=== PATIENT | male | born 1965 | race Caucasian/White ===

== ENCOUNTER 2024-04-27 08:58 | Outpatient (AMB) | payer OTHER, SELFPAY ==
--- NOTE | 2024-04-27 09:06 | MHC.PC.OV ---
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 Needs referral for possible hernia. 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 He states he has not had since prior to the pandemic. He states he has a hx of insomnia and treats it with marijuana. He states he made this appointment because he noticed a lump on right groin area. He states it is not painful unless he has to use the bathroom and he has to hold the lump in. He states it started about 3-4 months ago. It has been overall unchanged. He states he can reduce it on his own. No n/v/d. No constipation. No night sweats. He states when he was around the age of 10-11 he had a hernia repair on the right. 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 1. Little interest or pleasure in doing things: not at all 2. Feeling down, depressed, or hopeless: not at all 3. Trouble falling or staying asleep, or sleeping too much: several days 4. Feeling tired or having little energy: several days 5. Poor appetite or overeating: not at all 6. Feeling bad about yourself - or that you are a failure or have let yourself or your family down: not at all 7. Trouble concentrating on things, such as reading the newspaper or watching television: not at all 8. Moving or speaking so slowly that other people could have noticed. Or the opposite - being so fidgety or restless that you have been moving around a lot more than usual: not at all 9. Thoughts that you would be better off or of hurting yourself in some way: not at all Total score: 2 Depression Screening Interpretation: Negative Depression Screening Done: Yes 82138 - PHQ-9 Billing: Yes Source: Developed by Drs. Paul Barnes, Sherry Franco, Filiberto Lamb and colleagues, with an educational geri from [employer]. Thrive Questionnaire Date Thrive assessed: 04/27/24 I am a: Patient What is your living situation today?: I have a steady place to live Within the past 12 months, did the food you bought not last and you didn't have the money to get more?: Never true Within the past 12 months, did you worry whether your food would run out before you got money to buy more?: Never true Do you have trouble paying for medicines?: No Do you have trouble getting transportation to medical appointments?: No Do you have trouble paying your heating and electricity bill?: No Do you have trouble taking care of your child, family member or friend?: No Do you have trouble with day-to-day activities such as bathing, preparing meals, shopping, managing finances, etc.?: No Are you currently unemployed and looking for a job?: No Are you interested in more education?: No Please select the resources that you would like help with: None Currently or been in a relationship where the following occur: No concerns reported THRIVE Score: 0 AUDIT C Alcohol Use Questionnaire (AUDIT-C) 1. How often do you have a drink containing alcohol?: 2-4 times a month 2. How many drinks containing alcohol do you have on a typical day when you are drinking?: 3 or 4 3. How often do you have six or more drinks on one occasion?: Never Total Score: 3 EDUARDO-7 AMB Questionnaire EDUARDO-7 Date EDUARDO - 7 assessed: 04/27/24 Feeling nervous, anxious, or on edge: 0 = Not at all Not being able to stop or control worryin = Not at all Worrying too much about different things: 0 = Not at all Trouble relaxin = Not at all Being so restless that it is hard to sit still: 0 = Not at all Becoming easily annoyed or irritable: 0 = Not at all Feeling afraid as if something awful might happen: 0 = Not at all Total EDUARDO-7 score (0-4 normal; 5-9 mild; 10-14 moderate; 15-21 severe): 0 Source: Developed by Drs. Paul Barnes, Sherry Franco, Filiberto Lamb and colleagues, with an educational geri from [employer]. EDUARDO-7 Assessment Billing EDUARDO-7 Assessment Tool: EDUARDO-7 Assessment 44772 Physical exam (Primary Care) Vital Signs: Last Vital Signs Temp 98.3 F 04/27/24 09:14 Pulse 64 04/27/24 09:14 Resp 12 04/27/24 09:14 BP 132/76 04/27/24 09:14 Pulse Ox 98 04/27/24 09:14 Oxygen Delivery Method Room Air 04/27/24 09:14 BMI result Body Mass Index 23.4 Tobacco/Smoking Status: Tobacco use Status Tobacco use date assessed 04/27/24 04/27/24 09:12 Patient Tobacco Use Status Former Tobacco user 04/27/24 09:12 e-Cigarette/Vaping Use Never Used 04/27/24 09:12 PHQ-9: PHQ-9 Score PHQ-9: Total score 2 04/27/24 09:20 Depression Screening Interpretation: Negative Thrive Assessment: Date of Thrive Assessment Date Thrive assessed 04/27/24 04/27/24 09:20 Currently or been in a relationship where the following occur: No concerns reported Const Orientation/consciousness: patient oriented x3 HENMT Ears: hearing grossly normal bilaterally and TM's normal bilaterally General nose exam: No nasal polyps present Face and sinus: Yes sinuses nontender Mouth: Normal oral and palatal mucosa present Eyes Pupils: Equal, round and reactive pupils present EOM: EOMs intact bilaterally Neck Neck: Yes full ROM and Yes no lymphadenopathy Thyroid: Thyroid normal Chest Chest palpation & inspection: normal inspection of the chest Resp Auscultation: clear to auscultation bilaterally Cardio Rate: regular rate Rhythm: regular rhythm Heart sounds: S1 normal heart sound present and S2 normal heart sound present Peripheral pulses: Peripheral pulses 2+ throughout GI Other: Soft, nontender, reducible right inguinal lump Auscultation: normal bowel sounds Rectal Exam - Male: Yes deferred General: Yes no CVA tenderness Back/Spine/Pelvis Other: Nontender Back: no CVA tenderness Skin General skin exam: no rashes or lesions noted Neuro General: patient oriented x3, gait normal, CN's II-XI intact bilaterally and deep tendon reflexes 2+ bilaterally Cranial nerves: Yes Equal, round and reactive pupils present Motor exam (neuro): 5/5 motor strength present throughout Sensory Exam: double simultaneous stimulation for sensation normal Coordination: [id number] test normal and Romberg test negative Extrem General: Yes normal to inspection and Yes full ROM Psych Affect: normal affect Attitude: cooperative Thought process: Normal thought process present Thought content: Normal thought content present Insight: Good insight present (Psych) Judgement: Good judgement present (Psych) Assessment and Plan Assessment & Plan (1) Routine general medical examination at a health care facility: Code(s): Z00.00 - Encounter for general adult medical examination without abnormal findings Plan: Health maintenance reviewed. Labs ordered. Referral to GI for a colonoscopy. (2) Right groin hernia: Code(s): K40.90 - Unilateral inguinal hernia, without obstruction or gangrene, not specified as recurrent Plan: Referral to General surgery at [place]. Patient has a appointment booked. We did discuss signs and symptoms of a hernia that would require emergent medical treatment. Patient understands and agrees with this plan. Orders: Orders Complete Blood Count Auto Diff Today Z00.00 - Encounter for general adult medical examination without abnormal findings, Z13.220 - Encounter for screening for lipoid disorders Lipid Panel Today Z00.00 - Encounter for general adult medical examination without abnormal findings, Z13.220 - Encounter for screening for lipoid disorders TSH reflex Free T4 Today Z00.00 - Encounter for general adult medical examination without abnormal findings, Z13.220 - Encounter for screening for lipoid disorders Prostate Specific Antigen Scr Today Z00.00 - Encounter for general adult medical examination without abnormal findings, Z13.220 - Encounter for screening for lipoid disorders Microalbumin, Random (w Creat) Today Z00.00 - Encounter for general adult medical examination without abnormal findings, Z13.220 - Encounter for screening for lipoid disorders Comprehensive [place]. Panel Fast Today Z00.00 - Encounter for general adult medical examination without abnormal findings, Z13.220 - Encounter for screening for lipoid disorders Referrals General Surgery Referral K40.90 - Unilateral inguinal hernia, without obstruction or gangrene, not specified as recurrent Open Access Screening Colonoscopy Referral Z12.11 - Encounter for screening for malignant neoplasm of colon, Z12.12 - Encounter for screening for malignant neoplasm of rectum Coding Level of Care Code New Pt Prev Care 40-64y(59536) Diagnoses Routine general medical examination at a health care facility Z00.00 Right groin hernia K40.90 Additional Codes EDUARDO-7 Assessment Billing - EDUARDO-7 Assessment Tool: EDUARDO-7 Assessment 15927 ([id number])
[2024-04-27 09:14] VITALS: BP 132/76; PULSE 64; RESP 12; TEMP 36.8; O2SAT 98; BMI 23.4
== END 2024-04-27 12:40 | disposition home or self-care (01) ==
PROVIDERS: Visit Provider Physician Assistant
DX: Z00.00 Encounter for general adult medical examination without abnormal findings (principal); K40.90 Unilateral inguinal hernia, without obstruction or gangrene, not specified as recurrent; Z13.31 Encounter for screening for depression
CPT/HCPCS: 96127; 99386

== ENCOUNTER 2024-06-30 08:03 | Outpatient (REF) | payer OTHER, SELFPAY ==
[2024-06-30 11:02] LABS: MANUAL DIFF FLAG NO
[2024-06-30 11:19] LABS: Basophils Absolute Auto 0.1 X10*3/uL (0.0-0.2); Basophils Percent Auto 1.1 % (0-2); Eosinophils Absolute Auto 0.2 X10*3/uL (0.0-0.4); Eosinophils Percent Auto 2.5 % (0-4); Hemoglobin 14.4 g/dl (14.0-18.0); Imm Gran Abs Auto 0.02 X10*3/uL (0.00-0.03); Imm Gran Pct Auto 0.2 % (0.0-0.4); Lymphocytes Absolute Auto 2.2 X10*3/uL (1.2-4.9); Mean Corpuscular HGB Conc 33.5 g/dl (31.0-36.0); Mean Corpuscular Volume 95.6 fL (80.0-98.0); Mean Platelet Volume 10.3 fL (9.4-12.4); Monocytes Absolute Auto 0.7 X10*3/uL (0.1-1.2); Monocytes Percent Auto 8.7 % (2-11); Neutrophils Absolute Auto 4.9 x10*3/uL (2.0-8.3); Neutrophils Percent Auto 60.5 % (45-73); Platelet Count 360 X10*3/uL (160-400); White Blood Count 8.1 X10*3/uL (4.8-10.8)
[2024-06-30 11:46] LABS: Prostate Specific Antigen Scr 0.44 ng/mL (<0.05-4.0)
[2024-06-30 11:48] LABS: Alanine Aminotransferase 24 U/L (0-40); Albumin Level 4.4 g/dL (3.5-5.0); Alkaline Phosphatase 76 U/L (39-117); Anion Gap 13 (12-20); Aspartate Amino Transferase 28 U/L (5-37); Bilirubin Total 0.6 mg/dL (0.0-1.0); Blood Urea Nitrogen 17 mg/dL (9-16); Calcium 9.7 mg/dL (8.4-10.2); Carbon Dioxide 28 mmol/L (22-29); Chloride 104 mmol/L (96-108); Cholesterol 177 mg/dL (<200); Estimated Glomerular Filt Rate > 60; Glucose Fasting 102 mg/dL (60-99); HDL Cholesterol 48 mg/dL (>40); LDL Cholesterol Calculated 116 mg/dL (<100); Potassium 4.3 mmol/L (3.3-5.1); Sodium 141 mmol/L (135-145); TSH reflex Free T4 0.79 uIU/mL (0.32-4.0); Total Protein 7.2 g/dL (6.5-8.0); Triglycerides 68 mg/dL (<150)
[2024-06-30 15:53] LABS: Estimated Average Glucose 103 mg/dL; Hemoglobin A1C 126.1224 umol/L; Hemoglobin A1c % 5.2 % (<6.0)
[2024-06-30 18:22] LABS: Creatinine Urine 91.77 mg/dL; Microalbum/Creatinine Ratio Ur 105.6 ug/mg cr (<30)
== END 2024-06-30 08:04 | disposition home or self-care (01) ==
LOC: HO.WFDLDS 08:03
PROVIDERS: Visit Provider Physician Assistant
DX: Z00.00 Encounter for general adult medical examination without abnormal findings (principal); Z13.220 Encounter for screening for lipoid disorders; Z12.5 Encounter for screening for malignant neoplasm of prostate; Z13.1 Encounter for screening for diabetes mellitus
CPT/HCPCS: 36415; 80053; 80061; 82043; 82570; 83036; 84153; 84443; 85025

== ENCOUNTER 2024-06-30 15:23 | Outpatient (REF) | payer OTHER, SELFPAY | END 2024-06-30 15:24 | disposition home or self-care (01) | LOC: HO.WFDLDS 15:23 | PROVIDERS: Visit Provider Physician Assistant | DX: Z00.00 Encounter for general adult medical examination without abnormal findings (principal) | CPT/HCPCS: 36415 ==

== ENCOUNTER 2024-10-11 08:44 | Outpatient (AMB) | payer OTHER, SELFPAY ==
--- NOTE | 2024-10-11 08:50 | A.OFFPC_ITS ---
Vital Signs 10/11/24 08:59 Height 5 ft 8.5 in Weight 161 lb 4 oz BMI 24.2 BP 110/76 Blood Pressure Location Lt brachial Position Sitting Respiration 12 Pulse 71 Pulse Source Pulse Oximeter Pulse Oximetry (%) 99 Oxygen Delivery Method Room Air Intake Visit Reasons: hypertension and Pres Intake Note: HTN. Went to [place]. Need a work note to go back to work. [employer] Required: No Allergies No Known Allergies Allergy (Verified 10/11/24 08:52) Medication List - Last Reconciled 10/12/24 by Gill Car PA-C aspirin 81 mg PO DAILY carvedilol 12.5 mg PO BID hydralazine 50 mg PO TID levetiracetam 750 mg PO BID multivitamin 1 tab PO DAILY nifedipine ER 60 mg PO DAILY pantoprazole 40 mg PO DAILY pyridoxine (vitamin B6) 50 mg PO DAILY thiamine HCl (vitamin B1) 100 mg PO DAILY Tobacco use date assessed: 04/27/24 Dental Screening Dental Screen Date: 04/27/24 HPI hypertension and Pres HPI Details History of Present Illness The patient is a 59-year-old male with no previous significant past medical history presenting today for a hospital follow up. He was admitted on 09/28/2024 and discharged on 10/05/2024. He was recently seen at [facility] after having headaches, UTI symptoms in a seizure at home. He was diagnosed with suspected posterior reversible encephalopathy syndrome, possible right internal carotid dissection, right hydronephrosis and labile blood pressures. The patient reported persistent headaches starting around the beginning of September, with exacerbation on September 27 with UTI symptoms, prompting urgent care consultation where the patient was diagnosed with a urinary tract infection and treated with Bactrim. Symptoms escalated to loss of consciousness and seizure episodes, leading to an emergency room visit and subsequent admission to intensive care at [facility] following initial management at [facility]. His is here today with him and states that she did witness 1 of the episodes at home and that is what prompted her to call EMS. While he was in the ED at [facility] he was noted to have a witnessed seizure and then was intubated and transferred to [facility] for further management. He was noted to have posterior reversible encephalopathy syndrome due to uncontrolled high blood pressure, likely from a renal source. He was treated with antibiotics, antiepileptic medication, and antihypertensives. While admitted he did not have any additional seizures despite being without alcohol for a few days. It is believe to be a possibility that the seizures could have been induced by alcohol withdrawal as he had not had a drink for a few days prior to the hospitalization. He underwent extensive evaluation, including renal ultrasounds revealing moderate right hydronephrosis and cervical ultrasound suggesting extensive cervical lymphadenopathy. this was biopsied. Results are not yet present. Additionally, a possible internal carotid artery dissection was identified on imaging. CT of head showed hypodensities and right hemisphere, could be concerning for PRES secondary to hypertension versus embolic strokes, right ICA dissection noted on CT. V EEG completed with no seizure activity MRI showed findings that could reflect PRES CT shows extensive left cervical lymphadenopathy. In exam left cervical lymph nodes palpable, not fixed, the largest is about 1 cm. Biopsy was completed on 10/03. No pathology results yet. The patient does tell me today that he has been using Suboxone and prior to admission to the hospital was drinking daily, both unmonitored due to lack of professional addiction intervention. Historical review reveals a significant past medical history of alcohol use disorder, with the patient abstinent for three days prior to hospital admission; a history of opioid use warrants concern due to prolonged Suboxone dependence treated personal attempts at dosing reduction due to leg pain and difficulty in achieving complete cessation. states that he started with prescription pain medication 10-20 years ago and then transitioned himself to Suboxone. He has been getting this from the street. He would be open to addiction Medicine at this point. He states that he did not want to tell me about this at our initial consult because he was embarrassed. He does have a good support system with his . The patient was treated in-hospital with aggressive blood pressure management, antiepileptics (Keppra), and continued on aspirin therapy. The recommendation would be to start statin therapy however this was not started at the time of hospitalization due to possibility of rhabdo that could cause further kidney injury. The idea was to recheck renal function and then start a statin. It was also recommended that he needs a repeat MRI/ MRA of the neck and one-month to follow up on the PRES and Right ICA possible dissection ( per discharge note the MRI/ MRA was ordered by Neurology and patient will be called to schedule). The patient's post-discharge plan indicated the requirement for multidisciplinary follow-ups including nephrology, urology, and neurology consultations to address renal function, right artery concerns, ongoing seizure management, and continued adjustments in blood pressure management strategy. he states that he has already heard from [facility] and has an ultrasound scheduled and then will be given an appointment. Health Maintenance - Cessation of alcohol and tobacco use b ehavior strongly reinforced to reduce health risks. - Aspiration and general cardiovascular health therapy continued: prescribing of aspirin and monitoring of lipid levels. - Initiation of statin therapy considere d post-evaluation of kidney function due to initial lab complications. - Close observation for potential hypert ension complications continued. - Commitment to Suboxone tapering and po ssible transition to addiction therapy discussed. - Reinforcement of adherence to seizure medication (Keppra) and follow-up imaging. - No vaccinations or screenings detailed in this encounter. Social History - Employment status not specified; work involves non-stressful tasks with adequate physical activity. - , with a supportive partner act ively involved in health management. - History of high-risk alcohol use, nota sugar independently reduced with essential supported intervention. - Long-term Suboxone use acknowledged, i ndicative of previous opioid dependency; engagement with addiction services pending. - Generally maintained moderate lifestyl e with controlled diet hastened by appetite suppression post-surgery. Review of Systems - Neurological: Reports experiencing moe quent severe headaches; denies focal neurological deficits outside of hospital-supervised seizure episodes. - Genitourinary: Reports urgency and hem aturia prior to treatment for urinary tract infection; denies current dysuria. - Cardiovascular: Denies present palpita tions or chest pain but has been experiencing perceived severe hypertension. - General: Reports overall fatigue and d iscomfort; denies unexplained weight loss. Physical Exam General: Well developed, well nourished, in no acute distress. Appears stated age. Cardiac: RRR, no murmurs Lungs: clear, equal breath sounds Abdomen: soft, nontender, no CVA tenderness Extremities: no edema Neuro: alert, oriented x3, mood appropriate , cranial nerves 2-12 grossly intact. Strength is 5/5 throughout. Normal gait. Sensation intact. ON LICENSE OF [facility] Medical History (Updated 10/12/24 @ 08:20 by Gill Car PA-C) History of drug abuse Hernia Surgical History (Updated 10/11/24 @ 08:52 by Gill Car PA-C) S/P right inguinal hernia repair Family History (Updated 04/27/24 @ 09:17 by Tiffanie Diane CMA) Paternal Grandfather Glaucoma Social History (Updated 04/27/24 @ 09:10 by Tiffanie Diane CMA) Housing: House Patient Tobacco Use Status: Former Tobacco user Cigarette Packs Per Day: 1.5 Years Smoked: 15 e-Cigarette/Vaping Use: Never Used Second Hand Smoke Exposure: No Substance Use Type: Marijuana service: No Current occupational status: employed 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 1. Little interest or pleasure in doing things: not at all 2. Feeling down, depressed, or hopeless: not at all 3. Trouble falling or staying asleep, or sleeping too much: nearly every day 4. Feeling tired or having little energy: nearly every day 5. Poor appetite or overeating: not at all 6. Feeling bad about yourself - or that you are a failure or have let yourself or your family down: not at all 7. Trouble concentrating on things, such as reading the newspaper or watching television: not at all 8. Moving or speaking so slowly that other people could have noticed. Or the opposite - being so fidgety or restless that you have been moving around a lot more than usual: not at all 9. Thoughts that you would be better off or of hurting yourself in some way: not at all Total score: 6 Source: Developed by Drs. Paul Barnes, Sherry Franco, Filiberto aLmb and colleagues, with an educational geri from [employer]. Thrive Questionnaire Date Thrive assessed: 04/27/24 I am a: Patient What is your living situation today?: I have a steady place to live Within the past 12 months, did the food you bought not last and you didn't have the money to get more?: Never true Within the past 12 months, did you worry whether your food would run out before you got money to buy more?: Never true Do you have trouble paying for medicines?: No Do you have trouble getting transportation to medical appointments?: No Do you have trouble paying your heating and electricity bill?: No Do you have trouble taking care of your child, family member or friend?: No Do you have trouble with day-to-day activities such as bathing, preparing meals, shopping, managing finances, etc.?: No Are you currently unemployed and looking for a job?: No Are you interested in more education?: No Please select the resources that you would like help with: None Currently or been in a relationship where the following occur: No concerns reported THRIVE Score: 0 AUDIT C Alcohol Use Questionnaire (AUDIT-C) 1. How often do you have a drink containing alcohol?: Monthly or less 2. How many drinks containing alcohol do you have on a typical day when you are drinking?: 1 or 2 3. How often do you have six or more drinks on one occasion?: Never Total Score: 1 EDUARDO-7 AMB Questionnaire EDUARDO-7 Date EDUARDO - 7 assessed: 04/27/24 Feeling nervous, anxious, or on edge: 0 = Not at all Not being able to stop or control worryin = Not at all Worrying too much about different things: 0 = Not at all Trouble relaxin = Not at all Being so restless that it is hard to sit still: 0 = Not at all Becoming easily annoyed or irritable: 0 = Not at all Feeling afraid as if something awful might happen: 0 = Not at all Total EDUARDO-7 score (0-4 normal; 5-9 mild; 10-14 moderate; 15-21 severe): 0 Source: Developed by Drs. Paul Barnes, Sherry Franco, Filiberto Lamb and colleagues, with an educational geri from [employer]. Physical exam (Primary Care) Vital Signs: Last Vital Signs Pulse 71 10/11/24 08:59 Resp 12 10/11/24 08:59 BP 110/76 10/11/24 08:59 Pulse Ox 99 10/11/24 08:59 Oxygen Delivery Method Room Air 10/11/24 08:59 BMI result Body Mass Index 24.2 Tobacco/Smoking Status: Tobacco use Status Tobacco use date assessed 04/27/24 10/11/24 08:51 Patient Tobacco Use Status Former Tobacco user 10/11/24 08:51 e-Cigarette/Vaping Use Never Used 10/11/24 08:51 PHQ-9: PHQ-9 Score PHQ-9: Total score 6 10/11/24 13:14 Thrive Assessment: Date of Thrive Assessment Date Thrive assessed 04/27/24 10/11/24 08:51 Currently or been in a relationship where the following occur: No concerns reported Const Orientation/consciousness: patient oriented x3 HENMT Ears: hearing grossly normal bilaterally Neck Thyroid: Thyroid normal Lymphatic: no lymphadenopathy noted Resp Auscultation: clear to auscultation bilaterally Cardio Rate: regular rate Rhythm: regular rhythm Heart sounds: S1 normal heart sound present and S2 normal heart sound present GI Inspection: Yes normal to inspection Palpation (GI): Soft to palpation and Other GI palpation findings present (nontender, no cva tenderness) Auscultation: normoactive bowel sounds Rectal Exam - Male: Yes deferred Skin General skin exam: no rashes or lesions noted Neuro General: patient oriented x3, gait normal and no focal motor deficits Results Reviewed Results Reviewed: Laboratory Tests 06/30/24 06/30/24 08:05 09:15 WBC 8.1 RBC 4.50 L Hgb 14.4 Hct 43.0 Plt Count 360 Sodium 141 Potassium 4.3 Chloride 104 Carbon Dioxide 28 Anion Gap 13 BUN 17 H Creatinine 0.88 Estimated GFR > 60 Fasting Glucose 102 H Hemoglobin A1c % 5.2 AST 28 ALT 24 Alkaline Phosphatase 76 Total Protein 7.2 Albumin 4.4 Triglycerides 68 Cholesterol 177 LDL Cholesterol, Calc 116 H HDL Cholesterol 48 PSA Screen 0.44 TSH 0.79 Urine Creatinine 91.77 Urine Microalbumin 97.0 Microalb/Creat Ratio 105.6 H Ultrasound scrotum and contents: Impression: 1. Small bilateral varicoceles with minimal increase in size with Valsalva maneuver. 2. Incidentally noted moderate right hydronephrosis with debris/complexity seen with in the right renal pelvis, corresponding to findings described on prior CT Renal artery duplex Impression: No prior study for comparison. No evidence of renal artery stenosis. Vein patent bilaterally. MRI brain without contrast Impression: Incomplete in severely motion degraded exam. There is a T2/FLAIR hyperintensity in the right posterior parietal and occipital lobes with no definitive restricted diffusion or hemorrhage. In the appropriate clinical setting, this could reflect posterior reversible encephalopathy syndrome CT angio head/neck: Impression: 1. 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 2. Multiple enlarged left supraclavicular segment level 5 lymph nodes. Differential includes reactive, lymphoproliferative versus metastatic lymphadenopathy. Recommend clinical correlation and follow up with consideration of tissue sampling based on multiple clinical concern. 3. No large vessel occlusion or high-grade stenosis of the major arteries of the head and neck Coding Level of Care Code TCM High MDM <= 7 Days Complex EM visit Add On G2211 Diagnoses Microalbuminuria R80.9 PRES (posterior reversible encephalopathy syndrome) I67.83 History of dissection of internal carotid artery Z86.79 Hydronephrosis, right N13.30 Lymphadenopathy of left cervical region R59.0 Seizure R56.9 BARRETT (acute kidney injury) N17.9 Encounter for monitoring Suboxone maintenance therapy Z51.81; Z79.891 Alcohol abuse F10.10 HTN (hypertension) I10 UTI (urinary tract infection) N39.0 Assessment & Plan Assessment & Plan (1) Microalbuminuria: Code(s): R80.9 - Proteinuria, unspecified Category: Medical Plan: Advised to complete urine today as ordered. Referral to nephrology. Renal function today Reports having an ultrasound booked at the hospital. (2) PRES (posterior reversible encephalopathy syndrome): Code(s): I67.83 - Posterior reversible encephalopathy syndrome Category: Medical Plan: Referral to Neurology. Repeat MRI/MRA of neck in one-month as ordered by Neurology. He will let me know if he does not hear with an appointment time and date and I will order. (3) History of dissection of internal carotid artery: Code(s): Z86.79 - Personal history of other diseases of the circulatory system Category: Medical Plan: Referral to Neurology. Repeat MRI/MRA of neck in one-month as ordered by Neurology. He will let me know if he does not hear with an appointment time and date and I will order. (4) Hydronephrosis, right: Code(s): N13.30 - Unspecified hydronephrosis Category: Medical Plan: Has an ultrasound scheduled. Following with [facility]. Referral placed. (5) Lymphadenopathy of left cervical region: Code(s): R59.0 - Localized enlarged lymph nodes Category: Medical Plan: Request the pathology from [facility] (6) Seizure: Code(s): R56.9 - Unspecified convulsions Category: Medical Plan: Continue on Keppra. Referral to Neurology. No seizures since hospitalization. Aware that he can not drive for 6 months from last seizure. (7) BARRETT (acute kidney injury): Code(s): N17.9 - Acute kidney failure, unspecified Plan: We will recheck renal function today. 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 Blood pressure today in the office is WNL. Does have a recording of his readings at home and they have been normal. We will continue current regimen. (11) UTI (urinary tract infection): Code(s): N39.0 - Urinary tract infection, site not specified Category: Medical Plan: resolved Plan 55 minutes spent today in face to face time with pt, reviewing chart, reviewing hospitalization, reconciling medications Orders: Orders Complete Blood Count Auto Diff 10/11/24 I67.83 - Posterior reversible encephalopathy syndrome, R80.9 - Proteinuria, unspecified, Z86.79 - Personal history of other diseases of the circulatory system TSH reflex Free T4 10/11/24 I67.83 - Posterior reversible encephalopathy syndrome, R80.9 - Proteinuria, unspecified, Z86.79 - Personal history of other diseases of the circulatory system Comprehensive Met. Panel 10/11/24 I67.83 - Posterior reversible encephalopathy syndrome, R80.9 - Proteinuria, unspecified, Z86.79 - Personal history of other diseases of the circulatory system Hemoglobin A1c 10/11/24 I67.83 - Posterior reversible encephalopathy syndrome, R73.01 - Impaired fasting glucose, R80.9 - Proteinuria, unspecified, Z86.79 - Personal history of other diseases of the circulatory system UA CC w/rflx Micro + Cult 10/11/24 I67.83 - Posterior reversible encephalopathy syndrome, R80.9 - Proteinuria, unspecified, Z13.220 - Encounter for screening for lipoid disorders, Z86.79 - Personal history of other diseases of the circulatory system Referrals Neurology Referral I67.83 - Posterior reversible encephalopathy syndrome, R56.9 - Unspecified convulsions, Z86.79 - Personal history of other diseases of the circulatory system Nephrology Referral I10 - Essential (primary) hypertension, I67.83 - Posterior reversible encephalopathy syndrome, N13.30 - Unspecified hydronephrosis, R80.9 - Proteinuria, unspecified Addiction Medicine Referral F10.11 - Alcohol abuse, in remission, Z51.81 - Encounter for therapeutic drug level monitoring, 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
[2024-10-11 08:59] VITALS: BP 110/76; PULSE 71; RESP 12; O2SAT 99; BMI 24.2
--- OUTSIDE RECORDS SUMMARY | 2024-10-11 09:28 | XMS_ITS | Continuity of Care Document ---
Author Organization [facility] ter Address [address] [place] [id number] Care Team Providers Care Discovery Manager Name Role Phone Gill Wilde Primary Care Physician [phone] Encounter [facility] Date(s): 09/28/24 - 10/05/[address] [address] Discharge Disposition: A-D/C Home Attending Physician: Ana Maria HERNANDEZ, Junior Montoya Admitting Physician: Ailyn Ornelas MD Referring Physician: Not on Staff, Referring MD Encounter Type: Disch IP Allergies, Adverse Reactions, Alerts No Known Medication Allergies Medications aspirin 81 mg oral tablet, chewable = 81 mg, Orogastric Tube, Daily, # 30 tablet, 0 Refills, Maintenance, 10/05/24 4:19:00 PM EST, Chew Tablet, [facility], Partial fill upon patient request if the prescription is for a schedule II opioid drug., 175, cm, 10/05/24 4:25:00 EST, Height, 65.7, kg, 09/28/24 6:27:00 EST, Dry Weight Start Date: 10/05/24 Status: Ordered Quantity: 30.0 Unit: tablet Repeat number: 1 Coreg 12.5 mg oral tablet 12.5 mg, By Mouth, 2 times a day, # 30 tablet, Refills 0, Tot. Refills 0, Maintenance, 10/05/24 4:19:00 PM EST, Route to Pharmacy Electronically, [facility], Partial fill upon patient request if the prescription is for a schedule II opioid drug., 175, cm, 10/05/24 4:25:00 EST, Height, 65.7, kg, 09/28/24 6:27:00 EST, Dry Weight Start Date: 10/05/24 Status: Ordered Quantity: 30.0 Unit: tablet Repeat number: 1 Coreg 12.5 mg oral tablet 12.5 mg, Tablet, By Mouth, 10/05/24 9:00:00 AM EST Start Date: 10/05/24 Stop Date: 10/05/24 Status: Completed Repeat number: 1 folic acid 1 mg oral tablet 1 mg, By Mouth, Daily, # 30 tablet, Refills 0, Tot. Refills 0, Maintenance, 10/05/24 4:19:00 PM EST,Route to Pharmacy Electronically, [facility], Partial fill upon patient request if the prescription is for a schedule II opioid drug., 175, cm, 10/05/24 4:25:00 EST, Height, 65.7, kg, 09/28/24 6:27:00 EST, Dry Weight Start Date: 10/05/24 Status: Ordered Quantity: 30.0 Unit: tablet Repeat number: 1 hydrALAZINE 25 mg oral tablet 50 mg, By Mouth, 3 times a day, # 150 tablet, Refills 0, Tot. Refills 0, Maintenance, 10/05/24 4:19:00 PM EST, Route to Pharmacy Electronically, [facility], Partial fill upon patient request if the prescription is for a schedule II opioid drug., 175, cm, 10/05/24 4:25:00 EST, Height, 65.7, kg, 09/28/24 6:27:00 EST, Dry Weight Start Date: 10/05/24 Status: Ordered Quantity: 150.0 Unit: tablet Repeat number: 1 hydrALAZINE 25 mg oral tablet 50 mg, Tablet, By Mouth, 10/05/24 3:00:00 PM EST Start Date: 10/05/24 Stop Date: 10/05/24 Status: Completed Repeat number: 1 Keppra 250 mg oral tablet = 750 mg, By Mouth, 2 times a day, # 60 tablet, 0 Refills, Maintenance, 10/05/24 4:19:00 PM EST, Tablet, [facility], Partial fill upon patient request if the prescription is for a schedule II opioid drug., 175, cm, 10/05/24 4:25:00 EST, Height, 65.7, kg, 09/28/24 6:27:00 EST, Dry Weight Start Date: 10/05/24 Status: Ordered Quantity: 60.0 Unit: tablet Repeat number: 1 multivitamin with minerals Multiple Vitamins with Minerals oral tablet 1 tablet, Orogastric Tube, Daily, # 30 tablet, 0 Refills, Maintenance, 10/05/24 4:20:00 PM EST, Tablet, [facility], Partial fill upon patient request if the prescription is for a schedule II opioid drug., 1 tablet Orogastric Tube Daily, 175, cm, 10/05/24 4:25:00 EST, Height, 65.7, kg, 09/28/24 6:27:00 EST, Dry Weight Start Date: 10/05/24 Status: Ordered Quantity: 30.0 Unit: tablet Repeat number: 1 Neuriva Brain performance Plus By Mouth, Daily, 0 Refills, Maintenance, 05/02/24 2:13:00 PM EDT, Partial fill upon patient request if the prescription is for a schedule II opioid drug. Start Date: 05/02/24 Status: Ordered Repeat number: 1 NIFEdipine 60 mg oral tablet, extended release 120 mg, By Mouth, Daily, # 30 tablet, Refills 0, Tot. Refills 0, Maintenance, 10/05/24 4:20:00 PM EST, Route to Pharmacy Electronically, [facility], Partial fill upon patient request if the prescription is for a schedule II opioid drug., 175, cm, 10/05/24 4:25:00 EST, Height, 65.7, kg,09/28/24 6:27:00 EST, Dry Weight Start Date: 10/05/24 Status: Ordered Quantity: 30.0 Unit: tablet Repeat number: 1 pantoprazole 40 mg oral delayed release tablet = 40 mg, By Mouth, Daily, # 30 tablet, 0 Refills, Maintenance, 10/05/24 4:20:00 PM EST, EC Tablet, 175, cm, 10/05/24 4:25:00 EST, Height, 65.7, kg, 09/28/24 6:27:00 EST, Dry Weight Start Date: 10/05/24 Status: Ordered Quantity: 30.0 Unit: tablet Repeat number: 1 pyridoxine 50 mg oral tablet 50 mg, Orogastric Tube, Daily, # 30 tablet, Refills 0, Tot. Refills 0, Acute 11/02/24 9:00:00 AM EDT, 10/05/24 4:20:00 PM EST, Route to Pharmacy Electronically, [facility], Partial fill upon patient request if the prescription is for a schedule II opioid drug., 175, cm, 10/05/24 4:25:00 EST, Height, 65.7, kg, 09/28/24 6:27:00 EST, Dry Weight Start Date: 10/05/24 Stop Date: 11/02/24 Status: Ordered Quantity: 30.0 Unit: tablet Repeat number: 1 thiamine 100 mg oral tablet 100 mg, By Mouth, Daily, # 30 tablet, Refills 0, Tot. Refills 0, Acute 11/02/24 9:00:00 AM EDT, 10/05/24 4:20:00 PM EST, Route to Pharmacy Electronically, [facility], Partial fill upon patient request if the prescription is for a schedule II opioid drug., 175, cm, 10/05/24 4:25:00 EST, Height, 65.7, kg, 09/28/24 6:27:00 EST, Dry Weight Start Date: 10/05/24 Stop Date: 11/02/24 Status: Ordered Quantity: 30.0 Unit: tablet Repeat number: 1 Problem List Condition Confirmation Course Effective Dates Status [facility] Informant Hernia, inguinal Confirmed Active Results Radiology Reports * Exam Date Time Procedure Performing Provider Status 10/05/24 9:53 AM US Scrotum and Contents Michelle Castellanos; Auth (Verified) Notes: (US Scrotum and Contents) Reason For Exam: PRES, elevated testosterone, ?tumor;Other: RESULT: US Scrotum and Contents US Scrotum and Contents Reason: PRES, elevated testosterone, ?tumor; Clinical Question(s): r o mass COMPARISON: CT abdomen and pelvis 09/27/2024. TECHNIQUE: High-resolution sonography with grayscale and color Doppler analysis. FINDINGS: RIGHT: Right testicle size: 4.7 x 1.7 x 2.6 cm (10.9 cc). Well marginated anechoic lesion within the testicle with an imperceptible wall and no flow in colorconsistent with simple testicular cyst measuring 5 x 4 x 4 mm. Otherwise normal right testicle size, contour and echotexture without focal lesions. Normal color Doppler appearance. Incidentally noted epididymal appendage measuring 3 x 2.2 mm. The epididymis is otherwise unremarkable. Small varicocele with minimal increase in size with Valsalva maneuver. LEFT: Left testicle size: 4.3 x 2.0 x 2.8 cm (12.8 cc). Normal left testicle size, contour and echotexture without focal lesions. Normal arterial and venous waveforms. The epididymis is unremarkable. Small varicocele with minimal increase in size with Valsalva maneuver. OTHER FINDINGS: Incidentally noted moderate hydronephrosis of the right kidney with complex appearance of right renal pelvis. Renal vein is patent. This corresponds to findings described on CT abdomen and pelvis 09/27/2024. IMPRESSION: 1. Small bilateral varicoceles with minimal increase in size with Valsalva maneuver. 2. Incidentally noted moderate right hydronephrosis with debris/complexity seen within the right renal pelvis, corresponding to findings described on prior CT. I have personally reviewed the images and I agree with this report. WSN: [id number] Ordering Physician: Natacha Yancey Dictated By: Sampson Dunlap DO Dictated Date/Time: 10/05/24 10:38 a Reviewed By: Hetal Aceves MD Signed By: Hetal Aceves MD Signed Date/Time: 10/05/24 10:43 am Transcribed By: JEM Transcribed Date/Time: 10/05/24 10:21 am * Exam Date Time Procedure Performing Provider Status 10/03/24 1:34 PM IR End of Case Report Mod ified IR End of Case Report * Exam Date Time Procedure Performing Provider Status 10/03/24 1:[address]/ US Image Guide Biopsy Germán Tompkins E; Auth (Verified) Notes: (CT/ US Image Guide Biopsy) Reason For Exam: Cervical lymphadenopathy, ?malignancy CT/ US Image Guide Biopsy Patient: SUZYHETAL Oquendo Study Date: 10/03/2024 Performing: Shelley Hou PA-C Referring: : 1965 Age: 59 Gender: MALE PROCEDURE: US Guided Biopsy of left cervical lymph node INDICATION: lymphadenopathy. Concern for malignancy. DIRECTOR VOLUNTEER SERVICES(S): Shelley Hou PA-C and Sally Porras MD ANESTHESIA: 1% lidocaine was administered for local anesthesia. TECHNIQUE: Informed consent was obtained. Limited ultrasound evaluation of left cervical lymph nodes was performed. A suitable access site was identified, marked, prepped and draped in standard sterile fashion. One percent lidocaine was administered for local anesthesia. Under continuous real-time ultrasound guidance, 2 core biopsies and 1 FNA were performed using 18G super core and 23G heparinized needles. Tissue samples were submitted to pathology and flow cytometry . A post procedure scan was performed. The patient was discharged from the radiology department in stable condition. FINDINGS: Ultrasound examination demonstrated left cervical lymph nodes . The lymph node was biopsied as described above. The post biopsy scan demonstrated no hematoma or bleeding. IMPRESSION: Successful, uncomplicated, ultrasound guided biopsy of left cervical lymph node. Signed By Shelley Hou PA-C On 10/03/2024 2:46:34 PM Signed By Shelley Hou PA-C On 10/03/2024 2:46:34 PM Shelley Hou PA-C Equipment : LOVEThESIGN 18 X 6 Dictated By: Shelley Conti Dictated Date/Time: 10/03/24 1:34 pm Reviewed By: Shelley Conti Signed By: Shelley Conti Signed Date/Time: 10/03/24 1:34 pm Transcribed By: PHIL Transcribed Date/Time: 10/03/24 1:34 pm * Exam Date Time Procedure Performing Provider Status 10/01/24 10:40 AM Chest Portable Funmilayo Haji; Auth (Verified) Notes: (Chest Portable) Reason For Exam: Fever RESULT: Chest Portable Chest Portable Reason: Fever; Clinical Question(s): Other: COMPARISON: 09/28/2024 FINDINGS: LINES AND TUBES: None. LUNGS AND PLEURA: Clear lungs. Normal pulmonary vascularity. No pleural effusion. No pneumothorax. HEART, MEDIASTINUM AND ALICIA: Heart is normal in size. Minimal aortic atherosclerosis at the arch BONES AND SOFT TISSUES: No acute abnormality. IMPRESSION: No acute abnormality. WSN: [id number] Ordering Physician: Jose Maria Garcia Dictated By: Isabel Bedolla MD Dictated Date/Time: 10/01/24 11:43 a Reviewed By: Isabel Bedolla MD Signed By: Isabel Bedolla MD Signed Date/Time: 10/01/24 11:43 am Transcribed By: JEM Transcribed Date/Time: 10/01/24 11:42 am * Exam Date Time Procedure Performing Provider Status 09/30/24 2:07 AM MRI Brain W/O Contrast David Wetzel ; Nando (Verified) Notes: (MRI Brain W/O Contrast) Reason For Exam: Seizure Disorder RESULT: MRI Brain W/O Contrast MRI Brain W/O Contrast INDICATION / CLINICAL QUESTION: Reason: Seizure Disorder; Clinical Question(s): Infarction; Tumor; Order Comment: Please see Reference Text for complete list of contraindications Infarction TECHNIQUE: MRI of the brain was performed without contrast utilizing sagittal T1, axial T1, axial T2, coronal T2, axial FLAIR, axial SWAN, and axial DWI sequences. Motion compensation technique was utilized on multiple sequences. The patient was unable to tolerate the entire seizure protocol exam with and without contrast, and it was terminated after acquisition of these sequences. COMPARISON: Head CT and CTA 09/27/2024 FINDINGS: Image quality is degraded by patient motion. BRAIN and EXTRA-AXIAL SPACES: There is T2/FLAIR hyperintensity along the cortex and white matter ofthe right parietal and occipital lobes with no definite restricted diffusion, which corresponds to the hypodensities on head CT. No definite hemorrhage, but the Juda imaging is severely motion degraded. Grossly symmetric hippocampal formations. No definite acute infarct. There is no hemorrhage, midline shift, or mass effect. There is no large extra- axial collection. EXTRACRANIAL SOFT TISSUES: Orbits are unremarkable. Paranasal sinuses and mastoids are unremarkable. BONES: Marrow signal is preserved. IMPRESSION: Incomplete and severely motion degraded exam. There is T2/FLAIR hyperintensity in the right posterior parietal and occipital lobes with no definite restricted diffusion or hemorrhage. In the appropriate clinical setting, this could reflect posterior reversible encephalopathy syndrome. WSN: [id number] Ordering Physician: Elda Chaidez Dictated By: Connie Rausch MD Dictated Date/Time: 09/30/24 8:14 am Reviewed By: Connie Rausch MD Signed By: Connie Rausch MD Signed Date/Time: 09/30/24 8:14 am Transcribed By: JEM Transcribed Date/Time: 09/30/24 8:01 am * Exam Date Time Procedure Performing Provider Status 09/28/24 5:37 AM Chest Portable Nelson Lugo; Nando (Verified) Notes: (Chest Portable) Reason For Exam: Tube Placement RESULT: Chest Portable Chest Portable Reason: Tube Placement; Clinical Question(s): Tube Placement / Tube Placement COMPARISON: 09/27/2024 FINDINGS: LINES AND TUBES: Endotracheal tube ends 3.4 cm above the jasmin. Enteric tube tip and side-port project in the stomach. LUNGS AND PLEURA: Clear lungs. Normal pulmonary vascularity. No pleural effusion. No pneumothorax. HEART, MEDIASTINUM AND ALICIA: Heart is normal in size. Normal mediastinal and hilar contour. BONES AND SOFT TISSUES: No acute abnormality. IMPRESSION: Support structures as above. Clear lungs. WSN: [id number] Ordering Physician: Jose Maria Garcia Dictated By: Brent Hylton MD Dictated Date/Time: 09/28/24 10:22 a Reviewed By: Brent Hylton MD Signed By: Brent Hylton MD Signed Date/Time: 09/28/24 10:22 am Transcribed By: JEM Transcribed Date/Time: 09/28/24 10:21 am Vital Signs Most recent to oldest [Reference Range]: 1 2 3 Height 175 cm (10/05/24 4:25 AM) 175 cm (10/05/24 12:45 AM) 175 cm (10/04/24 8:38 PM) Weight 67.7 kg (09/29/24 4:32 AM) 65.5 kg (09/28/24 6:27 AM) 65.5 kg (09/28/24 5:21 AM) Oxygen Saturation [94-100 %] 99 % (10/05/24 3:00 PM) 99 % (10/05/24 11:00 AM) 100 % (10/05/24 7:15 AM) Pulse Rate [55-90 bpm] 81 bpm (10/05/24 3:00 PM) 80 bpm (10/05/24 11:00 AM) 95 bpm *H* (10/05/24 9:15 AM) Body Mass Index [18.5-24.99 kg/m2] 21.39 kg/m2 (09/28/24 6:27 AM) 21.39 kg/m2 (09/28/24 5:21 AM) Blood Pressure [90-138/55-84 mm Hg] 142/92mm Hg *H* (10/05/24 3:00 PM) 142/92mm Hg *H* (10/05/24 1:42 PM) 141/81mm Hg *H* (10/05/24 11:00 AM) Respiratory Rate [16-30 br/min] 19 br/min (10/05/24 3:00 PM) 20 br/min (10/05/24 11:00 AM) 20 br/min (10/05/24 7:15 AM) Temperature [96.8-100.4 DegF] 98.4 DegF (10/05/24 3:00 PM) 97.8 DegF (10/05/24 11:00 AM) 98 DegF (10/05/24 7:15 AM) Liters per Minute 3 L/min (09/30/24 12:00 AM) 3 L/min (09/29/24 11:00 PM) 3 L/min (09/29/24 10:00 PM) Mode of Delivery (Oxygen) Room air (10/05/24 3:00 PM) Room air (10/05/24 11:00 AM) Room air (10/05/24 7:15 AM) Blood pressure sites Arm, left (10/05/24 3:00 PM) Arm, left (10/05/24 11:00 AM) Arm, left (10/05/24 7:15 AM) Temperature Route Temporal (10/05/24 3:00 PM) Temporal (10/05/24 11:00 AM) Temporal (10/05/24 7:15 AM) Dry Weight 65.7 kg (09/28/24 6:27 AM) 65.7 kg (09/28/24 5:21 AM) Weight Obtained Via Bed scale (09/28/24 5:21 AM) Social History Social History Type Response Smoking Status Former smoker, quit more than 30 days ago entered on: 05/02/24 Sex Sex Representation Male (finding) Admission evaluation note * Jose Maria Garcia MD: PERFORM, MODIFY, MODIFY, MODIFY, MODIFY, MODIFY Event Display: Admission Note Authored Date: [id number] Patient: ??HETAL SHIRLEY ? Age:??59 Years?Sex:??Male?:??1965?? Chief Complaint/Reason for Consultation Seizures History of Present Illness Hetal is a 59 years old patient with no known medical history besides known alcohol use for the past year, who initially presented to urgent care today for dysuria and hematuria over the last week,diagnosed with a UTI and started on Bactrim per external Rx.?? After taking 1 dose he developed epigastric abdominal discomfort, felt dizzy and lightheaded, and had a possible syncopal episode at home, so he was taken to [facility].?? Patient significant other reported that he was confused and disoriented after that syncopal episode, however by the time that he arrived to be seen [facility], he was alert and oriented to person, place, and time. ?? On arrival to [facility], he was alert and oriented to person, place, and time.?? He was afebrile, tachycardic, and significantly hypertensive.?? He was also hypoxic requiring 15 L ofO2 via nonrebreather.?? While he was being assessed by the nurse, he was noted to have a 1-2-minute episode of generalized tonic-clonic seizures, and he was given several doses of IV benzodiazepine and his seizure activity stopped.?? He was also loaded with 3 g of Keppra.? Review of Systems Unable to be??obtained, patient intubated and sedated. Objective Vital Signs?? Temperature: 99 DegF (09/28/24 06:27:00) Temperature Route: Oral (09/28/24 06:27:00) Pulse Rate: 65 bpm (09/28/24 06:27:00) Heart Rate Monitored: 65 bpm (09/28/24 05:00:00) Respiratory Rate: 20 br/min (09/28/24 06:27:00) Systolic Blood Pressure: 118 mm Hg (09/28/24 06:27:00) Diastolic Blood Pressure:??85 mm Hg??High (09/28/24 06:27:00) Blood pressure sites: Arm, left (09/28/24 06:27:00) Mean Arterial Pressure: 96 mm Hg (09/28/24 06:27:00) Pulse Pressure: 33 mm Hg (09/28/24 06:27:00) Oxygen Saturation: 100 % (09/28/24 05:00:00) Liters per Minute: 15 L/min (09/27/24 18:00:00) Mode of Delivery (Oxygen): Ventilator (09/28/24 05:00:00) FiO2: 30 % (09/28/24 06:15:00) End Tidal CO2: 27 mm Hg (09/28/24 05:00:00) ? Physical Exam General:??No acute distress Respiratory:??No increased work of breathing Cardiovascular:??Normal rate, regular rhythm Abdomen:??Soft Neurologic:??Eyes equal and reactive, has a cough and a gag reflex. Draws to upper extremities, unable to assess a full neuro exam given patient is heavily sedated Assessment/Plan Hetal is a 59 years old patient with no known medical history besides known alcohol use for the past year, who initially presented to urgent care today for dysuria and hematuria over the last week,diagnosed with a UTI and started on Bactrim, had??epigastric discomfort and syncope at home, taken to [facility] where he had a witnessed seizure, loaded with 3g of KEppra, subsequently intubated for guppybreathing and grunting ,??and transferred to [facility]. ?? Seizures, likely 2/2 alcohol withdrawal Intubated for airway protection on 09/27 Patient does not have a history of seizures.?? He has been drinking alcohol daily for the past??year.?? No history of??alcohol withdrawal??or alcohol withdrawal seizures.?? CT head??on admission??to [facility]??WNL. ???Continue fentanyl drip, goal CPOT less than 2 ??? Continue propofol??drip goal RASS -1 ??? Continue Versed drip ??? Continue Keppra at 500 mg twice daily ?Neuroconsult for video EEG??and further recommendations ?Please consider other infectious etiologies??in case patient??does not improve, however low suspicion given patient is afebrile, and??per the ED note at [facility], he had no??neck rigidity??or meningismus ?Ordered??U-Tox ??? Continue high-dose thiamine, folic acid, multivitamins ?? ?UTI Presented to urgent care with dysuria and hematuria over the past week, given bactrim on 09/27 - Started ceftriaxone - UA with hold for culture ?Quality Metrics: Diet: NPO DVT/VTE Prophylaxis: PCBs for now in case patient needs a procedure such as an LP CODE STATUS: Full, presumed ?? Patient has been??seen and discussed [facility] Slater[facility] Jose Maria??MD [facility] ? Histories Allergies Allergies ?(Active and Proposed Allergies Only) No Known Medication Allergies? (Severity: Unknown severity, Onset: Unknown) ? Past Medical History/Problem List Active Problems(1) Hernia, inguinal ? Past Surgical History History of inguinal hernia surgery ? Social History Alcohol Details:??Use: Current. Substance Abuse Details:??Use: Current. ??Type: Marijuana. Tobacco Details:??Use: Former smoker, quit more than 30 days ago. ? Family History Mother: Healthy adult Father: Diabetes mellitus Sister: Healthy adult Brother: Healthy adult ? Medications Home Medications Multivitamin (Neuriva Brain performance Plus)??By Mouth Daily ? Inpatient Medications Medications (7) Active SCHEDULED: (1) Famotidine 10 mg/mL Inj (Famotidine Inj) ??20 mg 2 mL, IV Push Slowly, Every 12 hours CONTINUOUS: (3) Fentanyl 1000mcg/100mL NaCL 1,000 mcg (FENTanyl 1000mcg / 100mL NaCl 1,000 mcg) ??1,000 mcg 100 mL,IV Infusion Midazolam 100mg / 100mL NaCL 100 mg (Versed 100mg / 100mL NaCL (Titrate) 100 mg) ??100 mg 100 mL, IV Infusion Propofol 10mg/mL Cont IV (100mL) 1,000 mg (Propofol 1% /100 mL 1,000 mg) ??1,000 mg 100 mL, IV Infusion PRN: (3) Bisacodyl 10 mg Suppository (Bisacodyl Supp) ??10 mg 1 supp, Rectally, 2 times a day Docusate Sodium 10 mg/mL Liquid UD (Colace Liquid) ??100 mg 10 mL, By Mouth, 2 times a day Magnesium Hydroxide 8% Susp UD (Milk of Magnesia Liquid) ??30 mL, By Mouth, 2 times a day ? Results Recent Labs BLOOD COUNT & DIFF WBC 15.4 k/mm3 (High)?? 09/28/2024 05:35 RBC 3.88 m/mm3 (Low)?? 09/28/2024 05:35 Hgb 12.2 Gm/dL (Low)?? 09/28/2024 05:35 Hct 36.4 % (Low)?? 09/28/2024 05:35 MCV 93.8 femtoliters ()?? 09/28/2024 05:35 MCH 31.4 pg ()?? 09/28/2024 05:35 MCHC 33.5 Gm/dL ()?? 09/28/2024 05:35 Platelet Count 381 k/mm3 ()?? 09/28/2024 05:35 RDW-SD 43.8 femtoliters ()?? 09/28/2024 05:35 MPV 9.9 femtoliters ()?? 09/28/2024 05:35 Nucleated RBC (Automated) 0.0 #/100 WBC'S ()?? 09/28/2024 05:35 Abs. NRBC 0.0 k/mm3 ()?? 09/28/2024 05:35 Abs. Neut 13.2 k/mm3 (High)?? 09/28/2024 05:35 Abs. Lymph 0.9 k/mm3 ()?? 09/28/2024 05:35 Abs. Antelope 1.2 k/mm3 ()?? 09/28/2024 05:35 Abs. Eo 0.0 k/mm3 ()?? 09/28/2024 05:35 Abs. Baso 0.0 k/mm3 ()?? 09/28/2024 05:35 Neut % 86.2 % (High)?? 09/28/2024 05:35 Lymph % 4.3 % (Low)?? 09/28/2024 05:35 Antelope % 7.8 % ()?? 09/28/2024 05:35 Eos % 0.0 % ()?? 09/28/2024 05:35 Baso % 0.0 % ()?? 09/28/2024 05:35 Atypical Lymph % 1.7 % ()?? 09/28/2024 05:35 Imm Gran 0.8 % ()?? 09/27/2024 17:35 Abs. Imm Gran 0.2 k/mm3 ()?? 09/27/2024 17:35 ?? BLOOD GAS pH 7.38 ()?? 09/28/2024 06:15 pCO2 40 mm Hg ()?? 09/28/2024 06:15 pO2 124 mm Hg (High)?? 09/28/2024 06:15 Bicarbonate, Estimated 23 mmol/L ()?? 09/28/2024 06:15 Specimen Type - Blood Gas ARTERIAL ()?? 09/28/2024 06:15 Percent O2 (FIO2) 30% ()?? 09/28/2024 06:15 ?? CARDIAC CK, Total 330 units/L (High)?? 09/27/2024 21:14 High Sensitivity Troponin (HSTnT) 30 ng/L (High)?? 09/27/2024 21:14 ?? CHEM GENERAL Sodium 144 mmol/L ()?? 09/27/2024 17:35 Potassium 4.6 mmol/L ()?? 09/27/2024 17:35 Chloride 97 mmol/L (Low)?? 09/27/2024 17:35 Bicarbonate Level 16 mmol/L (Low)?? 09/27/2024 17:35 Anion Gap 31 mmol/L (High)?? 09/27/2024 17:35 Glucose Level 273 mg/dL (High)?? 09/27/2024 17:35 Glucose, POC 92 mg/dL ()?? 09/28/2024 05:40 BUN 20 mg/dL ()?? 09/27/2024 17:35 Creatinine-Blood 1.37 mg/dL (High)?? 09/27/2024 17:35 Estimated GFR Creatinine 60 ML/MIN/1.73 M2 ()?? 09/27/2024 17:35 Calcium 10.6 mg/dL (High)?? 09/27/2024 17:35 Magnesium 3.3 mg/dL (High)?? 09/27/2024 17:35 Protein, Total 9.0 Gm/dL (High)?? 09/27/2024 17:35 Albumin 4.8 Gm/dL ()?? 09/27/2024 17:35 AG Ratio 1.1 ()?? 09/27/2024 17:35 Alkaline Phosphatase 117 units/L ()?? 09/27/2024 17:35 Lipase, Serum/Plasma 21 units/L ()?? 09/27/2024 17:35 AST (SGOT) 26 units/L ()?? 09/27/2024 17:35 ALT (SGPT) 16 units/L ()?? 09/27/2024 17:35 Bilirubin, Total 0.3 mg/dL ()?? 09/27/2024 17:35 Lactate 1.0 mmol/L ()?? 09/28/2024 01:17 ?? HEME OTHER Hold Blue Top SPECIMEN DISCARDED AFTER 4 HOURS. ()?? 09/27/2024 17:35 ?? MISC. CHEMISTRY Hold Gel Top SPECIMEN DISCARDED AFTER 1 WEEK ()?? 09/27/2024 17:35 Hold Dodge Top SPECIMEN DISCARDED AFTER 1 WEEK ()?? 09/27/2024 17:35 ?? TOXICOLOGY/TDM Ethanol, Serum or Plasma NONE DETECTED mg/dL ()?? 09/27/2024 17:35 ?? UA/URINALYSIS Appear/Color, Urine LIGHT YELLOW ()?? 09/27/2024 17:12 Clarity CLOUDY (Abnormal)?? 09/27/2024 17:12 Specific [place], Urine >1.030 (High)?? 09/27/2024 17:12 pH, Urine 5.5 ()?? 09/27/2024 17:12 Albumin, Urine 2+ (Abnormal)?? 09/27/2024 17:12 Glucose, Urine 4+ (Abnormal)?? 09/27/2024 17:12 Ketones, Urine 1+ (Abnormal)?? 09/27/2024 17:12 Bilirubin, Urine NEGATIVE (N)?? 09/27/2024 17:12 Hemoglobin, Urine 3+ (Abnormal)?? 09/27/2024 17:12 Nitrite, Urine NEGATIVE (N)?? 09/27/2024 17:12 Leukocyte, Urine NEGATIVE (N)?? 09/27/2024 17:12 Urobilinogen NORMAL mg/dL (N)?? 09/27/2024 17:12 WBC's, Urine 1 /HPF ()?? 09/27/2024 17:12 RBC's, Urine 6 /HPF (High)?? 09/27/2024 17:12 Hyaline Cast 4 LPF (High)?? 09/27/2024 17:12 Uric Acid Crystals HEAVY /HPF ()?? 09/27/2024 17:12 Mucus SLIGHT /LPF ()?? 09/27/2024 17:12 Hold Urine Culture Testing available 48 hours from time of collection. ()?? 09/27/2024 17:12 ?? URINE OTHER Est Creatinine Clearance 54.62 mL/min ()?? 09/27/2024 18:06 ?? VIROLOGY Influenza A PCR NEGATIVE ()?? 09/27/2024 21:04 Influenza B PCR NEGATIVE ()?? 09/27/2024 21:04 RSV PCR NEGATIVE ()?? 09/27/2024 21:04 COVID-19 PCR Specimen Source NASAL ()?? 09/27/2024 21:04 COVID-19 PCR Result NEGATIVE ()?? 09/27/2024 21:04 ? Cardiology * Event Display: VL Renal Artery Doppler Authored Date: [id number] Demographics Procedure Information Patient name: CASPER FONG Procedure date: 10/04/2024 11:35 AM Corporate Proc. sub type: Abdominal: Renal, Arterial Duplex Complete Renal. Gender: Male Accession No: [id number] Date of : 1965 Account No: [id number] Age: 59 year(s) Patient status: Routine Admit Status: Inpatient Procedure Staff Probe: C 1-6 Attending Physician: Maryana Zavala MD Technical quality: Adequate visualization Ordering physician: Luisito Dalal MD Facility: [facility] Referring Physician: Luisito Dalal MD Study location: [facility] Echocardiographer: Sana Barajas RVT, RDMS Interpreting physician: Hetal Aceves MD Procedure consent obtained: No Indications Hypertension. Aorta Findings AP DIAM Location PSV (cm/s) EDV (cm/s) (cm) Trans Diam (cm) Wave Description Prox Aorta 104.5 Renal Artery Findings Right Left Location PSV (cm/s) EDV (cm/s) RAR PSV (cm/s) EDV (cm/s) RAR Ostial Renal 58.3 13 0.56 109.9 30.9 1.05 Prox Renal 83.7 20.3 0.8 123.2 48.7 1.18 Mid Renal 131.7 26.1 1.26 167.9 51.7 1.61 Dist Renal 108.4 22.5 1.04 132.2 50.6 1.27 Right kidney RAR: 1.26 Left kidney RAR: 1.61 Arcuate Arteries Right Left Location PSV (cm/s) EDV (cm/s) RI PSV (cm/s) EDV (cm/s) RI Upper P. Cortex 17.1 5.8 0.66 25.7 9.8 0.62 Mid P. Cortex 17.5 5 0.71 31.1 9.1 0.71 Lower P. Cortex 12.9 4 0.69 20.6 7.4 0.64 Right renal vein status: Patent Left renal vein status: Patent Right kidney length: 11.05 cm Left kidney length: 11.44 cm Physician Conclusions Summary: Right side: There is no evidence of stenosis within the Renal Artery, based on peak systolic velocities and Renal / Aortic Ratio. The Renal/ Aortic Ratio is normal . Renal parenchymal size is normal . The Renal Vein is patent. Left side: There is no evidence of stenosis within the Renal Artery, based on peak systolic velocities and Renal / Aortic Ratio. The Renal/ Aortic Ratio is normal . Renal parenchymal size is normal . The Renal Vein is patent. No prior study is available for comparison. * Event Display: VL Renal Artery Doppler Authored Date: * Event Display: Cardiac Rhythm Strips Authored Date: EKG study * Event Display: EKG Authored Date: Hospital Progress note * Katlin Jorge MD: PERFORM Event Display: Progress Note Hospital Authored Date: [id number] Patient: ??HETAL SHIRLEY ? Age:??59 Years?Sex:??Male?:??1965?? Subjective Patient seen Stated he is being discharged Review of Systems no change Past Medical History Active Problems(1) Hernia, inguinal ? Objective Measurements?? Height: 175 cm (10/05/24) Weight: 67.7 kg (09/29/24) Dry Weight: 65.7 kg (09/28/24) Body Mass Index: 21.39 kg/m2 (09/28/24) ? Vital Signs?? Temperature: 98 DegF (10/05/24 07:15:00) Temperature Route: Temporal (10/05/24 07:15:00) Pulse Rate:??95 bpm??High (10/05/24 09:15:00) Respiratory Rate: 20 br/min (10/05/24 07:15:00) Systolic Blood Pressure:??145 mm Hg??High (10/05/24 09:17:00) Systolic Blood Pressure:??145 mm Hg??High (10/05/24 09:17:00) Diastolic Blood Pressure:??96 mm Hg??High (10/05/24 09:17:00) Diastolic Blood Pressure:??96 mm Hg??High (10/05/24 09:17:00) Blood pressure sites: Arm, left (10/05/24 07:15:00) Mean Arterial Pressure: 112 mm Hg (10/05/24 07:15:00) Pulse Pressure: 49 mm Hg (10/05/24 07:15:00) Oxygen Saturation: 100 % (10/05/24 07:15:00) Mode of Delivery (Oxygen): Room air (10/05/24 07:15:00) Early Warning Score: 0 (10/05/24 11:20:35) ? Intake/Output? 09/28 04:50 10/05 07:00 10/04 07:00 10/03 07:00 10/02 07:00 ?? 10/05 11:26 10/05 11:26 10/05 06:59 10/04 06:59 10/03 06:59 Intake ?96208.3 ?0 ? 2020 ? 1900 ?440 Output ?54881 ?0 ?0 ?0 ?575 Net Total ? 4856.3 ?0 ? 2020 ? 1900 ? -135 ? Urine Count ? 21 ?0 ?3 ?4 ? 10 ? Physical Exam ??General:??Alert, in no acute distress. HEENT??Normocephalic. Pupils are equal, round and reactive to light. Oropharynx clear, mucous membranes moist.?? Neck:??Supple,Trachea midline. No JVD or bruits. Respiratory:??_Clear to auscultation . No wheezing or rhonchi.??No use of acessory muscles. Cardiovascular:??Heart sounds normal. Regular rhythm. No murmurs Gastrointestinal:??Abdomen soft, non-tender, non-distended. Normal bowel sounds. No pulsatile mass.No hepatosplenomegaly. Genitourinary:??No costovertebral angle tenderness. Extremities: No lower extremity pitting pedal edema. No cyanosis or clubbing. Neurologic:??AAOx3, No gross focal neurological deficits. Skin:??No rashes or lesions. No petechiae or purpura. Dialysis Access:??None _ Inpatient Medications Medications (13) Active SCHEDULED: (11) Aspirin 81 mg Chew Tablet (Aspirin Chew Tablet) ??81 mg, Orogastric Tube, Daily Carvedilol 12.5 mg Tablet (Coreg 12.5 mg oral tablet) ??12.5 mg, By Mouth, 2 times a day Folic Acid 1 mg Tablet (Folic Acid Tablet) ??1 mg, By Mouth, Daily Heparin 5000 units/mL Inj (1 mL) (Heparin Inj) ??5,000 units 1 mL, Subcutaneous Injection, 3 times a day hydrALAZINE 25 mg Tablet (hydrALAZINE 25 mg oral tablet) ??50 mg, By Mouth, 3 times a day Levetiracetam 250 mg Tablet (Keppra 250 mg oral tablet) ??750 mg, By Mouth, 2 times a day Multivitamin Therapeutic / Minerals Tablet (Multivit Therapeutic/Minerals Tablet) ??1 tablet, Orogastric Tube, Daily NIFEdipine 60 mg ER Tablet (NIFEdipine ER Tablet) ??120 mg, By Mouth, Daily Pantoprazole 40 mg EC Tablet (pantoprazole 40 mg oral delayed release tablet) ??40 mg, By Mouth, 2 times a day Pyridoxine 50 mg Tablet (Pyridoxine Tablet) ??50 mg, Orogastric Tube, Daily Thiamine 100 mg Tablet (Thiamine Tablet) ??100 mg, By Mouth, Daily CONTINUOUS: (0) PRN: (2) Acetaminophen 325 mg Tablet (Tylenol 325 mg oral tablet) ??650 mg, By Mouth, Every 6 hours Calcium Carbonate 500 mg (Calcium 200 mg) Chewable Tablet (Tums 500 mg oral tablet, chewable) ??1,000 mg 2 tablet, Chew, Every 4 hours ? Results Recent Labs BLOOD COUNT & DIFF WBC 13.1 k/mm3 (High)?? 10/05/2024 10:37 RBC 4.23 m/mm3 (Low)?? 10/05/2024 10:37 Hgb 13.1 Gm/dL (Low)?? 10/05/2024 10:37 Hct 39.0 % (Low)?? 10/05/2024 10:37 MCV 92.2 femtoliters ()?? 10/05/2024 10:37 MCH 31.0 pg ()?? 10/05/2024 10:37 MCHC 33.6 Gm/dL ()?? 10/05/2024 10:37 Platelet Count 446 k/mm3 ()?? 10/05/2024 10:37 RDW-SD 42.1 femtoliters ()?? 10/05/2024 10:37 MPV 9.9 femtoliters ()?? 10/05/2024 10:37 Nucleated RBC (Automated) 0.0 #/100 WBC'S ()?? 10/05/2024 10:37 Abs. NRBC 0.0 k/mm3 ()?? 10/05/2024 10:37 ?? CHEM GENERAL Sodium 139 mmol/L ()?? 10/04/2024 05:14 Potassium 3.8 mmol/L ()?? 10/04/2024 05:14 Chloride 102 mmol/L ()?? 10/04/2024 05:14 Bicarbonate Level 24 mmol/L ()?? 10/04/2024 05:14 Anion Gap 13 mmol/L ()?? 10/04/2024 05:14 Glucose Level 95 mg/dL ()?? 10/04/2024 05:14 Hemoglobin A1C (Monitoring) 5.4 % ()?? 10/04/2024 05:14 BUN 20 mg/dL ()?? 10/04/2024 05:14 Creatinine-Blood 1.56 mg/dL (High)?? 10/04/2024 05:14 Estimated GFR Creatinine 51 ML/MIN/1.73 M2 ()?? 10/04/2024 05:14 Calcium 9.2 mg/dL ()?? 10/04/2024 05:14 ?? ENDOCRINE/TUMOR MARKER TSH 2.46 uIU/mL ()?? 10/04/2024 05:14 Testosterone Total, LC/MS 802 ng/dL (High)?? 10/04/2024 05:14 ?? UA/URINALYSIS Appear/Color, Urine YELLOW ()?? 10/04/2024 16:20 Specific [place], Urine 1.016 ()?? 10/04/2024 16:20 pH, Urine 6.5 ()?? 10/04/2024 16:20 Albumin, Urine TRACE (Abnormal)?? 10/04/2024 16:20 Glucose, Urine NEGATIVE ()?? 10/04/2024 16:20 Ketones, Urine NEGATIVE ()?? 10/04/2024 16:20 Bilirubin, Urine NEGATIVE ()?? 10/04/2024 16:20 Hemoglobin, Urine NEGATIVE ()?? 10/04/2024 16:20 Nitrite, Urine NEGATIVE ()?? 10/04/2024 16:20 Leukocyte, Urine NEGATIVE ()?? 10/04/2024 16:20 Urobilinogen NORMAL mg/dL ()?? 10/04/2024 16:20 WBC's, Urine 1 /HPF ()?? 10/04/2024 16:20 RBC's, Urine 1 /HPF ()?? 10/04/2024 16:20 ?? URINE OTHER Calcium, Urine Random 1.8 mg/dL ()?? 10/04/2024 16:20 Phosphorus, Urine Random 29.4 mg/dL ()?? 10/04/2024 16:20 Creatinine, Urine Random 89.6 mg/dL ()?? 10/04/2024 06:00 Sodium, Urine Random 91 mmol/L ()?? 10/04/2024 16:20 Potassium, Urine Random 20.2 mmol/L ()?? 10/04/2024 16:20 Chloride, Urine Random 63 mmol/L ()?? 10/04/2024 16:20 Osmolality, Urine Random 503 mOsm/kg ()?? 10/04/2024 16:20 Magnesium, Urine Meq/L 2.3 mg/dL ()?? 10/04/2024 16:20 Est Creatinine Clearance 47.96 mL/min ()?? 10/04/2024 06:01 ? Abnormal Labs ?? BLOOD COUNT & DIFF Abs. NRBC?0.0 k/mm3 ()?10/05/2024 10:37 Hct?39.0 % (Low)?10/05/2024 10:37 Hgb?13.1 Gm/dL (Low)?10/05/2024 10:37 Nucleated RBC (Automated)?0.0 #/100 WBC'S ()?10/05/2024 10:37 RBC?4.23 m/mm3 (Low)?10/05/2024 10:37 RDW-SD?42.1 femtoliters ()?10/05/2024 10:37 WBC?13.1 k/mm3 (High)?10/05/2024 10:37 ?? UA/URINALYSIS Albumin, Urine?TRACE (Abnormal)?10/04/2024 16:20 Appear/Color, Urine?YELLOW ()?10/04/2024 16:20 Bilirubin, Urine?NEGATIVE ()?10/04/2024 16:20 Glucose, Urine?NEGATIVE ()?10/04/2024 16:20 Hemoglobin, Urine?NEGATIVE ()?10/04/2024 16:20 Hold Urine Culture?Testing available 48 hours from time of collection. () ?10/04/2024 16:20 Ketones, Urine?NEGATIVE ()?10/04/2024 16:20 Leukocyte, Urine?NEGATIVE ()?10/04/2024 16:20 Nitrite, Urine?NEGATIVE ()?10/04/2024 16:20 Urobilinogen?NORMAL mg/dL ()?10/04/2024 16:20 ?? URINE OTHER Calcium, Urine Random?1.8 mg/dL ()?10/04/2024 16:20 Chloride, Urine Random?63 mmol/L ()?10/04/2024 16:20 Magnesium, Urine Meq/L?2.3 mg/dL ()?10/04/2024 16:20 Phosphorus, Urine Random?29.4 mg/dL ()?10/04/2024 16:20 Potassium, Urine Random?20.2 mmol/L ()?10/04/2024 16:20 Sodium, Urine Random?91 mmol/L ()?10/04/2024 16:20 ?? Note: Critical results are displayed in red. ? Assessment/Plan ?Hetal Shirley is a 59 year old male with no known medical history besides known alcohol use for the past year who presented initially to for hematuria and dysuria x1 week, diagnosed with UTI and prescribed Bactrim, developed epigastric abdominal discomfort and syncope at home for which [facility], then had a witnessed seizure, subsequently intubated for airway protection, and transferred to [facility] for further management. Nephrology consulted for BARRETT.? 1. BARRETT Cr 0.84 mg/dL in June 2024 Cr peaked at 2.41 mg/dL, now downtrending ?? ? hemodynamic injury 2/2 labile BP (SBP 200s on arrival, improved to SBP 120s), renal hypoperfusion(supported by hyaline casts on UA), UTI, contrast-induced nephropathy (s/p IV contrast 09/27) resulting in an intrinsic kidney injury/ATN. Postrenal??causes??may be??contributing as well as pt??has moderate right hydronephrosis on CT A/P, however no left hydronephrosis.? Creatinine improved to 1.4 > 1.6 (Re consulted). He stated??has poor oral intake and some loose stool. He has hematuria ?? Recommendations:?? - Repeat urine stacy : FEna> 1% - Consult urology: his UTI/ hematuria/ CT right hydronephrosis with raising creatinine ( pending) - Agree with IV fluids while having diarrhoea - BP: renin/samuel ratio sent pending??( potassium within range). Requested metanephrines pending. VLduplex of kidney ( mariam) . - NIfedipine dose increased today. BP better - Daily renal panel - Monitor I/Os - Avoid nephrotoxins including NSAIDs and further IV contrast -??Testosterone borderline high??and patient stated his breast bud hurt: Scrotal US ( mariam) and I requested DHEA/DHEAS/Cortisol levels tomorrow . CT scan: no adrenal hypertrophy or adenoma ( I have suggested to him that if this problem persist, he will need endocrinology follow)?? * Aide Aguirre: PERFORM, SIGN, VERIFY Event Display: Progress Note Hospital Authored Date: Patient: HETAL SHIRLEY Age: 59 years Sex: Male : 1965 Associated Diagnoses: None Author: Aide Aguirre Findings Problem Related to Alteration in Neurological : Alteration in Neurological Function/new 10/04/2024 20:00 EST Alteration in Neuro status Related to Seizure Goals & Outcomes, Neurological Pt will be hemodynamically stable, Pt will be Neurologically stable, Pt will remain free from injury, Pt will be free from complications r/t seizure activity Interventions, Neurological Assess/monitor neurologic status, Assess/monitor VS per unit standards& prn, Call/Report variances in assessments to provider, Collaborate w/ provider to implement appropriate guidelines, Collaborate with Nutrition, Collaborate with provider re: medication regime, Document & Monitor O2 Sats; Administer O2 as ordered, Emergency airway equipment at bedside, Iden tify psychosocial issues related to diagnosis/illness, If no bowel movement in 3 days activate bowel regime, [place]k alternate means of communication, Keep patient's head & body in good alignment, Maintain HOB at least 30 deg, Maintain normothermia, report temp >101.5 F, Maintain patient safety if unsteady gait, Maintain strict intake & output, Monitor Fluid & Electrolytes, SerumOsmolarity, Monitor for headaches, nausea, vomiting, Monitor speech fluency, aphasia, word finding difficulty, Physical assessment per unit standards, Provide emotional support to Pt/caregiver, Resolved problem, Interventions no longer in effect, Teach & encourage deep breath & cough exercises, Teach and encourage use of Incentive spirometer, Teach pt/caregiver discharge plan & followup care, Teach pt/caregiver on plan of care, treatment, s/s & meds, Teach pt/caregiver on use of pain scale BH Goals/Interventions, Neurological Yes Neurological, Problem Start 09/28/2024 5:00 Reviewed plan with, Neurological Patient Patient Progression, Neurological Pt progressing according to plan . Nursing Data Neurological Data. : Neurological Data. 10/04/2024 20:00 EST Tongue Disposition Midline Neurological Symptoms History of seizures Level of Consciousness Full Consciousness Orientated to person, place, time Person, Place, Time, Event Facial Symmetry Intact Characteristics of Speech Clear and normal Swallowing Difficulty None Pupil description, left Regular Pupil description, right Regular Pupil reaction, left Brisk Pupil reaction, right Brisk Pupil Size, Left 3 mm Pupil Size, Right 3 mm Strength LUE 5-Active movement against gravity & full resistance Strength RUE 5-Active movement against gravity & full resistance Strength LLE 5-Active movement against gravity & full resistance Strength RLE 5-Active movement against gravity & full resistance Tone LUE Normal Tone RUE Normal Tone LLE Normal Tone RLE Normal Sensation LUE Intact Sensation RUE Intact Sensation LLE Intact Sensation RLE Intact Movement LUE Spontaneous, To command Movement RUE Spontaneous, To command Movement LLE Spontaneous, To command Movement RLE Spontaneous, To command Gait Steady Response Eye Opening Spontaneously Motor Response-Adult Obeys commands Verbal Response-Adult Oriented and converses Michael Coma Score 15 Neuro WNL except Memory Intact Swallow - Neuro Normal . Evaluation The patient is AOX4, with clear speech and the ability to follow simple commands. The face and smile are symmetric, and the tongue is midline. The patient denies experiencing numbness, tingling, dizziness, nausea, or changes in vision. Lung sounds are clear on room air, and the patient denies shortness of breath or chest pain. The patient has full range of motion in all extremities 5/5 and ambulates independently. Active bowel sounds are present in all four quadrants, and the abdomen is soft and non-tender. The patient tolerates a regular diet and takes medications whole. The patient refuses seizure precautions and heparin subcutaneous injections, despite receiving teaching, and expresses understanding while still refusing. No seizure activity is noted. The bed is in the lowest position, and the call casas is within reach. Safety is maintained. . * Valerie Morales RN: VERIFY, PERFORM, SIGN Event Display: Progress Note Hospital Authored Date: [id number] Patient: HETAL SHIRLEY Age: 59 years Sex: Male : 1965 Associated Diagnoses: None Author: Andrew OLMEDO, Valerie Findings Problem Related to Alteration in Neurological : Alteration in Neurological Function/new 10/04/2024 12:05 EST Alteration in Neuro status Related to Seizure Goals & Outcomes, Neurological Pt will be hemodynamically stable, Pt will be Neurologically stable, Pt will remain free from injury, Pt will be free from complications r/t seizure activity Interventions, Neurological Assess/monitor neurologic status, Assess/monitor VS per unit standards & prn, Call/Report variances in assessments to provider, Monitor for headaches, nausea, vomiting, Monitor speech fluency, aphasia, word finding difficulty, Physical assessment per unit standards, Assess & monitor for seizure activity, Minimize seizure triggering stimuli (i.e. light, noise, pain BH Goals/Interventions, Neurological Yes Neurological, Problem Start 09/28/2024 5:00 Reviewed plan with, Neurological Patient Patient Progression, Neurological Pt progressing according to plan . Nursing Data Neurological Data. : Neurological Data. 10/04/2024 8:00 EST Tongue Disposition Midline Neurological Symptoms History of seizures Level of Consciousness Full Consciousness Orientated to person, place, time Person, Place, Time, Event Hallucinations None Facial Symmetry Intact Characteristics of Speech Clear and normal Swallowing Difficulty None Pupil description, left Regular Pupil description, right Regular Pupil reaction, left Brisk Pupil reaction, right Brisk Pupil Size, Left 3 mm Pupil Size, Right 3 mm Strength LUE 5-Active movement against gravity & full resistance Strength RUE 5-Active movement against gravity & full resistance Strength LLE 5-Active movement against gravity & full resistance Strength RLE 5-Active movement against gravity & full resistance Tone LUE Normal Tone RUE Normal Tone LLE Normal Tone RLE Normal Sensation LUE Intact Sensation RUE Intact Sensation LLE Intact Sensation RLE Intact Movement LUE Spontaneous Movement RUE Spontaneous Movement LLE Spontaneous Movement RLE Spontaneous Gait No disturbance Response Eye Opening Spontaneously Motor Response-Adult Obeys commands Verbal Response-Adult Oriented and converses [place] Coma Score 15 1 - 10 Pain Scale Score 0 Neuro WNL except Eyes and Movements Conjugate gaze: Move in same direction at same speed Memory Intact Swallow - Neuro Normal . Evaluation assumed care of pt at 0700. pt alert in bed, responding appropriately. pt a&o x4, speech clear.PERRLA+, denies visual disturbances. pt wears glasses at baseline. facial symmetry intact, tongue midline. pt BUE 5/5 strength, BLE 5/5 strength. pt denies numbness or tingling. pt denies nausea or pain at this time. skin intatct, scattered bruising noted. pt continues to refuse seizure precautions. education provided. pt refused 2x. lungs CTA, pt denies SOB/CP. bowel sounds present in all four quadrants, BM this shift. pt voiding in bathroom, ambulating independently in room and in hallways. urine samples sent per orders. pt safety maintained while on unit. bed locked and in lowest position.call casas within reach. pt demonstrated correct use of call casas system. able to make needs known.. Note * Morena Qureshi RN: PERFORM Event Display: Discharge/Transfer Note Hospital Authored Date: [id number] Nursing Discharge Note Entered On: 10/05/2024 20:10 EST Performed On: 10/05/2024 20:10 EST by Morena Qureshi RN Nursing Discharge Note 2 Discharge Time : 10/05/2024 17:24 EST Discharge Level of Care at Discharge : Home/Care Home/Foster Care Patient Left Unit Via : Ambulatory Patient Accompanied Off Unit with : Significant other DC Instructions Provided & Signed by Pt : Yes Patient Understands D/C Instructions : Yes Patient Instructions Discharge Signed : Yes Did Pt have Specialty Bed or Wound Vac : No Morena Qureshi RN - 10/05/2024 20:10 EST * Sujata Barba RN: PERFORM Event Display: Discharge/Transfer Note Hospital Authored Date: [id number] Nursing Discharge Note Entered On: 10/05/2024 17:27 EST Performed On: 10/05/2024 17:24 EST by Sujata Barba RN Nursing Discharge Note 2 Patient Left Unit Via : Ambulatory Patient Accompanied Off Unit with : Significant other DC Instructions Provided & Signed by Pt : Yes Patient Understands D/C Instructions : Yes Patient Instructions Discharge Signed : Yes Discharge Comments : All discharge instructions provided by healthcare team, pt was able to verbalize understanding via a teachback method. IV access removed intact Did Pt have Specialty Bed or Wound Vac : No Sujata Barba RN - 10/05/2024 17:24 EST * Naye SAAB, Natacha: PERFORM Event Display: Discharge/Transfer Note Hospital Authored Date: [id number] Patient: ??HETAL SHIRLEY ? Age:??59 Years?Sex:??Male?:??1965?? Patient Information Discharge Location: [facility] Primary Care Physician: Gill Wilde Admit Date/Time: 09/28/2024 04:50 Discharge Disposition Discharge Disposition: Home: No Services Discharge Diagnosis Seizure (R56.9) _ Discharge Medications Aspirin (aspirin 81 mg oral tablet, chewable)??81 Milligram Orogastric Tube Daily Carvedilol (Coreg 12.5 mg oral tablet)??12.5 Milligram By Mouth 2 times a day Folic Acid (folic acid 1 mg oral tablet)??1 Milligram By Mouth Daily hydrALAZINE (hydrALAZINE 25 mg oral tablet)??50 Milligram By Mouth 3 times a day levETIRAcetam (Keppra 250 mg oral tablet)??750 Milligram By Mouth 2 times a day Multivitamin (Neuriva Brain performance Plus)??By Mouth Daily Multivitamin With Minerals (multivitamin with minerals Multiple Vitamins with Minerals oral tablet)??1 tab(s) Orogastric Tube Daily NIFEdipine (NIFEdipine 60 mg oral tablet, extended release)??120 Milligram By Mouth Daily Pantoprazole (pantoprazole 40 mg oral delayed release tablet)??40 Milligram By Mouth Daily Pyridoxine (pyridoxine 50 mg oral tablet)??50 Milligram Orogastric Tube Daily Thiamine (thiamine 100 mg oral tablet)??100 Milligram By Mouth Daily ? Medications Started Aspirin (aspirin 81 mg oral tablet, chewable)??81 Milligram Orogastric Tube Daily Carvedilol (Coreg 12.5 mg oral tablet)??12.5 Milligram By Mouth 2 times a day Folic Acid (folic acid 1 mg oral tablet)??1 Milligram By Mouth Daily hydrALAZINE (hydrALAZINE 25 mg oral tablet)??50 Milligram By Mouth 3 times a day levETIRAcetam (Keppra 250 mg oral tablet)??750 Milligram By Mouth 2 times a day Multivitamin (Neuriva Brain performance Plus)??By Mouth Daily Multivitamin With Minerals (multivitamin with minerals Multiple Vitamins with Minerals oral tablet)??1 tab(s) Orogastric Tube Daily NIFEdipine (NIFEdipine 60 mg oral tablet, extended release)??120 Milligram By Mouth Daily Pantoprazole (pantoprazole 40 mg oral delayed release tablet)??40 Milligram By Mouth Daily Pyridoxine (pyridoxine 50 mg oral tablet)??50 Milligram Orogastric Tube Daily Thiamine (thiamine 100 mg oral tablet)??100 Milligram By Mouth Daily Medications Discontinued none Doses Changed none Allergies Allergies ?(Active and Proposed Allergies Only) No Known Medication Allergies? (Severity: Unknown severity, Onset: Unknown) ? PCP Follow-Up/Heads-Up PLEASE FOLLOW UP DEVAUGHN WITH PCP. ?? Dear PCP, ?? Patient was admitted for PRES. 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 ??We??have??our renal team following him closely when he will need to see them outpatient. ??He will also need to follow- up with urology, apparently he has been treated at[facility]fairly recently, however if he needs to see [facility] urology, he will need this??as soon as possible??and rene provided the number. ??We did send a message to [facility] urology group. ? Please follow closely for hypertension as well as??renal function. ??He had extensive testing whileinpatient, including renal ultrasounds and scrotal ultrasounds. Both showed noted moderate right hydronephrosis with debris/complexity seen within the right renal pelvis, this will need to be followed closely. He will need repeat MRI/MRA of neck in 1 month to followup PRES and PORTER possible dissection and followup in neurology clinic. ?? Additionally he was advised to continue on aspirin and statin. ??We are not starting statin at thistime because risk of reaction/rhabdo??could cause further kidney injury and he will need to be followed closely for this outpatient. ??Please consider starting him on this as soon as possible. CT showed?Extensive left cervical lymphadenopathy. Recommend clinical correlation. This was biopsied and he will need follow up on this as well. ?? Thank you so much for your participation in his care.?? Patient was well educated on the importanceof follow-up??with neurology,??nephrology, urology, as well as your clinic. Hospital Course Hetal Shirley is a 59 year old male with no known medical history ,besides known alcohol use for thepast year, who presented initially to for hematuria and dysuria x1 week. He was diagnosed with UTI and prescribed Bactrim, developed epigastric abdominal discomfort and syncope at home for which pt was brought to [facility].??He??then had a witnessed seizure, subsequently intubated for airway protection, and transferred to [facility] for further management.? Patient was noted to have??PRES (posterior reversible encephalopathy syndrome) due to uncontrolled blood pressure,??likely from a renal source. ??He was treated with??antibiotics, antiepileptic medication, aggressive blood pressure management.??He will continue this medication outpatient. ?? Patient was able to be weaned off of??intubation, and was placed on a general floor.?? He has not had any recurring seizures.?He is medically stable for discharge with??closely guarded prognosis and will need??extensive follow-up in the outpatient setting. ? Objective Assessment and Plan ? Acute kidney injury Cr 0.84 mg/dL in June 2024 Cr peaked at 2.41 mg/dL, now downtrending??1.56 CT showed right hydronephrosis with no obstruction -Seen by renal and can follow up outpatient -Urology consulted for hydronephrosis, outpatient follow-up - at [facility] or [facility] - this needs to be done DEVAUGHN ?? ? hemodynamic injury 2/2 labile BP (SBP 200s on arrival, improved to SBP 120s), renal hypoperfusion(supported by hyaline casts on UA), UTI, contrast-induced nephropathy (s/p IV contrast 09/27) resulting in an intrinsic kidney injury/ATN. Postrenal??causes??may be??contributing as well as pt??has moderate right hydronephrosis on CT A/P,however no left hydronephrosis.?Creatinine improved to 1.4 > 1.6 (Re consulted).? Recommendations:?? - Repeat urine lytes : FEna> 1% -ordered (results pending) - Consult urology: his UTI/ hematuria/ CT right hydronephrosis with raising creatinine - BP: renin/samuel ratio sent ( potassium within range). Requested metanephrines/ VL duplex of kidney. (results pending) - Patient stated he has pain over the breast bud ( may be related to alcohol excess). - Nifedipine dose increased today. BP better, not at goal <140 systolic -??repeat renal panel - Monitor I/Os - Avoid nephrotoxins including NSAIDs and further IV contrast -??Testosterone borderline high??and patient stated his breast bud hurt: Scrotal US results above, DHEA/DHEAS/Cortisol levels (pending). - CT scan: no adrenal hypertrophy or adenoma? Seizure Patient does not have a history of seizures.?? He has been drinking alcohol daily for the past??year.??No history of??alcohol withdrawal??or alcohol withdrawal seizures.?Last alcohol use 3 days prior to seizure, however patient did not have any seizures during without alcohol use. Could consider seizure due to??alcohol withdrawal in setting of UTI CT head??show hypodensities??in right hemisphere, could be concerning for??PRES secondary to hypertension versus??embolic strokes,??R ICA dissection noted on CT. Tox??screen??is just??notable for??cannabinoids??along with??benzodiazepines and barbiturates VEEG completed was no seizure activity noted. MRI showed findings that could reflect PRES ?? -Neurology signed off -Continue Keppra 750 twice daily -Repeat MRI/MRA of neck in 1 month to followup PRES and PORTER possible dissection and followup in neurology clinic -Continue aspirin and statin (holding r/t??renal injury) -Blood pressure goal less than 180 systolic -Cannot drive for 6 months from last seizure -Counseling about alcohol ? UTI:??treated? Alcohol use disorder:??pt not interested too meet addiction medicine. Saying he is done with drinking ?? Lymphadenopathy CT showed?Extensive left cervical lymphadenopathy. Recommend clinical correlation. In exam Lt cervical LN palpable, not tender, not fix, about 4 LN largest bout 1 cm. -S/p biopsy 10/03 ?? GERD:??Pantoprazole ? Measurements?? Height: 175 cm (10/05/24) Weight: 67.7 kg (09/29/24) Dry Weight: 65.7 kg (09/28/24) Body Mass Index: 21.39 kg/m2 (09/28/24) ? Vital Signs?? Temperature: 97.8 DegF (10/05/24 11:00:00) Temperature Route: Temporal (10/05/24 11:00:00) Pulse Rate: 80 bpm (10/05/24 11:00:00) Respiratory Rate: 20 br/min (10/05/24 11:00:00) Systolic Blood Pressure:??142 mm Hg??High (10/05/24 13:42:00) Diastolic Blood Pressure:??92 mm Hg??High (10/05/24 13:42:00) Blood pressure sites: Arm, left (10/05/24 11:00:00) Mean Arterial Pressure: 112 mm Hg (10/05/24 07:15:00) Pulse Pressure: 60 mm Hg (10/05/24 11:00:00) Oxygen Saturation: 99 % (10/05/24 11:00:00) Mode of Delivery (Oxygen): Room air (10/05/24 11:00:00) Early Warning Score: 2 (10/05/24 13:43:40) ? . Physical Exam Constitutional: Alert, in no acute distress. Head: Normocephalic. Eyes: Pupils are equal and round. Extraocular muscles intact. No pallor or scleral icterus Ear, Nose and Throat: mucous membranes moist. Ears and nose - no obvious deformities. Neck: No JVD or bruits. Respiratory:??Equal bilateral air entry. No wheezing or rhonchi.??No use of accessory muscles. Cardiovascular:??S1 S2 regular. No murmurs, rubs or gallops. Gastrointestinal:??Abdomen soft, non-tender, non-distended. Extremities: No lower extremity pitting edema. Neurologic:??AAOx3, Cranial nerves II-XII grossly intact. Speech normal, no facial droop. No focal neurological deficits. Moves all extremities spontaneously. Musculoskeletal:??No gross deformities on inspection. .?? Psychiatric: Normal mood and affect. ?? (10/05/2024 09:53 EST US Scrotum and Contents) IMPRESSION: ? 1. ??Small bilateral varicoceles with minimal increase in size with Valsalva maneuver.?? 2. ??Incidentally noted moderate right hydronephrosis with debris/complexity seen within the right renal pelvis, corresponding to findings described on prior CT. ? (10/03/2024 13:[address]/ US Image Guide Biopsy) IMPRESSION: Successful, uncomplicated, ultrasound guided biopsy of left cervical lymph node.?? [1] (09/30/2024 02:07 EST MRI Brain W/O Contrast) IMPRESSION: ?? Incomplete and severely motion degraded exam. There is T2/FLAIR hyperintensity in the right posterior parietal and occipital lobes with no definite restricted diffusion or hemorrhage. In the appropriate clinical setting, this could reflect posterior reversible encephalopathy syndrome. [2] Consultants Neurology, urology, renal Pending Results Add On Lab Order ordered on 10/02/2024 Aldosterone/Renin Ratio ordered on 10/03/2024 Calcium Urine ordered on 10/04/2024 Chloride Urine ordered on 10/04/2024 Complete Urinalysis ordered on 10/04/2024 DHEA ordered on 10/05/2024 High??Sensitivity??Troponin T ordered on 10/01/2024 Magnesium Urine ordered on 10/04/2024 Metanephrines Fract Plasma ordered on 10/04/2024 Osmolality Urine ordered on 10/04/2024 Pathology Tissue Request ordered on 10/03/2024 Phosphorus Urine ordered on 10/04/2024 Potassium Urine ordered on 10/04/2024 Sodium Urine ordered on 10/04/2024 pH Urine ordered on 10/04/2024 Patient Education Titles WebMD Ignite Patient Education - Uncontrolled High Blood Pressure (Established)?? WebMD Ignite Patient Education - Discharge Instructions for Malignant Hypertension (Hypertensive Emergency or Urgency)?? WebMD Ignite Patient Education - Discharge instructions for high blood pressure (hypertension)?? Web[employer] Ignite Patient Education - How Seizures Affect the Body?? Web[employer] Ignite Patient Education - Recurrent Seizure (Adult)?? WebMD Ignite Patient Education - Safety During a Seizure?? Follow-Up Appointments Added Follow Up ?Time Frame ?Comments [facility]?2 to 3 weeks?Please call urology to schedule appointment.?? Follow up with Neurology?1 to 2 weeks Josep BOTELLO, Gill Rosen?1 to 2 weeks Patient Instructions NEUROLOGY HAS ORDERED AN MRI/MRA TO BE DONE IN 1 MONTH RADIOLOGY WILL CALL YOU TO SCHEDULE ONCE YOU HAVE A DATE PLEASE CALL US SO WE CAN BOOK THE FOLLOW UP THANK YOU?? [phone] ?? BMP in 1 week with PCP?? uROLOGY F/U?? RENAL F/U?? NEURO F/U?? MONITOR BP TWICE A DAY, MAINTAIN A LOG, AND TAKE TO PCP?? Post Discharge Care Discharge ?Today, 10/05/24 16:17:00 EST ?Order Comment:?? Home Health Face to Face ^[facility]Health[facility] Results Discharge Labs BACTERIOLOGY Urine Culture Results Final report ()?? 10/01/2024 21:58 Urine Culture Specimen Source URINE ()?? 10/01/2024 21:58 Urine Culture Isolate 1 No growth ()?? 10/01/2024 21:58 ? BLOOD COUNT & DIFF WBC 13.1 k/mm3 (High)?? 10/05/2024 10:37 RBC 4.23 m/mm3 (Low)?? 10/05/2024 10:37 Hgb 13.1 Gm/dL (Low)?? 10/05/2024 10:37 Hct 39.0 % (Low)?? 10/05/2024 10:37 MCV 92.2 femtoliters ()?? 10/05/2024 10:37 MCH 31.0 pg ()?? 10/05/2024 10:37 MCHC 33.6 Gm/dL ()?? 10/05/2024 10:37 Platelet Count 446 k/mm3 ()?? 10/05/2024 10:37 RDW-SD 42.1 femtoliters ()?? 10/05/2024 10:37 MPV 9.9 femtoliters ()?? 10/05/2024 10:37 Nucleated RBC (Automated) 0.0 #/100 WBC'S ()?? 10/05/2024 10:37 Abs. NRBC 0.0 k/mm3 ()?? 10/05/2024 10:37 Abs. Neut 11.6 k/mm3 (High)?? 10/02/2024 04:20 Abs. Lymph 1.7 k/mm3 ()?? 10/02/2024 04:20 Abs. Antelope 1.5 k/mm3 (High)?? 10/02/2024 04:20 Abs. Eo 0.1 k/mm3 ()?? 10/02/2024 04:20 Abs. Baso 0.1 k/mm3 ()?? 10/02/2024 04:20 Neut % 77.5 % (High)?? 10/02/2024 04:20 Lymph % 11.0 % (Low)?? 10/02/2024 04:20 Antelope % 10.2 % ()?? 10/02/2024 04:20 Eos % 0.5 % ()?? 10/02/2024 04:20 Baso % 0.3 % ()?? 10/02/2024 04:20 Atypical Lymph % 1.7 % ()?? 09/28/2024 05:35 Imm Gran 0.5 % ()?? 10/02/2024 04:20 Abs. Imm Gran 0.1 k/mm3 ()?? 10/02/2024 04:20 ? BLOOD GAS pH 7.38 ()?? 09/28/2024 06:15 pCO2 40 mm Hg ()?? 09/28/2024 06:15 pO2 124 mm Hg (High)?? 09/28/2024 06:15 Bicarbonate, Estimated 23 mmol/L ()?? 09/28/2024 06:15 Specimen Type - Blood Gas ARTERIAL ()?? 09/28/2024 06:15 Percent O2 (FIO2) 30% ()?? 09/28/2024 06:15 ?? CARDIAC CK, Total 436 units/L (High)?? 10/05/2024 10:37 High Sensitivity Troponin (HSTnT) 18 ng/L ()?? 10/01/2024 04:04 ?? CHEM GENERAL Sodium 138 mmol/L ()?? 10/05/2024 10:37 Potassium 4.2 mmol/L ()?? 10/05/2024 10:37 Chloride 102 mmol/L ()?? 10/05/2024 10:37 Bicarbonate Level 22 mmol/L ()?? 10/05/2024 10:37 Anion Gap 14 mmol/L ()?? 10/05/2024 10:37 Glucose Level 110 mg/dL (High)?? 10/05/2024 10:37 Glucose, POC 115 mg/dL (High)?? 09/29/2024 04:27 Hemoglobin A1C (Monitoring) 5.4 % ()?? 10/04/2024 05:14 BUN 20 mg/dL ()?? 10/05/2024 10:37 Creatinine-Blood 1.53 mg/dL (High)?? 10/05/2024 10:37 Estimated GFR Creatinine 52 ML/MIN/1.73 M2 ()?? 10/05/2024 10:37 Calcium 9.2 mg/dL ()?? 10/05/2024 10:37 Calcium, Ionized pH Corrected 1.17 mmol/L ()?? 09/28/2024 05:34 Phosphorus 5.6 mg/dL (High)?? 09/29/2024 04:20 Magnesium 2.9 mg/dL (High)?? 09/29/2024 04:20 Protein, Total 7.1 Gm/dL ()?? 10/05/2024 10:37 Albumin 4.0 Gm/dL ()?? 10/05/2024 10:37 AG Ratio 1.3 ()?? 10/05/2024 10:37 Alkaline Phosphatase 82 units/L ()?? 10/05/2024 10:37 AST (SGOT) 80 units/L (High)?? 10/05/2024 10:37 ALT (SGPT) 113 units/L (High)?? 10/05/2024 10:37 Bilirubin, Total 0.2 mg/dL ()?? 10/05/2024 10:37 ?? COAG INR 1.1 ()?? 10/03/2024 08:48 Protime (PT) 11.5 seconds (High)?? 10/03/2024 08:48 ?? ENDOCRINE/TUMOR MARKER TSH 2.46 uIU/mL ()?? 10/04/2024 05:14 Cortisol Level 19.8 ??g/dL ()?? 10/05/2024 10:37 DHEA Sulfate 98.9 ??g/dL ()?? 10/05/2024 10:37 Testosterone Total, LC/MS 802 ng/dL (High)?? 10/04/2024 05:14 ?? MISC. CHEMISTRY Procalcitonin 0.21 ng/mL ()?? 10/01/2024 09:53 ? TOXICOLOGY/TDM Barbiturate Screen, Urine POSITIVE (Abnormal)?? 09/28/2024 07:00 Cannabinoid Screen, Urine POSITIVE (Abnormal)?? 09/28/2024 07:00 Cocaine Metabolite Screen, Urine NONE DETECTED ()?? 09/28/2024 07:00 Methadone Screen, Urine NONE DETECTED ()?? 09/28/2024 07:00 Benzodiazepine Screen, Urine POSITIVE (Abnormal)?? 09/28/2024 07:00 Amphetamine Screen, Urine NONE DETECTED ()?? 09/28/2024 07:00 Opiate Screen, Urine NONE DETECTED ()?? 09/28/2024 07:00 Oxycodone Screen, Urine NONE DETECTED ()?? 09/28/2024 07:00 ?? UA/URINALYSIS Appear/Color, Urine YELLOW ()?? 10/04/2024 16:20 Specific [place], Urine 1.016 ()?? 10/04/2024 16:20 pH, Urine 6.5 ()?? 10/04/2024 16:20 Albumin, Urine TRACE (Abnormal)?? 10/04/2024 16:20 Glucose, Urine NEGATIVE ()?? 10/04/2024 16:20 Ketones, Urine NEGATIVE ()?? 10/04/2024 16:20 Bilirubin, Urine NEGATIVE ()?? 10/04/2024 16:20 Hemoglobin, Urine NEGATIVE ()?? 10/04/2024 16:20 Nitrite, Urine NEGATIVE ()?? 10/04/2024 16:20 Leukocyte, Urine NEGATIVE ()?? 10/04/2024 16:20 Urobilinogen NORMAL mg/dL ()?? 10/04/2024 16:20 WBC's, Urine 1 /HPF ()?? 10/04/2024 16:20 RBC's, Urine 1 /HPF ()?? 10/04/2024 16:20 Squamous Epith <1 /HPF ()?? 10/01/2024 21:58 Hold Urine Culture Testing available 48 hours from time of collection. ()?? 10/04/2024 16:20 Hold Urine Testing Available 24 hours from Time of Collection ()?? 10/04/2024 06:00 ?? URINE OTHER Calcium, Urine Random 1.8 mg/dL ()?? 10/04/2024 16:20 Phosphorus, Urine Random 29.4 mg/dL ()?? 10/04/2024 16:20 Creatinine, Urine Random 89.6 mg/dL ()?? 10/04/2024 06:00 Sodium, Urine Random 91 mmol/L ()?? 10/04/2024 16:20 Potassium, Urine Random 20.2 mmol/L ()?? 10/04/2024 16:20 Chloride, Urine Random 63 mmol/L ()?? 10/04/2024 16:20 Urea Nitrogen, Urine Random 366.6 mg/dL ()?? 09/28/2024 15:54 Osmolality, Urine Random 503 mOsm/kg ()?? 10/04/2024 16:20 Protein, Total Urine Random 24 mg/dL ()?? 10/03/2024 18:47 TP/Cr Ratio 0.27 (High)?? 10/03/2024 18:47 Magnesium, Urine Meq/L 2.3 mg/dL ()?? 10/04/2024 16:20 Creatinine, Urine 88.3 mg/dL ()?? 10/03/2024 18:47 Malb/Creat Ratio Unable to calculate mg/Gm ()?? 09/28/2024 15:54 Urine Creat For Micro Alb 128.0 mg/dL ()?? 09/28/2024 15:54 Micro-Albumin 477.0 mg/L (High)?? 09/28/2024 15:54 Est Creatinine Clearance 48.91 mL/min ()?? 10/05/2024 11:52 ? _45 minutes spent on discharge [1]??CT/ US Image Guide Biopsy; Shelley Conti 10/03/2024 13:34 EST [2]??MRI Brain W/O Contrast; Miracle HERNANDEZ, Connie Almendarez 09/30/2024 02:07 EST * Jameson OLMEDO, Sujata: PERFORM Event Display: Patient Education/Instruction Authored Date: [id number] Inpatient Adult Discharge Instructions. [address] [address] Name: HETAL SHIRLEY : 1965?? Visit: 09/28/2024 04:50?? Current Date: 10/05/2024 17:01 ?? Account: [id number]?? Inpatient Adult Discharge Instructions We would like to thank you for allowing us to assist you with your healthcare needs. The following includes patient education materials and information regarding your injury/illness. Our entire staffstrives to provide an excellent experience for our patients and their families. PLEASE ENSURE YOU FOLLOW-UP PER THE INSTRUCTIONS BELOW! ?? YOUR OPINION IS IMPORTANT TO US! Please complete the survey you may receive by mail or email. Your feedback will be used to make improvements to the healthcare experiences of our patients and their families. Surveys are administered by [employer] ?? If further treatment with your primary care physician or another doctor is recommended, it is important for you to keep the appointment. Call your primary care physician or return to the Emergency Department immediately if your condition worsens, fails to improve, or new symptoms develop. If you need to find a doctor, you can call [facility] for a referral at [phone] or toll free at [phone] ([phone] or log in to [email or web address].. ?? [facility], in keeping with [facility] guidance, no longer requires face masks for staff, patientsor visitors in most situations. Similiar to time spent indoors at other locations, there is the chance that you were exposed to repiratory viruses during your time with us (such as flu or COVID-19). If you develop symptoms concerning for a viral respiratory infection, please seek testing (and treatment if indicated) from your medical provider or home test kit. ?? You can view and manage your care through the patient portal or by using a health care catherine of your choosing. [employer] is a website that allows you to securely view your medical information including your hospital discharge summary, office visit summaries, medications and follow-up visits. You can also request appointments, renew medications, and request access to your medical information using a health care catherine of your choosing, or just ask a question. You can enroll at [email or web address] or register during your next office visit. You have been discharged from [facility], Patient Care Unit: D5A??. If you have any questions regarding these instructions, including results of studies pending, afteryou leave, please call us and we will be happy to assist you 08/03. [facility] Your Care Team Attending Physician Ana Maria HERNANDEZ, Junior Montoya?? Consulting Providers Junior Rodgers MD?? Discharging Providers Natacha Yancey NP Reason for Your Visit seizure, PNES??? Your Diagnosis Seizure Tests Performed Below is a partial list of the tests performed during your hospitalization. You may have had other tests and procedures not included in this list. Please discuss all test results with your provider. [id number] ABG Amphetamine Urine Screen Barbiturate Urine Screen Basic Metabolic Panel Benzodiazepine Urine Screen CALCIUM, URINE, MG/DL Cannabinoid Urine Screen CBC CBC w/ Differential CHLORIDE, URINE MMOL/L CK Total Only Cocaine Urine Screen COMPLETE URINALYSIS Comprehensive Metabolic Panel Cortisol Level CPK Total Only Creatinine Urine DHEA Sulfate GLUCOSE POC Hemoglobin A1c, (Diagnostic) High Sensitivity Troponin T HOLD URINE CULTURE HOLD URINE, HEMATOLOGY INR Ionized Calcium Magnesium Level MAGNESIUM, URINE mg/dL Methadone Urine Microalbumin Urine Opiate Screen Urine OSMOLALITY, URINE RANDOM Oxycodone Screen Urine Phosphorus Level PHOSPHORUS, URINE, MG/DL POTASSIUM, URINE MMOL/L Procalcitonin Level Protein/Creatinine Ratio Urine SODIUM, URINE MMOL/L Testosterone Total (Adult Male) Troponin T, High Sensitivity?-- Results Pending -- TSH UA?-- Results Pending -- Urea Nitrogen Urine Urinalysis Complete Urinalysis w/hold for Urine Culture Urine Calcium?-- Results Pending -- Urine Chloride?-- Results Pending -- Urine Creatinine Urine Culture Result Urine Culture, Routine Urine K?-- Results Pending -- Urine Magnesium?-- Results Pending -- Urine Na?-- Results Pending -- Urine Osmolality?-- Results Pending -- Urine pH?-- Results Pending -- Urine Phosphorus?-- Results Pending -- Urine Protein/Creatinine Ratio Urine Sodium CT/ US Image Guide Biopsy CXR Portable MRI Brain W/O Contrast Scrotum and Contents US Add On Lab Order?? Aldosterone/Renin Ratio?? Amphetamine Urine Screen?? Barbiturate Urine Screen?? Basic Metabolic Panel?? Benzodiazepine Urine Screen?? Blood Gas Arterial (ABG)?? CBC?? CBC w/ Differential?? CPK Total Only (CK Total Only)?? CT/ US Image Guide Biopsy?? Calcium Urine (CALCIUM, URINE, MG/DL)?? Cannabinoid Urine Screen?? Chloride Urine (CHLORIDE, URINE MMOL/L)?? Cocaine Urine Screen?? Complete Urinalysis?? Comprehensive Metabolic Panel?? Cortisol Level?? Creatinine Urine (Urine Creatinine)?? DHEA?? DHEA Sulfate?? Flow Cytometry Interpretation ()?? Glucose POC?? Hemoglobin A1C (Monitoring) (Hemoglobin A1c, (Diagnostic))?? High??Sensitivity??Troponin T (High Sensitivity Troponin T)?? Hold Urine (HOLD URINE, HEMATOLOGY)?? Hold Urine Culture?? INR?? Ionized Calcium?? MRI Brain W/O Contrast?? Magnesium Level?? Magnesium Urine (MAGNESIUM, URINE mg/dL)?? Metanephrines Fract Plasma?? Methadone Urine?? Microalbumin Urine?? Opiate Screen Urine?? Osmolality Urine (OSMOLALITY, URINE RANDOM)?? Oxycodone Screen Urine?? Pathology Tissue Request ()?? Phosphorus Level?? Phosphorus Urine (PHOSPHORUS, URINE, MG/DL)?? Potassium Urine (POTASSIUM, URINE MMOL/L)?? Procalcitonin Level?? Protein/Creatinine Ratio Urine (Urine Protein/Creatinine Ratio)?? Sodium Urine (SODIUM, URINE MMOL/L)?? TSH?? Testosterone Total (Adult Male)?? US Scrotum and Contents (Scrotum and Contents US)?? Urea Nitrogen Urine?? Urinalysis w/hold for Urine Culture?? Urine Culture (Urine Culture, Routine)?? Urine Culture Result?? Chest Portable (CXR Portable)?? pH Urine (Urine pH)?? Primary Care Provider Gill Wilde? Advance Directive Health Care Proxy on File Yes - Health Care Proxy Discharge Vitals Temperature: 97.8 DegF Height: 175 cm Pulse Rate: 80 bpm Weight: 67.7 kg Respiratory Rate: 20 br/min Body Mass Index: 21.39 kg/m2 Systolic Blood Pressure:??142 mm Hg??High Body surface area: 1.78 Diastolic Blood Pressure:??92 mm Hg??High ?? Oxygen Saturation: 99 % ?? Studies Pending All studies ordered during this hospital stay have been completed unless listed below. Please discuss all pending results with your provider listed above in these instructions. ?? Add On Lab Order?? Aldosterone/Renin Ratio?? Calcium Urine (Urine Calcium)?? Chloride Urine (Urine Chloride)?? Complete Urinalysis (UA)?? DHEA?? High??Sensitivity??Troponin T (Troponin T, High Sensitivity)?? Magnesium Urine (Urine Magnesium)?? Metanephrines Fract Plasma?? Osmolality Urine (Urine Osmolality)?? Pathology Tissue Request ()?? Phosphorus Urine (Urine Phosphorus)?? Potassium Urine (Urine K)?? Sodium Urine (Urine Na)?? pH Urine (Urine pH)?? What to do next Instructions From Your Doctor NEUROLOGY HAS ORDERED AN MRI/MRA TO BE DONE IN 1 MONTH RADIOLOGY WILL CALL YOU TO SCHEDULE ONCE YOU HAVE A DATE PLEASE CALL US SO WE CAN BOOK THE FOLLOW UP THANK YOU?? [phone] ?? BMP in 1 week with PCP?? uROLOGY F/U?? RENAL F/U?? NEURO F/U?? MONITOR BP TWICE A DAY, MAINTAIN A LOG, AND TAKE TO PCP? Orders?? , ??02/20/25 16:17:00 EST?? You Need to Schedule the Following Appointments Follow Up with??[facility] When:??Within 2 to 3 weeks Why: Please call urology to schedule appointment.?? Where: ?? Follow Up with??Follow up with Neurology When:??Within 1 to 2 weeks Follow Up with??Josep BOTELLO, Gill Rosen When:??Within 1 to 2 weeks Where: [address] [place] [address]- Discharge Medications HETAL SHIRLEY :1965 Visit Date:09/28/2024 Medications: Please continue your medications until treatment is completed or stopped by your provider. Medications not listed below should be discontinued. Discuss any questions related to medications with your provider. What How Much When Instructions Next Dose New Aspirin (aspirin 81 mg oral tablet, chewable) 81 Milligram Orogastric Tube Daily Pickup at [place] [id number] tomorrow in AM, 10/06/2024 New Carvedilol (Coreg 12.5 mg oral tablet) 12.5 Milligram Oral Twice a day Pickup at [facility] [place] [address] tonight at 9PM, 10/05/2024 New Folic Acid (folic acid 1 mg oral tablet) 1 Milligram Oral Daily Pickup at [place] [address] tomorrow in AM, 10/06/2024 New hydrALAZINE (hydrALAZINE 25 mg oral tablet) 50 Milligram Oral 3 times a day Pickup at [place] [address] tonight at 9PM, 10/05/2024 New levETIRAcetam (Keppra 250 mg oral tablet) 750 Milligram Oral Twice a day Pickup at [place] [address] tonight at 9PM, 10/05/2024 New Multivitamin With Minerals (multivitamin with minerals Multiple Vitamins with Minerals oral tablet) 1 tab(s) Orogastric Tube Daily Pickup at [place] [address] tomorrow in AM, 10/06/2024 New NIFEdipine (NIFEdipine 60 mg oral tablet, extended release) 120 Milligram Oral Daily Pickup at [place] [address] tomorrow in AM, 10/06/2024 New Pantoprazole (pantoprazole 40 mg oral delayed release tablet) 40 Milligram Oral Daily Pickup at [place] [address] tomorrow in AM, 10/06/2024 New Pyridoxine (pyridoxine 50 mg oral tablet) 50 Milligram Orogastric Tube Daily Pickup at [place] [address] tomorrow in AM, 10/06/2024 New Thiamine (thiamine 100 mg oral tablet) 100 Milligram Oral Daily Pickup at [place] [address] tomorrow in AM, 10/06/2024 Unchanged Multivitamin (Neuriva Brain performance Plus) Oral Daily please, follow your home routine Pharmacy Information [place] [address]: [address] [place] [address] [phone] Prescription Given During Visit Aspirin (aspirin 81 mg oral tablet, chewable) - 81 mg, Orogastric Tube, Daily, # 30 tablet, 0 Refills, [facility], [address] [place] [id number] [phone]?? Carvedilol (Coreg 12.5 mg oral tablet) - 12.5 mg, By Mouth, 2 times a day, # 30 tablet, 0 Refills, [facility] [address] [address] [phone]?? Folic Acid (folic acid 1 mg oral tablet) - 1 mg, By Mouth, Daily, # 30 tablet, 0 Refills, [facility], [address] [place] [id number] [phone]?? Multivitamin With Minerals (multivitamin with minerals Multiple Vitamins with Minerals oral tablet)- 1 tablet, Orogastric Tube, Daily, # 30 tablet, 0 Refills, [facility], [address] [place] [address] 24[address] [id number]?? NIFEdipine (NIFEdipine 60 mg oral tablet, extended release) - 120 mg, By Mouth, Daily, # 30 tablet,0 Refills, [facility], [address] [place] [address] [phone]?? Pantoprazole (pantoprazole 40 mg oral delayed release tablet) - 40 mg, By Mouth, Daily, # 30 tablet, 0 Refills, [place] [address] [phone]?? Pyridoxine (pyridoxine 50 mg oral tablet) - 50 mg, Orogastric Tube, Daily, # 30 tablet, 0 Refills, [place] [address] [phone]?? Thiamine (thiamine 100 mg oral tablet) - 100 mg, By Mouth, Daily, # 30 tablet, 0 Refills, [place] [address] [phone]?? hydrALAZINE (hydrALAZINE 25 mg oral tablet) - 50 mg, By Mouth, 3 times a day, # 150 tablet, 0 Refills, [place] [address] [phone]?? levETIRAcetam (Keppra 250 mg oral tablet) - 750 mg, By Mouth, 2 times a day, # 60 tablet, 0 Refills, [place] [address] [phone]?? Laboratory Results Below is a partial list of the most recent Laboratory test results done prior to this discharge. You may have had other tests and procedures not included in this list. Please discuss all test resultswith your provider. Est Creatinine Clearance - 48.91 mL/min (10/05/2024) [address] (10/03/2024) ? ?Flow Cytometry Interpretation -

Patient Name: HETAL SHIRLEY
Patient : &n bsp;1965 (Age: 59)
Collection Date: 10/03/2024
Accession Date: 10/03/2024
Sign Out Date: 10/04/2024

< br/>Interpretation:

Flow Cytometry of FNA of Left Cervical LN
< br/>B cells are polytypic. T and NK cells are present. There is no evidence of non-Hodgkin lymphoma.

See separate pathology report [id number]

Antigens tested: CD45, kappa, lambda, CD20, CD19, CD5, CD3, CD10, CD16, CD56, CD7, CD8, CD4, CD38, CD22, CD23, FMC- 7

Note:
This test was developed and its performance characteristics determined by Flow Cytometry Department at [facility]. It has not been cleared or approved by the US Food and Drug Administration. FDAdoes not require this test to go through premarket FDA review. This test is used for clinical purposes. It should not be regarded as investigational or for research. The laboratory is certified underthe Clinical Laboratory Improvement Amendments of 1988 ( CLIA ) as qualified to perform high- complexity testing. Additional information about this type of test is available upon request.

Testing performed at [facility], Flow Cytometry Department, [address] [place] [address].
CLIA#: [id number].

Material Received/Source of Specimen:
Specimen type/location: FNA of Left Cervical LN
Date/time specimen collected: 10/03/2024 at 1405
Date/time specimen received: 10/03/2024 at 1521
Date/time specimen processed: 10/03/2024 at 1530
Total cell count: 1.6million
Viability: 93%

Comment:

Primary Pathologist:STEPHANIE JONES M.D.
electronically signed out by: STEPHANIE JONES M.D. / [facility]

Phone #: [phone], On-Call Pathologist: [id number] ABG (09/28/2024) ???pH - 7.38???pCO2 - 40 mm Hg???pO2 - 124 mm Hg???Bicarbonate, Estimated - 23 mmol/L???Specimen Type - Blood Gas - ARTERIAL???Percent O2 (FIO2) - 30% Amphetamine Urine Screen (09/28/2024) ???Amphetamine Screen, Urine - NONE DETECTED Barbiturate Urine Screen (09/28/2024) ???Barbiturate Screen, Urine - POSITIVE Basic Metabolic Panel (10/04/2024) ???Sodium - 139 mmol/L???Potassium - 3.8 mmol/L???Chloride - 102 mmol/L???Bicarbonate Level - 24 mmol/L???Anion Gap - 13 mmol/L???Glucose Level - 95 mg/dL???BUN - 20 mg/dL???Creatinine-Blood - 1.56 mg/dL???Estimated GFR Creatinine - 51 ML/MIN/1.73 M2???Calcium - 9.2 mg/dL Benzodiazepine Urine Screen (09/28/2024) ???Benzodiazepine Screen, Urine - POSITIVE CALCIUM, URINE, MG/DL (10/04/2024) ???Calcium, Urine Random - 1.8 mg/dL Cannabinoid Urine Screen (09/28/2024) ???Cannabinoid Screen, Urine - POSITIVE CBC (10/05/2024) ???WBC - 13.1 k/mm3???RBC - 4.23 m/mm3???Hgb - 13.1 Gm/dL???Hct - 39.0 %???MCV - 92.2 femtoliters???MCH - 31.0 pg???MCHC - 33.6 Gm/dL???Platelet Count - 446 k/mm3???RDW-SD - 42.1 femtoliters???MPV - 9.9 femtoliters???Nucleated RBC (Automated) - 0.0 #/100 WBC'S???Abs. NRBC - 0.0 k/mm3 CBC w/ Differential (10/02/2024) ???WBC - 15.0 k/mm3???RBC - 3.90 m/mm3???Hgb - 12.2 Gm/dL???Hct - 36.2 %???MCV - 92.8 femtoliters???MCH - 31.3 pg???MCHC - 33.7 Gm/dL???Platelet Count - 387 k/mm3???RDW-SD - 43.4 femtoliters???MPV - 10.1 femtoliters???Nucleated RBC (Automated) - 0.0 #/100 WBC'S???Abs. NRBC - 0.0 k/mm3???Abs. Neut -11.6 k/mm3???Abs. Lymph - 1.7 k/mm3???Abs. Antelope - 1.5 k/mm3???Abs. Eo - 0.1 k/mm3???Abs. Baso - 0.1k/mm3???Neut % - 77.5 %???Lymph % - 11.0 %???Antelope % - 10.2 %???Eos % - 0.5 %???Baso % - 0.3 %???ImmGran - 0.5 %???Abs. Imm Gran - 0.1 k/mm3 CHLORIDE, URINE MMOL/L (10/04/2024) ???Chloride, Urine Random - 63 mmol/L CK Total Only (10/05/2024) ???CK, Total - 436 units/L Cocaine Urine Screen (09/28/2024) ???Cocaine Metabolite Screen, Urine - NONE DETECTED COMPLETE URINALYSIS (10/04/2024) ???Appear/Color, Urine - YELLOW???Specific [place], Urine - 1.016???pH, Urine - 6.5???Albumin, Urine - TRACE???Glucose, Urine - NEGATIVE???Ketones, Urine - NEGATIVE???Bilirubin, Urine - NEGATIVE???Hemoglobin, Urine - NEGATIVE???Nitrite, Urine - NEGATIVE???Leukocyte, Urine - NEGATIVE???Urobilinogen - NORMAL???WBC's, Urine - 1 /HPF???RBC's, Urine - 1 /HPF Comprehensive Metabolic Panel (10/05/2024) ???Sodium - 138 mmol/L???Potassium - 4.2 mmol/L???Chloride - 102 mmol/L???Bicarbonate Level - 22 mmol/L???Anion Gap - 14 mmol/L???Glucose Level - 110 mg/dL???BUN - 20 mg/dL???Creatinine-Blood - 1.53 mg/dL???Estimated GFR Creatinine - 52 ML/MIN/1.73 M2???Calcium - 9.2 mg/dL???Protein, Total - 7.1 Gm/ dL???Albumin - 4.0 Gm/dL???AG Ratio - 1.3???Alkaline Phosphatase - 82 units/L???AST (SGOT) - 80 units/L???ALT (SGPT) - 113 units/L???Bilirubin, Total - 0.2 mg/dL Cortisol Level (10/05/2024) ???Cortisol Level - 19.8 ??g/dL CPK Total Only (09/28/2024) ???CK, Total - 359 units/L Creatinine Urine (09/28/2024) ???Creatinine, Urine Random - 128.0 mg/dL DHEA Sulfate (10/05/2024) ???DHEA Sulfate - 98.9 ??g/dL GLUCOSE POC (09/29/2024) ???Glucose, POC - 115 mg/dL Hemoglobin A1c, (Diagnostic) (10/04/2024) ???Hemoglobin A1C (Monitoring) - 5.4 % High Sensitivity Troponin T (10/01/2024) ???High Sensitivity Troponin (HSTnT) - 18 ng/L HOLD URINE CULTURE (10/04/2024) ???Hold Urine Culture - Testing available 48 hours from time of collection. HOLD URINE, HEMATOLOGY (10/04/2024) ???Hold Urine - Testing Available 24 hours from Time of Collection INR (10/03/2024) ???INR - 1.1???Protime (PT) - 11.5 seconds Ionized Calcium (09/28/2024) ???Calcium, Ionized pH Corrected - 1.17 mmol/L Magnesium Level (09/29/2024) ???Magnesium - 2.9 mg/dL MAGNESIUM, URINE mg/dL (10/04/2024) ???Magnesium, Urine Meq/L - 2.3 mg/dL Methadone Urine (09/28/2024) ???Methadone Screen, Urine - NONE DETECTED Microalbumin Urine (09/28/2024) ???Malb/Creat Ratio - Unable to calculate???Urine Creat For Micro Alb - 128.0 mg/dL???Micro-Albumin- 477.0 mg/L Opiate Screen Urine (09/28/2024) ???Opiate Screen, Urine - NONE DETECTED OSMOLALITY, URINE RANDOM (10/04/2024) ???Osmolality, Urine Random - 503 mOsm/kg Oxycodone Screen Urine (09/28/2024) ???Oxycodone Screen, Urine - NONE DETECTED Phosphorus Level (09/29/2024) ???Phosphorus - 5.6 mg/dL PHOSPHORUS, URINE, MG/DL (10/04/2024) ???Phosphorus, Urine Random - 29.4 mg/dL POTASSIUM, URINE MMOL/L (10/04/2024) ???Potassium, Urine Random - 20.2 mmol/L Procalcitonin Level (10/01/2024) ???Procalcitonin - 0.21 ng/mL Protein/Creatinine Ratio Urine (09/28/2024) ???Protein, Total Urine Random - 98 mg/dL???TP/Cr Ratio - 0.77???Creatinine, Urine - 128.0 mg/dL SODIUM, URINE MMOL/L (10/04/2024) ???Sodium, Urine Random - 91 mmol/L Testosterone Total (Adult Male) (10/04/2024) ???Testosterone Total, LC/MS - 802 ng/dL TSH (10/04/2024) ???TSH - 2.46 uIU/mL Urea Nitrogen Urine (09/28/2024) ???Urea Nitrogen, Urine Random - 366.6 mg/dL Urinalysis Complete (10/03/2024) ???Appear/Color, Urine - LIGHT YELLOW???Specific [place], Urine - 1.013???pH, Urine - 6.0???Albumin, Urine - TRACE???Glucose, Urine - NEGATIVE???Ketones, Urine - NEGATIVE???Bilirubin, Urine - NEGATIVE???Hemoglobin, Urine - TRACE???Nitrite, Urine - NEGATIVE???Leukocyte, Urine - NEGATIVE???Urobilinogen - NORMAL???WBC's, Urine - 1 /HPF???RBC's, Urine - 4 /HPF Urinalysis w/hold for Urine Culture (10/01/2024) ???Appear/Color, Urine - COLORLESS???Specific [place], Urine - 1.009???pH, Urine - 7.0???Albumin, Urine - TRACE???Glucose, Urine - NEGATIVE???Ketones, Urine - NEGATIVE???Bilirubin, Urine - NEGATIVE???Hemoglobin, Urine - 2+???Nitrite, Urine - NEGATIVE???Leukocyte, Urine - NEGATIVE???Urobilinogen - NORMAL? ?WBC's, Urine - 1 /HPF? ?RBC's, Urine - 3 /HPF? ?Squamous Epith - <1 /HPF? ?Hold Urine Culture - Testing available 48 hours from time of collection. Urine Creatinine (10/04/2024) ???Creatinine, Urine Random - 89.6 mg/dL Urine Culture Result (10/01/2024) ???Urine Culture Isolate 1 - No growth Urine Culture, Routine (10/01/2024) ???Urine Culture Results - Final report???Urine Culture Specimen Source - URINE Urine Protein/Creatinine Ratio (10/03/2024) ???Protein, Total Urine Random - 24 mg/dL???TP/Cr Ratio - 0.27???Creatinine, Urine - 88.3 mg/dL Urine Sodium (10/04/2024) ???Sodium, Urine Random - 81 mmol/L You will be contacted within 72 hours with your results. Allergies (NKA means No Known Allergies) No Known Medication Allergies Problems Active Problems??(1) Hernia, inguinal?? Education Materials Below is the list of Educational Leaflet Providered with your Discharge Instructions. [employer] Patient Education - Carvedilol?? [employer] Patient Education - Nifedipine?? [employer] Patient Education - Levetiracetam?? [employer] Patient Education - Uncontrolled High Blood Pressure (Established)?? [employer] Patient Education - Discharge Instructions for Malignant Hypertension (Hypertensive Emergency or Urgency)?? [employer] Patient Education - Discharge instructions for high blood pressure (hypertension)?? [employer] Patient Education - How Seizures Affect the Body?? [employer] Patient Education - Recurrent Seizure (Adult)?? [employer] Patient Education - Safety During a Seizure?? Valuables and Belongings I fully understand and agree that [facility] accepts no responsibility for all my personal property including clothing, toilet articles, radios, jewelry, dentures, hearing aids, rings, money, or any other property that is in my possession or is brought to me after admission. I understand certain valuables may be placed in a hospital safe for a short period of time. I understand that the hospital is not liable for loss or damage due to accident, fire, or other natural occurrence while said property is in the safe. I accept full responsibility for any personal property that I keep with me, and will not hold the hospital responsible in case of loss or disappearance. I acknowledge that i have been encouraged to send valuables and belongings home. ?? No Valuables/Belongings: No valuables/belongings present Date for Pt to Sign Valuables/Belongings: 09/28/24 05:21:00 ?? Other Discharge Information ? Pulmonary Rehab Status?? Pulmonary Rehab Discharge Status?? Respiratory Rate: 20 br/min PEEP: 5 ? Common Emergency Awareness Tips IS IT A STROKE? Act FAST and Check for these signs: FACE Does the face look uneven? ARM Does one arm drift down? SPEECH Does their speech sound strange? TIME Call at any sign of stroke ?? Heart Attack Signs Chest discomfort: Most heart attacks involve discomfort in the center of the chest and lasts more than a few minutes, or goes away and comes back. It can feel like uncomfortable pressure, squeezing, fullness or pain. Discomfort in upper body: Symptoms can include pain or discomfort in one or both arms, back, neck, jaw or stomach. Shortness of breath: With or without discomfort. Other signs: Breaking out in a cold sweat, nausea, or lightheaded. Remember, MINUTES DO MATTER. If you experience any of these heart attack warning signs, call to get immediate medical attention! ?? Smoking can increase your chances of developing chronic health problems and can cause harmful effects to other family members in your house. If you smoke, you are strongly encouraged to quit. Please call [facility] [facility] [employer] Link at [phone] or [phone] ([phone]) or log in to [email or web address] for referrals to smoking cessation programs. ?? 633 Suicide & Crisis Lifeline is available 08/03 if you or someone you know needs to find a reason to keep living. By calling 553 you'll be connected to a skilled, trained counselor at a crisis center in your area. INPATIENT DISCHARGE INSTRUCTIONS SIGNATURE HETAL SEGUNDO Location:[facility] Registration Date and Time:09/28/2024 04:50 EST Primary Care Physician: Gill Wilde, Attending Physician: Ana Maria HERNANDEZ, [facility], I HETAL SHIRLEY, have received the above patient education materials/instructions and have verbalized understanding. If ambulance or transport services are being used I further acknowledge being given a choice of service. ?? If you need to contact me, please call me at this number: . Patient/Frit Maker Name: Patient/Frit Maker Signature: Relationship to Patient: Witness Name/Signature: Date: * Sujata Barba RN: PERFORM Event Display: Patient Education Leaflets Authored Date: [id number] Carvedilol ?? [id number] Carvedilol Brand Name(s): Coreg??, Coreg?? CR; also available generically ?? WHY is this medicine prescribed? Carvedilol is used alone or in combination with other medications to treat heart failure (conditionin which the heart cannot pump enough blood to all parts of the body) and high blood pressure. It also is used to improve survival after a heart attack. Carvedilol is often used in combination with other medications. Carvedilol is in a class of medications called beta-blockers. It works by relaxingblood vessels and slowing heart rate to improve blood flow and decrease blood pressure High blood pressure is a common condition and when not treated, can cause damage to the brain, heart, blood vessels, kidneys and other parts of the body. Damage to these organs may cause heart disease, a heart attack, heart failure, stroke, kidney failure, loss of vision, and other problems. In addition to taking medication, making lifestyle changes will also help to control your blood pressure. These changes include eating a diet that is low in fat and salt, maintaining a healthy weight, exercising at least 30 minutes most days, not smoking, and using alcohol in moderation. HOW should this medicine be used? Carvedilol comes as a tablet and an extended-release (long-acting) capsule to take by mouth. The tablet is usually taken twice a day with food. The extended- release capsule is usually taken once a day in the morning with food. Try to take carvedilol at around the same time(s) every day. Follow the directions on your prescription label carefully, and ask your doctor or pharmacist to explain any part you do not understand. Take carvedilol exactly as directed. Do not take more or less of it or take it more often than prescribed by your doctor. Swallow the extended-release capsules whole. Do not chew or crush the capsules, and do not divide the beads inside a capsule into more than one dose. If you are unable to swallow the capsules, you may carefully open a capsule and sprinkle all of the beads it contains over a spoonful of cool or roomtemperature applesauce. Swallow the entire mixture immediately without chewing. Your doctor will probably start you on a low dose of carvedilol and gradually increase your dose toallow your body to adjust to the medication. Talk to your doctor about how you feel and about any symptoms you experience during this time. Carvedilol may help to control your condition but will not cure it. Continue taking carvedilol evenif you feel well. Do not stop taking carvedilol without talking to your doctor. If you suddenly stop taking carvedilol, you may experience serious heart problems such as severe chest pain, a heart attack, or an irregular heartbeat. Your doctor will probably want to decrease your dose gradually over1 to 2 weeks. Your doctor will watch you carefully and will probably tell you to avoid physical activity during this time. Are there OTHER USES for this medicine? This medication may be prescribed for other uses. Ask your doctor or pharmacist for more information. What SPECIAL PRECAUTIONS should I follow? Before taking carvedilol, The following nonprescription or herbal products may interact with carvedilol: [place]'s Wort. Be sure to let your doctor and pharmacist know that you are taking this medication before you start taking carvedilol. Do not start this medication while taking carvedilol without discussing with your healthcare provider. ??? tell your doctor and pharmacist if you have are allergic to carvedilol, any other medications, or any of the ingredients in carvedilol tablets and extended- release capsules. Ask your pharmacist for a list of the ingredients. ??? tell your doctor and pharmacist what prescription and nonprescription medications, vitamins, herbal products, and nutritional supplements you are taking or plan to take while taking carvedilol. Your doctor may need to change the doses of your medications or monitoryou carefully for side effects. ??? tell your doctor if you have or have ever had asthma or other breathing problems, a slow or irregular heartbeat, heart failure, or liver disease. Your doctor may tell you not to take carvedilol. ??? tell your doctor if you have or have ever had problems with blood flow in your feet or legs, diabetes or any other condition that causes you to have low blood sugar, hyperthyroidism (condition in which there is too much thyroid hormone in the body), low blood pressure, Prinzmetal's angina (chest pain that comes at rest with no obvious cause), pheochromocytoma (atumor that develops on a gland near the kidneys and may cause high blood pressure and fast heartbeat), or heart, kidney, or liver disease. Also tell your doctor if you have ever had a serious allergic reaction to a food or any other substance. ??? tell your doctor if you are , plan to become , or are breast-feeding. If you become while taking carvedilol, call your doctor.??? if you are having surgery, including dental or eye surgery, tell the doctor, dentist, or eye doctor that you are taking carvedilol. ??? you should know that this medication may make you feel tired, dizzy, or lightheaded, especially when you start taking carvedilol and when your dose is increased. Do not drive a car or operate machinery until you know how this medication affects you. Be especially careful during the first hour after you take the medication. ??? you should know that carvedilol may cause dizziness, lightheadedness, and fainting, especially when you get up too quickly from a lying position. This is more common when you first start taking carvedilol. To avoid this problem, get out of bed slowly, resting your feet on the floor for a few minutes before standing up. ??? you should know that carvedilol may increase the risk of hypoglycemia (low blood sugar) and prevent the warning signs and symptoms that would tell you that your blood sugar is low. Let your doctor know if you are unable to eat or drink normally or are vomiting while you are taking carvedilol. You should know the symptoms of low blood sugar and what to do if you have these symptoms. ??? you should know that if you have allergic reactions to different substances, your reactions may be worse while you are taking carvedilol, and your allergic reactions may not respond to the usual doses of injectable epinephrine. ??? if you wear contact lenses, your eyes may become dry during your treatment with carvedilol. Tell your doctor if this becomes bothersome. What SPECIAL DIETARY instructions should I follow? Unless your doctor tells you otherwise, continue your normal diet. What should I do IF I FORGET to take a dose? Take the missed dose as soon as you remember it. However, if it is almost time for the next dose, skip the missed dose and continue your regular dosing schedule. Do not take a double dose to make up for a missed one. What SIDE EFFECTS can this medicine cause? Some side effects may be serious. If you experience any of the following symptoms, call your doctorimmediately: ??? fainting ??? shortness of breath ??? weight gain ??? swelling of the arms, hands, feet, ankles,or lower legs ??? chest pain ??? slow or irregular heartbeat ??? rash ??? hives ??? itching ??? swelling of the face, lips, tongue, or throat ??? difficulty breathing and swallowing Carvedilol may cause other side effects. Tell your doctor if you experience any unusual problems while you are taking this medication. If you experience a serious side effect, you or your doctor may send a report to the Food and Drug Administration's (FDA) MedWatch Adverse Event Reporting program online (https://www.fda.gov/Safety/MedWatch) or by phone ( ). What should I know about STORAGE and DISPOSAL of this medication? Keep this medication in the container it came in, tightly closed, and out of reach of children. Store it at room temperature and away from excess heat and moisture (not in the bathroom). It is important to keep all medication out of sight and reach of children as many containers (such as weekly pill minders and those for eye drops, creams, patches, and inhalers) are not child-resistant and young children can open them easily. To protect young children from poisoning, always lock safety caps and immediately place the medication in a safe location ??? one that is up and away and out of their sight and reach. https://www.upandaway.org Unneeded medications should be disposed of in special ways to ensure that pets, children, and otherpeople cannot consume them. However, you should not flush this medication down the toilet. Instead,the best way to dispose of your medication is through a medicine take-back program. Talk to your pharmacist or contact your local garbage/recycling department to learn about take-back programs in your community. See the FDA's Safe Disposal of Medicines website (https://goo.gl/c4Rm4p) for more information if you do not have access to a take-back program. What should I do in case of OVERDOSE? In case of overdose, call the poison control helpline at . Information is also available online at https://www.poisonhelp.org/help. If the victim has collapsed, had a seizure, has trouble breathing, or can't be awakened, immediately call emergency services at 911. Symptoms of overdose may include: ??? slow heartbeat ??? dizziness ??? fainting ??? difficulty breathing ??? cough or wheezing ??? vomiting ??? loss of consciousness ??? seizures What OTHER INFORMATION should I know? Keep all appointments with your doctor and the laboratory. Your doctor may order certain laboratorytests to check your body's response to carvedilol. Do not let anyone else take your medication. Ask your pharmacist any questions you have about refilling your prescription. It is important for you to keep a written list of all of the prescription and nonprescription (ctwx-mcx-cxhpnea) medicines you are taking, as well as any products such as vitamins, minerals, or otherdietary supplements. You should bring this list with you each time you visit a doctor or if you areadmitted to a hospital. It is also important information to carry with you in case of emergencies. This report on medications is for your information only, and is not considered individual patient advice. Because of the changing nature of drug information, please consult your physician or pharmacist about specific clinical use. The [employer] represents that the information provided hereunder was formulated with a reasonable standard of care, and in conformity with professional standards in the field. [employer] makes no representations or warranties, express or implied, including, but not limited to, any implied warranty of merchantability and/or fitness for a particular purpose, with respect to such information and specifically disclaims all such warranties. Users are advised that decisions regarding drug therapy are complex medical decisions requiring the independent, informed decision of an appropriate health home child care provider, and the information is provided for informational purposes only. The entire monograph for a drug should be reviewed for a thorough understanding of the drug's actions, uses and side effects. The [employer] does not endorse or recommend the use of any drug.The information is not a substitute for medical care. AHFS?? Patient Medication Information???. ?? Copyright, 2023. [employer]??, [address], [address], [place], [place]. All Rights Reserved. Duplication for commercial use must be authorized by [facility]. Selected Revisions: March 30, 2023. AHFS?? Patient Medication Information???. ?? Copyright, 2024 ?? * Jameson OLMEDO, Sujata: PERFORM Event Display: Patient Education Leaflets Authored Date: [id number] Nifedipine ?? [id number] Nifedipine Brand Name(s): Adalat??, Adalat?? CC, Afeditab?? CR, Nifedical?? XL, Nifeditab?? CR, Procardia??, Procardia?? XL; also available generically ?? WHY is this medicine prescribed? Nifedipine is used to treat high blood pressure and to control angina (chest pain). Nifedipine is in a class of medications called calcium-channel blockers. It lowers blood pressure by relaxing the blood vessels so the heart does not have to pump as hard. It controls chest pain by increasing the supply of blood and oxygen to the heart. High blood pressure is a common condition and when not treated, can cause damage to the brain, heart, blood vessels, kidneys and other parts of the body. Damage to these organs may cause heart disease, a heart attack, heart failure, stroke, kidney failure, loss of vision, and other problems. In addition to taking medication, making lifestyle changes will also help to control your blood pressure. These changes include eating a diet that is low in fat and salt, maintaining a healthy weight, exercising at least 30 minutes most days, not smoking, and using alcohol in moderation. HOW should this medicine be used? Nifedipine comes as a capsule and an extended-release (long-acting) tablet to take by mouth. The capsule is usually taken three or four times a day. The extended-release tablet should be taken once daily on an empty stomach, either 1 hour before or 2 hours after a meal. To help you remember to takenifedipine, take it at around the same time(s) every day. Follow the directions on your prescription label carefully, and ask your doctor or pharmacist to explain any part you do not understand. Takenifedipine exactly as directed. Do not take more or less of it or take it more often than prescribed by your doctor. Swallow the extended-release tablets whole; do not split, chew, or crush them. Your doctor will probably start you on a low dose of nifedipine and gradually increase your dose, generally once every 7 to 14 days. If taken regularly, nifedipine controls chest pain, but it does not stop chest pain once it starts.Your doctor may prescribe a different medication to take when you have chest pain. Nifedipine controls high blood pressure and chest pain (angina) but does not cure them. Continue totake nifedipine even if you feel well. Do not stop taking nifedipine without talking to your doctor. Your doctor will probably decrease your dose gradually. Are there OTHER USES for this medicine? Nifedipine is also used sometimes to treat labor and Raynaud's syndrome. Talk to your doctor about the possible risks of using this medication for your condition. This medication is sometimes prescribed for other uses; ask your doctor or pharmacist for more information. What SPECIAL PRECAUTIONS should I follow? Before taking nifedipine, ??? tell your doctor and pharmacist if you are allergic to nifedipine, any other medications, or any of the ingredients in nifedipine. Ask your pharmacist for a list of the ingredients. ??? some medications should not be taken with nifedipine. Other medications may cause dosing changes or extra monitoring when taken with nifedipine. Make sure you have discussed any medications you are currently taking or plan to take before starting nifedipine with your doctor and pharmacist. Before starting, stopping, or changing any medications while taking nifedipine, please get the advice of your doctor or pharmacist.. ??? the following nonprescription or herbal products may interact with nifedipine: [place]'s wort; cimetidine (Tagamet). Be sure to let your doctor and pharmacist know that you are taking these medications before you start taking nifedipine. Do not start any of these medications while taking nifedipine without discussing with your healthcare provider. ??? tell your doctor if you have or have ever had a narrowing or blockage of your digestive system or any other condition that causes food to move through your digestive system more slowly; or heart, liver, or kidney disease. [place] your doctor if you have had a myocardial infarction (RI) within the last 2 weeks. ??? tell your doctor if you are , plan to become , or are breast-feeding. If you become while taking nifedipine, call your doctor. ??? talk to your doctor about the safe use of nifedipinecapsules if you are 65 years of age or older. Older adults should not usually take nifedipine capsules because they are not as safe as other medications that can be used to treat the same condition. ??? if you are having surgery, including dental surgery, tell your doctor or dentist that you are pierre ing nifedipine. ??? ask your doctor about the safe use of alcoholic beverages while you are taking nifedipine. Alcohol can make the side effects from nifedipine worse. What SPECIAL DIETARY instructions should I follow? Do not drink grapefruit juice or eat grapefruit 3 days before and while taking nifedipine. If your doctor prescribes a low-salt or low-sodium diet, follow these directions carefully. What should I do IF I FORGET to take a dose? Take the missed dose as soon as you remember it. However, if it is almost time for the next dose, skip the missed dose and continue your regular dosing schedule. Do not take a double dose to make up for a missed one. What SIDE EFFECTS can this medicine cause? Some side effects can be serious. If you experience any of the following symptoms, call your doctorimmediately or get emergency medical treatment: ??? swelling of the face, eyes, lips, tongue, hands, arms, feet, ankles, or lower legs ??? difficulty breathing or swallowing ??? fainting ??? rash ??? yellowing of the skin or eyes ??? increase in frequency or severity of chest pain (angina) If you experience a serious side effect, you or your doctor may send a report to the Food and Drug Administration's (FDA) MedWatch Adverse Event Reporting program online (https://www.fda.gov/Safety/MedWatch) or by phone ( ). What should I know about STORAGE and DISPOSAL of this medication? Keep this medication in the container it came in, tightly closed, and out of reach of children. Store it at room temperature, away from light, and away from excess heat and moisture (not in the bathroom). It is important to keep all medication out of sight and reach of children as many containers (such as weekly pill minders and those for eye drops, creams, patches, and inhalers) are not child-resistant and young children can open them easily. To protect young children from poisoning, always lock safety caps and immediately place the medication in a safe location ??? one that is up and away and out of their sight and reach. https://www.[employer]org Unneeded medications should be disposed of in special ways to ensure that pets, children, and otherpeople cannot consume them. However, you should not flush this medication down the toilet. Instead,the best way to dispose of your medication is through a medicine take-back program. Talk to your pharmacist or contact your local garbage/recycling department to learn about take-back programs in your community. See the FDA's Safe Disposal of Medicines website (https://goo.gl/c4Rm4p) for more information if you do not have access to a take-back program. What should I do in case of OVERDOSE? In case of overdose, call the poison control helpline at . Information is also available online at https://www.poisonhelp.org/help. If the victim has collapsed, had a seizure, has trouble breathing, or can't be awakened, immediately call emergency services at 534. Symptoms of overdose may include: ??? dizziness ??? fast heartbeat ??? flushing ??? nervousness ??? nausea ??? vomiting ??? swelling of the hands, feet, ankles, or lower legs ??? blurred vision ??? fainting What OTHER INFORMATION should I know? Keep all appointments with your doctor and the laboratory. Your blood pressure should be checked regularly to determine your response to nifedipine. If you are taking certain extended-release tablets (Afeditab CR, Procardia XL), you may notice something that looks like a tablet in your stool. This is just the empty tablet shell, and this does notmean that you did not get your complete dose of medication. Do not let anyone else take your medication. Ask your pharmacist any questions you have about refilling your prescription. It is important for you to keep a written list of all of the prescription and nonprescription (kswz-pup-tafrryx) medicines you are taking, as well as any products such as vitamins, minerals, or otherdietary supplements. You should bring this list with you each time you visit a doctor or if you areadmitted to a hospital. It is also important information to carry with you in case of emergencies. This report on medications is for your information only, and is not considered individual patient advice. Because of the changing nature of drug information, please consult your physician or pharmacist about specific clinical use. The [employer] represents that the information provided hereunder was formulated with a reasonable standard of care, and in conformity with professional standards in the field. [employer] makes no representations or warranties, express or implied, including, but not limited to, any implied warranty of merchantability and/or fitness for a particular purpose, with respect to such information and specifically disclaims all such warranties. Users are advised that decisions regarding drug therapy are complex medical decisions requiring the independent, informed decision of an appropriate health home child care provider, and the information is provided for informational purposes only. The entire monograph for a drug should be reviewed for a thorough understanding of the drug's actions, uses and side effects. The [employer] does not endorse or recommend the use of any drug.The information is not a substitute for medical care. AHFS?? Patient Medication Information???. ?? Copyright, 2023. [employer]??, [address], [address], [place], [place]. All Rights Reserved. Duplication for commercial use must be authorized by [facility]. Selected Revisions: May 30, 2017. AHFS?? Patient Medication Information???. ?? Copyright, 2024 ?? * Sujata Barba RN: PERFORM Event Display: Patient Education Leaflets Authored Date: [id number] Levetiracetam ?? [id number] Levetiracetam Brand Name(s): Elepsia?? XR, Keppra??, Keppra?? XR, Spritam??; also available generically ?? WHY is this medicine prescribed? Levetiracetam is used alone and along with other medications to control partial- onset seizures (seizures that involve only one part of the brain) in adults, children, and infants 1 month of age or older. Levetiracetam is also used in combination with other medications to treat seizure in adults andchildren 12 years of age or older with juvenile myoclonic epilepsy. Levetiracetam is also used in combination with other medications to treat primary generalized tonic- clonic seizures (formerly knownas a grand mal seizure; seizure that involves the entire body) in adults and children 6 years of age or older with epilepsy. Levetiracetam is in a class of medications called anticonvulsants. It works by decreasing abnormal excitement in the brain. HOW should this medicine be used? Levetiracetam comes as a solution (liquid), an immediate-release tablet, an extended-release (long-acting) tablet, and as a tablet for suspension (a tablet to take with liquid) to take by mouth. The solution, immediate-release tablet, and tablet for suspension are usually taken twice a day, once inthe morning and once at night, with or without food. The extended-release tablets are usually takenonce daily with or without food. Try to take levetiracetam at around the same time(s) every day. Follow the directions on your prescription label carefully, and ask your doctor or pharmacist to explain any part you do not understand. Take levetiracetam exactly as directed. Do not take more or less of it or take it more often than prescribed by your doctor. Swallow the levetiracetam immediate-release and extended-release tablets whole; do not split, chew,or crush them. Take the whole levetiracetam tablets for suspension according to directions; do not split, chew, or crush them. To take levetiracetam tablet(s) for suspension, use dry hands to peel the foil from the blister packaging; do not try to push the tablets through the foil. Immediately take out the number of tablet(s) that your doctor has told you to take and place the tablet(s) on your tongue with a sip of liquid.Once the tablet completely dissolves on your tongue, swallow the mixture. The tablet(s) may take about 10 seconds to dissolve. You can also take levetiracetam tablets for suspension by dissolving them in a liquid. Place the number of tablet(s) your doctor has told you to take into a cup and add a small amount of liquid (about 1 tablespoon [15 mL] or enough to cover the medication in a cup). Swirl the cup gently. After the tablet(s) for suspension dissolve, drink the mixture right away. If there is any medication left in the cup, add some more liquid and swirl the cup gently. Drink the mixture water right away to be sure that you swallow all of the medication. If you are taking the levetiracetam oral solution, do not use a household spoon to measure your dose. You might not get the right amount of medication. Ask your doctor or pharmacist to recommend a medicine dropper, spoon, cup, or syringe and to show you how to use it to measure your medication. Your doctor may start you on a low dose of levetiracetam and gradually increase your dose, not moreoften than once every 2 weeks. Levetiracetam controls epilepsy but does not cure it. Continue to take levetiracetam even if you feel well. Do not stop taking levetiracetam without talking to your doctor, even if you experience side effects such as unusual changes in behavior or mood. If you suddenly stop taking levetiracetam, your seizures may become worse. Your doctor will probably decrease your dose gradually. Your doctor or pharmacist will give you the [employer]'s patient information sheet (Medication Guide) when you begin treatment with levetiracetam and each time you refill your prescription. Read the information carefully and ask your doctor or pharmacist if you have any questions. You can also visit the Food and Drug Administration (FDA) website (https://www.fda.gov/Drugs) or the kiln placer'swebsite to obtain the Medication Guide. Are there OTHER USES for this medicine? This medication may be prescribed for other uses; ask your doctor or pharmacist for more information. What SPECIAL PRECAUTIONS should I follow? Before taking levetiracetam, ??? tell your doctor and pharmacist if you are allergic to levetiracetam, any other medications, orany of the ingredients in levetiracetam products. Ask your pharmacist or check the Medication Guidefor a list of the ingredients. ??? tell your doctor and pharmacist what prescription and nonprescription medications, vitamins, nutritional supplements, and herbal products you are taking or plan to take. Your doctor may need to change the doses of your medications or monitor you carefully for sideeffects. ??? tell your doctor if you have or have ever had kidney disease, depression, mood problems, or suicidal thoughts or behavior. ??? tell your doctor if you are , plan to become , or are . If you become while taking levetiracetam, call your doctor. ??? you should know that levetiracetam may make you dizzy or drowsy. Do not drive a car or operate machinery until you know how this medication affects you. ??? you should know that your mental health may change in unexpected ways and you may become suicidal (thinking about harming or killing yourself or planning or trying to do so) while you are taking levetiracetam for the treatment of epilepsy, mental illness, or other conditions. A small number of adults and children 5 years of age and older (about 1 in 500 people) who took anticonvulsants such as levetiracetam to treat various conditions during clinical studies became suicidal during their treatment. Some of these people developed suicidal thoughts and behavior as early as one week after they started taking the medication. There is a risk that you may experience changes in your mental health if you take an anticonvulsant medication such as levetiracetam, but there may also be a risk that you will experience changes in your mental health if your condition is not treated. You and your doctor will decide whether the risks of taking an anticonvulsant medication are greater than the risks of not taking the medication. You, your family, or your caregiver should call your doctor right away if you experience any of the following symptoms: panic attacks; agitation or restlessness; nervousness, new or worsening irritability, anxiety, or depression; acting on dangerous impulses; difficulty falling or staying asleep; aggressive, angry, or violent behavior; kristy (frenzied, abnormally excited mood); talking or thinking about wanting to hurt yourself or end your life; withdrawing from friends and family; preoccupation with and dying; giving away prized possessions; or any other unusual changes in behavior or mood. Be sure that your family or caregiver knows which symptoms may be serious so they can call the doctor if you are unable to seek treatment on your own. What SPECIAL DIETARY instructions should I follow? Unless your doctor tells you otherwise, continue your normal diet. What should I do IF I FORGET to take a dose? If it has only been a few hours since the time you were scheduled to take the dose, take the misseddose as soon as you remember it. However, if it is almost time for the next dose, skip the missed dose and continue your regular dosing schedule. Do not take a double dose to make up for a missed one. What SIDE EFFECTS can this medicine cause? Some side effects can be serious. If you experience any of the following symptoms or those listed in the SPECIAL PRECAUTIONS section, call your doctor immediately: ??? rash, fever, swollen lymph nodes, facial swelling, shortness of breath, yellowing of skin or whites of the eyes, dark urine ??? seizures that are worse or different than the seizures you had before ??? fever, sore throat, or other signs of infection ??? blisters on skin ??? hives ??? itching ??? swelling of the face, throat, tongue, lips. and eyes ??? difficulty swallowing or breathing ??? loss of balance or coordination Levetiracetam may cause other side effects. Call your doctor if you have any unusual problems whiletaking this medication. If you experience a serious side effect, you or your doctor may send a report to the Food and Drug Administration's (FDA) MedWatch Adverse Event Reporting program online (https://www.fda.gov/Safety/MedWatch) or by phone ( ). What should I know about STORAGE and DISPOSAL of this medication? Keep this medication in the container it came in, tightly closed, and out of reach of children. Store it at room temperature and away from light, excess heat and moisture (not in the bathroom). Unneeded medications should be disposed of in special ways to ensure that pets, children, and otherpeople cannot consume them. However, you should not flush this medication down the toilet. Instead,the best way to dispose of your medication is through a medicine take-back program. Talk to your pharmacist or contact your local garbage/recycling department to learn about take-back programs in your community. See the FDA's Safe Disposal of Medicines website (https://goo.gl/c4Rm4p) for more information if you do not have access to a take-back program. It is important to keep all medication out of sight and reach of children as many containers (such as weekly pill minders and those for eye drops, creams, patches, and inhalers) are not child-resistant and young children can open them easily. To protect young children from poisoning, always lock safety caps and immediately place the medication in a safe location ??? one that is up and away and out of their sight and reach. https://www.[employer]way.org What should I do in case of OVERDOSE? In case of overdose, call the poison control helpline at . Information is also available online at https://www.poisonhelp.org/help. If the victim has collapsed, had a seizure, has trouble breathing, or can't be awakened, immediately call emergency services at [phone]. Symptoms of overdose may include the following: ??? drowsiness ??? agitation ??? aggression ??? decreased consciousness or loss of consciousness (coma) ??? difficulty breathing What OTHER INFORMATION should I know? Keep all appointments with your doctor. If an or child younger than 4 years of age receives levetiracetam, your doctor will check their blood pressure regularly. Do not let anyone else take your medication. Ask your pharmacist any questions you have about refilling your prescription. It is important for you to keep a written list of all of the prescription and nonprescription ([id number]) medicines you are taking, as well as any products such as vitamins, minerals, or otherdietary supplements. You should bring this list with you each time you visit a doctor or if you areadmitted to a hospital. It is also important information to carry with you in case of emergencies. This report on medications is for your information only, and is not considered individual patient advice. Because of the changing nature of drug information, please consult your physician or pharmacist about specific clinical use. The [employer] represents that the information provided hereunder was formulated with a reasonable standard of care, and in conformity with professional standards in the field. The [employer] makes no representations or warranties, express or implied, including, but not limited to, any implied warranty of merchantability and/or fitness for a particular purpose, with respect to such information and specifically disclaims all such warranties. Users are advised that decisions regarding drug therapy are complex medical decisions requiring the independent, informed decision of an appropriate health home child care provider, and the information is provided for informational purposes only. The entire monograph for a drug should be reviewed for a thorough understanding of the drug's actions, uses and side effects. The [employer] does not endorse or recommend the use of any drug.The information is not a substitute for medical care. AHFS?? Patient Medication Information???. ?? Copyright, 2023. The [employer]??, [address], [address], [place], [place]. All Rights Reserved. Duplication for commercial use must be authorized by [facility]. Selected Revisions: December 04, 2023. AHFS?? Patient Medication Information???. ?? Copyright, 2024 ?? * Event Display: Provider Clarification Note Please click on pdf link to open report Consult note * Kellen Singletary: PERFORM, MODIFY Event Display: Consultation Note Authored Date: [id number] Patient: ??HETAL SHIRLEY ? Age:??59 Years?Sex:??Male?:??1965?? Chief Complaint/Reason for Consultation Nephrology consulted for BARRETT History of Present Illness Hetal Shirley is a 59 year old male with no known medical history besides known alcohol use for the past year who presented initially to for hematuria and dysuria x1 week, diagnosed with UTI and prescribed Bactrim, developed epigastric abdominal discomfort and syncope at home for which pt was brought to [facility], then had a witnessed seizure, subsequently intubated for airway protection, and transferred to [facility] for further management. ?? Pt initially presented to urgent care??for dysuria and hematuria over the last week, diagnosed with a UTI and started on Bactrim.?? After taking 1 dose he developed epigastric abdominal discomfort, felt dizzy and lightheaded, and had a possible syncopal episode at home, so he was taken to [facility].??On arrival, he was afebrile, tachycardic, and significantly hypertensive (BP 201/126).?? He was also hypoxic requiring 15 L of O2 via nonrebreather.?? While he was being assessed by the nurse, he was noted to have a 1-2-minute episode of generalized tonic-clonic seizures, for which he was given several doses of IV benzodiazepine and loaded with 3 g of Keppra with seizure activity stopping. He was then subsequently intubated for guppy breathing and grunting , airway protection and transferred to [facility] for further management. Cr today peaked at 2.26 mg/dL, indicative of an BARRETT for which Nephrology was consulted.? Pt intubated and sedated at time of visit, unable to obtain history.?? Review of Systems Unable to obtain Objective Vital Signs?? Temperature: 98.7 DegF (09/28/24 08:00:00) Temperature Route: Oral (09/28/24 08:00:00) Pulse Rate: 65 bpm (09/28/24 06:27:00) Heart Rate Monitored: 65 bpm (09/28/24 12:10:00) Respiratory Rate: 20 br/min (09/28/24 12:00:04) Systolic Blood Pressure: 118 mm Hg (09/28/24 12:10:00) Diastolic Blood Pressure:??89 mm Hg??High (09/28/24 12:10:00) Blood pressure sites: Arm, left (09/28/24 12:00:00) Mean Arterial Pressure: 96 mm Hg (09/28/24 06:27:00) Pulse Pressure: 29 mm Hg (09/28/24 12:00:00) Oxygen Saturation: 98 % (09/28/24:10:00) Liters per Minute: 15 L/min (09/27/24 18:00:00) Mode of Delivery (Oxygen): Ventilator (09/28/24 12:00:00) FiO2: 30 % (09/28/24 12:10:00) End Tidal CO2: 32 mm Hg (09/28/24 12:10:00) ? Intake/Output? 09/28 04:50 09/28 07:00 09/27 07:00 09/26 07:00 09/25 07:00 ?? 09/28 12:52 09/28 12:52 09/28 06:59 09/27 06:59 09/26 06:59 Intake ?461.4 ?414.2 ? 47.2 ?0 ?0 Output ?455 ?240 ?215 ?0 ?0 Net Total ?6.4 ?174.2 ? -167.8 ?0 ?0 ? Physical Exam Physical Exam: General: Ill appearing HEENT: Moist mucous membranes noted.?? Cardiovascular: Regular rate and rhythm. Respiratory: Lungs clear to auscultation bilaterally. Intubated Abdominal: Soft Extremities: No peripheral edema.??All extremities warm to touch Neuro: Sedated Assessment/Plan Hetal Shirley is a 59 year old male with no known medical history besides known alcohol use for the past year who presented initially to for hematuria and dysuria x1 week, diagnosed with UTI and prescribed Bactrim, developed epigastric abdominal discomfort and syncope at home for which pt was brought to [facility], then had a witnessed seizure, subsequently intubated for airway protection, and transferred to [facility] for further management. Nephrology consulted for BARRETT.? 1. BARRETT Cr 0.84 mg/dL in June 2024 Cr peaked at 2.26 mg/dL today ?? ? hemodynamic injury 2/2 labile BP (SBP 200s on arrival, improved to SBP 120s), renal hypoperfusion(supported by hyaline casts on UA), UTI, contrast-induced nephropathy (s/p IV contrast 09/27) resulting in an intrinsic kidney injury/ATN. Given??reported??symptoms??of hematuria, BARRETT, and hypertension??on arrival;??raises concern for GN, urine labs ordered for further w/u. AIN in setting of recent Bactrim use a possibility; however no fever, peripheral eosinophilia, pyuria makes this less likely.Postrenal??causes??may be??contributing as well as pt??has moderate right hydronephrosis on CT A/P, however no left hydronephrosis.? Recommendations:?? - F/u urine labs - Normal Saline 75 mL/hr - Maintain BP goal of SBP 140-150s, DBP 90s-100s for now - Daily renal panel - Monitor I/Os - Avoid nephrotoxins including NSAIDs and further IV contrast - Maintain bass - Urology consult for moderate right hydronephrosis ?Thank you,??will continue to follow. ?Kellen Ruiz PA-C ?[facility] ?Discussed with ??Luisito Histories Allergies Allergies ?(Active and Proposed Allergies Only) No Known Medication Allergies? (Severity: Unknown severity, Onset: Unknown) ? Past Medical History/Problem List Active Problems(1) Hernia, inguinal ? Past Surgical History History of inguinal hernia surgery ? Social History Alcohol Details:??Use: Current. Substance Abuse Details:??Use: Current. ??Type: Marijuana. Tobacco Details:??Use: Former smoker, quit more than 30 days ago. ? Family History Mother: Healthy adult Father: Diabetes mellitus Sister: Healthy adult Brother: Healthy adult ? Medications Home Medications Multivitamin (Neuriva Brain performance Plus)??By Mouth Daily ? Inpatient Medications Medications (16) Active SCHEDULED: (11) Aspirin 81 mg Chew Tablet (Aspirin Chew Tablet) ??81 mg, Orogastric Tube, Daily Ceftriaxone 1 Gm Inj (Ceftriaxone Inj) ??1 Gm, IVPB, Every 24 hours Famotidine 10 mg/mL Inj (Famotidine Inj) ??20 mg 2 mL, IV Push Slowly, Every 24 hours Folic Acid 1 mg Tablet (Folic Acid Tablet) ??1 mg, By Mouth, Daily Heparin 5000 units/mL Inj (1 mL) (Heparin Inj) ??5,000 units 1 mL, Subcutaneous Injection, 3 times a day Keppra 500mg Tablet (Keppra 500 mg oral tablet) ??750 mg, Orogastric Tube, 2 times a day Multivitamin Therapeutic / Minerals Tablet (Multivit Therapeutic/Minerals Tablet) ??1 tablet, Orogastric Tube, Daily Pyridoxine 50 mg Tablet (Pyridoxine Tablet) ??50 mg, Orogastric Tube, Daily Thiamine 100 mg IVPB (Thiamine IVPB) ??400 mg 4 mL, IVPB, Every 8 hours Thiamine 100 mg IVPB (Thiamine IVPB) ??400 mg 4 mL, IVPB, Daily Thiamine 100 mg Tablet (Thiamine Tablet) ??100 mg, Orogastric Tube, 2 times a day CONTINUOUS: (2) Fentanyl 1000mcg/100mL NaCL 1,000 mcg (FENTanyl 1000mcg / 100mL NaCl 1,000 mcg) ??1,000 mcg 100 mL,IV Infusion Propofol 10mg/mL Cont IV (100mL) 1,000 mg (Propofol 1% /100 mL 1,000 mg) ??1,000 mg 100 mL, IV Infusion PRN: (3) Bisacodyl 10 mg Suppository (Bisacodyl Supp) ??10 mg 1 supp, Rectally, 2 times a day Docusate Sodium 10 mg/mL Liquid UD (Colace Liquid) ??100 mg 10 mL, Orogastric Tube, 2 times a day Magnesium Hydroxide 8% Susp UD (Milk of Magnesia Liquid) ??30 mL, Orogastric Tube, 2 times a day ? Results Recent Labs BACTERIOLOGY Blood Culture Results Preliminary report ()?? 09/27/2024 23:07 Blood Culture Specimen Source BLOOD ()?? 09/27/2024 23:07 Blood Culture Isolate 1 Comment ()?? 09/27/2024 23:07 Blood Cult 2 Results Preliminary report ()?? 09/27/2024 23:10 Blood Culture 2 Specimen Source BLOOD ()?? 09/27/2024 23:10 Blood Culture 2 Isolate 1 Comment ()?? 09/27/2024 23:10 ?? BLOOD COUNT & DIFF WBC 15.4 k/mm3 (High)?? 09/28/2024 05:35 RBC 3.88 m/mm3 (Low)?? 09/28/2024 05:35 Hgb 12.2 Gm/dL (Low)?? 09/28/2024 05:35 Hct 36.4 % (Low)?? 09/28/2024 05:35 MCV 93.8 femtoliters ()?? 09/28/2024 05:35 MCH 31.4 pg ()?? 09/28/2024 05:35 MCHC 33.5 Gm/dL ()?? 09/28/2024 05:35 Platelet Count 381 k/mm3 ()?? 09/28/2024 05:35 RDW-SD 43.8 femtoliters ()?? 09/28/2024 05:35 MPV 9.9 femtoliters ()?? 09/28/2024 05:35 Nucleated RBC (Automated) 0.0 #/100 WBC'S ()?? 09/28/2024 05:35 Abs. NRBC 0.0 k/mm3 ()?? 09/28/2024 05:35 Abs. Neut 13.2 k/mm3 (High)?? 09/28/2024 05:35 Abs. Lymph 0.9 k/mm3 ()?? 09/28/2024 05:35 Abs. Antelope 1.2 k/mm3 ()?? 09/28/2024 05:35 Abs. Eo 0.0 k/mm3 ()?? 09/28/2024 05:35 Abs. Baso 0.0 k/mm3 ()?? 09/28/2024 05:35 Neut % 86.2 % (High)?? 09/28/2024 05:35 Lymph % 4.3 % (Low)?? 09/28/2024 05:35 Antelope % 7.8 % ()?? 09/28/2024 05:35 Eos % 0.0 % ()?? 09/28/2024 05:35 Baso % 0.0 % ()?? 09/28/2024 05:35 Atypical Lymph % 1.7 % ()?? 09/28/2024 05:35 Imm Gran 0.8 % ()?? 09/27/2024 17:35 Abs. Imm Gran 0.2 k/mm3 ()?? 09/27/2024 17:35 ?? BLOOD GAS pH 7.38 ()?? 09/28/2024 06:15 pCO2 40 mm Hg ()?? 09/28/2024 06:15 pO2 124 mm Hg (High)?? 09/28/2024 06:15 Bicarbonate, Estimated 23 mmol/L ()?? 09/28/2024 06:15 Specimen Type - Blood Gas ARTERIAL ()?? 09/28/2024 06:15 Percent O2 (FIO2) 30% ()?? 09/28/2024 06:15 ?? CARDIAC CK, Total 359 units/L (High)?? 09/28/2024 05:34 High Sensitivity Troponin (HSTnT) 30 ng/L (High)?? 09/27/2024 21:14 ?? CHEM GENERAL Sodium 139 mmol/L ()?? 09/28/2024 05:34 Potassium 3.7 mmol/L ()?? 09/28/2024 05:34 Chloride 102 mmol/L ()?? 09/28/2024 05:34 Bicarbonate Level 22 mmol/L ()?? 09/28/2024 05:34 Anion Gap 15 mmol/L ()?? 09/28/2024 05:34 Glucose Level 92 mg/dL ()?? 09/28/2024 05:34 Glucose, POC 92 mg/dL ()?? 09/28/2024 05:40 BUN 26 mg/dL (High)?? 09/28/2024 05:34 Creatinine-Blood 2.26 mg/dL (High)?? 09/28/2024 05:34 Estimated GFR Creatinine 33 ML/MIN/1.73 M2 ()?? 09/28/2024 05:34 Calcium 9.0 mg/dL ()?? 09/28/2024 05:34 Calcium, Ionized pH Corrected 1.17 mmol/L ()?? 09/28/2024 05:34 Phosphorus 3.8 mg/dL ()?? 09/28/2024 05:34 Magnesium 3.1 mg/dL (High)?? 09/28/2024 05:34 Protein, Total 6.9 Gm/dL ()?? 09/28/2024 05:34 Albumin 4.0 Gm/dL ()?? 09/28/2024 05:34 AG Ratio 1.4 ()?? 09/28/2024 05:34 Alkaline Phosphatase 79 units/L ()?? 09/28/2024 05:34 Lipase, Serum/Plasma 21 units/L ()?? 09/27/2024 17:35 AST (SGOT) 29 units/L ()?? 09/28/2024 05:34 ALT (SGPT) 10 units/L ()?? 09/28/2024 05:34 Bilirubin, Total 0.3 mg/dL ()?? 09/28/2024 05:34 Lactate 1.0 mmol/L ()?? 09/28/2024 01:17 ?? HEME OTHER Hold Blue Top SPECIMEN DISCARDED AFTER 4 HOURS. ()?? 09/27/2024 17:35 ?? MISC. CHEMISTRY Hold Gel Top SPECIMEN DISCARDED AFTER 1 WEEK ()?? 09/27/2024 17:35 Hold Dodge Top SPECIMEN DISCARDED AFTER 1 WEEK ()?? 09/27/2024 17:35 ?? TOXICOLOGY/TDM Ethanol, Serum or Plasma NONE DETECTED mg/dL ()?? 09/27/2024 17:35 Barbiturate Screen, Urine POSITIVE (Abnormal)?? 09/28/2024 07:00 Cannabinoid Screen, Urine POSITIVE (Abnormal)?? 09/28/2024 07:00 Cocaine Metabolite Screen, Urine NONE DETECTED ()?? 09/28/2024 07:00 Methadone Screen, Urine NONE DETECTED ()?? 09/28/2024 07:00 Benzodiazepine Screen, Urine POSITIVE (Abnormal)?? 09/28/2024 07:00 Amphetamine Screen, Urine NONE DETECTED ()?? 09/28/2024 07:00 Opiate Screen, Urine NONE DETECTED ()?? 09/28/2024 07:00 Oxycodone Screen, Urine NONE DETECTED ()?? 09/28/2024 07:00 ?? UA/URINALYSIS Appear/Color, Urine LIGHT YELLOW ()?? 09/27/2024 17:12 Clarity CLOUDY (Abnormal)?? 09/27/2024 17:12 Specific [place], Urine >1.030 (High)?? 09/27/2024 17:12 pH, Urine 5.5 ()?? 09/27/2024 17:12 Albumin, Urine 2+ (Abnormal)?? 09/27/2024 17:12 Glucose, Urine 4+ (Abnormal)?? 09/27/2024 17:12 Ketones, Urine 1+ (Abnormal)?? 09/27/2024 17:12 Bilirubin, Urine NEGATIVE (N)?? 09/27/2024 17:12 Hemoglobin, Urine 3+ (Abnormal)?? 09/27/2024 17:12 Nitrite, Urine NEGATIVE (N)?? 09/27/2024 17:12 Leukocyte, Urine NEGATIVE (N)?? 09/27/2024 17:12 Urobilinogen NORMAL mg/dL (N)?? 09/27/2024 17:12 WBC's, Urine 1 /HPF ()?? 09/27/2024 17:12 RBC's, Urine 6 /HPF (High)?? 09/27/2024 17:12 Hyaline Cast 4 LPF (High)?? 09/27/2024 17:12 Uric Acid Crystals HEAVY /HPF ()?? 09/27/2024 17:12 Mucus SLIGHT /LPF ()?? 09/27/2024 17:12 Hold Urine Culture Testing available 48 hours from time of collection. ()?? 09/27/2024 17:12 ?? URINE OTHER Est Creatinine Clearance 33.11 mL/min ()?? 09/28/2024 06:44 ?? VIROLOGY Influenza A PCR NEGATIVE ()?? 09/27/2024 21:04 Influenza B PCR NEGATIVE ()?? 09/27/2024 21:04 RSV PCR NEGATIVE ()?? 09/27/2024 21:04 COVID-19 PCR Specimen Source NASAL ()?? 09/27/2024 21:04 COVID-19 PCR Result NEGATIVE ()?? 09/27/2024 21:04 ? CBC, CBC w/Diff?? CBC?? Differential?? WBC:??15.4 k/mm3??High (05:35) Abs. Neut:??13.2 k/mm3??High (05:35) RBC:??3.88 m/mm3??Low (05:35) Abs. Lymph: 0.9 k/mm3 (05:35) Hct:??36.4 %??Low (05:35) Abs. Antelope: 1.2 k/mm3 (05:35) RDW-SD: 43.8 femtoliters (05:35) Abs. Eo: 0 k/mm3 (05:35) Nucleated RBC (Automated): 0 #/100 WBC'S (05:35) Abs. Baso: 0 k/mm3 (05:35) Abs. NRBC: 0 k/mm3 (05:35) Neut %:??86.2 %??High (05:35) ?? Lymph %:??4.3 %??Low (05:35) ?? Antelope %: 7.8 % (05:35) ?? Eos %: 0 % (05:35) ?? Baso %: 0 % (05:35) ?? Atypical Lymph %: 1.7 % (05:35) ? BMP, Mg, and Phos Anion Gap: 15 mmol/L (05:34) Bicarbonate Level: 22 mmol/L (05:34) BUN:??26 mg/dL??High (05:34) Calcium: 9 mg/dL (05:34) Calcium, Ionized pH Corrected: 1.17 mmol/L (05:34) Chloride: 102 mmol/L (05:34) Creatinine-Blood:??2.26 mg/dL??High (05:34) Estimated GFR Creatinine: 33 ML/MIN/1.73 M2 (05:34) Glucose Level: 92 mg/dL (05:34) Magnesium:??3.1 mg/dL??High (05:34) Phosphorus: 3.8 mg/dL (05:34) Potassium: 3.7 mmol/L (05:34) Sodium: 139 mmol/L (05:34) ?? Urinalysis Est Creatinine Clearance: 33.11 mL/min (06:44) ? * Luisito HERNANDEZ, Katlin: PERFORM Event Display: Consultation Note Authored Date: Patient and charted reviewed. Management discussed with PA. ??Continue the current management as documented in PA's chart??. BARRETT related to hemodynamics changes ( suggest 15%-20% reduction in BP) or contrast. Recommend IV fluids to aim BP 140-160 systolic for today and gradual reduction in blood pressure * Cash Palomino: PERFORM Event Display: Consultation Note Authored Date: Patient: ??HETAL SHIRLEY ? Age:??59 Years?Sex:??Male?:??1965?? Chief Complaint/Reason for Consultation seizure History of Present Illness 59-year-old right-handed??man with??no past significant past medical history who??drinks 4??drinks a night for??years,??presented??to outside hospital??for altered mental status??and hematuria.?? Thepatient is currently sedated and intubated in the ICU so all is obtained from?? at bedside and chart.?? The patient has been having??hematuria for about a week.?? No prior history of??urologic problems prior.?? The patient went to urgent care yesterday was??prescribed??Bactrim??by telemedicine??and the patient went home.?? The patient's went back to work??and received a text from their son who noted??loud banging noises??from upstairs.?? When she came home??she went out??stairs and found her in his bed and responsive but then??heard a loud bang from upstairs and found??patient sitting trying to get up??and confused.?? No forced eye deviation or??hemiparalysis.?? The patientwas able to ambulate and she brought him in to??ED??for evaluation.?? In the ED??the patient was hypertensive??and tachycardic.?? He was hypoxic??requiring oxygen.?? Thepatient??was trying to use the urinal when his said his eyes rolled back and he??held his??theurinal container up in the air??and had a??shaking tonic-clonic??episode.?? Patient was given??IV be nzodiazepines??and loaded on 3 g of Keppra. Patient was transferred??and admitted to the??ICU.?? Patient was on Versed and propofol.?? Versed was stopped approximately 8 AM. No prior history of meningitis or encephalitis.?? No history of traumatic brain injury??or intracranial surgery. ??No history of epilepsy.?? Patient has been??on habitual Alcohol use for??years.?? He typically drinks??4??mixed drinks a night.?? Both??the patient and ??recognize they need to cut down on??alcohol??and??stop drinking??last week.?? The says??the patient did not have any??signs of alcohol withdrawal including hallucinations??shakes or??diaphoresis or tachycardia.?? Just this weekend??they??were drinking again??but if??been??sober??since Wednesday. ?? CT head shows some hypodensity in the right??posterior parietal??region.?? No??evidence of ICH. ?? patient had a hernia surgery in july without any concern for etoh w/d then. ? Review of Systems Per?patient has been eating and drinking well??no symptoms of??fever chills, nausea, vomiting, or diarrhea. Objective Vital Signs?? Temperature: 98.7 DegF (09/28/24 08:00:00) Temperature Route: Oral (09/28/24 08:00:00) Pulse Rate: 65 bpm (09/28/24 06:27:00) Heart Rate Monitored: 79 bpm (09/28/24 10:00:07) Respiratory Rate: 26 br/min (09/28/24 10:00:07) Systolic Blood Pressure:??169 mm Hg??High (09/28/24 10:00:00) Diastolic Blood Pressure:??103 mm Hg??High (09/28/24 10:00:00) Blood pressure sites: Arm, left (09/28/24 10:00:00) Mean Arterial Pressure: 96 mm Hg (09/28/24 06:27:00) Pulse Pressure: 66 mm Hg (09/28/24 10:00:00) Oxygen Saturation: 100 % (09/28/24 10:00:07) Liters per Minute: 15 L/min (09/27/24 18:00:00) Mode of Delivery (Oxygen): Ventilator (09/28/24 10:00:00) FiO2: 30 % (09/28/24 10:00:00) End Tidal CO2: 33 mm Hg (09/28/24 10:00:07) ? Intake/Output? 09/28 04:50 09/28 07:00 09/27 07:00 09/26 07:00 09/25 07:00 ?? 09/28 11:02 09/28 11:02 09/28 06:59 09/27 06:59 09/26 06:59 Intake ?390.6 ?343.4 ? 47.2 ?0 ?0 Output ?395 ?180 ?215 ?0 ?0 Net Total ? -4.4 ?163.4 ? -167.8 ?0 ?0 ? Physical Exam Gen- NAD, intubated sedated on propofol 40 ? neuro- mentation- ??eyes closed, unable to open eyes, no commands eyes- PERRL, eyes midline, corneals intact face- intubated speech-intubated ? Motor-?? no movement ?? sensation-??no withdrawal to pain ? reflexes- symmetric 1+ biceps, patellar, ankle toes- mute ?? gait- deferred? Assessment/Plan ?59-year-old right-handed??man with??no past significant past medical history who??drinks 4??drinks a night for??years,??presented??to outside hospital??for altered mental status??and hematuria.? When she came home??she went out??stairs and found her in his bed and responsive but then??heard a loud bang from upstairs and found??patient sitting trying to get up??and confused.?? No forced eye deviation or??hemiparalysis.?? The patient was able to ambulate and she brought him in to??ED??for evaluation.?? In the ED??the patient was hypertensive??and tachycardic.?? He was hypoxic??requiring oxygen.?? Thepatient??was trying to use the urinal when his said his eyes rolled back and he??held his??theurinal container up in the air??and had a??shaking tonic-clonic??episode.?? Patient was given??IV be nzodiazepines??and loaded on 3 g of Keppra. ?? CT head shows some hypodensity in the right??posterior parietal??region.?? No??evidence of ICH. ?? CTA prelim irregularity in the PORTER bifurcation with a linear hypodensity, question?? irregular plaque vs dissection.? encephalopathy, tachycardia and hypertension??with??abnormal??spells??1 witnessed??convulsion??concerning for??seizure activity.?? CT with??some hypodensities in the right hemisphere??which could represent??RI ES??secondary to??hypertension??versus??embolic strokes??possibly from??right carotid irre gularity??plaque versus dissection.?? Patient with alcohol use disorder??which??puts alcohol withdrawal seizure on differential??but patient was reportedly??sober for a week??prior to this weekend before drinking again without any signs of withdrawal??unless patient was??drinking alcohol??without??'s knowledge.?? No signs and symptoms of??ANALYTICAL CLERK infection prior??although patient??had headaches for a couple of weeks.?? But no signs of??ANALYTICAL CLERK infection.?? bactrim has a listed risk of sz but is nota high risk from our perspective.? REC increase keppra to 750 mg BID start asa daily given possible vascular abnormality in R carotid and hypodensities in R hemisphere on CT head, question cva VEEG ordered BP goal less than 180 systolic eventual MRI brain with and w/o xiomara ?? d/w dr winter messaged ICU team recs Histories Allergies Allergies ?(Active and Proposed Allergies Only) No Known Medication Allergies? (Severity: Unknown severity, Onset: Unknown) ? Past Medical History/Problem List Active Problems(1) Hernia, inguinal ? Past Surgical History History of inguinal hernia surgery ? Social History Alcohol Details:??Use: Current. Substance Abuse Details:??Use: Current. ??Type: Marijuana. Tobacco Details:??Use: Former smoker, quit more than 30 days ago. ? Family History Mother: Healthy adult Father: Diabetes mellitus Sister: Healthy adult Brother: Healthy adult No family history of alcohol use disorder.?? No history of strokes or seizures in family. ?? Medications Home Medications Multivitamin (Neuriva Brain performance Plus)??By Mouth Daily ? Inpatient Medications Medications (16) Active SCHEDULED: (11) Ceftriaxone 1 Gm Inj (Ceftriaxone Inj) ??1 Gm, IVPB, Every 24 hours Famotidine 10 mg/mL Inj (Famotidine Inj) ??20 mg 2 mL, IV Push Slowly, Every 24 hours Folic Acid 1 mg Tablet (Folic Acid Tablet) ??1 mg, By Mouth, Daily Heparin 5000 units/mL Inj (1 mL) (Heparin Inj) ??5,000 units 1 mL, Subcutaneous Injection, 3 times a day Keppra 500mg Tablet (Keppra 500 mg oral tablet) ??750 mg, By Mouth, 2 times a day Multivitamin Therapeutic / Minerals Tablet (Multivit Therapeutic/Minerals Tablet) ??1 tablet, By Mouth, Daily Phenobarbital 130mg/mL Inj (Phenobarbital IVPB) ??400 mg 3.08 mL, IVPB, Once Pyridoxine 50 mg Tablet (Pyridoxine Tablet) ??50 mg, By Mouth, Daily Thiamine 100 mg IVPB (Thiamine IVPB) ??400 mg 4 mL, IVPB, Every 8 hours Thiamine 100 mg IVPB (Thiamine IVPB) ??400 mg 4 mL, IVPB, Daily Thiamine 100 mg Tablet (Thiamine Tablet) ??100 mg, By Mouth, 2 times a day CONTINUOUS: (2) Fentanyl 1000mcg/100mL NaCL 1,000 mcg (FENTanyl 1000mcg / 100mL NaCl 1,000 mcg) ??1,000 mcg 100 mL,IV Infusion Propofol 10mg/mL Cont IV (100mL) 1,000 mg (Propofol 1% /100 mL 1,000 mg) ??1,000 mg 100 mL, IV Infusion PRN: (3) Bisacodyl 10 mg Suppository (Bisacodyl Supp) ??10 mg 1 supp, Rectally, 2 times a day Docusate Sodium 10 mg/mL Liquid UD (Colace Liquid) ??100 mg 10 mL, By Mouth, 2 times a day Magnesium Hydroxide 8% Susp UD (Milk of Magnesia Liquid) ??30 mL, By Mouth, 2 times a day ? Results Recent Labs BACTERIOLOGY Blood Culture Results Preliminary report ()?? 09/27/2024 23:07 Blood Culture Specimen Source BLOOD ()?? 09/27/2024 23:07 Blood Culture Isolate 1 Comment ()?? 09/27/2024 23:07 Blood Cult 2 Results Preliminary report ()?? 09/27/2024 23:10 Blood Culture 2 Specimen Source BLOOD ()?? 09/27/2024 23:10 Blood Culture 2 Isolate 1 Comment ()?? 09/27/2024 23:10 ?? BLOOD COUNT & DIFF WBC 15.4 k/mm3 (High)?? 09/28/2024 05:35 RBC 3.88 m/mm3 (Low)?? 09/28/2024 05:35 Hgb 12.2 Gm/dL (Low)?? 09/28/2024 05:35 Hct 36.4 % (Low)?? 09/28/2024 05:35 MCV 93.8 femtoliters ()?? 09/28/2024 05:35 MCH 31.4 pg ()?? 09/28/2024 05:35 MCHC 33.5 Gm/dL ()?? 09/28/2024 05:35 Platelet Count 381 k/mm3 ()?? 09/28/2024 05:35 RDW-SD 43.8 femtoliters ()?? 09/28/2024 05:35 MPV 9.9 femtoliters ()?? 09/28/2024 05:35 Nucleated RBC (Automated) 0.0 #/100 WBC'S ()?? 09/28/2024 05:35 Abs. NRBC 0.0 k/mm3 ()?? 09/28/2024 05:35 Abs. Neut 13.2 k/mm3 (High)?? 09/28/2024 05:35 Abs. Lymph 0.9 k/mm3 ()?? 09/28/2024 05:35 Abs. Antelope 1.2 k/mm3 ()?? 09/28/2024 05:35 Abs. Eo 0.0 k/mm3 ()?? 09/28/2024 05:35 Abs. Baso 0.0 k/mm3 ()?? 09/28/2024 05:35 Neut % 86.2 % (High)?? 09/28/2024 05:35 Lymph % 4.3 % (Low)?? 09/28/2024 05:35 Antelope % 7.8 % ()?? 09/28/2024 05:35 Eos % 0.0 % ()?? 09/28/2024 05:35 Baso % 0.0 % ()?? 09/28/2024 05:35 Atypical Lymph % 1.7 % ()?? 09/28/2024 05:35 Imm Gran 0.8 % ()?? 09/27/2024 17:35 Abs. Imm Gran 0.2 k/mm3 ()?? 09/27/2024 17:35 ?? BLOOD GAS pH 7.38 ()?? 09/28/2024 06:15 pCO2 40 mm Hg ()?? 09/28/2024 06:15 pO2 124 mm Hg (High)?? 09/28/2024 06:15 Bicarbonate, Estimated 23 mmol/L ()?? 09/28/2024 06:15 Specimen Type - Blood Gas ARTERIAL ()?? 09/28/2024 06:15 Percent O2 (FIO2) 30% ()?? 09/28/2024 06:15 ?? CARDIAC CK, Total 359 units/L (High)?? 09/28/2024 05:34 High Sensitivity Troponin (HSTnT) 30 ng/L (High)?? 09/27/2024 21:14 ?? CHEM GENERAL Sodium 139 mmol/L ()?? 09/28/2024 05:34 Potassium 3.7 mmol/L ()?? 09/28/2024 05:34 Chloride 102 mmol/L ()?? 09/28/2024 05:34 Bicarbonate Level 22 mmol/L ()?? 09/28/2024 05:34 Anion Gap 15 mmol/L ()?? 09/28/2024 05:34 Glucose Level 92 mg/dL ()?? 09/28/2024 05:34 Glucose, POC 92 mg/dL ()?? 09/28/2024 05:40 BUN 26 mg/dL (High)?? 09/28/2024 05:34 Creatinine-Blood 2.26 mg/dL (High)?? 09/28/2024 05:34 Estimated GFR Creatinine 33 ML/MIN/1.73 M2 ()?? 09/28/2024 05:34 Calcium 9.0 mg/dL ()?? 09/28/2024 05:34 Calcium, Ionized pH Corrected 1.17 mmol/L ()?? 09/28/2024 05:34 Phosphorus 3.8 mg/dL ()?? 09/28/2024 05:34 Magnesium 3.1 mg/dL (High)?? 09/28/2024 05:34 Protein, Total 6.9 Gm/dL ()?? 09/28/2024 05:34 Albumin 4.0 Gm/dL ()?? 09/28/2024 05:34 AG Ratio 1.4 ()?? 09/28/2024 05:34 Alkaline Phosphatase 79 units/L ()?? 09/28/2024 05:34 Lipase, Serum/Plasma 21 units/L ()?? 09/27/2024 17:35 AST (SGOT) 29 units/L ()?? 09/28/2024 05:34 ALT (SGPT) 10 units/L ()?? 09/28/2024 05:34 Bilirubin, Total 0.3 mg/dL ()?? 09/28/2024 05:34 Lactate 1.0 mmol/L ()?? 09/28/2024 01:17 ?? HEME OTHER Hold Blue Top SPECIMEN DISCARDED AFTER 4 HOURS. ()?? 09/27/2024 17:35 ?? MISC. CHEMISTRY Hold Gel Top SPECIMEN DISCARDED AFTER 1 WEEK ()?? 09/27/2024 17:35 Hold Dodge Top SPECIMEN DISCARDED AFTER 1 WEEK ()?? 09/27/2024 17:35 ?? TOXICOLOGY/TDM Ethanol, Serum or Plasma NONE DETECTED mg/dL ()?? 09/27/2024 17:35 Barbiturate Screen, Urine POSITIVE (Abnormal)?? 09/28/2024 07:00 Cannabinoid Screen, Urine POSITIVE (Abnormal)?? 09/28/2024 07:00 Cocaine Metabolite Screen, Urine NONE DETECTED ()?? 09/28/2024 07:00 Methadone Screen, Urine NONE DETECTED ()?? 09/28/2024 07:00 Benzodiazepine Screen, Urine POSITIVE (Abnormal)?? 09/28/2024 07:00 Amphetamine Screen, Urine NONE DETECTED ()?? 09/28/2024 07:00 Opiate Screen, Urine NONE DETECTED ()?? 09/28/2024 07:00 Oxycodone Screen, Urine NONE DETECTED ()?? 09/28/2024 07:00 ?? UA/URINALYSIS Appear/Color, Urine LIGHT YELLOW ()?? 09/27/2024 17:12 Clarity CLOUDY (Abnormal)?? 09/27/2024 17:12 Specific [place], Urine >1.030 (High)?? 09/27/2024 17:12 pH, Urine 5.5 ()?? 09/27/2024 17:12 Albumin, Urine 2+ (Abnormal)?? 09/27/2024 17:12 Glucose, Urine 4+ (Abnormal)?? 09/27/2024 17:12 Ketones, Urine 1+ (Abnormal)?? 09/27/2024 17:12 Bilirubin, Urine NEGATIVE (N)?? 09/27/2024 17:12 Hemoglobin, Urine 3+ (Abnormal)?? 09/27/2024 17:12 Nitrite, Urine NEGATIVE (N)?? 09/27/2024 17:12 Leukocyte, Urine NEGATIVE (N)?? 09/27/2024 17:12 Urobilinogen NORMAL mg/dL (N)?? 09/27/2024 17:12 WBC's, Urine 1 /HPF ()?? 09/27/2024 17:12 RBC's, Urine 6 /HPF (High)?? 09/27/2024 17:12 Hyaline Cast 4 LPF (High)?? 09/27/2024 17:12 Uric Acid Crystals HEAVY /HPF ()?? 09/27/2024 17:12 Mucus SLIGHT /LPF ()?? 09/27/2024 17:12 Hold Urine Culture Testing available 48 hours from time of collection. ()?? 09/27/2024 17:12 ?? URINE OTHER Est Creatinine Clearance 33.11 mL/min ()?? 09/28/2024 06:44 ?? VIROLOGY Influenza A PCR NEGATIVE ()?? 09/27/2024 21:04 Influenza B PCR NEGATIVE ()?? 09/27/2024 21:04 RSV PCR NEGATIVE ()?? 09/27/2024 21:04 COVID-19 PCR Specimen Source NASAL ()?? 09/27/2024 21:04 COVID-19 PCR Result NEGATIVE ()?? 09/27/2024 21:04 ? Abnormal Labs ?? BLOOD COUNT & DIFF Abs. Neut?13.2 k/mm3 (High)?09/28/2024 05:35 Abs. NRBC?0.0 k/mm3 ()?09/28/2024 05:35 Hct?36.4 % (Low)?09/28/2024 05:35 Hgb?12.2 Gm/dL (Low)?09/28/2024 05:35 Lymph %?4.3 % (Low)?09/28/2024 05:35 Neut %?86.2 % (High)?09/28/2024 05:35 Nucleated RBC (Automated)?0.0 #/100 WBC'S ()?09/28/2024 05:35 RBC?3.88 m/mm3 (Low)?09/28/2024 05:35 RDW-SD?43.8 femtoliters ()?09/28/2024 05:35 WBC?15.4 k/mm3 (High)?09/28/2024 05:35 ?? BLOOD GAS Percent O2 (FIO2)?30% ()?09/28/2024 06:15 Specimen Type - Blood Gas?ARTERIAL ()?09/28/2024 06:15 pO2?124 mm Hg (High)?09/28/2024 06:15 ?? CARDIAC CK, Total?359 units/L (High)?09/28/2024 05:34 ?? CHEM GENERAL AG Ratio?1.4 ()?09/28/2024 05:34 BUN?26 mg/dL (High)?09/28/2024 05:34 Creatinine-Blood?2.26 mg/dL (High)?09/28/2024 05:34 Estimated GFR Creatinine?33 ML/MIN/1.73 M2 ()?09/28/2024 05:34 Magnesium?3.1 mg/dL (High)?09/28/2024 05:34 ?? TOXICOLOGY/TDM Amphetamine Screen, Urine?NONE DETECTED ()?09/28/2024 07:00 Barbiturate Screen, Urine?POSITIVE (Abnormal)?09/28/2024 07:00 Benzodiazepine Screen, Urine?POSITIVE (Abnormal)?09/28/2024 07:00 Cannabinoid Screen, Urine?POSITIVE (Abnormal)?09/28/2024 07:00 Cocaine Metabolite Screen, Urine?NONE DETECTED () ?09/28/2024 07:00 Methadone Screen, Urine?NONE DETECTED ()?09/28/2024 07:00 Opiate Screen, Urine?NONE DETECTED ()?09/28/2024 07:00 Oxycodone Screen, Urine?NONE DETECTED ()?09/28/2024 07:00 ?? Note: Critical results are displayed in red. ? Patient Care team information Care Team Personnel Name: Julian Roy RN Position: S RN Member Role: Primary Care Nurse Name: Kim Wright RN Position: S RN Member Role: Primary Care Nurse Name: Valencia Martinez RN Position: S RN Member Role: Primary Care Nurse Name: Gill Wilde Position: Reference Physician Member Role: PCP Address: [address] [place], [place] [address] Telecom: Name: Paola Schwarz RN Position: S RN Member Role: Primary Care Nurse Name: Marian Romero LPN Position: S RN Member Role: Primary Care Nurse Care Team Related Persons Name: GILMAR SHIRLEY Insurance Providers Guarantor name: HANNAH Health Plan Information #: 2 Payer: [employer] Member Number: [id number] Policy Number: NA Group Number: [id number] Health Plan Information #: 1 Payer: [employer] NON HMO PLANS Member Number: [id number] Policy Number: Group Number: [id number]
--- OUTSIDE RECORDS SUMMARY | 2024-10-11 09:28 | XMS_ITS | Clinical Summary ---
Author Organization [facility] Address [address] [address] Phone Care Team Providers Care Swage Toolsetter Name Role Phone Unavailable Primary Care Provider Unavailabl e Encounters Date Type Department Care Team Description 10/02/2024 Office Communication [facility] [address] [phone] Maribell Shaver from Last 3 Months Social History Tobacco Use Types Packs/Day Years Used Date Smoking Tobacco: Never Assessed Sex and Gender Information Value Date Recorded Sex Assigned at Not on file Legal Sex Male 10:20 AM EST Gender Identity Not on file Sexual Orientation Not on file Plan of Treatment Upcoming Encounters Date Type Department Care Team (Late st Contact Info) Description 12/08/2024 9:30 AM EDT Office Visit [facility] [address] [phone] Murray Beckham MD [address] [phone] Health Maintenance Due Date Last Done Comments Hepatitis B Vaccine (1 of 3 - 19+ 3-dose series) 1985 Colorectal Cancer Screening: Annual FOBT 2015 Colorectal Cancer Screening: Colonoscopy 2015 Colorectal Cancer Screening: Sigmoidoscopy 2015 Influenza Vaccine (#1) 2024 Pneumococcal Vaccine: Pediat rics (0 to 5 Years) and At-Risk Patients (6 to 64 Years) Aged Out No longer eligible b ased on patient's age to complete this topic Insurance [employer]
--- OUTSIDE RECORDS SUMMARY | 2024-10-11 09:28 | XMS_ITS | Encounter Summary ---
Author Organization [facility] Address [address] [facility] [address] [place] [address] Phone Care Team Providers Care Supervisor Color Paste Mixing Name Role Phone Unavailable Primary Care Provider Unavailabl e Encounter Details Date Type Department Care Team (Late st Contact Info) Description 10/02/2024 Office Communication [facility] [address] [facility] [address] [place] [address] ChhayaMaribell [address] [facility] [address] [place] [phone] Social History Tobacco Use Types Packs/Day Years Used Date Smoking Tobacco: Never Assessed Sex and Gender Information Value Date Recorded Sex Assigned at Not on file Legal Sex Male 10:20 AM EST Gender Identity Not on file Sexual Orientation Not on file documented as of this encounter Miscellaneous Notes * Telephone Encounter - Connie Kyle - 10/02/2024 7:22 AM EST Luis Reyna needs a 4-6 week f/u and there is nothing! Tks Patient: Luis Hurtado : 1965 VBC: Hospital Chart Number: Hospital: [facility] IP Room: Attending Provider: Referring Provider: Admit Date: 09/28/2024 Consult Date: 09/28/2024 Discharge Date: 09/29/2024 Disposition: Discharge Comment: Transplant Creat stablePleural effusion and pneumonia Follow up with Dr Flores4-6 weeks Discharged by: Katlin Jorge on 09/29/2024 Follow-up: Yes Follow-up Timin month Follow-up Provider: Follow-up Location: Follow-up Notes/Orders/Labs: Transplant Creat stablePleural effusion and pneumonia Follow up with Dr Flores4-6 weeks documented in this encounter Plan of Treatment Upcoming Encounters Date Type Department Care Team (Late st Contact Info) Description 12/08/2024 9:30 AM EDT Office Visit [facility] [address] [phone] Murray Beckham MD [address] [phone] documented as of this encounter Visit Diagnoses Not on filedocumented in this encounter
== END 2024-10-11 09:35 | disposition home or self-care (01) ==
PROVIDERS: PCP Physician Assistant; Visit Provider Physician Assistant
DX: R80.9 Proteinuria, unspecified (principal); I67.83 Posterior reversible encephalopathy syndrome; R56.9 Unspecified convulsions; N17.9 Acute kidney failure, unspecified; Z86.79 Personal history of other diseases of the circulatory system; N13.30 Unspecified hydronephrosis; R59.0 Localized enlarged lymph nodes; Z51.81 Encounter for therapeutic drug level monitoring; Z79.891 Long term (current) use of opiate analgesic; F10.10 Alcohol abuse, uncomplicated; I10 Essential (primary) hypertension; N39.0 Urinary tract infection, site not specified

== ENCOUNTER → 2024-10-11 08:44 | Outpatient (BNVA) | payer OTHER, SELFPAY | PROVIDERS: PCP Physician Assistant; Visit Provider Physician Assistant ==

== ENCOUNTER 2024-10-11 09:50 | Outpatient (REF) | payer OTHER, SELFPAY ==
[2024-10-11 11:10] LABS: MANUAL DIFF FLAG NO
[2024-10-11 11:19] LABS: Basophils Absolute Auto 0.1 X10*3/uL (0.0-0.2); Basophils Percent Auto 0.9 % (0-2); Eosinophils Absolute Auto 0.2 X10*3/uL (0.0-0.4); Hematocrit 37.5 % (42.0-52.0); Hemoglobin 12.3 g/dl (14.0-18.0); Imm Gran Abs Auto 0.06 X10*3/uL (0.00-0.03); Imm Gran Pct Auto 0.5 % (0.0-0.4); Lymphocytes Absolute Auto 2.2 X10*3/uL (1.2-4.9); Lymphocytes Percent Auto 18.4 % (20-40); Mean Corpuscular HGB Conc 32.8 g/dl (31.0-36.0); Mean Corpuscular Volume 94.5 fL (80.0-98.0); Monocytes Absolute Auto 1.2 X10*3/uL (0.1-1.2); Monocytes Percent Auto 9.8 % (2-11); Neutrophils Absolute Auto 8.2 x10*3/uL (2.0-8.3); Neutrophils Percent Auto 68.4 % (45-73); Platelet Count 580 X10*3/uL (160-400); Red Blood Count 3.97 X10*6/uL (4.60-5.80); Red Cell Distribution Width 12.8 % (11.0-16.0)
[2024-10-11 11:25] LABS: Estimated Average Glucose 105 mg/dL; Hemoglobin A1C 112.1111 umol/L; Hemoglobin A1c % 5.3 % (<6.0); Total Hemoglobin (HGBA1C) 3293.3306 umol/L
--- OUTSIDE RECORDS SUMMARY | 2024-10-11 11:36 | XMS_ITS | Encounter Summary ---
Author Organization [facility] Address [address] [facility] [address] [place] [address] Phone Care Team Providers Care Physician/Internist Name Role Phone Unavailable Primary Care Provider Unavailabl e Encounter Details Date Type Department Care Team (Late st Contact Info) Description 10/02/2024 Office Communication [facility] [address] [facility] [address] [place] [address] ChhayaMaribell [address] [facility] [address] [place] [phone] Social History Tobacco Use Types Packs/Day Years [...] : 1965 VBC: Hospital Chart Number: Hospital: [facility] IP Room: Attending Provider: Referring Provider: [...] Visit [facility] [address] [address] Murray Beckham MD [address] [phone] documented as of this encounter Visit Diagnoses Not on filedocumented in this encounter
--- OUTSIDE RECORDS SUMMARY | 2024-10-11 11:36 | XMS_ITS | Clinical Summary ---
Author Organization [facility] Address [address] [phone] Phone Care Team Providers Care Event Staff Name Role Phone Unavailable Primary Care Provider Unavailabl e Encounters Date Type Department Care Team Description 10/02/2024 Office Communication [facility] [address] [phone] Maribell Shaver from Last 3 Months Social [...] EDT Office Visit [facility] [address] [phone] Murray Beckham MD [address] [phone] Health Maintenance Due Date Last [...]
[2024-10-11 11:53] LABS: Alanine Aminotransferase 43 U/L (0-40); Albumin Level 4.1 g/dL (3.5-5.0); Alkaline Phosphatase 89 U/L (39-117); Anion Gap 12 (12-20); Aspartate Amino Transferase 25 U/L (5-37); Bilirubin Total 0.2 mg/dL (0.0-1.0); Blood Urea Nitrogen 19 mg/dL (9-16); Carbon Dioxide 28 mmol/L (22-29); Chloride 103 mmol/L (96-108); Estimated Glomerular Filt Rate 53; Glucose Random 83 mg/dL (60-115); Potassium 4.3 mmol/L (3.3-5.1); Sodium 139 mmol/L (135-145); Total Protein 7.5 g/dL (6.5-8.0)
[2024-10-11 12:01] LABS: TSH reflex Free T4 2.12 uIU/mL (0.32-4.0)
[2024-10-11 14:27] LABS: Appearance Urine Cloudy; Color Urine Dark Yellow; Glucose Urine UA Negative (Negative); Leukocyte Esterase Urine Small (1+) (Negative); Nitrite Urine Negative (Negative); PH 5.5 (5.0-9.0); Specific Gravity - Urine 1.015 (1.005-1.025); UMIC TRIGGER UACC YES; Urine Blood Large (3+) (Negative); Urine Ketones Negative (Negative); Urine Protein 100 (2+) mg/dL (Neg-Trace)
[2024-10-11 14:31] LABS: Bacteria Urine None Seen (None Seen); Hyaline Casts Urine 0-2 /LPF (0-2); RBC Urine >20 /HPF (0-2); UACC Culture Trigger YES; WBC Urine 21-50 /HPF (0-5)
[2024-10-11 14:54] LABS: Creatinine Urine 118.02 mg/dL; Microalbum/Creatinine Ratio Ur 360.9 ug/mg cr (<30)
== END 2024-10-11 09:51 | disposition home or self-care (01) ==
LOC: HO.WFDLDS 09:50
PROVIDERS: Visit Provider Physician Assistant
DX: R80.9 Proteinuria, unspecified (principal); I67.83 Posterior reversible encephalopathy syndrome; R73.01 Impaired fasting glucose; Z86.79 Personal history of other diseases of the circulatory system
CPT/HCPCS: 36415; 80053; 81001; 82043; 82570; 83036; 84443; 85025; 87086

== ENCOUNTER 2024-10-12 08:39 | Outpatient (AMB) | payer OTHER, SELFPAY ==
--- OUTSIDE RECORDS SUMMARY | 2024-10-12 09:08 | XMS_ITS | Clinical Summary ---
Author Organization [facility] Address [address] [phone] Phone Care Team Providers Care Histology Technician Name Role Phone Unavailable Primary Care Provider Unavailabl e Encounters Date Type Department Care Team Description 10/02/2024 Office Communication [facility] [address] [phone] Maribell Shaver from Last 3 Months Social [...] EDT Office Visit [facility] [address] [phone] Murray Beckham MD [address] [phone] Health Maintenance Due Date Last [...]
--- OUTSIDE RECORDS SUMMARY | 2024-10-12 09:09 | XMS_ITS | Encounter Summary ---
Author Organization [facility] Address [address] [facility] [address] [place] [address] Phone Care Team Providers Care Seat Joiner Chainstitch Name Role Phone Unavailable Primary Care Provider Unavailabl e Encounter Details Date Type Department Care Team (Late st Contact Info) Description 10/02/2024 Office Communication [facility] [address] [facility] [address] [place] [address] ChhayaMaribell [address] [facility] [address] [place] [phone] Social History Tobacco Use Types Packs/Day Years [...] : 1965 VBC: Hospital Chart Number: Hospital: [facility] IP Room: Attending Provider: Referring Provider: [...] Visit [facility] [address] [address] Murray Beckham MD [address] [phone] documented as of this encounter Visit Diagnoses Not on filedocumented in this encounter
--- NOTE | 2024-10-12 10:59 | MHC.PC.OV ---
Intake Visit Reasons: Discuss lab results Allergies No Known Allergies Allergy (Verified 10/11/24 08:52) Tobacco use date assessed: 04/27/24 Dental Screening Dental Screen Date: 04/27/24 HPI Discuss lab results HPI Details Patient is a 59-year-old male who was seen yesterday for a hospital follow up from [facility]. He was admitted for a week following seizures felt to be related to uncontrolled hypertension related to underlying renal disease. He was noted to have an BARRETT, right hydronephrosis, posterior reversible encephalopathy syndrome and a possible right internal carotid artery dissection. While he was hospitalized he did have prominent left cervical lymphadenopathy noted on imaging and exam and did undergo a biopsy. Patient was not told of the biopsy findings and these records were requested. 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 Patient tells me today that he is booked to see [facility] but not until December and he does have an upcoming appointment for a repeat ultrasound. He completed labs yesterday which did show that the BARRETT had resolved but he does have signs of chronic kidney disease. The urine does not show any signs of bacteria but he does have significant blood in the urine and protein. He has not yet heard from Nephrology or Neurology. He also has not heard from the radiology department at [facility] regarding his MRI/MRA which was ordered prior to discharge to be completed in about 3 weeks from now. Blood pressures at home have been fine. [facility] Medical History (Updated 10/12/24 @ 11:13 by Gill Car PA-C) History of drug abuse Hernia Surgical History (Updated 10/11/24 @ 08:52 by Gill Car PA-C) S/P right inguinal hernia repair Family History (Updated 04/27/24 @ 09:17 by Tiffanie Diane CMA) Paternal Grandfather Glaucoma Social History (Updated 04/27/24 @ 09:10 by Tiffanie Diane CMA) Housing: House Patient Tobacco Use Status: Former Tobacco user Cigarette Packs Per Day: 1.5 Years Smoked: 15 e-Cigarette/Vaping Use: Never Used Second Hand Smoke Exposure: No Substance Use Type: Marijuana service: No Current occupational status: employed 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 Paul Barnes, Sherry Franco, Filiberto Lamb and colleagues, with an educational geri from [employer]. Physical exam (Primary Care) Tobacco/Smoking Status: Tobacco use Status Tobacco use date assessed 04/27/24 10/11/24 08:51 Patient Tobacco Use Status Former Tobacco user 10/11/24 08:51 e-Cigarette/Vaping Use Never Used 10/11/24 08:51 Thrive Assessment: Date of Thrive Assessment Date Thrive assessed 04/27/24 10/11/24 08:51 Telehealth Telehealth Telehealth Platform: Telephone Location of provider rendering services: practice address Location of patient: address on file Patient Identification confirmed using: Name, : Yes Telehealth method: voice only Patient verbally consented to treatment: Yes Patient verbally consented to billing insurance company: Yes Patient informed of any privacy concerns related to visit: Yes Minutes spent on Phone/Video with Pt.: 21 Results Reviewed Results Reviewed: Laboratory Tests 10/11/24 09:53 WBC 12.0 H RBC 3.97 L Hgb 12.3 L Hct 37.5 L Plt Count 580 H D Sodium 139 Potassium 4.3 Chloride 103 Carbon Dioxide 28 Anion Gap 12 BUN 19 H Creatinine 1.38 Estimated GFR 53 Random Glucose 83 Estimat Average Glucose 105 Hemoglobin A1c % 5.3 Calcium 9.0 D Total Bilirubin 0.2 AST 25 ALT 43 H Alkaline Phosphatase 89 Total Protein 7.5 Albumin 4.1 Ultrasound scrotum and contents: Impression: 1. Small bilateral varicoceles with minimal increase in size with Valsalva maneuver. 2. Incidentally noted moderate right hydronephrosis with debris/complexity seen with in the right renal pelvis, corresponding to findings described on prior CT Renal artery duplex Impression: No prior study for comparison. No evidence of renal artery stenosis. Vein patent bilaterally. MRI brain without contrast Impression: Incomplete in severely motion degraded exam. There is a T2/FLAIR hyperintensity in the right posterior parietal and occipital lobes with no definitive restricted diffusion or hemorrhage. In the appropriate clinical setting, this could reflect posterior reversible encephalopathy syndrome CT angio head/neck: Impression: 1. 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 2. Multiple enlarged left supraclavicular segment level 5 lymph nodes. Differential includes reactive, lymphoproliferative versus metastatic lymphadenopathy. Recommend clinical correlation and follow up with consideration of tissue sampling based on multiple clinical concern. 3. 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 We have called and faxed over the updated urgent referral with the biopsy report from [facility]. 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 Priority referral to Heme-Onc. Discussed with patient that he will be notified up an appointment time and date and we will call to try to get this expedited today. (3) Anemia: Code(s): D64.9 - Anemia, unspecified Category: Medical Plan: We will check labs prior to our appointment next week to monitor and trend. Orders: Orders Complete Blood Count Auto Diff Today D64.9 - Anemia, unspecified IRON PROFILE Today D64.9 - Anemia, unspecified Ferritin Today D64.9 - Anemia, unspecified Vitamin B12 and Folate Today D64.9 - Anemia, unspecified Referrals Hematology & Oncology Referral C77.9 - Secondary and unspecified malignant neoplasm of lymph node, unspecified, C80.1 - Malignant (primary) neoplasm, unspecified, D64.9 - Anemia, unspecified, N13.30 - Unspecified hydronephrosis
== END 2024-10-12 14:13 | disposition home or self-care (01) ==
LOC: HO.HMCFM 08:39
PROVIDERS: PCP Physician Assistant; Visit Provider Physician Assistant
DX: N13.30 Unspecified hydronephrosis (principal); C77.9 Secondary and unspecified malignant neoplasm of lymph node, unspecified; C80.1 Malignant (primary) neoplasm, unspecified; D64.9 Anemia, unspecified

== ENCOUNTER 2024-10-19 09:21 | Outpatient (AMB) | payer OTHER, SELFPAY ==
--- NOTE | 2024-10-19 09:22 | A.OFFPC_ITS ---
Vital Signs 10/19/24 09:27 Height 5 ft 8.5 in Weight 156 lb 7 oz BMI 23.4 BP 114/64 Blood Pressure Location Lt brachial Position Sitting Respiration 14 Pulse 75 Pulse Source Pulse Oximeter Pulse Oximetry (%) 99 Oxygen Delivery Method Room Air Intake Visit Reasons: bp check and lab review needs 30 min Intake Note: Follow up and lab results. Bilateral foot swelling, started a week ago. Requesting [facility] paperwork to be filled out. Needs a note to go back to work with or without restrictions. Principal Research Economist Required: No Allergies No Known Allergies Allergy (Verified 10/19/24 09:27) Medication List - Last Reconciled 10/19/24 by Gill Car PA-C aspirin 81 mg PO DAILY hydralazine 50 mg PO TID levetiracetam 750 mg PO BID multivitamin 1 tab PO DAILY nifedipine ER 60 mg PO DAILY pantoprazole 40 mg PO DAILY pyridoxine (vitamin B6) 50 mg PO DAILY thiamine HCl (vitamin B1) 100 mg PO DAILY Tobacco use date assessed: 10/19/24 Dental Screening Dental Screen Date: 04/27/24 HPI bp check and lab review needs 30 min HPI Details Patient is a 59-year-old male with a recent past medical history of posterior reversible encephalopathy syndrome, renal disease, hypertension, seizures, and recent diagnosis of 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 Please see previous note for further details. We recently reviewed his pathology from [facility] and I did call [facility] and he was able to get an appointment for later today. He has an ultrasound at 01:30 in his meeting with the urologist at 02:30. He has an appointment arranged tomorrow with Oncology. He states that he is still urinating regularly without any burning but is noticing blood at the end of urination. States that this has been present since the hospitalization. He has heard back from [facility] and has an appointment for his MRA/MRI on 11/07. He is booked with Neurology but does not know the time yet. He is still getting intermittent headaches but states that they are relieved with Tylenol. His bl ood pressures at home have overall been okay but he does have quite a few readings of blood pressures being elevated with a systolic between 130 and 160 and a diastolic between 80-100. His heart rate has been normal. He is currently managed with carvedilol 12.5 mg twice a day, hydralazine 50 mg 3 times a day and nifedipine 60 mg daily. Today his blood pressure is normal in the office but he states that he just took a hydralazine. This morning when he woke up his blood pressure was 167/104 and then before he left the house after his morning medications it was 135/82. He has not yet heard about an appointment from Nephrology but does have a phone number. He does notice that at times his feet are a little puffy. He states that they are not painful and that there is no lower leg pain or swelling. He is frustrated with just being at home without much to do. 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) Cognitive needs: No Hearing needs: No Vision needs: Yes (glasses) Questionnaire Thrive Questionnaire Date Thrive assessed: 10/11/24 I am a: Patient What is your living situation today?: I have a steady place to live Within the past 12 months, did the food you bought not last and you didn't have the money to get more?: Never true Within the past 12 months, did you worry whether your food would run out before you got money to buy more?: Never true Do you have trouble paying for medicines?: No Do you have trouble getting transportation to medical appointments?: No Do you have trouble paying your heating and electricity bill?: No Do you have trouble taking care of your child, family member or friend?: No Do you have trouble with day-to-day activities such as bathing, preparing meals, shopping, managing finances, etc.?: No Are you currently unemployed and looking for a job?: No Are you interested in more education?: No Please select the resources that you would like help with: None Currently or been in a relationship where the following occur: No concerns reported THRIVE Score: 0 EDUARDO-7 AMB Questionnaire EDUARDO-7 Date EDUARDO - 7 assessed: 04/27/24 Source: Developed by Drs. Paul Barnes, Sherry Franco, Filiberto Lamb and colleagues, with an educational geri from [employer]. Physical exam (Primary Care) Vital Signs: Last Vital Signs Pulse 75 10/19/24 09:27 Resp 14 10/19/24 09:27 BP 114/64 10/19/24 09:27 Pulse Ox 99 10/19/24 09:27 Oxygen Delivery Method Room Air 10/19/24 09:27 BMI result Body Mass Index 23.4 Tobacco/Smoking Status: Tobacco use Status Tobacco use date assessed 10/19/24 10/19/24 09:30 Patient Tobacco Use Status Former Tobacco user 10/19/24 09:41 e-Cigarette/Vaping Use Never Used 10/19/24 09:41 Thrive Assessment: Date of Thrive Assessment Date Thrive assessed 10/11/24 10/19/24 09:23 Currently or been in a relationship where the following occur: No concerns reported Const Orientation/consciousness: patient oriented x3 HENMT Ears: hearing grossly normal bilaterally Neck Thyroid: Thyroid normal Lymphatic: no lymphadenopathy noted Resp Auscultation: clear to auscultation bilaterally Cardio Rate: regular rate Rhythm: regular rhythm Heart sounds: S1 normal heart sound present and S2 normal heart sound present GI Inspection: Yes normal to inspection Palpation (GI): Soft to palpation and Other GI palpation findings present (nontender, no cva tenderness) Auscultation: normoactive bowel sounds Rectal Exam - Male: Yes deferred Skin General skin exam: no rashes or lesions noted Neuro General: patient oriented x3, gait normal and no focal motor deficits Coding Level of Care Code Est Pt Level 4 (94331) Complex EM visit Add On G2211 Diagnoses Metastatic carcinoma to lymph node with unknown primary site C77.9; C80.1 Seizure R56.9 History of alcohol abuse F10.11 HTN (hypertension) I10 Assessment & Plan Assessment & Plan (1) Metastatic carcinoma to lymph node with unknown primary site: Code(s): C77.9 - Secondary and unspecified malignant neoplasm of lymph node, unspecified; C80.1 - Malignant (primary) neoplasm, unspecified Category: Medical Plan: Has follow ups in place. Paperwork filled out today for temporary leave from work (2) Seizure: Code(s): R56.9 - Unspecified convulsions Category: Medical Plan: Continue the levetiracetam Follow with Neurology Has MRA/MRI scheduled (3) History of alcohol abuse: Code(s): F10.11 - Alcohol abuse, in remission Category: Medical Plan: Has not had issues with sobriety since leaving the hospital per pt and (4) HTN (hypertension): Code(s): I10 - Essential (primary) hypertension Category: Medical Plan: Blood pressures at home are mostly elevated. I will increase the carvedilol to 25 mg twice a day. He will let me know how the blood pressures look in if he has any low blood pressures he will contact me. I will have him follow up in 1 month. He will follow up sooner if needed. Advised to check labs today. Medications: New nifedipine ER 60 mg PO DAILY 30 tabs 3RF carvedilol must administer with a meal/food 25 mg PO BID 60 tabs 11RF hydralazine 50 mg PO TID 90 tabs 3RF
[2024-10-19 09:27] VITALS: BP 114/64; PULSE 75; RESP 14; O2SAT 99; BMI 23.4
--- OUTSIDE RECORDS SUMMARY | 2024-10-19 10:26 | XMS_ITS | Clinical Summary ---
Author Organization [facility] Address [address] [phone] Phone Care Team Providers Care Substation Operator Conversion Name Role Phone Unavailable Primary Care Provider Unavailabl e Encounters Date Type Department Care Team Description 10/02/2024 Office Communication [facility] [address] [phone] Maribell Shaver from Last 3 Months Social [...] EDT Office Visit [facility] [address] [phone] Murray Beckham MD [address] [phone] Health Maintenance Due Date Last [...]
--- OUTSIDE RECORDS SUMMARY | 2024-10-19 10:26 | XMS_ITS | Encounter Summary ---
Author Organization [facility] Address [address] [facility] [address] [place] [address] Phone Care Team Providers Care Medical Records Coordinator Name Role Phone Unavailable Primary Care Provider Unavailabl e Encounter Details Date Type Department Care Team (Late st Contact Info) Description 10/02/2024 Office Communication [facility] [address] [facility] [address] [place] [address] ChhayaMaribell [address] [facility] [address] [place] [phone] Social History Tobacco Use Types Packs/Day Years [...] : 1965 VBC: Hospital Chart Number: Hospital: [facility] IP Room: Attending Provider: Referring Provider: [...] Visit [facility] [address] [phone] Murray Beckham MD [address] [phone] documented as of this encounter Visit Diagnoses Not on filedocumented in this encounter
== END 2024-10-19 10:18 | disposition home or self-care (01) ==
PROVIDERS: PCP Physician Assistant; Visit Provider Physician Assistant
DX: C77.9 Secondary and unspecified malignant neoplasm of lymph node, unspecified (principal); C80.1 Malignant (primary) neoplasm, unspecified; R56.9 Unspecified convulsions; F10.11 Alcohol abuse, in remission; I10 Essential (primary) hypertension

== ENCOUNTER 2024-10-19 10:26 | Outpatient (REF) | payer OTHER, SELFPAY ==
[2024-10-19 12:00] LABS: MANUAL DIFF FLAG NO
[2024-10-19 12:02] LABS: Basophils Absolute Auto 0.1 X10*3/uL (0.0-0.2); Basophils Percent Auto 0.7 % (0-2); Eosinophils Absolute Auto 0.2 X10*3/uL (0.0-0.4); Eosinophils Percent Auto 1.6 % (0-4); Hematocrit 37.6 % (42.0-52.0); Hemoglobin 12.2 g/dl (14.0-18.0); Imm Gran Abs Auto 0.08 X10*3/uL (0.00-0.03); Imm Gran Pct Auto 0.6 % (0.0-0.4); Lymphocytes Absolute Auto 1.4 X10*3/uL (1.2-4.9); Lymphocytes Percent Auto 10.6 % (20-40); Mean Corpuscular HGB Conc 32.4 g/dl (31.0-36.0); Mean Corpuscular Hemoglobin 30.8 pg (27.0-33.0); Mean Corpuscular Volume 94.9 fL (80.0-98.0); Mean Platelet Volume 9.8 fL (9.4-12.4); Monocytes Percent Auto 7.4 % (2-11); Neutrophils Absolute Auto 10.3 x10*3/uL (2.0-8.3); Neutrophils Percent Auto 79.1 % (45-73); Platelet Count 491 X10*3/uL (160-400); Red Blood Count 3.96 X10*6/uL (4.60-5.80); Red Cell Distribution Width 13.2 % (11.0-16.0); White Blood Count 13.1 X10*3/uL (4.8-10.8)
[2024-10-19 12:03] LABS: Appearance Urine Clear; Color Urine Yellow; Glucose Urine UA Negative (Negative); Leukocyte Esterase Urine Small (1+) (Negative); Nitrite Urine Negative (Negative); PH 6.5 (5.0-9.0); Specific Gravity - Urine 1.015 (1.005-1.025); UMIC TRIGGER UACC YES; Urine Blood Large (3+) (Negative); Urine Ketones Negative (Negative); Urine Protein 30 (1+) mg/dL (Neg-Trace)
[2024-10-19 12:07] LABS: Bacteria Urine None Seen (None Seen); Hyaline Casts Urine 0-2 /LPF (0-2); RBC Urine >20 /HPF (0-2); UACC Culture Trigger YES
--- OUTSIDE RECORDS SUMMARY | 2024-10-19 12:27 | XMS_ITS | Encounter Summary ---
Author Organization [facility] Address [address] [facility] [address] [place] [address] Phone Care Team Providers Care Title Camera Operator Name Role Phone Unavailable Primary Care Provider Unavailabl e Encounter Details Date Type Department Care Team (Late st Contact Info) Description 10/02/2024 Office Communication [facility] [address] [facility] [address] [place] [address] ChhayaMaribell [address] [facility] [address] [place] [phone] Social History Tobacco Use Types Packs/Day Years [...] : 1965 VBC: Hospital Chart Number: Hospital: [facility] IP Room: Attending Provider: Referring Provider: [...] Visit [facility] [address] [phone] Murray Beckham MD [address] [phone] documented as of this encounter Visit Diagnoses Not on filedocumented in this encounter
--- OUTSIDE RECORDS SUMMARY | 2024-10-19 12:27 | XMS_ITS | Clinical Summary ---
Author Organization [facility] Address [address] [address] Phone Care Team Providers Care Extractor Puller Name Role Phone Unavailable Primary Care Provider Unavailabl e Encounters Date Type Department Care Team Description 10/02/2024 Office Communication [facility] [address] [phone] Maribell Shaver from Last 3 Months Social [...] EDT Office Visit [facility] [address] [phone] Murray Beckham MD [address] [phone] Health Maintenance Due Date Last [...]
[2024-10-19 12:43] LABS: Anion Gap 14 (12-20); Blood Urea Nitrogen 17 mg/dL (9-16); Calcium 9.2 mg/dL (8.4-10.2); Carbon Dioxide 26 mmol/L (22-29); Chloride 103 mmol/L (96-108); Estimated Glomerular Filt Rate 44; Glucose Random 89 mg/dL (60-115); Iron 78 mcg/dL (45-160); Percent Iron Saturation 28 % (15-50); Potassium 3.6 mmol/L (3.3-5.1); Sodium 139 mmol/L (135-145); Total Iron Binding Capacity 275 mcg/dL (228-428); Unsaturated Iron Binding 197 ug/dL
[2024-10-19 12:59] LABS: Ferritin 148 ng/mL (20-250)
[2024-10-19 13:11] LABS: Folate > 20.0 ng/mL (> or = 4.0); Vitamin B12 449 pg/mL (200-900)
== END 2024-10-19 10:27 | disposition home or self-care (01) ==
LOC: HO.WFDLDS 10:26
PROVIDERS: Visit Provider Physician Assistant
DX: R80.9 Proteinuria, unspecified (principal); D64.9 Anemia, unspecified
CPT/HCPCS: 36415; 80048; 81001; 81003; 82607; 82728; 82746; 83540; 85025; 87086

== ENCOUNTER → 2024-10-20 10:59 | Outpatient (BNV) | payer OTHER, SELFPAY | PROVIDERS: Visit Provider Internal Medicine | DX: C68.9 Malignant neoplasm of urinary organ, unspecified (principal); C77.9 Secondary and unspecified malignant neoplasm of lymph node, unspecified | CPT/HCPCS: 99205; G2211 ==

== ENCOUNTER 2024-10-31 08:07 | Outpatient (REF) | payer OTHER, SELFPAY ==
--- NOTE | ~2024-10-31 | PE_ITS ---
EXAMINATION: FLUORINE-18 FDG PET/CT SCAN CLINICAL INFORMATION: Staging urothelial cancer. TECHNIQUE: 61 minutes following the intravenous administration of 17.3 mCi of fluorine 18 FDG, images from the skull base to proximal thigh were obtained using a combined PET/CT scanner with CT scan based attenuation correction. No oral or intravenous contrast was administered. Transverse, coronal, sagittal, and volume reconstruction projections were obtained. The patient's blood glucose as determined by a finger stick, was 108 mg/dL immediately prior to injection. The radiotracer was injected intravenously through left antecubital vein, without any complications. Total CT exam dose-length product 579 mGy-cm. * These CT images were obtained using dose optimization techniques as appropriate, variously including the following: Automated exposure control * Adjustment of mA and/or kV according to patient size (this includes techniques or standardized protocols for targeted exams where dose is matched to indication/reason for exam; i.e. extremities or head) * Use of iterative reconstruction technique COMPARISON: None available. FINDINGS: HEAD AND NECK: There is no abnormal FDG activity seen in the visualized brain parenchyma. There are multiple areas of FDG activity seen in level 2, level 3, L4 and supra clavicular level 5 lymph nodes. CHEST: Ports and Devices: None Lungs: No abnormal radiotracer uptake. Pleura: No significant pleural effusion. Lymph Nodes: There is moderate metabolically active lymph nodes in left infra clavicular space and left axilla. The largest lymph node left axilla measures 2.4 cm axial image 206/2. Mediastinum: There is solitary focal lymph node FDG activity seen in superior mediastinum rest of the mediastinum has no metabolic activity seen. Breasts/Chest Wall: There is mild focal metabolic activity seen in the left supraspinatus muscle, question strain/contusion. ABDOMEN/PELVIS: Liver/Biliary System: No focal tracer-avid liver lesion. The gallbladder appears unremarkable. Pancreas: The pancreas is normal. No peripancreatic fluid collection. Spleen: No abnormal radiotracer uptake. No evidence of splenomegaly. Adrenal Glands: No abnormal radiotracer uptake. Kidneys: There is moderate increased metabolic activity throughout the left kidney. There is no corresponding mass visualized on this noncontrast CT exam. There is moderate right hydronephrosis Bowel: There is no significant bowel dilatation to suggest obstruction. Lymph Nodes: There is abnormal upper retroperitoneal , aortocaval, left para-aortic lymph node activity consistent with metastatic disease. Pelvic Organs: There is a right urinary bladder wall thickening. MUSCULOSKELETAL: Nonspecific mild increased activity seen in left supraspinatus muscle. No skeletal activity seen. VASCULAR: Unremarkable. Pelvis: There is a nonspecific mild metabolic activity seen along the right lateral sigmoid/rectal wall. PET/PET CT fusion skull to thigh IMPRESSION: Diffuse lymphadenopathy in the left neck, supraclavicular fossa,, infra clavicular fossa, superior mediastinum and upper retroperitoneum. Nonspecific mild increased activity seen throughout the left kidney. Mild right bladder wall thickening but no corresponding metabolic activity seen however difficult since the whole bladder is opacified from excreted urinary isotope. Nonspecific mild activity seen along the right lateral sigmoid/rectal wall junction. Correlate with endoscopy. Electronically signed by: Kamron Saucedo MD 11/01/2024 09:21 AM EDT
== END 2024-10-31 08:08 | disposition home or self-care (01) ==
LOC: HO.PET 08:07
PROVIDERS: PCP Physician Assistant; Visit Provider Internal Medicine
DX: Z13.89 Encounter for screening for other disorder (principal)

== ENCOUNTER 2024-11-14 10:31 | Outpatient (AMB) | payer OTHER, SELFPAY ==
--- NOTE | 2024-11-14 10:35 | A.OFFVIS_ITS ---
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 He states he believes it was due to his medication but the swelling is down now. He was under the impression that he was here for his Carotid. Says his carotid is ripped . 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 carotid concerns. He states the swelling has completely gone away after changes in his medications. 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 Due to his critical status at that time, he is now just able to get seen for this. We do not have any records from [facility], where he was transferred to. He is also currently being treated for mets urothelial carcinoma. He denies any headaches, dizziness, lightheadedness, or any stroke like symptoms. He states he did have headaches prior to the PRES episode, but nothing since. He denies any lower extremity swelling, pain, or discoloration. He is a former smoker, having quit >20y ago but did smoke 1-2ppd for 15y. He is not a diabetic. [facility] Medical History History of drug abuse Hernia Surgical History S/P right inguinal hernia repair Family History Paternal Grandfather Glaucoma Family/Other Throat cancer Social History Household Members: Spouse and Children Housing: House Alcohol intake: former Patient Tobacco Use Status: Former Tobacco user Tobacco use type: Cigarette Cigarette Packs Per Day: 1.5 Years Smoked: 15 e-Cigarette/Vaping Use: Never Used Second Hand Smoke Exposure: No Use of substances other than those prescribed or required for medical reasons: No Substance Use Type: Marijuana Do you have thoughts of harming others: None Do you have a plan to hurt others: No Plan service: No Current occupational status: employed 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) Gender identity: Male Cognitive needs: No Hearing needs: No Vision needs: Yes (glasses) Review of Systems Const Reports as per HPI and Denies weakness ENT Reports Normal hearing present and Denies dizziness Card Reports as per HPI, Denies chest pain, Denies chest pain at rest, Denies chest pain with activity, Denies dyspnea and Denies dyspnea on exertion Resp Reports as per HPI, Denies cough, Denies dyspnea and Denies dyspnea on exertion GI Reports as per HPI, Denies abdominal pain, Denies nausea and Denies vomiting Musc Denies numbness Skin/Breast Reports as per HPI, Denies erythema and Denies wounds Neuro Reports Normal hearing present, Denies dizziness, Denies numbness, Denies Sensory deficit (Neuro) and Denies weakness Psych Reports no additional complaints Endo Reports no additional complaints Physical Exam Const General: healthy appearing and no acute distress Orientation/consciousness: patient oriented x3 HEENT Head: Yes normal to inspection Ears: hearing grossly normal bilaterally Mouth: Normal oral and palatal mucosa present Resp Effort & Inspection: normal respiratory effort and able to speak in complete sentences Auscultation: clear to auscultation bilaterally Cardio Jugular venous distension: no JVD Rate: regular rate Rhythm: regular rhythm Heart sounds: S1 normal heart sound present and S2 normal heart sound present Bruits: no abdominal aortic bruits, no carotid bruits, no femoral bruits and no renal bruits Peripheral pulses: Peripheral pulses 2+ throughout GI Inspection: Yes normal to inspection Palpation (GI): No Abdominal aortic bruit present Skin General skin exam: no rashes or lesions noted Wounds: no wounds Hair: normal Neuro General: patient oriented x3 Cranial nerves: Yes CN's II-XII intact bilaterally and Yes Normal hearing present Cognition (Neuro): normal cognition Gait exam (Neuro): Normal gait present Motor exam (neuro): 5/5 motor strength present throughout Sensory Exam: No Sensory deficit (Neuro) Extrem Other: Bilateral lower extremities: no edema, discoloration, or swelling noted. General: Yes normal to inspection, Yes full ROM, Yes capillary refill normal and Yes normal gait Assessment & Plan Assessment & Plan (1) History of dissection of internal carotid artery: Code(s): Z86.79 - Personal history of other diseases of the circulatory system Category: Medical Plan: Luis is presenting today for concerns of possible left carotid issues. He states he also had a period of bilateral lower extremity swelling after starting chemo and BP medications but since the medications have been changed, the swelling has completely gone away. He states that he was told, from a CT scan that was done at [facility] in Sep, that there was a ? of aneurysm/detachment of the inner layer of the left carotid artery. He denies any CVA/TIA symptoms. He denies headaches. He is currently being treated for metastatic urothelial carcinoma. He has not had any signs or symptoms of a CVA or TIA. I discussed with him that we will be trying to obtain the records from [facility]. We will be ordering a carotid US stat to assess the left carotid. I discussed with him that if he has any signs or symptoms of a CVA, then he needs to get to the ER. We will follow up with him after the US. Thank you for allowing to participate in the patient's care. If there are any questions or concerns, please do not hesitate to reach out to us. Orders: Orders US carotid duplex BI 1 Day Z86.79 - Personal history of other diseases of the circulatory system Coding Level of Care Code New Pt Level 4 (07489) Diagnoses History of dissection of internal carotid artery Z86.79
--- OUTSIDE RECORDS SUMMARY | 2024-11-14 12:26 | XMS_ITS | Clinical Summary ---
Author Organization [facility] Address [address] [phone] Phone Care Team Providers Care Terrazzo Worker Helper Name Role Phone Unavailable Primary Care Provider Unavailabl e Encounters Date Type Department Care Team Description 10/27/2024 Telephone [facility] [address] [place] [phone] Debbie Valadez [place] 10/02/2024 Office Communication [facility] [address] [phone] Maribell Shaver from Last 3 Months Social [...] Office Visit [facility] [address] [phone] Murray Beckham MD [address] [phone] Health Maintenance Due Date Last [...]
--- OUTSIDE RECORDS SUMMARY | 2024-11-14 12:26 | XMS_ITS | Clinical Summary ---
Author Organization 299 [facility] Address [address] [place] [address] Phone Care Team Providers Care Cement Boat And Barge Loader Name Role Phone Physician, Pcp Unknown Primary Care Provider Charlotte vailable Encounters Date Type Department Care Team Description 10/24/2024 Lab Requisition [facility] - Main Lab 299 [facility] [place] [address] Evaristo Rouse MD Gross hematuria from Last 3 Months Social History Tobacco Use Types Packs/Day Years Used Date Smoking Tobacco: Never Assessed Sex and Gender Information Value Date Recorded Sex Assigned at Not on file Legal Sex Male 4:13 PM EDT Gender Identity Not on file Sexual Orientation Not on file Plan of Treatment Health Maintenance Due Date Last Done Comments DTaP,Tdap,and Td Vaccines (1 - Tdap) 1985 Hepatitis B Vaccines (1 of 3 - 19+ 3-dose series) 1985 Pneumococcal Vaccine: 50+ Ye ars (1 of 1 - PCV) 2016 Zoster Vaccines (1 of 2) 2016 COVID-19 Vaccine ( - 2023-2 5 season) 2024 Influenza Vaccine (#1) 2024 Cholesterol Screening (Lipid Panel) 10/25/2024 Colorectal Cancer Screening: Colonoscopy 10/25/2024 Depression Screening 10/25/2024 HIV Screening 10/25/2024 Hepatitis C Screening 10/25/2024 Social Influencers of Health Screening 10/25/2024 HIB Vaccines Aged Out No longer eligi ble based on patient's age to complete this topic HPV Vaccines Aged Out No longer eligi ble based on patient's age to complete this topic Hepatitis A Vaccines Aged Out No long er eligible based on patient's age to complete this topic IPV Vaccines Aged Out No longer eligi ble based on patient's age to complete this topic MMR Vaccines Aged Out No longer eligi ble based on patient's age to complete this topic Meningococcal ACWY Vaccine Aged Out N o longer eligible based on patient's age to complete this topic Meningococcal B Vacine Aged Out No lo nger eligible based on patient's age to complete this topic Pneumococcal Vaccine: Pediat rics (0 to 5 Years) and At-Risk Patients (6 to 64 Years) Aged Out No longer eligible b ased on patient's age to complete this topic RSV Immunization Patients Un joel 20 months Aged Out No longer eligible b ased on patient's age to complete this topic Varicella Vaccines Aged Out No longer eligible based on patient's age to complete this topic Procedures Procedure Name Priority Date/Time Associated Diagnosis Comments AP OUTSIDE CONSULT Routine 10/19/2024 12 :00 AM EST Gross hematuria from Last 3 Months Results * Anatomic pathology outside consult (10/19/2024 12:00 AM EST) Addendum Results of UroVysion fluorescence in situ hybridization (FISH) testing: CEP3: Abnormal CEP7: Abnormal CEP17: Abnormal LSI 9p21: Abnormal Interpretation: Abnormal profile Controls stained appropriately. Note: Abnormal results are considered suspicious for urothelial carcinoma. 10/31/2024 12:42 PM EDT [facility] Addendum electronically signed by Sean Islas MD on 10/31/2024 at 12:42 PM Final Diagnosis A. Urine, Voided, ([id number]): ATYPICAL UROTHELIAL CELLS. Note: UroVysion testing to follow. 10/31/2024 12:42 PM EDT [facility] Clinical Information Gross hematuria R31.0 Urine Cytology/FISH (now) [facility] Gross Description A. Urine, Voided, ([id number]): Received one ThinPrep slide for cytology and one ThinPrep slide for UroVysion FISH 10/31/2024 12:42 PM EDT [facility] Disclaimer Unless otherwise specified, all tissue is 10% NB formalin fixed and paraffin embedded. Technical pathology services provided by [facility] at [address], [place] [address] (CLIA #[id number]/Radha Seay MD, Delinquency Counselor) 10/31/2024 12:42 PM EDT [facility] Tissue Urine specimen from urethra / Unknown 10/19/2024 10/24/2024 4:17 PM EDT us Evaristo Roues MD LAB PATHOLOGY ORDERABLES Edite d Result - Final [facility] [address] [place] [address], from Last 3 Months Insurance [employer] Care Teams Cement Boat And Barge Loader Relationship Specialty Start Date End Date Physician, Pcp Unknown PCP - General 10/24/24
--- OUTSIDE RECORDS SUMMARY | 2024-11-14 12:26 | XMS_ITS | Encounter Summary ---
Author Organization [facility] Address [address] [place] [address] Care Team Providers Care Ict Security Specialist Name Role Phone Physician, Pcp Unknown Primary Care Provider Charlotte vailable Encounter Details Date Type Department Care Team (Late st Contact Info) Description 10/24/2024 Lab Requisition [facility] - Main Lab 299 [facility] [place] [address] Evaristo Rouse MD [address] [facility] [address] [place] [phone] Gross hematuria Social History Tobacco Use Types Packs/Day Years Used Date Smoking Tobacco: Never Assessed Sex and Gender Information Value Date Recorded Sex Assigned at Not on file Legal Sex Male 4:13 PM EDT Gender Identity Not on file Sexual Orientation Not on file documented as of this encounter Plan of Treatment Not on file documented as of this encounter Procedures Procedure Name Priority Date/Time Associated Diagnosis Comments AP OUTSIDE CONSULT Routine 10/19/2024 12 :00 AM EST Gross hematuria documented in this encounter Results * Anatomic pathology outside consult (10/19/2024 12:00 AM EST) Addendum Results of UroVysion fluorescence in situ hybridization (FISH) testing: CEP3: Abnormal CEP7: Abnormal CEP17: Abnormal LSI 9p21: Abnormal Interpretation: Abnormal profile Controls stained appropriately. Note: Abnormal results are considered suspicious for urothelial carcinoma. 10/31/2024 12:42 PM EDT [facility] Addendum electronically signed by Sean Islas MD on 10/31/2024 at 12:42 PM Final Diagnosis A. Urine, Voided, ([id number]): ATYPICAL UROTHELIAL CELLS. Note: UroVysion testing to follow. 10/31/2024 12:42 PM EDT [facility] Clinical Information Gross hematuria R31.0 Urine Cytology/FISH (now) 10/31/2024 12:42 PM EDT [facility] Gross Description A. Urine, Voided, ([id number]): Received one ThinPrep slide for cytology and one ThinPrep slide for UroVysion FISH 10/31/2024 12:42 PM EDT [facility] Disclaimer Unless otherwise specified, all tissue is 10% NB formalin fixed and paraffin embedded. Technical pathology services provided by [facility] at [address] [place] [address] [address], [place] [address] (CLIA #[id number]/Radha Seay MD, Speech Therapist) 10/31/2024 12:42 PM EDT [facility] Tissue Urine specimen from urethra / Unknown 10/19/2024 10/24/2024 4:17 PM EDT us Evaristo Rouse MD LAB PATHOLOGY ORDERABLES Edite d Result - Final [facility] [address] [place] [address], documented in this encounter Visit Diagnoses Diagnosis Gross hematuria documented in this encounter Care Teams Ict Security Specialist Relationship Specialty Start Date End Date Physician, Pcp Unknown PCP - General 10/24/24 documented as of this encounter
== END 2024-11-14 10:58 | disposition home or self-care (01) ==
LOC: HO.HVS 10:32
PROVIDERS: PCP Physician Assistant; Visit Provider Physician Assistant Surgical
DX: Z86.79 Personal history of other diseases of the circulatory system (principal)
CPT/HCPCS: 99204

== ENCOUNTER 2024-11-15 15:43 | Outpatient (AMB) | payer OTHER, SELFPAY ==
--- NOTE | 2024-11-15 15:35 | A.OFFPC_ITS ---
Intake Visit Reasons: go over fmla paperwork Intake Note: Discuss vascular appointment. Salt Lifter Required: No Allergies pembrolizumab [From Keytruda] Allergy (Mild, Verified 11/15/24 15:49) itching, rash Tobacco use date assessed: 11/15/24 Dental Screening Dental Screen Date: 04/27/24 HPI go over fmla paperwork HPI Details Patient is a 59-year-old male with a recent past medical history of posterior reversible encephalopathy syndrome, renal disease, hypertension, seizures, and recent diagnosis of metastatic urothelial carcinoma presenting today for a follow up. Urology: He is following with [facility]. He is not exactly sure when his next appointment is but states that they are monitoring his kidneys. Onc: He is going to chemo and states he is doing well in tolerating the medications. He states that is does not know his pet scan findings but states that he was told that there was nothing surprising. CV: He is currently managed with carvedilol 25 mg twice a day, hydralazine 50 mg 3 times a day and nifedipine 60 mg daily. Doing better with this treatment. Blood pressures at home have been normal. Vasc: He saw [facility] for possible carotid artery dissection. He had an ultrasound ordered. Neuro: He states that he went for the MRI on 11/07/24. Has MRAbooked 12/01 at [place]. He does not have the MRI report yet. We have requested this today. He believes he has follow up scheduled with Neurology. He has not had any seizure- like activities. This appointment was to ensure that all the paperwork was completed and he states that his LA was approved. 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 Paul Barnes, Sherry Franco, Filiberto Lamb and colleagues, with an educational geri from [employer]. Physical exam (Primary Care) Tobacco/Smoking Status: Tobacco use Status Tobacco use date assessed 11/15/24 11/15/24 15:40 Patient Tobacco Use Status Former Tobacco user 11/15/24 15:41 Tobacco use type Cigarette 11/15/24 15:41 e-Cigarette/Vaping Use Never Used 11/15/24 15:41 Thrive Assessment: Date of Thrive Assessment Date Thrive assessed 10/11/24 11/15/24 15:36 Telehealth Telehealth Telehealth Platform: Telephone Location of provider rendering services: practice address Location of patient: address on file Patient Identification confirmed using: Name, : Yes Telehealth method: voice only Patient verbally consented to treatment: Yes Patient verbally consented to billing insurance company: Yes Patient informed of any privacy concerns related to visit: Yes Minutes spent on Phone/Video with Pt.: 26 Results Reviewed Results Reviewed: PET/PET CT fusion skull to thigh IMPRESSION: Diffuse lymphadenopathy in the left neck, supraclavicular fossa,, infra clavicular fossa, superior mediastinum and upper retroperitoneum. Nonspecific mild increased activity seen throughout the left kidney. Mild right bladder wall thickening but no corresponding metabolic activity seen however difficult since the whole bladder is opacified from excreted urinary isotope. Nonspecific mild activity seen along the right lateral sigmoid/rectal wall junction. Correlate with endoscopy. Coding Level of Care Code Tele Est Pt Level 3 (72329) Diagnoses Urothelial carcinoma C68.9 Rectal abnormality K62.9 HTN (hypertension) I10 Assessment & Plan Assessment & Plan (1) Urothelial carcinoma: Code(s): C68.9 - Malignant neoplasm of urinary organ, unspecified Category: Medical Plan: Following with Heme-Onc and urology (2) Rectal abnormality: Code(s): K62.9 - Disease of anus and rectum, unspecified Category: Medical Plan: Reviewed CT PET with patient over the phone and discussed that it did show increased uptake in the rectal area and lower sigmoid. Referral to GI for urgent consultation was placed. (3) HTN (hypertension): Code(s): I10 - Essential (primary) hypertension Category: Medical Plan: He states bps at home have been normal Orders: Referrals Gastroenterology Referral C68.9 - Malignant neoplasm of urinary organ, unspecified, K62.9 - Disease of anus and rectum, unspecified
--- OUTSIDE RECORDS SUMMARY | 2024-11-15 17:51 | XMS_ITS | Encounter Summary ---
Author Organization [facility] Address [address] [place] [address] Care Team Providers Care School Lunch Manager Name Role Phone Physician, Pcp Unknown Primary Care Provider Charlotte vailable Encounter Details Date Type Department Care Team (Late st Contact Info) Description 10/24/2024 Lab Requisition [facility] - Main Lab 299 [facility] [place] [address] Evaristo Rouse MD [address] [facility] [address] [place] [phone] Gross hematuria Social History Tobacco Use Types [...] for urothelial carcinoma. 10/31/2024 12:42 PM EDT [facility] Addendum electronically signed by Sean Islas MD on 10/31/2024 at 12:42 PM Final Diagnosis A. Urine, Voided, ([id number]): ATYPICAL UROTHELIAL CELLS. Note: UroVysion testing to follow. 10/31/2024 12:42 PM EDT [facility] Clinical Information Gross hematuria R31.0 Urine Cytology/FISH (now) 10/31/2024 12:42 PM EDT [facility] Gross Description A. Urine, Voided, ([id number]): Received one ThinPrep slide for cytology and one ThinPrep slide for UroVysion FISH 10/31/2024 12:42 PM EDT [facility] Disclaimer Unless otherwise specified, all tissue is 10% NB formalin fixed and paraffin embedded. Technical pathology services provided by [facility]rology at [address] [place] [address] [address], [place] [address] (CLIA #[id number]/Radha Seay MD, School Bus Attendant) 10/31/2024 12:42 PM EDT [facility] Tissue Urine specimen from urethra / Unknown 10/19/2024 10/24/2024 4:17 PM EDT us Evaristo Rouse MD LAB PATHOLOGY ORDERABLES Edite d Result - Final [facility] [address] [place] [address], documented in this encounter Visit Diagnoses Diagnosis Gross hematuria documented in this encounter Care Teams School Lunch Manager Relationship Specialty Start Date End Date Physician, Pcp Unknown PCP - General 10/24/24 documented as of this encounter
--- OUTSIDE RECORDS SUMMARY | 2024-11-15 17:51 | XMS_ITS | Clinical Summary ---
Author Organization [facility] Address [address] [address] Phone Care Team Providers Care Legal Associate Name Role Phone Unavailable Primary Care Provider Unavailabl e Encounters Date Type Department Care Team Description 10/27/2024 Telephone [facility] [address] [place] [phone] Debbie Valadez [place] 10/02/2024 Office Communication [facility] [address] [phone] Maribell Shaver from Last 3 Months Social [...] Office Visit [facility] [address] [address] Murray Beckham MD [address] [address] Health Maintenance Due Date Last [...]
--- OUTSIDE RECORDS SUMMARY | 2024-11-15 17:51 | XMS_ITS | Clinical Summary ---
Author Organization 299 [facility] Address [address] [place] [address] Phone Care Team Providers Care Radio Aerial Installer Name Role Phone Physician, Pcp Unknown Primary Care Provider Charlotte vailable Encounters Date Type Department Care Team Description 10/24/2024 Lab Requisition [facility] - Main Lab 299 [facility] [email or web address] [address] Evaristo Rouse MD Gross hematuria [...] for urothelial carcinoma. 10/31/2024 12:42 PM EDT [facility] Addendum electronically signed by eSan Islas MD on 10/31/2024 at 12:42 PM Final Diagnosis A. Urine, Voided, ([id number]): ATYPICAL UROTHELIAL CELLS. Note: UroVysion testing to follow. 10/31/2024 12:42 PM EDT [facility] Clinical Information Gross hematuria R31.0 Urine Cytology/FISH (now) [facility] Description A. Urine, Voided, ([id number]): Received one ThinPrep slide for cytology and one ThinPrep slide for UroVysion FISH 10/31/2024 12:42 PM EDT [facility] Disclaimer Unless otherwise specified, all tissue is 10% NB formalin fixed and paraffin embedded. Technical pathology services provided by [facility] at [address], [place] [address] (CLIA #[id number]/Radha Seay MD, Engraver Letter) 10/31/2024 12:42 PM EDT [facility] Tissue Urine specimen from urethra / Unknown 10/19/2024 10/24/2024 4:17 PM EDT us Evaristo Rouse MD LAB PATHOLOGY ORDERABLES Edite d Result - Final [facility] ([facility] [address] [place] [address], from Last 3 Months Insurance [employer] Care Teams Radio Aerial Installer Relationship Specialty Start Date End Date Physician, Pcp Unknown PCP - General 10/24/24
== END 2024-11-15 17:05 | disposition home or self-care (01) ==
LOC: HO.HMCFM 15:43
PROVIDERS: PCP Physician Assistant; Visit Provider Physician Assistant
DX: I10 Essential (primary) hypertension (principal); C68.9 Malignant neoplasm of urinary organ, unspecified; K62.9 Disease of anus and rectum, unspecified

== ENCOUNTER → 2024-11-15 15:43 | Outpatient (BNVA) | payer OTHER, SELFPAY | PROVIDERS: PCP Physician Assistant; Visit Provider Physician Assistant ==

== ENCOUNTER 2024-11-21 11:16 | Outpatient (REF) | payer OTHER, SELFPAY ==
--- NOTE | ~2024-11-21 | US_ITS ---
EXAMINATION: BILATERAL CAROTID ULTRASOUND WITH DOPPLER HISTORY: Z86.79 - Personal history of other diseases of the circulatory system COMPARISON: There are no prior studies for comparison. TECHNIQUE: Real time and Color and Spectral doppler ultrasonography of the carotid and vertebral arteries was performed in multiple planes. FINDINGS: There is mild plaque at both carotid bulbs. VERTEBRAL FLOW DIRECTION: Antegrade bilaterally. PEAK SYSTOLIC VELOCITIES (in cm/sec): RIGHT: CCA: Prox: 43.2 Dist: 76.4 ICA: Prox: 60.9 Mid: 65.5 Dist: 72.2 ICA/CCA Ratio: 0.95 ECA: 107 Peak ICA EDV: 27.8 LEFT: CCA: Prox: 121 Dist: 88.6 ICA: Prox: 53.4 Mid: 70.2 Dist: 63.1 ICA/CCA Ratio: 0.58 ECA: 83.1 Peak ICA EDV: 32.9 US/US carotid duplex BI IMPRESSION: Findings consistent with 0-49% stenosis of the bilateral internal carotid arteries. Electronically signed by: Paul Riojas MD 11/21/2024 01:08 PM EDT
--- OUTSIDE RECORDS SUMMARY | 2024-11-21 13:46 | XMS_ITS | Clinical Summary ---
Author Organization [facility] Address [address] [address] Phone Care Team Providers Care Inventory Checker Name Role Phone Unavailable Primary Care Provider Unavailabl e Medications aspirin 81 MG chewable tablet 81 mg by Per G Tube route 5 Active carvedilol (COREG) 25 MG tablet TAKE 1 TABLET ORALLY 2 TIMES A DAY MUST ADMINISTER WITH A MEAL/FOOD 5 Active Coreg 12.5 MG tablet Take 12.5 mg by mouth 5 Active folic acid (FOLVITE) 1 MG tablet Take 1 mg by mouth 5 Active hydrALAZINE 25 MG tablet Take 50 mg by mouth 5 Active Keppra 250 MG tablet Take 750 mg by mouth 5 Active NIFEdipine CC (ADALAT CC) 60 MG 24 hr tablet Take 60 mg by mouth 1 (one) time each day 5 Active pantoprazole (PROTONIX) 40 MG EC tablet Take 40 mg by mouth 5 Active sulfamethoxazol e-trimethoprim 800-160 MG per tablet take 1 tablet by mouth every 12 hours for 7 days 5 Active Active Problems Problem Noted Date Diagnosed Date Inguinal hernia 11/17/2024 Encounters Date Type Department Care Team Description 10/27/2024 Telephone [facility] [address] [place] [address] Debbie Valadez MA 10/02/2024 Office Communication [facility] [address] [address] Maribell Shaver from Last 3 Months Social [...] Office Visit [facility] [address] [facility] [address] [place] [phone] Murray Beckham MD [address] [facility] [address] [place] [phone] Health Maintenance Due Date Last Done Comments Hepatitis B Vaccine (1 of 3 - 19+ 3-dose series) 1985 Colorectal Cancer Screening: Annual FOBT 2015 Colorectal Cancer Screening: Colonoscopy 2015 Colorectal Cancer Screening: Sigmoidoscopy 2015 Influenza Vaccine (Season Ended) 2025 Pneumococcal Vaccine: Pediat rics (0 to 5 Years) and At-Risk Patients (6 to 64 Years) Aged Out No longer eligible b ased on patient's age to complete this topic Insurance [employer]
--- OUTSIDE RECORDS SUMMARY | 2024-11-21 13:47 | XMS_ITS | Encounter Summary ---
Author Organization [facility] Address [address] [place] [address] Care Team Providers Care School Photographer Name Role Phone Physician, Pcp Unknown Primary Care Provider Charlotte vailable Encounter Details Date Type Department Care Team (Late st Contact Info) Description 10/24/2024 Lab Requisition [facility] - Main Lab 299 [facility] [place] [address] Evaristo Rouse MD [address] [facility] 120 [place] [phone] Gross hematuria Social History Tobacco Use Types [...] for urothelial carcinoma. 10/31/2024 12:42 PM EDT [facility] ([facility]) [facility] Addendum electronically signed by Sean Islas MD on 10/31/2024 at 12:42 PM Final Diagnosis A. Urine, Voided, ([id number]): ATYPICAL UROTHELIAL CELLS. Note: UroVysion testing to follow. 10/31/2024 12:42 PM EDT [facility] Clinical Information Gross hematuria R31.0 Urine Cytology/FISH (now) 10/31/2024 12:42 PM EDT [facility] Gross Description A. Urine, Voided, ([id number]): Received one ThinPrep slide for cytology and one ThinPrep slide for UroVysion FISH 10/31/2024 12:42 PM EDT [facility] Disclaimer Unless otherwise specified, all tissue is 10% NB formalin fixed and paraffin embedded. Technical pathology services provided by [facility]rology at [address] [place] [address] [address] [address] (CLIA #[id number]/Radha Seay MD, Account Service Representative) 10/31/2024 12:42 PM EDT [facility] Tissue Urine specimen from urethra / Unknown 10/19/2024 10/24/2024 4:17 PM EDT us Evaristo Rouse MD LAB PATHOLOGY ORDERABLES Edite d Result - Final [facility] [address] [place] [address], documented in this encounter Visit Diagnoses Diagnosis Gross hematuria documented in this encounter Care Teams School Photographer Relationship Specialty Start Date End Date Physician, Pcp Unknown PCP - General 10/24/24 documented as of this encounter
--- OUTSIDE RECORDS SUMMARY | 2024-11-21 13:47 | XMS_ITS | Clinical Summary ---
Author Organization 299 [facility] Address [address] [place] [address] Phone Care Team Providers Care International Nurse Name Role Phone Physician, Pcp Unknown Primary Care Provider Charlotte vailable Encounters Date Type Department Care Team Description 10/24/[address] [facility] - Main Lab 299 [facility] [place] [address] Evaristo Rouse MD Gross hematuria [...] age to complete this topic Meningococcal B Vaccine Aged Out No l onger eligible based on patient's age to complete [...] for urothelial carcinoma. 10/31/2024 12:42 PM EDT [facility] Addendum electronically signed by Sean Islas MD on 10/31/2024 at 12:42 PM Final Diagnosis A. Urine, Voided, ([id number]): ATYPICAL UROTHELIAL CELLS. Note: UroVysion testing to follow. 10/31/2024 12:42 PM EDT [facility] Clinical Information Gross hematuria R31.0 Urine Cytology/FISH (now) 10/31/2024 12:42 PM EDT [facility] Gross Description A. Urine, Voided, ([id number]): Received one ThinPrep slide for cytology and one ThinPrep slide for UroVysion FISH 10/31/2024 12:42 PM EDT [facility] Disclaimer Unless otherwise specified, all tissue is 10% NB formalin fixed and paraffin embedded. Technical pathology services provided by [facility]rology at [address], [place] [address] (CLIA #[id number]/Radha Seay MD, Molded Goods Embossing Press Operator) 10/31/2024 12:42 PM EDT [facility] Tissue Urine specimen from urethra / Unknown 10/19/2024 10/24/2024 4:17 PM EDT us Evaristo Rouse MD LAB PATHOLOGY ORDERABLES Edite d Result - Final [facility] [address] [place] [address], from Last 3 Months Insurance [employer] Care Teams International Nurse Relationship Specialty Start Date End Date Physician, Pcp Unknown PCP - General 10/24/24
== END 2024-11-21 11:17 | disposition home or self-care (01) ==
LOC: HO.US 11:16
PROVIDERS: PCP Physician Assistant; Visit Provider Physician Assistant Surgical
DX: I65.23 Occlusion and stenosis of bilateral carotid arteries (principal); Z86.79 Personal history of other diseases of the circulatory system
CPT/HCPCS: 93880

== ENCOUNTER → 2024-11-21 11:19 | Outpatient (BNV) | payer OTHER, SELFPAY | PROVIDERS: PCP Physician Assistant; Visit Provider Radiology Diagnostic Radiology | DX: Z86.79 Personal history of other diseases of the circulatory system (principal) | CPT/HCPCS: 93880 ==

== ENCOUNTER 2024-11-23 11:17 | Outpatient (AMB) | payer OTHER, SELFPAY ==
--- NOTE | 2024-11-23 11:27 | A.OFFPC_ITS ---
Vital Signs 11/23/24 11:31 Height 5 ft 9 in Weight 157 lb 6 oz BMI 23.2 BP 116/68 Blood Pressure Location Lt brachial Position Sitting Respiration 14 Pulse 68 Pulse Source Pulse Oximeter Pulse Oximetry (%) 97 Oxygen Delivery Method Room Air Intake Visit Reasons: bp and follow up 30 min Intake Note: Blood pressure follow up. 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 Required: No Allergies pembrolizumab [From [employer]] Allergy (Mild, Verified 11/23/24 11:30) itching, rash Medication List - Last Reconciled 11/23/24 by Gill Car PA-C aspirin 81 mg PO DAILY carvedilol 25 mg PO BID folic acid 1 mg PO DAILY hydralazine 50 mg PO TID hydroxyzine HCl 25 mg PO TID levetiracetam 750 mg PO BID multivitamin 1 tab PO DAILY nifedipine ER 60 mg PO DAILY ondansetron 8 mg PO Q8H pantoprazole 40 mg PO DAILY pyridoxine (vitamin B6) 50 mg PO DAILY thiamine HCl (vitamin B1) 100 mg PO DAILY Tobacco use date assessed: 11/15/24 Dental Screening Dental Screen Date: 04/27/24 HPI bp and follow up 30 min HPI Details Patient is a 59-year-old male with a recent past medical history of posterior reversible encephalopathy syndrome, renal disease, hypertension, seizures, and recent diagnosis of metastatic urothelial carcinoma presenting today for a follow up. Urology: He is following with [facility]. He is no longer having any blood in urine. Onc: He is going to chemo and states he is doing well in tolerating the medications. CV: He is currently managed with carvedilol 25 mg twice a day, hydralazine 50 mg 3 times a day and nifedipine 60 mg daily. Doing better with this treatment. Blood pressures at home have been normal. Bp today in office is 116/68. Nephro: seeing Dr. Beckham 12/08/24 for the hospital f/u. Vasc: He saw [facility] for possible carotid artery dissection. He had an ultrasound which was normal. Following up in a month. Neuro: He states that he went for the MRI on 11/07/24. Has MRA booked 12/01 at [facility]. He believes he has follow up scheduled with Neurology. He has not had any seizure-like activities. 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) Gender identity: Male Cognitive needs: No Hearing needs: No Vision needs: Yes (glasses) Questionnaire Thrive Questionnaire Date Thrive assessed: 10/11/24 I am a: Patient What is your living situation today?: I have a steady place to live Within the past 12 months, did the food you bought not last and you didn't have the money to get more?: Never true Within the past 12 months, did you worry whether your food would run out before you got money to buy more?: Never true Do you have trouble paying for medicines?: No Do you have trouble getting transportation to medical appointments?: No Do you have trouble paying your heating and electricity bill?: No Do you have trouble taking care of your child, family member or friend?: No Do you have trouble with day-to-day activities such as bathing, preparing meals, shopping, managing finances, etc.?: No Are you currently unemployed and looking for a job?: No Are you interested in more education?: No Please select the resources that you would like help with: None Currently or been in a relationship where the following occur: No concerns reported THRIVE Score: 0 EDUARDO-7 AMB Questionnaire EDUARDO-7 Date EDUARDO - 7 assessed: 04/27/24 Source: Developed by Drs. Paul Barnes, Sherry Franco, Filiberto Lamb and colleagues, with an educational geri from [employer]. Physical exam (Primary Care) Tobacco/Smoking Status: Tobacco use Status Tobacco use date assessed 11/15/24 11/23/24 11:28 Patient Tobacco Use Status Former Tobacco user 11/23/24 11:28 Tobacco use type Cigarette 11/23/24 11:28 e-Cigarette/Vaping Use Never Used 11/23/24 11:28 Thrive Assessment: Date of Thrive Assessment Date Thrive assessed 10/11/24 11/23/24 11:28 Currently or been in a relationship where the following occur: No concerns reported Const Orientation/consciousness: patient oriented x3 HENMT Ears: hearing grossly normal bilaterally Neck Thyroid: Thyroid normal Lymphatic: no lymphadenopathy noted Resp Auscultation: clear to auscultation bilaterally Cardio Rate: regular rate Rhythm: regular rhythm Heart sounds: S1 normal heart sound present and S2 normal heart sound present GI Inspection: Yes normal to inspection Palpation (GI): Soft to palpation and Other GI palpation findings present (n ontender, no cva tenderness) Auscultation: normoactive bowel sounds Rectal Exam - Male: Yes deferred Skin General skin exam: no rashes or lesions noted Neuro General: patient oriented x3, gait normal and no focal motor deficits Coding Level of Care Code Est Pt Level 4 (46757) Complex EM visit Add On G2211 Diagnoses Rectal abnormality K62.9 HTN (hypertension) I10 Lymphadenopathy of left cervical region R59.0 Assessment & Plan Assessment & Plan (1) Rectal abnormality: Code(s): K62.9 - Disease of anus and rectum, unspecified Category: Medical Plan: Phone number to GI provided. This referral was placed a week ago for patient due to PET scan findings. (2) HTN (hypertension): Code(s): I10 - Essential (primary) hypertension Category: Medical Plan: WNL. Continue current regimen (3) Lymphadenopathy of left cervical region: Code(s): R59.0 - Localized enlarged lymph nodes Category: Medical Plan: Improved since starting chemo. Medications: New lidocaine 5% leave on most painful area for up to 12 hrs 1 patch topical DAILY 30 ea 2RF
[2024-11-23 11:31] VITALS: BP 116/68; PULSE 68; RESP 14; O2SAT 97; BMI 23.2
--- OUTSIDE RECORDS SUMMARY | 2024-11-23 13:43 | XMS_ITS | Clinical Summary ---
Author Organization [facility] Address [address] [address] Phone Care Team Providers Care Airset Caster Name Role Phone Unavailable Primary Care Provider [...] Telephone [facility] [address] [place] [address] Debbie Valadez MA 10/02/2024 Office Communication [facility] [address] [address] Maribell Shaver from Last 3 Months Social [...] Office Visit [facility] [address] [facility] [address] [place] [phone] Murray Beckham MD [address] [facility] [address] [place] [phone] Health Maintenance Due Date Last Done Comments Hepatitis B Vaccine (1 of 3 - 19+ 3-dose series) 1985 Colorectal Cancer Screening: Annual FOBT 2015 Colorectal Cancer Screening: Colonoscopy 2015 Colorectal Cancer Screening: Sigmoidoscopy 2015 Influenza Vaccine (Season Ended) 2025 Pneumococcal Vaccine: Peds ( 0 to 5 Years) and At-Risk Patients (6 to 49 Years) Aged Out No longer eligible b ased on patient's age to complete this topic Insurance [employer] Commercial
--- OUTSIDE RECORDS SUMMARY | 2024-11-23 13:44 | XMS_ITS | Clinical Summary ---
Author Organization [address] [facility] Address [address] [place] [address] Phone Care Team Providers Care File System Installer Name Role Phone Physician, Pcp Unknown Primary Care Provider Charlotte vailable Encounters Date Type Department Care Team Description 10/24/2024 Lab Requisition [facility] - Main Lab [address] [facility] [place] [address] Evaristo Rouse MD Gross hematuria [...] for urothelial carcinoma. 10/31/2024 12:42 PM EDT [facility] Addendum electronically signed by Sean Islas MD on 10/31/2024 at 12:42 PM Final Diagnosis A. Urine, Voided, ([id number]): ATYPICAL UROTHELIAL CELLS. Note: UroVysion testing to follow. 10/31/2024 12:42 PM EDT [facility] Clinical Information Gross hematuria R31.0 Urine Cytology/FISH (now) 10/31/2024 12:42 PM EDT [facility] Gross Description A. Urine, Voided, ([id number]): Received one ThinPrep slide for cytology and one ThinPrep slide for UroVysion FISH 10/31/2024 12:42 PM EDT [facility] Disclaimer Unless otherwise specified, all tissue is 10% NB formalin fixed and paraffin embedded. Technical pathology services provided by [facility] at [address], [place] [address] (CLIA #[id number]/Radha Seay MD, Tipple Tender) 10/31/2024 12:42 PM EDT [facility] Tissue Urine specimen from urethra / Unknown 10/19/2024 10/24/2024 4:17 PM EDT us Evaristo Rouse MD LAB PATHOLOGY ORDERABLES Edite d Result - Final [facility] [address] [place] [address], from Last 3 Months Insurance [employer] Care Teams File System Installer Relationship Specialty Start Date End Date Physician, Pcp Unknown PCP - General 10/24/24
--- OUTSIDE RECORDS SUMMARY | 2024-11-23 13:44 | XMS_ITS | Encounter Summary ---
Author Organization [facility] Address [address] [place] [address] Care Team Providers Care Research Program Manager Name Role Phone Physician, Pcp Unknown Primary Care Provider Charlotte vailable Encounter Details Date Type Department Care Team (Late st Contact Info) Description 10/24/2024 Lab Requisition [facility] - Main Lab [address] [facility] [place] [address] Evaristo Rouse MD [address] [facility] [address] [place] [phone] Gross hematuria Social History Tobacco Use Types [...] for urothelial carcinoma. 10/31/2024 12:42 PM EDT [facility] Addendum electronically signed by Sean Islas MD on 10/31/2024 at 12:42 PM Final Diagnosis A. Urine, Voided, ([id number]): ATYPICAL UROTHELIAL CELLS. Note: UroVysion testing to follow. 10/31/2024 12:42 PM EDT [facility] Clinical Information Gross hematuria R31.0 Urine Cytology/FISH (now) 10/31/2024 12:42 PM EDT [facility] Gross Description A. Urine, Voided, ([id number]): Received one ThinPrep slide for cytology and one ThinPrep slide for UroVysion FISH 10/31/2024 12:42 PM EDT [facility] Disclaimer Unless otherwise specified, all tissue is 10% NB formalin fixed and paraffin embedded. Technical pathology services provided by [facility] at [address] [place] [address] [address] [address] (CLIA #[id number]/Radha Seay MD, Inside Solar Sales Consultant) 10/31/2024 12:42 PM EDT [facility] Tissue Urine specimen from urethra / Unknown 10/19/2024 10/24/2024 4:17 PM EDT us Evaristo Rouse MD LAB PATHOLOGY ORDERABLES Edite d Result - Final [facility] [address] [place] [address], documented in this encounter Visit Diagnoses Diagnosis Gross hematuria documented in this encounter Care Teams Research Program Manager Relationship Specialty Start Date End Date Physician, Pcp Unknown PCP - General 10/24/24 documented as of this encounter
== END 2024-11-23 14:13 | disposition home or self-care (01) ==
LOC: HO.HMCFM 11:18
PROVIDERS: PCP Physician Assistant; Visit Provider Physician Assistant
DX: K62.9 Disease of anus and rectum, unspecified (principal); I10 Essential (primary) hypertension; R59.0 Localized enlarged lymph nodes

== ENCOUNTER → 2024-11-23 11:17 | Outpatient (BNVA) | payer OTHER, SELFPAY | PROVIDERS: PCP Physician Assistant; Visit Provider Physician Assistant | DX: Z13.89 Encounter for screening for other disorder (principal) ==

== ENCOUNTER 2024-11-24 11:14 | Outpatient (REF) | payer OTHER, SELFPAY ==
--- OUTSIDE RECORDS SUMMARY | 2024-11-24 12:13 | XMS_ITS | Clinical Summary ---
Author Organization [address] [facility] Address [address] [place] [address] Phone Care Team Providers Care Rope Cleaner Name Role Phone Physician, Pcp Unknown Primary Care Provider Charlotte vailable Encounters Date Type Department Care Team Description 10/24/2024 Lab Requisition [facility] - Main Lab [address] [facility] [place] [address] Evaristo Rouse MD Gross hematuria [...] for urothelial carcinoma. 10/31/2024 12:42 PM EDT [facility] Addendum electronically signed by Sean Islas MD on 10/31/2024 at 12:42 PM Final Diagnosis A. Urine, Voided, ([id number]): ATYPICAL UROTHELIAL CELLS. Note: UroVysion testing to follow. 10/31/2024 12:42 PM EDT [facility] Clinical Information Gross hematuria R31.0 Urine Cytology/FISH (now) 10/31/2024 12:42 PM EDT [facility] Gross Description A. Urine, Voided, ([id number]): Received one ThinPrep slide for cytology and one ThinPrep slide for UroVysion FISH 10/31/2024 12:42 PM EDT [facility] Disclaimer Unless otherwise specified, all tissue is 10% NB formalin fixed and paraffin embedded. Technical pathology services provided by [facility] at [address], [place] [address] (CLIA #[id number]/Radha Seay MD, Video Game Technician) 10/31/2024 12:42 PM EDT [facility] Tissue Urine specimen from urethra / Unknown 10/19/2024 10/24/2024 4:17 PM EDT us Evaristo Rouse MD LAB PATHOLOGY ORDERABLES Edite d Result - Final [facility] [address] [place] [address], from Last 3 Months Insurance [employer] Care Teams Rope Cleaner Relationship Specialty Start Date End Date Physician, Pcp Unknown PCP - General 10/24/24
--- OUTSIDE RECORDS SUMMARY | 2024-11-24 12:13 | XMS_ITS | Clinical Summary ---
Author Organization [facility] Address [address] [address] Phone Care Team Providers Care Material Clerk Name Role Phone Unavailable Primary Care Provider [...] Telephone [facility] [address] [place] [address] Debbie Valadez MA 10/02/2024 Office Communication [facility] [address] [address] Maribell Shaver from Last 3 Months Social [...] Office Visit [facility] [address] [facility] [address] [place] [phone] Murray Beckham MD [address] [facility] [address] [place] [phone] Health Maintenance Due Date Last Done Comments [...]
--- OUTSIDE RECORDS SUMMARY | 2024-11-24 12:13 | XMS_ITS | Encounter Summary ---
Author Organization [facility] Address [address] [place] [address] Care Team Providers Care Upholstery Trimmer Name Role Phone Physician, Pcp Unknown Primary Care Provider Charlotte vailable Encounter Details Date Type Department Care Team (Late st Contact Info) Description 10/24/2024 Lab Requisition [facility] - Main Lab [address] [facility] [place] [address] Evaristo Rouse MD [address] [facility] [address] [place] [phone] Gross hematuria Social History Tobacco Use Types [...] urothelial carcinoma. 10/31/2024 12:42 PM EDT [facility] Addendum electronically signed by Sean Islas MD on 10/31/2024 at 12:42 PM Final Diagnosis A. Urine, Voided, ([id number]): ATYPICAL UROTHELIAL CELLS. Note: UroVysion testing to follow. 10/31/2024 12:42 PM EDT [facility] Clinical Information Gross hematuria R31.0 Urine Cytology/FISH (now) 10/31/2024 12:42 PM EDT [facility] Gross Description A. Urine, Voided, ([id number]): Received one ThinPrep slide for cytology and one ThinPrep slide for UroVysion FISH 10/31/2024 12:42 PM EDT [facility] Disclaimer Unless otherwise specified, all tissue is 10% NB formalin fixed and paraffin embedded. Technical pathology services provided by [facility] at [address] [place] [address] [address], [place] [address] (CLIA #[id number]/Radha Seay MD, Manager Loss Prevention) 10/31/2024 12:42 PM EDT [facility] Tissue Urine specimen from urethra / Unknown 10/19/2024 10/24/2024 4:17 PM EDT us Evaristo Rouse MD LAB PATHOLOGY ORDERABLES Edite d Result - Final [facility] [address] [place] [address], documented in this encounter Visit Diagnoses Diagnosis Gross hematuria documented in this encounter Care Teams Upholstery Trimmer Relationship Specialty Start Date End Date Physician, Pcp Unknown PCP - General 10/24/24 documented as of this encounter
[2024-11-24 14:19] LABS: MANUAL DIFF FLAG NO
[2024-11-24 14:28] LABS: Basophils Absolute Auto 0.1 X10*3/uL (0.0-0.2); Basophils Percent Auto 0.8 % (0-2); Eosinophils Absolute Auto 0.4 X10*3/uL (0.0-0.4); Eosinophils Percent Auto 4.2 % (0-4); Hematocrit 37.4 % (42.0-52.0); Hemoglobin 12.6 g/dl (14.0-18.0); Imm Gran Abs Auto 0.02 X10*3/uL (0.00-0.03); Imm Gran Pct Auto 0.2 % (0.0-0.4); Lymphocytes Absolute Auto 1.8 X10*3/uL (1.2-4.9); Lymphocytes Percent Auto 17.3 % (20-40); Mean Corpuscular HGB Conc 33.7 g/dl (31.0-36.0); Mean Corpuscular Hemoglobin 30.8 pg (27.0-33.0); Mean Corpuscular Volume 91.4 fL (80.0-98.0); Mean Platelet Volume 9.9 fL (9.4-12.4); Monocytes Absolute Auto 1.2 X10*3/uL (0.1-1.2); Monocytes Percent Auto 11.3 % (2-11); Neutrophils Absolute Auto 6.8 x10*3/uL (2.0-8.3); Neutrophils Percent Auto 66.2 % (45-73); Platelet Count 395 X10*3/uL (160-400); Red Blood Count 4.09 X10*6/uL (4.60-5.80); Red Cell Distribution Width 14.2 % (11.0-16.0); White Blood Count 10.2 X10*3/uL (4.8-10.8)
[2024-11-24 15:08] LABS: Alanine Aminotransferase 26 U/L (0-40); Albumin Level 4.2 g/dL (3.5-5.0); Alkaline Phosphatase 75 U/L (39-117); Anion Gap 11 (12-20); Aspartate Amino Transferase 23 U/L (5-37); Bilirubin Total 0.3 mg/dL (0.0-1.0); Blood Urea Nitrogen 17 mg/dL (9-16); Calcium 9.1 mg/dL (8.4-10.2); Carbon Dioxide 24 mmol/L (22-29); Chloride 109 mmol/L (96-108); Estimated Glomerular Filt Rate > 60; Glucose Random 79 mg/dL (60-115); Magnesium 2.1 mg/dL (1.6-2.6); Potassium 4.6 mmol/L (3.3-5.1); Sodium 139 mmol/L (135-145); Total Protein 7.1 g/dL (6.5-8.0)
[2024-11-24 15:27] LABS: Thyroid Stimulating Hormone 0.96 uIU/mL (0.32-4.0)
== END 2024-11-24 11:15 | disposition home or self-care (01) ==
LOC: HO.WFDLDS 11:14
PROVIDERS: Visit Provider Internal Medicine
DX: C68.9 Malignant neoplasm of urinary organ, unspecified (principal)
CPT/HCPCS: 36415; 80053; 83735; 84443; 85025

== ENCOUNTER → 2024-12-05 11:06 | Outpatient (BNVA) | payer OTHER, SELFPAY | PROVIDERS: PCP Physician Assistant; Visit Provider Surgery Vascular Surgery ==

== ENCOUNTER 2024-12-07 15:17 | Outpatient (AMB) | payer OTHER, SELFPAY ==
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
--- OUTSIDE RECORDS SUMMARY | 2024-12-07 18:00 | XMS_ITS | Encounter Summary ---
Author Organization [facility] Address [address] [place] [address] Care Team Providers Care Bakery Assistant Name Role Phone Physician, Pcp Unknown Primary Care Provider Charlotte vailable Encounter Details Date Type Department Care Team (Late st Contact Info) Description 10/24/2024 Lab Requisition [facility] - Main Lab 299 [facility] [place] [address] Evaristo Rouse MD [address] [facility] [address] [place] [phone] Gross hematuria Social History Tobacco Use Types [...] for urothelial carcinoma. 10/31/2024 12:42 PM EDT [facility] ([facility]) [facility] Addendum electronically signed by Sean Islas MD on 10/31/2024 at 12:42 PM Final Diagnosis A. Urine, Voided, ([id number]): ATYPICAL UROTHELIAL CELLS. Note: UroVysion testing to follow. 10/31/2024 12:42 PM EDT [facility] Clinical Information Gross hematuria R31.0 Urine Cytology/FISH (now) 10/31/2024 12:42 PM EDT [facility] Gross Description A. Urine, Voided, ([id number]): Received one ThinPrep slide for cytology and one ThinPrep slide for UroVysion FISH 10/31/2024 12:42 PM EDT [facility] Disclaimer Unless otherwise specified, all tissue is 10% NB formalin fixed and paraffin embedded. Technical pathology services provided by [facility] at [address] [place] [address] [address] [address] (CLIA #[id number]/Radha Seay MD, Pilot) 10/31/2024 12:42 PM EDT [facility] Tissue Urine specimen from urethra / Unknown 10/19/2024 10/24/2024 4:17 PM EDT us Evaristo Rouse MD LAB PATHOLOGY ORDERABLES Edite d Result - Final [facility] [address] [place] [address], documented in this encounter Visit Diagnoses Diagnosis Gross hematuria documented in this encounter Care Teams Bakery Assistant Relationship Specialty Start Date End Date Physician, Pcp Unknown PCP - General 10/24/24 documented as of this encounter
--- OUTSIDE RECORDS SUMMARY | 2024-12-07 18:00 | XMS_ITS | Clinical Summary ---
Author Organization 299 [facility] Address [address] [place] [address] Phone Care Team Providers Care Steamfitter Supervisor Name Role Phone Physician, Pcp Unknown Primary Care Provider Charlotte vailable Encounters Date Type Department Care Team Description 10/24/2024 Lab Requisition [facility] - Main Lab 299 [facility] [place] [address] Evaristo Rouse MD Gross hematuria [...] Vaccine ( - 2023-2 5 season) 2024 Cholesterol Screening (Lipid Panel) 10/25/2024 Colorectal Cancer Screening: Colonoscopy 10/25/2024 Depression Screening 10/25/2024 HIV Screening 10/25/2024 Hepatitis C Screening 10/25/2024 Social Influencers of Health Screening 10/25/2024 Influenza Vaccine (Season Ended) 2025 HIB Vaccines Aged Out No longer eligi [...] for urothelial carcinoma. 10/31/2024 12:42 PM EDT [facility] Addendum electronically signed by Sean Islas MD on 10/31/2024 at 12:42 PM Final Diagnosis A. Urine, Voided, ([id number]): ATYPICAL UROTHELIAL CELLS. Note: UroVysion testing to follow. 10/31/2024 12:42 PM EDT [facility] Clinical Information Gross hematuria R31.0 Urine Cytology/FISH (now) 10/31/2024 12:42 PM EDT [facility] Gross Description A. Urine, Voided, ([id number]): Received one ThinPrep slide for cytology and one ThinPrep slide for UroVysion FISH 10/31/2024 12:42 PM EDT [facility] Disclaimer Unless otherwise specified, all tissue is 10% NB formalin fixed and paraffin embedded. Technical pathology services provided by [facility] at [address], [place] [address] (CLIA #[id number]/Radha Seay MD, Coal Hauler Operator) 10/31/2024 12:42 PM EDT [facility] Tissue Urine specimen from urethra / Unknown 10/19/2024 10/24/2024 4:17 PM EDT us Evaristo Rouse MD LAB PATHOLOGY ORDERABLES Edite d Result - Final [facility] [address] [place] [address], from Last 3 Months Insurance [employer] Care Teams Steamfitter Supervisor Relationship Specialty Start Date End Date Physician, Pcp Unknown PCP - General 10/24/24
--- OUTSIDE RECORDS SUMMARY | 2024-12-07 18:00 | XMS_ITS | Clinical Summary ---
Author Organization [facility] Address [address] [address] Phone Care Team Providers Care Solar Field Service Technician Name Role Phone Unavailable Primary Care [...] Telephone [facility] [address] [place] [address] Debbie Valadez MA 10/02/2024 Office Communication [facility] [address] [address] Maribell Shaver from Last 3 Months Social [...] Visit [facility] [address] [facility] [address] [place] [phone] Murray Beckham MD [address] [facility] [address] [place] [phone] Health Maintenance Due Date Last Done Comments Hepatitis B Vaccine (1 of 3 - 19+ 3-dose series) 04/05 Colorectal Cancer Screening: Annual FOBT 2015 Colorectal Cancer Screening: Colonoscopy 2015 Colorectal Cancer Screening: Sigmoidoscopy 2015 Pneumococcal Vaccine: 50+ Years (1 of 1 - PCV) 016 Influenza Vaccine (Season Ended) 2025 Procedures Procedure Name Priority Date/Time Associated Diagnosis Comments ALT EXT LABS Routine 10/05/2024 from Last 3 Months Results * (ABNORMAL) ALT EXT LABS (10/05/2024) WBC 13.1(A) 3.3 - 10.0 10*3/ML Red Blood Cell Count 4.23 Hemoglobin 13.1(A) 13.5 - 17.5 Hematocrit 39.0(A) 41.0 - 53.0 Platelets 446(A) 150 - 399 10*3/UL BUN 20 4 - 21 mg/dL Creatinine 1.23 0.60 - 1.30 mg/dL Albumin 4.0 3.5 - 5.0 g/dL Calcium 9.2 8.7 - 10.7 mg/dL Sodium 138 137 - 147 Potassium 4.2 3.4 - 5.5 [place] 102.0 99.0 - 108.0 10/05/2024 us Historical Provider LAB BLOOD ORDERABLES Cathy l Result from Last 3 Months Insurance [employer] Commercial
== END 2024-12-07 16:18 | disposition home or self-care (01) ==
LOC: HO.HVS 15:18
PROVIDERS: PCP Physician Assistant; Visit Provider Surgery Vascular Surgery
DX: I67.1 Cerebral aneurysm, nonruptured (principal)
CPT/HCPCS: 99214; G2211

== ENCOUNTER 2024-12-18 11:26 | Outpatient (REF) | payer OTHER, SELFPAY ==
--- OUTSIDE RECORDS SUMMARY | 2024-12-18 13:13 | XMS_ITS | Clinical Summary ---
Author Organization 299 [facility] Address 299 [place] [address] Phone Care Team Providers Care Defective Cigarette Slitter Name Role Phone Physician, Pcp Unknown Primary Care Provider Charlotte vailable Encounters Date Type Department Care Team Description 10/24/2024 Lab Requisition [facility] - Main Lab 299 [facility] [address] [place] [address] Evaristo Rouse MD Gross hematuria [...] for urothelial carcinoma. 10/31/2024 12:42 PM EDT [facility] Addendum electronically signed by Sean Islas MD on 10/31/2024 at 12:42 PM Final Diagnosis A. Urine, Voided, ([id number]): ATYPICAL UROTHELIAL CELLS. Note: UroVysion testing to follow. 10/31/2024 12:42 PM EDT [facility] Clinical Information Gross hematuria R31.0 Urine Cytology/FISH (now) 10/31/2024 12:42 PM EDT [facility] Gross Description A. Urine, Voided, ([id number]): Received one ThinPrep slide for cytology and one ThinPrep slide for UroVysion FISH 10/31/2024 12:42 PM EDT [facility] Disclaimer Unless otherwise specified, all tissue is 10% NB formalin fixed and paraffin embedded. Technical pathology services provided by [facility] at [address], [place] [address] (CLIA #[id number]/Radha Seay MD, Oral Surgery Assistant) 10/31/2024 12:42 PM EDT [facility] Tissue Urine specimen from urethra / Unknown 10/19/2024 10/24/2024 4:17 PM EDT us Evaristo Rouse MD LAB PATHOLOGY ORDERABLES Edite d Result - Final [facility] [address] [place] [address], from Last 3 Months Insurance [employer] Care Teams Defective Cigarette Slitter Relationship Specialty Start Date End Date Physician, Pcp Unknown PCP - General 10/24/24
--- OUTSIDE RECORDS SUMMARY | 2024-12-18 13:13 | XMS_ITS | Encounter Summary ---
Author Organization [facility] Address [address] [place] [address] Care Team Providers Care Media Planner / Buyer Name Role Phone Physician, Pcp Unknown Primary Care Provider Charlotte vailable Encounter Details Date Type Department Care Team (Late st Contact Info) Description 10/24/2024 Lab Requisition [facility] - Main Lab 299 [facility] [place] [address] Evaristo Rouse MD [address] [facility] 120 [place] [phone] Gross hematuria Social History Tobacco Use Types [...] for urothelial carcinoma. 10/31/2024 12:42 PM EDT [facility] Addendum electronically signed by Sean Islas MD on 10/31/2024 at 12:42 PM Final Diagnosis A. Urine, Voided, ([id number]): ATYPICAL UROTHELIAL CELLS. Note: UroVysion testing to follow. 10/31/2024 12:[address] [facility] Clinical Information Gross hematuria R31.0 Urine Cytology/FISH (now) 10/31/2024 12:[address] [facility] Gross Description A. Urine, Voided, ([id number]): Received one ThinPrep slide for cytology and one ThinPrep slide for UroVysion FISH 10/31/2024 12:[address] [facility] Disclaimer Unless otherwise specified, all tissue is 10% NB formalin fixed and paraffin embedded. Technical pathology services provided by [facility] at [address] [place] [address] [address] [address] (CLIA #[id number]/Radha Seay MD, Picker/Puller) 10/31/2024 12:[address] [facility] Tissue Urine specimen from urethra / Unknown 10/19/2024 10/24/2024 4:17 PM EDT us Evaristo Rouse MD LAB PATHOLOGY ORDERABLES Edite d Result - Final [facility] [address] [place] [address], documented in this encounter Visit Diagnoses Diagnosis Gross hematuria documented in this encounter Care Teams Media Planner / Buyer Relationship Specialty Start Date End Date Physician, Pcp Unknown PCP - General 10/24/24 documented as of this encounter
--- OUTSIDE RECORDS SUMMARY | 2024-12-18 13:13 | XMS_ITS | Clinical Summary ---
Author Organization [facility] Address [address] [address] Phone Care Team Providers Care Barber Apprentice Name Role Phone Gill Car PA-C Primary Care Provider + Medications aspirin 81 MG chewable tablet 81 [...] 12 hours for 7 days 5 Active hydrOXYzine (ATARAX) 25 MG tablet TAKE 1 TABLET BY MOUTH 3 TIMES A DAY FOR ITCHING 5 Active thiamine (VITAMIN B-1) 100 MG tablet Take 100 mg by mouth 1 (one) time each day 5 Active Active Problems Problem Noted Date Diagnosed Date Seizure 12/08/2024 Essential (primary) hypertension 12/08/2024 Acute kidney failure 12/08/2024 Hydronephrosis 12/08/2024 Hematuria 12/08/2024 Lymphadenopathy 12/08/2024 Inguinal hernia 11/17/2024 Resolved Problems Problem Noted Date Diagnosed Date Resolved Date Urinary tract infection 12/08/2024 04/2 12/2024 Encounters Date Type Department Care Team Description 12/08/2024 9:30 AM EDT Office Visit [facility] [address] [place] [phone] Murray Beckham MD Other acute kidney failure (HCC) (Primary Dx); Hypertension 10/27/2024 Telephone [facility] [address] [place] [address] Debbie Valadez MA 10/02/2024 Office Communication [facility] [address] [address] Maribell Shaver from Last 3 Months Social History Tobacco Use Types Packs/Day Years Used Date Smoking Tobacco: Never Assessed Sex and Gender Information Value Date Recorded Sex Assigned at Not on file Legal Sex Male 10:20 AM EST Gender Identity Not on file Sexual Orientation Not on file Last Filed Vital Signs Vital Sign Reading Time Taken Comments Blood Pressure 120/60 12/08/2024 9:37 AM EDT Pulse 65 12/08/2024 9:37 AM EDT Temperature - - Respiratory Rate - - Oxygen Saturation - - Inhaled Oxygen Concentration - - Weight 72.6 kg (160 lb) 12/08/2024 9:37 AM EDT Height - - Body Mass Index - - Plan of Treatment Upcoming Encounters Date Type Department Care Team (Late st Contact Info) Description 03/09/2025 11:45 AM EDT Office Visit [facility] [address] [address] Murray Beckham MD [address] [phone] Health Maintenance Due Date Last Done Comments [...] 5.5 [place] 102.0 99.0 - 108.0 10/05/2024 [facility] Provider LAB BLOOD ORDERABLES Cathy l Result from Last 3 Months Insurance [employer] Commercial Care Teams Barber Apprentice Relationship Specialty Start Date End Date Gill Car PA-C [address] [place] [address] PCP - General Physician Molder Trimmer 12/08/24
[2024-12-18 14:41] LABS: MANUAL DIFF FLAG NO
[2024-12-18 14:54] LABS: Basophils Absolute Auto 0.1 X10*3/uL (0.0-0.2); Basophils Percent Auto 1.3 % (0-2); Eosinophils Absolute Auto 0.4 X10*3/uL (0.0-0.4); Eosinophils Percent Auto 4.8 % (0-4); Hematocrit 36.1 % (42.0-52.0); Hemoglobin 12.1 g/dl (14.0-18.0); Imm Gran Abs Auto 0.03 X10*3/uL (0.00-0.03); Imm Gran Pct Auto 0.4 % (0.0-0.4); Lymphocytes Percent Auto 26.8 % (20-40); Mean Corpuscular HGB Conc 33.5 g/dl (31.0-36.0); Mean Corpuscular Hemoglobin 30.8 pg (27.0-33.0); Mean Corpuscular Volume 91.9 fL (80.0-98.0); Mean Platelet Volume 10.4 fL (9.4-12.4); Monocytes Absolute Auto 0.9 X10*3/uL (0.1-1.2); Monocytes Percent Auto 12.1 % (2-11); Neutrophils Absolute Auto 4.1 x10*3/uL (2.0-8.3); Neutrophils Percent Auto 54.6 % (45-73); Platelet Count 405 X10*3/uL (160-400); Red Blood Count 3.93 X10*6/uL (4.60-5.80); Red Cell Distribution Width 14.4 % (11.0-16.0); White Blood Count 7.5 X10*3/uL (4.8-10.8)
[2024-12-18 15:16] LABS: Alanine Aminotransferase 23 U/L (0-40); Albumin Level 4.3 g/dL (3.5-5.0); Anion Gap 13 (12-20); Aspartate Amino Transferase 29 U/L (5-37); Bilirubin Total 0.3 mg/dL (0.0-1.0); Blood Urea Nitrogen 24 mg/dL (9-16); Calcium 8.7 mg/dL (8.4-10.2); Carbon Dioxide 24 mmol/L (22-29); Chloride 105 mmol/L (96-108); Estimated Glomerular Filt Rate 45; Glucose Random 86 mg/dL (60-115); Magnesium 2.3 mg/dL (1.6-2.6); Potassium 4.9 mmol/L (3.3-5.1); Sodium 137 mmol/L (135-145); Total Protein 6.9 g/dL (6.5-8.0)
[2024-12-18 15:28] LABS: Thyroid Stimulating Hormone 1.42 uIU/mL (0.32-4.0)
[2024-12-18 16:07] LABS: Alkaline Phosphatase 67 U/L (39-117)
== END 2024-12-18 11:27 | disposition home or self-care (01) ==
LOC: HO.WFDLDS 11:26
PROVIDERS: Visit Provider Internal Medicine
DX: C68.9 Malignant neoplasm of urinary organ, unspecified (principal); C80.1 Malignant (primary) neoplasm, unspecified; C77.9 Secondary and unspecified malignant neoplasm of lymph node, unspecified
CPT/HCPCS: 36415; 80053; 83735; 84443; 85025

== ENCOUNTER 2024-12-25 11:39 | Outpatient (REF) | payer OTHER, SELFPAY ==
--- OUTSIDE RECORDS SUMMARY | 2024-12-25 12:25 | XMS_ITS | Clinical Summary ---
Author Organization [facility] Address [address] [address] Phone Care Team Providers Care General Production Worker Name Role Phone Gill Car PA-C Primary [...] [facility] [address] [place] [phone] Murray Beckham MD Other acute kidney failure (HCC) (Primary Dx); Hypertension 10/27/2024 Telephone [facility] [address] [place] [address] Debbie Valadez MA 10/02/2024 Office Communication [facility] [address] [address] Maribell Shaver from Last 3 [...] Office Visit [facility] [address] [address] Murray Beckham MD [address] [phone] Health Maintenance Due Date Last Done Comments [...] 5.5 [place] 102.0 99.0 - 108.0 10/05/2024 [facility] Provider LAB BLOOD ORDERABLES Cathy l Result from Last 3 Months Insurance [employer] Commercial Care Teams General Production Worker Relationship Specialty Start Date End Date Gill Car PA-C [address] [place] [address] PCP - General Physician Merchandise Carrier 12/08/24
--- OUTSIDE RECORDS SUMMARY | 2024-12-25 12:25 | XMS_ITS | Clinical Summary ---
Author Organization 299 [facility] Address [address] [place] [address] Phone Care Team Providers Care National Coverage Specialist Name Role Phone Physician, Pcp Unknown Primary Care Provider Charlotte vailable Encounters Date Type Department Care Team Description 10/24/2024 Lab Requisition [facility] - Main Lab 299 [facility] [place] [address] Evaristo Rouse MD Gross hematuria [...] urothelial carcinoma. 10/31/2024 12:42 PM EDT [facility] Addendum electronically signed by Sean Islas MD on 10/31/2024 at 12:42 PM Final Diagnosis A. Urine, Voided, ([id number]): ATYPICAL UROTHELIAL CELLS. Note: UroVysion testing to follow. 10/31/2024 12:42 PM EDT [facility] Clinical Information Gross hematuria R31.0 Urine Cytology/FISH (now) 10/31/2024 12:42 PM EDT [facility] Gross Description A. Urine, Voided, ([id number]): Received one ThinPrep slide for cytology and one ThinPrep slide for UroVysion FISH 10/31/2024 12:42 PM EDT [facility] Disclaimer Unless otherwise specified, all tissue is 10% NB formalin fixed and paraffin embedded. Technical pathology services provided by [facility] at [address], [place] [address] (CLIA #[id number]/Radha Seay MD, Extruding Machine Operator) 10/31/2024 12:42 PM EDT [facility] Tissue Urine specimen from urethra / Unknown 10/19/2024 10/24/2024 4:17 PM EDT us Evaristo Rouse MD LAB PATHOLOGY ORDERABLES Edite d Result - Final [facility] [address] [place] [address], from Last 3 Months Insurance [employer] Care Teams National Coverage Specialist Relationship Specialty Start Date End Date Physician, Pcp Unknown PCP - General 10/24/24
--- OUTSIDE RECORDS SUMMARY | 2024-12-25 12:26 | XMS_ITS | Encounter Summary ---
Author Organization [facility] Address [address] [place] [address] Care Team Providers Care Senior Market Intelligence Consultant Name Role Phone Physician, Pcp Unknown Primary Care Provider Charlotte vailable Encounter Details Date Type Department Care Team (Late st Contact Info) Description 10/24/[address] [facility] - Main Lab 299 [facility] [place] [address] Evaristo Rouse MD [address] [facility] [address] [place] [phone] Gross hematuria Social History Tobacco Use Types [...] for urothelial carcinoma. 10/31/2024 12:42 PM EDT [facility] Addendum electronically signed by Sean Islas MD on 10/31/2024 at 12:42 PM Final Diagnosis A. Urine, Voided, ([id number]): ATYPICAL UROTHELIAL CELLS. Note: UroVysion testing to follow. 10/31/2024 12:42 PM EDT [facility] Clinical Information Gross hematuria R31.0 Urine Cytology/FISH (now) 10/31/2024 12:42 PM EDT [facility] Gross Description A. Urine, Voided, ([id number]): Received one ThinPrep slide for cytology and one ThinPrep slide for UroVysion FISH 10/31/2024 12:42 PM EDT [facility] Disclaimer Unless otherwise specified, all tissue is 10% NB formalin fixed and paraffin embedded. Technical pathology services provided by [facility] at [address] [place] [address] [address], [place] [address] (CLIA #[id number]/Radha Seay MD, Med Dir) 10/31/2024 12:42 PM EDT [facility] Tissue Urine specimen from urethra / Unknown 10/19/2024 10/24/2024 4:17 PM EDT us Evaristo Rouse MD LAB PATHOLOGY ORDERABLES Edite d Result - Final [facility] [address] [place] [address], documented in this encounter Visit Diagnoses Diagnosis Gross hematuria documented in this encounter Care Teams Senior Market Intelligence Consultant Relationship Specialty Start Date End Date Physician, Pcp Unknown PCP - General 10/24/24 documented as of this encounter
[2024-12-25 14:18] LABS: MANUAL DIFF FLAG NO
[2024-12-25 14:30] LABS: Basophils Absolute Auto 0.1 X10*3/uL (0.0-0.2); Basophils Percent Auto 1.1 % (0-2); Eosinophils Absolute Auto 0.3 X10*3/uL (0.0-0.4); Eosinophils Percent Auto 3.6 % (0-4); Hematocrit 39.6 % (42.0-52.0); Hemoglobin 13.5 g/dl (14.0-18.0); Imm Gran Abs Auto 0.03 X10*3/uL (0.00-0.03); Imm Gran Pct Auto 0.4 % (0.0-0.4); Lymphocytes Absolute Auto 1.9 X10*3/uL (1.2-4.9); Mean Corpuscular HGB Conc 34.1 g/dl (31.0-36.0); Mean Platelet Volume 10.3 fL (9.4-12.4); Monocytes Percent Auto 11.5 % (2-11); Neutrophils Percent Auto 60.4 % (45-73); Platelet Count 381 X10*3/uL (160-400); Red Blood Count 4.35 X10*6/uL (4.60-5.80); Red Cell Distribution Width 14.3 % (11.0-16.0); White Blood Count 8.3 X10*3/uL (4.8-10.8)
[2024-12-25 15:18] LABS: Alanine Aminotransferase 29 U/L (0-40); Albumin Level 4.5 g/dL (3.5-5.0); Anion Gap 12 (12-20); Aspartate Amino Transferase 31 U/L (5-37); Bilirubin Total 0.2 mg/dL (0.0-1.0); Blood Urea Nitrogen 23 mg/dL (9-16); Calcium 9.3 mg/dL (8.4-10.2); Carbon Dioxide 24 mmol/L (22-29); Chloride 106 mmol/L (96-108); Estimated Glomerular Filt Rate 49; Glucose Random 109 mg/dL (60-115); Magnesium 2.2 mg/dL (1.6-2.6); Potassium 4.4 mmol/L (3.3-5.1); Sodium 138 mmol/L (135-145); Total Protein 7.2 g/dL (6.5-8.0)
[2024-12-25 15:29] LABS: Thyroid Stimulating Hormone 2.21 uIU/mL (0.32-4.0)
[2024-12-25 16:43] LABS: Alkaline Phosphatase 75 U/L (39-117)
== END 2024-12-25 11:40 | disposition home or self-care (01) ==
LOC: HO.WFDLDS 11:39
PROVIDERS: Visit Provider Internal Medicine
DX: C68.9 Malignant neoplasm of urinary organ, unspecified (principal)
CPT/HCPCS: 36415; 80053; 83735; 84443; 85025

== ENCOUNTER 2025-01-15 11:44 | Outpatient (REF) | payer OTHER, SELFPAY ==
--- OUTSIDE RECORDS SUMMARY | 2025-01-15 12:59 | XMS_ITS | Clinical Summary ---
Author Organization [facility] Address [address] [address] Phone Care Team Providers Care Scrap Burner Name Role Phone Gill Car PA-C Primary [...] Office Visit [facility] [address] [phone] Murray Beckham MD Other acute kidney failure (HCC) (Primary Dx); Hypertension 10/27/2024 Telephone [facility] [address] [place] [address] Debbie Valadez MA from Last 3 Months Social History Tobacco [...] Office Visit [facility] [address] [phone] Murray Beckham MD [address] [phone] Health Maintenance Due Date Last Done Comments Hepatitis B Vaccine (1 of 3 - 19+ 3-dose series) 04/05 Colorectal Cancer Screening: Annual FOBT 2015 Colorectal Cancer Screening: Colonoscopy 2015 Colorectal Cancer Screening: Sigmoidoscopy 2015 Pneumococcal Vaccine: 50+ Years (1 of 1 - PCV) 016 Influenza Vaccine (Season Ended) 2025 Insurance [employer] Commercial Care Teams Scrap Burner Relationship Specialty Start Date End Date Gill Car PA-C [address] [facility] [place] [address] PCP - General Physician Development Technical Lead 12/08/24
[2025-01-15 14:21] LABS: MANUAL DIFF FLAG NO
[2025-01-15 14:29] LABS: Basophils Absolute Auto 0.1 X10*3/uL (0.0-0.2); Eosinophils Absolute Auto 0.3 X10*3/uL (0.0-0.4); Eosinophils Percent Auto 4.4 % (0-4); Hematocrit 39.7 % (42.0-52.0); Hemoglobin 13.1 g/dl (14.0-18.0); Imm Gran Abs Auto 0.02 X10*3/uL (0.00-0.03); Imm Gran Pct Auto 0.3 % (0.0-0.4); Lymphocytes Absolute Auto 1.8 X10*3/uL (1.2-4.9); Lymphocytes Percent Auto 23.4 % (20-40); Mean Corpuscular Hemoglobin 30.8 pg (27.0-33.0); Mean Corpuscular Volume 93.2 fL (80.0-98.0); Mean Platelet Volume 10.4 fL (9.4-12.4); Monocytes Percent Auto 12.2 % (2-11); NRBC Pct Auto 0.3 /100WBC (0.0-0.2); Neutrophils Absolute Auto 4.6 x10*3/uL (2.0-8.3); Neutrophils Percent Auto 58.7 % (45-73); Platelet Count 329 X10*3/uL (160-400); Red Blood Count 4.26 X10*6/uL (4.60-5.80); Red Cell Distribution Width 14.1 % (11.0-16.0); White Blood Count 7.8 X10*3/uL (4.8-10.8)
[2025-01-15 14:45] LABS: Alanine Aminotransferase 23 U/L (0-40); Albumin Level 4.3 g/dL (3.5-5.0); Alkaline Phosphatase 66 U/L (39-117); Anion Gap 11 (12-20); Aspartate Amino Transferase 27 U/L (5-37); Bilirubin Total 0.3 mg/dL (0.0-1.0); Blood Urea Nitrogen 23 mg/dL (9-16); Calcium 9.1 mg/dL (8.4-10.2); Carbon Dioxide 27 mmol/L (22-29); Chloride 107 mmol/L (96-108); Estimated Glomerular Filt Rate 43; Glucose Random 109 mg/dL (60-115); Magnesium 2.1 mg/dL (1.6-2.6); Potassium 4.3 mmol/L (3.3-5.1); Sodium 141 mmol/L (135-145); Total Protein 6.9 g/dL (6.5-8.0)
[2025-01-15 15:01] LABS: Thyroid Stimulating Hormone 1.86 uIU/mL (0.32-4.0)
== END 2025-01-15 11:45 | disposition home or self-care (01) ==
LOC: HO.WFDLDS 11:44
PROVIDERS: Visit Provider Internal Medicine
DX: C68.9 Malignant neoplasm of urinary organ, unspecified (principal)
CPT/HCPCS: 36415; 80053; 83735; 84443; 85025

== ENCOUNTER 2025-01-16 09:07 | Outpatient (REF) | payer OTHER, SELFPAY ==
--- NOTE | ~2025-01-16 | PE_ITS ---
PT/CT SKULL BASE TO MID THIGH HISTORY: Assess response to treatment. Malignant neoplasm of urothelium. COMPARISON: Comparison is made with the prior examination dated 10/31/2024. TECHNIQUE: Images were obtained from the skull base to the proximal thighs. Image reconstruction was performed in the axial, coronal, and sagittal planes. Fusion images were obtained and evaluated using the concurrently performed unenhanced CT scan. Images were obtained approximately 57 minutes after the intravenous administration of 17.2 mCi F18-FDG. A low dose 3.[address] scan was acquired for attenuation correction. PET and CT in-line fusion was performed for anatomical correlation of the functional information obtained from FDG PET imaging. FINDINGS: HEAD/NECK: There is a tiny focus of increased uptake at the left base of skull at the level of C1 which demonstrates an SUV max of 4.7. This could represent a lymph node. The previously seen metabolically active lymphadenopathy in the left lower neck/supraclavicular region has largely resolved. There is a single residual subcentimeter left superior mediastinal node which demonstrates an SUV max of 4.0. Physiologic HOOKMAN, salivary, pharyngeal, laryngeal and muscular uptake appears symmetric. CHEST: No abnormal FDG uptake is identified in the chest. Physiologic cardiac activity is noted. ABDOMEN/PELVIS: No abnormal FDG uptake is identified in the abdomen or pelvis. There is a moderate to severe right hydronephrosis and renal atrophy. Physiologic activity is noted in the GI and tracts. SKELETAL: No suspicious musculoskeletal uptake is identified. PET/CT SCAN PET/PET CT fusion skull to thigh IMPRESSION: Near complete resolution of the previously seen abnormal porter activity involving left supraclavicular/lower neck lymph nodes. A single residual subcentimeter left superior mediastinal node is noted with an SUV max of 4.0. A tiny focus of increased uptake at the left skull base may represent an additional tiny node. Electronically signed by: Paul Riojas MD 01/16/2025 12:38 PM EDT
--- OUTSIDE RECORDS SUMMARY | 2025-01-16 09:55 | XMS_ITS | Clinical Summary ---
Author Organization [facility] Address [address] [address] Phone Care Team Providers Care Banana Handler Name Role Phone Gill Car PA-C Primary [...] Office Visit [facility] [address] [phone] Murray Beckham MD Other acute kidney failure (HCC) (Primary Dx); Hypertension 10/27/2024 Telephone [facility] [address] [place] [address] Debbie Valadez MA from Last [...] Office Visit [facility] [address] [phone] Murray Beckham MD [address] [phone] Health Maintenance Due Date Last Done Comments Hepatitis B Vaccine (1 of 3 - 19+ 3-dose series) 04/05 Colorectal Cancer Screening: Annual FOBT 2015 Colorectal Cancer Screening: Colonoscopy 2015 Colorectal Cancer Screening: Sigmoidoscopy 2015 Pneumococcal Vaccine: 50+ Years (1 of 1 - PCV) 016 Influenza Vaccine (Season Ended) 2025 Insurance [employer] Commercial Care Teams Banana Handler Relationship Specialty Start Date End Date Gill Car PA-C [address] [facility] [place] [address] PCP - General Physician Licensed Mortician 12/08/24
== END 2025-01-16 09:08 | disposition home or self-care (01) ==
LOC: HO.PET 09:07
PROVIDERS: PCP Physician Assistant; Visit Provider Internal Medicine Medical Oncology
DX: Z13.89 Encounter for screening for other disorder (principal)

== ENCOUNTER 2025-01-29 11:11 | Outpatient (REF) | payer OTHER, SELFPAY ==
--- OUTSIDE RECORDS SUMMARY | 2025-01-29 12:45 | XMS_ITS | Clinical Summary ---
Author Organization [facility] Address [address] [address] Phone Care Team Providers Care Aids Nurse Name Role Phone Gill Car PA-C Primary [...] Diagnosed Date Resolved Date Urinary tract infection 12/08/202411/15 Encounters Date Type Department Care Team Description 12/08/2024 9:30 AM EDT [facility] [address] [phone] Murray Beckham MD Other acute kidney failure (HCC) (Primary Dx); Hypertension from Last 3 Months Social History Tobacco [...] [facility] [address] [address] Murray Beckham MD [address] [address] Health Maintenance Due Date Last Done Comments Hepatitis B Vaccine (1 of 3 - 19+ 3-dose series) 04/05 Colorectal Cancer Screening: Annual FOBT 2015 Colorectal Cancer Screening: Colonoscopy 2015 Colorectal Cancer Screening: Sigmoidoscopy 2015 Pneumococcal Vaccine: 50+ Years (1 of 1 - PCV) 016 Influenza Vaccine (Season Ended) 2025 Insurance [employer] Commercial Care Teams Aids Nurse Relationship Specialty Start Date End Date Gill Car PA-C [address] [place] [phone] PCP - General Physician Cafe Aide 12/08/24
[2025-01-29 14:02] LABS: MANUAL DIFF FLAG NO
[2025-01-29 14:13] LABS: Basophils Absolute Auto 0.1 X10*3/uL (0.0-0.2); Basophils Percent Auto 0.8 % (0-2); Eosinophils Absolute Auto 0.3 X10*3/uL (0.0-0.4); Eosinophils Percent Auto 2.9 % (0-4); Hematocrit 38.3 % (42.0-52.0); Imm Gran Abs Auto 0.04 X10*3/uL (0.00-0.03); Imm Gran Pct Auto 0.4 % (0.0-0.4); Lymphocytes Absolute Auto 1.9 X10*3/uL (1.2-4.9); Lymphocytes Percent Auto 17.9 % (20-40); Mean Corpuscular HGB Conc 33.9 g/dl (31.0-36.0); Mean Corpuscular Hemoglobin 30.7 pg (27.0-33.0); Mean Corpuscular Volume 90.3 fL (80.0-98.0); Mean Platelet Volume 10.5 fL (9.4-12.4); Monocytes Absolute Auto 0.9 X10*3/uL (0.1-1.2); Monocytes Percent Auto 8.5 % (2-11); Neutrophils Absolute Auto 7.4 x10*3/uL (2.0-8.3); Neutrophils Percent Auto 69.5 % (45-73); Platelet Count 345 X10*3/uL (160-400); Red Blood Count 4.24 X10*6/uL (4.60-5.80); White Blood Count 10.7 X10*3/uL (4.8-10.8)
[2025-01-29 14:39] LABS: Alanine Aminotransferase 22 U/L (0-40); Albumin Level 4.4 g/dL (3.5-5.0); Alkaline Phosphatase 69 U/L (39-117); Anion Gap 13 (12-20); Aspartate Amino Transferase 29 U/L (5-37); Bilirubin Total 0.3 mg/dL (0.0-1.0); Blood Urea Nitrogen 25 mg/dL (9-16); Calcium 9.1 mg/dL (8.4-10.2); Carbon Dioxide 25 mmol/L (22-29); Chloride 107 mmol/L (96-108); Estimated Glomerular Filt Rate 44; Glucose Random 113 mg/dL (60-115); Magnesium 2.2 mg/dL (1.6-2.6); Potassium 4.7 mmol/L (3.3-5.1); Sodium 140 mmol/L (135-145)
[2025-01-29 14:46] LABS: Thyroid Stimulating Hormone 1.79 uIU/mL (0.32-4.0)
== END 2025-01-29 11:12 | disposition home or self-care (01) ==
LOC: HO.WFDLDS 11:11
PROVIDERS: Visit Provider Internal Medicine
DX: C80.1 Malignant (primary) neoplasm, unspecified (principal); C68.9 Malignant neoplasm of urinary organ, unspecified; C77.9 Secondary and unspecified malignant neoplasm of lymph node, unspecified
CPT/HCPCS: 36415; 80053; 83735; 84443; 85025

== ENCOUNTER 2025-02-05 11:22 | Outpatient (REF) | payer OTHER, SELFPAY ==
[2025-02-05 13:47] LABS: MANUAL DIFF FLAG NO
[2025-02-05 13:48] LABS: Basophils Absolute Auto 0.1 X10*3/uL (0.0-0.2); Basophils Percent Auto 0.9 % (0-2); Eosinophils Absolute Auto 0.3 X10*3/uL (0.0-0.4); Eosinophils Percent Auto 3.7 % (0-4); Hemoglobin 12.8 g/dl (14.0-18.0); Imm Gran Abs Auto 0.02 X10*3/uL (0.00-0.03); Imm Gran Pct Auto 0.2 % (0.0-0.4); Lymphocytes Percent Auto 23.5 % (20-40); Mean Corpuscular HGB Conc 33.7 g/dl (31.0-36.0); Mean Corpuscular Hemoglobin 30.6 pg (27.0-33.0); Mean Corpuscular Volume 90.9 fL (80.0-98.0); Monocytes Absolute Auto 0.9 X10*3/uL (0.1-1.2); Monocytes Percent Auto 10.7 % (2-11); Neutrophils Absolute Auto 5.2 x10*3/uL (2.0-8.3); Platelet Count 346 X10*3/uL (160-400); Red Blood Count 4.18 X10*6/uL (4.60-5.80); Red Cell Distribution Width 14.3 % (11.0-16.0); White Blood Count 8.6 X10*3/uL (4.8-10.8)
[2025-02-05 14:15] LABS: Alanine Aminotransferase 20 U/L (0-40); Albumin Level 4.4 g/dL (3.5-5.0); Alkaline Phosphatase 61 U/L (39-117); Anion Gap 12 (12-20); Aspartate Amino Transferase 31 U/L (5-37); Bilirubin Total 0.3 mg/dL (0.0-1.0); Blood Urea Nitrogen 24 mg/dL (9-16); Calcium 9.1 mg/dL (8.4-10.2); Carbon Dioxide 24 mmol/L (22-29); Chloride 107 mmol/L (96-108); Estimated Glomerular Filt Rate 41; Glucose Random 112 mg/dL (60-115); Magnesium 2.1 mg/dL (1.6-2.6); Potassium 4.8 mmol/L (3.3-5.1); Sodium 138 mmol/L (135-145); Total Protein 6.9 g/dL (6.5-8.0)
[2025-02-05 14:31] LABS: Thyroid Stimulating Hormone 1.15 uIU/mL (0.32-4.0)
== END 2025-02-05 11:23 | disposition home or self-care (01) ==
LOC: HO.WFDLDS 11:22
PROVIDERS: Visit Provider Internal Medicine
DX: C68.9 Malignant neoplasm of urinary organ, unspecified (principal)
CPT/HCPCS: 36415; 80053; 83735; 84443; 85025

== ENCOUNTER 2025-02-19 10:55 | Outpatient (REF) | payer OTHER, SELFPAY ==
--- OUTSIDE RECORDS SUMMARY | 2025-02-19 11:53 | XMS_ITS | Clinical Summary ---
Author Organization [facility] Address [address] [address] Phone Care Team Providers Care Hydroelectric Component Machinist Name Role Phone Gill Car PA-C Primary [...] Date Resolved Date Urinary tract infection 12/08/2024 0412/2024 Encounters Date Type Department Care Team Description 12/08/2024 9:30 AM EDT [facility] [address] [phone] Murray Beckham MD Other acute kidney failure [...] Office Visit [facility] [address] [phone] Murray Beckham MD [address] [address] Health Maintenance Due Date Last Done Comments Hepatitis B Vaccine (1 of 3 - 19+ 3-dose series) 04/05 Colorectal Cancer Screening: Annual FOBT 2015 Colorectal Cancer Screening: Colonoscopy 2015 Colorectal Cancer Screening: Sigmoidoscopy 2015 Pneumococcal Vaccine: 50+ Years (1 of 1 - PCV) 016 Influenza Vaccine (#1) 2025 Insurance [employer] Commercial Care Teams Hydroelectric Component Machinist Relationship Specialty Start Date End Date Gill Car PA-C [address] [place] [phone] PCP - General Physician Renewal Specialist 12/08/24
--- OUTSIDE RECORDS SUMMARY | 2025-02-19 11:53 | XMS_ITS | Clinical Summary ---
Author Organization 299 [facility] Address 299 [place] [address] Phone Care Team Providers Care Park Naturalist Name Role Phone Physician, Pcp Unknown Primary Care Provider Charlotte vailable Social History Tobacco Use Types Packs/Day Years [...] age to complete this topic Insurance AETNA Care Teams Park Naturalist Relationship Specialty Start Date End Date Physician, Pcp Unknown PCP - General 10/24/24
[2025-02-19 14:38] LABS: Appearance Urine Clear; Glucose Urine UA Negative (Negative); PH 6.0 (5.0-9.0); Specific Gravity - Urine <= 1.005 (1.005-1.025); UMIC TRIGGER UACC YES
[2025-02-19 14:43] LABS: MANUAL DIFF FLAG NO
[2025-02-19 14:46] LABS: Hematocrit 37.0 % (42.0-52.0); Hemoglobin 12.7 g/dl (14.0-18.0); Imm Gran Abs Auto 0.02 X10*3/uL (0.00-0.03); Imm Gran Pct Auto 0.2 % (0.0-0.4); Lymphocytes Absolute Auto 2.2 X10*3/uL (1.2-4.9); Mean Corpuscular HGB Conc 34.3 g/dl (31.0-36.0); Mean Corpuscular Hemoglobin 30.8 pg (27.0-33.0); Mean Corpuscular Volume 89.6 fL (80.0-98.0); NRBC Abs Auto 0.000 X10*3/uL (0.0-0.012); NRBC Pct Auto 0.0 /100WBC (0.0-0.2); Platelet Count 350 X10*3/uL (160-400); Red Blood Count 4.13 X10*6/uL (4.60-5.80); White Blood Count 9.0 X10*3/uL (4.8-10.8)
[2025-02-19 15:19] LABS: Alanine Aminotransferase 19 U/L (0-40); Albumin Level 4.5 g/dL (3.5-5.0); Alkaline Phosphatase 69 U/L (39-117); Anion Gap 11 (12-20); Aspartate Amino Transferase 27 U/L (5-37); Blood Urea Nitrogen 17 mg/dL (9-16); Calcium 8.5 mg/dL (8.4-10.2); Carbon Dioxide 23 mmol/L (22-29); Chloride 107 mmol/L (96-108); Estimated Glomerular Filt Rate 48; Magnesium 2.3 mg/dL (1.6-2.6); Potassium 4.2 mmol/L (3.3-5.1); Sodium 137 mmol/L (135-145); Total Protein 7.0 g/dL (6.5-8.0)
[2025-02-19 15:23] LABS: Thyroid Stimulating Hormone 1.44 uIU/mL (0.32-4.0)
== END 2025-02-19 10:56 | disposition home or self-care (01) ==
LOC: HO.WFDLDS 10:55
PROVIDERS: Physician Assistant; Visit Provider Internal Medicine
DX: C68.9 Malignant neoplasm of urinary organ, unspecified (principal); C77.9 Secondary and unspecified malignant neoplasm of lymph node, unspecified; C80.1 Malignant (primary) neoplasm, unspecified
CPT/HCPCS: 36415; 80053; 81001; 83735; 84443; 85025

== ENCOUNTER 2025-02-26 09:22 | Outpatient (REF) | payer OTHER, SELFPAY ==
--- OUTSIDE RECORDS SUMMARY | 2025-02-26 09:46 | XMS_ITS | Clinical Summary ---
Author Organization [facility] Address [address] [phone] Phone Care Team Providers Care Access Clinician Name Role Phone Gill Car PA-C Primary [...] EDT [facility] Visit [facility] [address] [phone] Murray Beckham MD Other acute kidney failure [...] Office Visit [facility] [address] [phone] Murray Beckham MD [address] [address] Health Maintenance Due Date Last Done Comments Hepatitis B Vaccine (1 of 3 - 19+ 3-dose series) 04/05 Colorectal Cancer Screening: Annual FOBT 2015 Colorectal Cancer Screening: Colonoscopy 2015 Colorectal Cancer Screening: Sigmoidoscopy 2015 Pneumococcal Vaccine: 50+ Years (1 of 1 - PCV) 016 Influenza Vaccine (#1) 2025 Insurance [employer] Commercial Care Teams Access Clinician Relationship Specialty Start Date End Date Gill Car PA-C [address] [place] [phone] PCP - General Physician Diet Consultant 12/08/24
--- OUTSIDE RECORDS SUMMARY | 2025-02-26 09:46 | XMS_ITS | Clinical Summary ---
Author Organization LL 299 [facility] Address [address] [place] [address] Phone Care Team Providers Care Cattle Alley Worker Name Role Phone Physician, Pcp Unknown Primary [...] Influencers of Health Screening 10/25/2024 Influenza Vaccine (#1) 2025 HIB Vaccines Aged Out No longer [...] complete this topic Insurance AET[employer] Care Teams Cattle Alley Worker Relationship Specialty Start Date End Date Physician, Pcp Unknown PCP - General 10/24/24
[2025-02-26 11:42] LABS: MANUAL DIFF FLAG NO
[2025-02-26 11:55] LABS: Hematocrit 39.5 % (42.0-52.0); Hemoglobin 13.4 g/dl (14.0-18.0); Imm Gran Abs Auto 0.04 X10*3/uL (0.00-0.03); Imm Gran Pct Auto 0.4 % (0.0-0.4); Lymphocytes Absolute Auto 1.7 X10*3/uL (1.2-4.9); Mean Corpuscular HGB Conc 33.9 g/dl (31.0-36.0); Mean Corpuscular Hemoglobin 30.3 pg (27.0-33.0); Mean Corpuscular Volume 89.4 fL (80.0-98.0); NRBC Abs Auto 0.000 X10*3/uL (0.0-0.012); NRBC Pct Auto 0.0 /100WBC (0.0-0.2); Platelet Count 341 X10*3/uL (160-400); Red Blood Count 4.42 X10*6/uL (4.60-5.80); White Blood Count 9.2 X10*3/uL (4.8-10.8)
[2025-02-26 12:35] LABS: Alanine Aminotransferase 27 U/L (0-40); Albumin Level 4.5 g/dL (3.5-5.0); Alkaline Phosphatase 73 U/L (39-117); Anion Gap 12 (12-20); Aspartate Amino Transferase 36 U/L (5-37); Blood Urea Nitrogen 21 mg/dL (9-16); Calcium 9.1 mg/dL (8.4-10.2); Carbon Dioxide 25 mmol/L (22-29); Chloride 106 mmol/L (96-108); Estimated Glomerular Filt Rate 47; Magnesium 2.2 mg/dL (1.6-2.6); Potassium 4.5 mmol/L (3.3-5.1); Sodium 138 mmol/L (135-145); Thyroid Stimulating Hormone 1.77 uIU/mL (0.32-4.0); Total Protein 7.2 g/dL (6.5-8.0)
== END 2025-02-26 09:23 | disposition home or self-care (01) ==
LOC: HO.WFDLDS 09:22
PROVIDERS: Visit Provider Internal Medicine
DX: C68.9 Malignant neoplasm of urinary organ, unspecified (principal); C77.9 Secondary and unspecified malignant neoplasm of lymph node, unspecified; I67.1 Cerebral aneurysm, nonruptured; R80.9 Proteinuria, unspecified; Z13.220 Encounter for screening for lipoid disorders; I67.83 Posterior reversible encephalopathy syndrome
CPT/HCPCS: 36415; 80053; 83735; 84443; 85025

== ENCOUNTER 2025-03-08 09:27 | Outpatient (AMB) | payer OTHER, SELFPAY ==
--- NOTE | 2025-03-08 09:30 | A.OFFPC_ITS ---
Intake Visit Reasons: bp check and labs Intake Note: Blood pressure follow up. Stopped taking Lexapro, believes it it causing chest pain. Lack of motivation. Field Service Analyst Required: No Allergies pembrolizumab (From [facility]) Allergy (Mild, Verified 03/08/25 09:31) itching, rash Medication List - Last Reconciled 03/08/25 by Gill Car PA-C aspirin 81 mg PO DAILY folic acid 1 mg PO DAILY hydralazine 50 mg PO Q8H 90 days hydroxyzine HCl 25 mg PO TID levetiracetam 750 mg PO BID lidocaine 5% 1 patch topical DAILY multivitamin 1 tab PO DAILY nifedipine ER 60 mg PO DAILY 90 days ondansetron 8 mg PO Q8H pantoprazole 40 mg PO DAILY pyridoxine (vitamin B6) 50 mg PO DAILY thiamine HCl (vitamin B1) 100 mg PO DAILY Tobacco use date assessed: 11/15/24 Dental Screening Dental Screen Date: 04/27/24 HPI bp check and labs HPI Details Patient is a 59-year-old male with a recent past medical history of po sterior reversible encephalopathy syndrome, renal disease, hypertension, seizures, and recent diagnosis of metastatic urothelial carcinoma presenting today for a follow up. Urology: He is following with [facility]. He is no longer having any blood in urine. Onc: He is going to chemo and states he is doing well in tolerating the medications. He did have a recent CT PET in January which showed improvement of lymph node activity CV: He is currently managed with carvedilol 25 mg twice a day, hydralazine 50 mg 2 times a day and nifedipine 60 mg daily. Doing better with this treatment. Blood pressures at home have been normal. Bp today in office is 138/80. He does complain today of chest pain that started about a week ago when he tried Lexapro. He states that he thinks it is related to the medication because the symptoms correlate to the time of starting this medicine. He has a hard time lying down at night and sleeping with the pain. He states he has a often changed positions cause he feels pain mostly on the right side of his chest. He can sometimes reproduce it but he states it feels like it is also possibly inside the chest. It is improved with changing position. There was no associated shortness on breath, dizziness, nausea or palpitations. With exertion he feels fine. He states the pain is only ever at night and it does not feel like acid reflux. He did stop the medication but it has only been 1 day. He states he will note tonight if there are any symptoms. No lower leg swelling. Endo: Last blood sugars have been slightly elevated. He does not believe that these were done fasting. Nephro: seeing Dr. Bechkam and states kidney function has been stable. 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 It is felt to likely be secondary to traumatic in nature. At the current time he is being maintained on an aspirin and appears to be doing stable with that. There is no interval change from his CAT scan on September 17 his MR in November. A six-month surveillance CAT scan has been ordered by [facility]. Neuro: He is following with [facility] and has an EEG scheduled in . He states at that time they are going to make a decision regarding discontinuing his levetiracetam. He has been seizure-free since the hospital. GI: Scheduled with Gastroenterology 03/23 for the rectal abnormality that was noted on scan. This was the soonest appointment locally. Psych: Recently started on Lexapro by Oncology for depressive symptoms. He states that he just feels fatigued or not like doing much of anything. Denies any ?real depression ?. He states he is not sad he just feels lack of interest and motivation. He thinks the Lexapro caused chest pain and he struggled s leeping with this medication. He states he kept waking up with this. No SI/HI. He is accompanied today by his . MSK: Reports having bilateral shoulder pain. This has been on and off for year s but worse recently. He would like to see Orthopedics as he does not feel like the lidocaine patches are doing anything for him. 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: Yes (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) Gender identity: Male Cognitive needs: No Hearing needs: No Vision needs: Yes (glasses) Questionnaire Thrive Questionnaire Date Thrive assessed: 10/11/24 I am a: Patient What is your living situation today?: I have a steady place to live Within the past 12 months, did the food you bought not last and you didn't have the money to get more?: Never true Within the past 12 months, did you worry whether your food would run out before you got money to buy more?: Never true Do you have trouble paying for medicines?: No Do you have trouble getting transportation to medical appointments?: No Do you have trouble paying your heating and electricity bill?: No Do you have trouble taking care of your child, family member or friend?: No Do you have trouble with day-to-day activities such as bathing, preparing meals, shopping, managing finances, etc.?: No Are you currently unemployed and looking for a job?: No Are you interested in more education?: No Please select the resources that you would like help with: None Currently or been in a relationship where the following occur: No concerns reported THRIVE Score: 0 EDUARDO-7 AMB Questionnaire EDUARDO-7 Date EDUARDO - 7 assessed: 04/27/24 Source: Developed by Drs. Paul Barnes, Sherry Franco, Filiberto Lamb and colleagues, with an educational geri from [employer]. Physical exam (Primary Care) Tobacco/Smoking Status: Tobacco use Status Tobacco use date assessed 11/15/24 03/08/25 09:35 Patient Tobacco Use Status Former Tobacco user 03/08/25 09:35 Tobacco use type Cigarette 03/08/25 09:35 e-Cigarette/Vaping Use Never Used 03/08/25 09:35 Thrive Assessment: Date of Thrive Assessment Date Thrive assessed 10/11/24 03/08/25 09:35 Currently or been in a relationship where the following occur: No concerns reported Const Orientation/consciousness: patient oriented x3 HENMT Ears: hearing grossly normal bilaterally Neck Thyroid: Thyroid normal Lymphatic: no lymphadenopathy noted Resp Auscultation: clear to auscultation bilaterally Cardio Rate: regular rate Rhythm: regular rhythm Heart sounds: S1 normal heart sound present and S2 normal heart sound present GI Inspection: Yes normal to inspection Palpation (GI): Soft to palpation and Other GI palpation findings present (nontender, no cva tenderness) Auscultation: normoactive bowel sounds Rectal Exam - Male: Yes deferred Skin General skin exam: no rashes or lesions noted Neuro General: patient oriented x3, gait normal and no focal motor deficits Office Procedures EKG Details: EKG today in the office is sinus bradycardia at a rate of 52 beats per minute with nonspecific STT wave abnormalities. EKG interpreted myself and Dr. Sarmiento [id number], Complete Results Reviewed Results Reviewed: Laboratory Tests 02/26/25 02/27/25 09:26 11:23 WBC 9.2 RBC 4.42 L Hgb 13.4 L Hct 39.5 L Plt Count 341 Potassium 4.5 Chloride 106 Carbon Dioxide 25 Anion Gap 12 BUN 21 H Creatinine 1.54 H Estimated GFR 47 POC Glucose 124 H Random Glucose 107 Calcium 9.1 D Magnesium 2.2 Total Bilirubin 0.3 AST 36 ALT 27 Alkaline Phosphatase 73 Total Protein 7.2 Albumin 4.5 TSH 1.77 Coding Level of Care Code Est Pt Level 5 (95629) Complex EM visit Add On G2211 Diagnoses HTN (hypertension) I10 IFG (impaired fasting glucose) R73.01 Urothelial carcinoma C68.9 Seizure R56.9 Fatigue R53.83 Bilateral shoulder pain M25.511; M25.512 Chest wall pain R07.89 CPT Codes EKG - CPT: [id number], Complete ([id number]) Assessment & Plan Assessment & Plan (1) HTN (hypertension): Code(s): I10 - Essential (primary) hypertension Category: Medical Plan: wnl continue current plan (2) IFG (impaired fasting glucose): Code(s): R73.01 - Impaired fasting glucose Category: Medical Plan: a1c ordered no sx has fam hx of t2dm (3) Urothelial carcinoma: Code(s): C68.9 - Malignant neoplasm of urinary organ, unspecified Category: Medical Plan: continue following with oncology (4) Seizure: Code(s): R56.9 - Unspecified convulsions Category: Medical Plan: continue on levetiracetam bid has eeg booked in may (5) Fatigue: Code(s): R53.83 - Other fatigue Category: Medical Plan: ? depression will check labs will try sertraline (6) Bilateral shoulder pain: Code(s): M25.511 - Pain in right shoulder; M25.512 - Pain in left shoulder Category: Medical Plan: xray ordered referral to ortho (7) Chest wall pain: Code(s): R07.89 - Other chest pain Category: Medical Plan: cxr ordered ekg today Warning signs of chest pain that would require emergent medical treatment were discussed. We are going to do a short term follow up. He will let me know if his symptoms fail to resolve being off of the Lexapro. He promises to call me this week with an update. He is currently asymptomatic and has not had any symptoms since ?yesterday or the day before . Plan 50 minutes today is spent in [id number] time with patient reviewing a list of his concerns. Orders: Orders Vitamin B12 and Folate Today R53.83 - Other fatigue IRON PROFILE Today R53.83 - Other fatigue XR Shoulder Damien min 2V Today M25.511 - Pain in right shoulder, M25.512 - Pain in left shoulder XR chest 2V Today R07.89 - Other chest pain Hemoglobin A1c Today R73.01 - Impaired fasting glucose AMB EKG-In Office Today R07.89 - Other chest pain Referrals Orthopedics Referral M25.511 - Pain in right shoulder, M25.512 - Pain in left shoulder Medications: New sertraline 25 mg PO DAILY 30 tabs 3RF Changed From hydralazine 50 mg PO Q8H 90 days 270 tabs 1RF To hydralazine 50 mg PO Q12H 180 tabs 1RF 90 days From carvedilol must administer with a meal/food 25 mg PO BID 60 tabs 11RF To carvedilol must administer with a meal/food 25 mg PO BID 180 tabs 1RF 90 days
--- OUTSIDE RECORDS SUMMARY | 2025-03-08 10:04 | XMS_ITS | Clinical Summary ---
Author Organization LL 299 [facility] Address 299 [place] [address] Phone Care Team Providers Care Field Mechanic Name Role Phone Physician, Pcp Unknown Primary [...] Vaccine ( - 2023-2 5 season) 2024 Depression Screening 08/16/2024 Cholesterol Screening (Lipid Panel) 10/25/2024 Colorectal Cancer Screening: Colonoscopy 10/25/2024 HIV Screening 10/25/2024 Hepatitis C Screening [...] complete this topic Insurance AETNA Care Teams Field Mechanic Relationship Specialty Start Date End Date Physician, Pcp Unknown PCP - General 10/24/24
--- OUTSIDE RECORDS SUMMARY | 2025-03-08 10:04 | XMS_ITS | Clinical Summary ---
Author Organization [facility] Address [address] [phone] Phone Care Team Providers Care Intelligence Manager Name Role Phone Gill Car PA-C Primary [...] EDT Office Visit [facility] [address] [phone] Murray Beckham MD Other acute kidney failure [...] [facility] [address] [phone] Murray Beckham MD [address] [phone] Health Maintenance Due Date Last Done Comments Hepatitis B Vaccine (1 of 3 - 19+ 3-dose series) 04/05 Colorectal Cancer Screening: Annual FOBT 2015 Colorectal Cancer Screening: Colonoscopy 2015 Colorectal Cancer Screening: Sigmoidoscopy 2015 Pneumococcal Vaccine: 50+ Years (1 of 1 - PCV) 016 Influenza Vaccine (#1) 2025 Insurance [employer] Commercial Care Teams Intelligence Manager Relationship Specialty Start Date End Date Gill Car PA-C [address] [place] [phone] PCP - General Physician Management Architect 12/08/24
== END 2025-03-08 10:32 | disposition home or self-care (01) ==
LOC: HO.HMCFM 09:28
PROVIDERS: PCP Physician Assistant; Visit Provider Physician Assistant
DX: I10 Essential (primary) hypertension (principal); C68.9 Malignant neoplasm of urinary organ, unspecified; R56.9 Unspecified convulsions; R73.01 Impaired fasting glucose; R07.89 Other chest pain; R53.83 Other fatigue; M25.511 Pain in right shoulder; M25.512 Pain in left shoulder

== ENCOUNTER → 2025-03-08 09:27 | Outpatient (BNVA) | payer OTHER, SELFPAY | PROVIDERS: PCP Physician Assistant; Visit Provider Physician Assistant | DX: I10 Essential (primary) hypertension (principal); R73.01 Impaired fasting glucose; C68.9 Malignant neoplasm of urinary organ, unspecified; R56.9 Unspecified convulsions; R53.83 Other fatigue; M25.511 Pain in right shoulder; M25.512 Pain in left shoulder; R07.89 Other chest pain; Z79.899 Other long term (current) drug therapy | CPT/HCPCS: 93005 ==

== ENCOUNTER 2025-03-12 10:01 | Outpatient (REF) | payer OTHER, SELFPAY ==
--- OUTSIDE RECORDS SUMMARY | 2025-03-12 11:03 | XMS_ITS | Clinical Summary ---
Author Organization LL 299 [facility] Address [address] [place] [address] Phone Care Team Providers Care Tobacco Blender Name Role Phone Physician, Pcp Unknown Primary [...] complete this topic Insurance AETNA Care Teams Tobacco Blender Relationship Specialty Start Date End Date Physician, Pcp Unknown PCP - General 10/24/24
--- OUTSIDE RECORDS SUMMARY | 2025-03-12 11:03 | XMS_ITS | Clinical Summary ---
Author Organization [facility] Address [address] [phone] Phone Care Team Providers Care Lead Mobile Developer Name Role Phone Gill Car PA-C Primary [...] Encounters Date Type Department Care Team Description 03/09/2025 11:45 AM EDT [facility] [address] [phone] Murray Beckham MD Other acute kidney failure [...] Sign Reading Time Taken Comments Blood Pressure 110/58 03/09/2025 11:45 AM EDT Pulse 71 03/09/2025 11:45 AM EDT Temperature - - Respiratory Rate - - Oxygen Saturation - - Inhaled Oxygen Concentration - - Weight 73.9 kg (163 lb) 03/09/2025 11:45 AM EDT Height - - Body Mass Index - - Plan of Treatment Upcoming Encounters Date Type Department Care Team (Late st Contact Info) Description 08/20/2025 3:00 PM EST Office Visit [facility] [address] [phone] Murray Beckham MD [address] [phone] Health Maintenance Due Date Last Done Comments Hepatitis B Vaccine (1 of 3 - 19+ 3-dose series) 04/05 Pneumococcal Vaccine: 50+ Years (1 of 2 - PCV) 985 Colorectal Cancer Screening: Annual FOBT 2015 Colorectal Cancer Screening: Colonoscopy 2015 Colorectal Cancer Screening: Sigmoidoscopy 2015 Influenza Vaccine (#1) 2025 Procedures Procedure Name Priority Date/Time Associated Diagnosis Comments RENAL FUNCTION PANEL (EXTERNAL LAB ENTRY) Routine 02/16/2025 from Last 3 Months Results * Renal Function Panel (External Lab) (02/16/2025) BUN 21 mg/dL eGFR 47 Sodium 138 mEq/L Potassium 4.5 mEq/L Chloride 106 Carbon Dioxide 25 mmol/L Calcium 9.1 mg/dL Albumin (Blood) 4.5 g/dL Creatinine 1.54 mg/dL Anion Gap 12 Blood 02/16/2025 us [facility] Provider LAB BLOOD ORDERABLES Cathy l Result from Last 3 Months Insurance [employer] Commercial Care Teams Lead Mobile Developer Relationship Specialty Start Date End Date Gill Car PA-C [address] [place] [phone] PCP - General Physician Search Planner 12/08/24
[2025-03-12 11:43] LABS: Hematocrit 38.6 % (42.0-52.0); Hemoglobin 12.7 g/dl (14.0-18.0); Imm Gran Abs Auto 0.02 X10*3/uL (0.00-0.03); Imm Gran Pct Auto 0.2 % (0.0-0.4); Lymphocytes Absolute Auto 1.6 X10*3/uL (1.2-4.9); MANUAL DIFF FLAG NO; Mean Corpuscular HGB Conc 32.9 g/dl (31.0-36.0); Mean Corpuscular Hemoglobin 30.2 pg (27.0-33.0); Mean Corpuscular Volume 91.9 fL (80.0-98.0); NRBC Abs Auto 0.000 X10*3/uL (0.0-0.012); NRBC Pct Auto 0.0 /100WBC (0.0-0.2); Platelet Count 399 X10*3/uL (160-400); Red Blood Count 4.20 X10*6/uL (4.60-5.80); White Blood Count 9.1 X10*3/uL (4.8-10.8)
[2025-03-12 12:01] LABS: Hemoglobin A1C 104.3092 umol/L; Total Hemoglobin (HGBA1C) 3317.7855 umol/L
[2025-03-12 15:11] LABS: Appearance Urine Clear; Glucose Urine UA Negative (Negative); PH 6.0 (5.0-9.0); Specific Gravity - Urine 1.010 (1.005-1.025); UMIC TRIGGER UACC YES
[2025-03-12 15:29] LABS: Alanine Aminotransferase 19 U/L (0-40); Albumin Level 4.4 g/dL (3.5-5.0); Alkaline Phosphatase 73 U/L (39-117); Anion Gap 14 (12-20); Aspartate Amino Transferase 29 U/L (5-37); Blood Urea Nitrogen 16 mg/dL (9-16); Calcium 9.0 mg/dL (8.4-10.2); Carbon Dioxide 26 mmol/L (22-29); Chloride 105 mmol/L (96-108); Estimated Glomerular Filt Rate 47; Iron 35 mcg/dL (45-160); Magnesium 2.4 mg/dL (1.6-2.6); Percent Iron Saturation 14 % (15-50); Potassium 4.3 mmol/L (3.3-5.1); Sodium 141 mmol/L (135-145); Total Iron Binding Capacity 242 mcg/dL (228-428); Total Protein 7.1 g/dL (6.5-8.0); Unsaturated Iron Binding 207 ug/dL
[2025-03-12 15:53] LABS: Thyroid Stimulating Hormone 1.23 uIU/mL (0.32-4.0)
[2025-03-12 15:55] LABS: Folate > 20.0 ng/mL (> or = 4.0); Vitamin B12 506 pg/mL (200-900)
== END 2025-03-12 10:02 | disposition home or self-care (01) ==
LOC: HO.WFDLDS 10:01
PROVIDERS: Referring Provider Physician Assistant; Visit Provider Internal Medicine
DX: Z13.220 Encounter for screening for lipoid disorders (principal); C68.9 Malignant neoplasm of urinary organ, unspecified; C77.9 Secondary and unspecified malignant neoplasm of lymph node, unspecified; I67.83 Posterior reversible encephalopathy syndrome; R53.83 Other fatigue; R73.01 Impaired fasting glucose; R80.9 Proteinuria, unspecified; Z86.79 Personal history of other diseases of the circulatory system
CPT/HCPCS: 36415; 80053; 81001; 81003; 82607; 82746; 83036; 83540; 83735; 84443; 85025

== ENCOUNTER 2025-03-13 14:27 | Outpatient (REF) | payer OTHER, SELFPAY ==
--- NOTE | ~2025-03-13 | XR_ITS ---
EXAMINATION: XR CHEST CLINICAL INFORMATION: R07.89 - Other chest pain; pain in both shoulders, no injury. COMPARISON: None available. TECHNIQUE: 2 views of the chest were obtained. FINDINGS: The cardiac, hilar, and mediastinal contours are normal. The lungs are clear bilaterally. There is a small layering right pleural effusion. There is no focal osseous or soft tissue abnormality. XR/XR chest 2V IMPRESSION: Small layering right pleural effusion. Otherwise clear lungs. Electronically signed by: Huber Alas MD 03/13/2025 03:07 PM EDT
--- NOTE | ~2025-03-13 | XR_ITS ---
EXAMINATION: X-ray shoulder bilaterally. CLINICAL INFORMATION: Pain TECHNIQUE: AP view in neutral internal rotation and Y-view projections both shoulders. COMPARISON: None FINDINGS: Sclerosis along the articular surfaces and asymmetric joint space narrowing involving the acromioclavicular joints. Subchondral cyst formation and the greater tuberosities of the humerus. No acute cortical disruption or malalignment. Sclerosis along the glenoid foci left scapula. XR/XR Shoulder Damien min 2V IMPRESSION: Degenerative changes, left greater than the right shoulder. Electronically signed by: Sanjeev Quintana MD 03/13/2025 03:09 PM EDT
--- OUTSIDE RECORDS SUMMARY | 2025-03-13 15:07 | XMS_ITS | Clinical Summary ---
Author Organization [facility] Address [address] [phone] Phone Care Team Providers Care Form Grader Operator Name Role Phone Gill Car PA-C Primary [...] EDT [facility] [address] [phone] Murray Beckham MD Other acute kidney failure [...] Office Visit [facility] [address] [phone] Murray Beckham MD [address] [address] Health Maintenance Due Date Last Done Comments [...] mg/dL Anion Gap 12 Blood 02/16/2025 us [facility] Provider LAB BLOOD ORDERABLES Cathy l Result from Last 3 Months Insurance [employer] Commercial Care Teams Form Grader Operator Relationship Specialty Start Date End Date Gill Car PA-C [address] [place] [phone] PCP - General Physician Sack Sorter 12/08/24
--- OUTSIDE RECORDS SUMMARY | 2025-03-13 15:07 | XMS_ITS | Clinical Summary ---
Author Organization LL 299 [facility] Address [address] [place] [address] Phone Care Team Providers Care Wax Blender Name Role Phone Physician, Pcp Unknown [...] complete this topic Insurance AETNA Care Teams Wax Blender Relationship Specialty Start Date End Date Physician, Pcp Unknown PCP - General 10/24/24
== END 2025-03-13 14:28 | disposition home or self-care (01) ==
LOC: HO.XRAY 14:27
PROVIDERS: Visit Provider Physician Assistant
DX: M25.511 Pain in right shoulder (principal); M25.512 Pain in left shoulder; R07.89 Other chest pain
CPT/HCPCS: 71046; 73030

== ENCOUNTER → 2025-03-13 14:30 | Outpatient (BNV) | payer OTHER, SELFPAY | PROVIDERS: Visit Provider Radiology Diagnostic Radiology | DX: J90 Pleural effusion, not elsewhere classified (principal); M19.019 Primary osteoarthritis, unspecified shoulder | CPT/HCPCS: 71046; 73030 ==

== ENCOUNTER 2025-03-19 10:41 | Outpatient (REF) | payer OTHER, SELFPAY ==
--- OUTSIDE RECORDS SUMMARY | 2025-03-19 11:32 | XMS_ITS | Clinical Summary ---
Author Organization [facility] Address [address] [phone] Phone Care Team Providers Care Bingo Clerk Name Role Phone Gill Car PA-C Primary [...] EDT [facility] Visit [facility] [address] [phone] Murray Beckham MD Other acute kidney failure [...] [facility] [address] [phone] Murray Beckham MD [address] [phone] Health Maintenance Due Date Last Done Comments [...] mg/dL Anion Gap 12 Blood 02/16/2025 us [facility] Provider LAB BLOOD ORDERABLES Cathy l Result from Last 3 Months Insurance [employer] Commercial Care Teams Bingo Clerk Relationship Specialty Start Date End Date Gill Car PA-C [address] [place] [phone] PCP - General Physician Bit Bender 12/08/24
--- OUTSIDE RECORDS SUMMARY | 2025-03-19 11:32 | XMS_ITS | Clinical Summary ---
Author Organization LL 299 [facility] Address [address] [place] [address] Phone Care Team Providers Care Arc Furnace Operator Name Role Phone Physician, Pcp Unknown Primary [...] complete this topic Insurance AETNA Care Teams Arc Furnace Operator Relationship Specialty Start Date End Date Physician, Pcp Unknown PCP - General 10/24/24
[2025-03-19 13:59] LABS: MANUAL DIFF FLAG NO
[2025-03-19 14:11] LABS: Hematocrit 38.5 % (42.0-52.0); Hemoglobin 12.6 g/dl (14.0-18.0); Imm Gran Abs Auto 0.05 X10*3/uL (0.00-0.03); Imm Gran Pct Auto 0.5 % (0.0-0.4); Lymphocytes Absolute Auto 1.8 X10*3/uL (1.2-4.9); Mean Corpuscular HGB Conc 32.7 g/dl (31.0-36.0); Mean Corpuscular Hemoglobin 30.1 pg (27.0-33.0); Mean Corpuscular Volume 91.9 fL (80.0-98.0); NRBC Abs Auto 0.000 X10*3/uL (0.0-0.012); NRBC Pct Auto 0.0 /100WBC (0.0-0.2); Platelet Count 394 X10*3/uL (160-400); Red Blood Count 4.19 X10*6/uL (4.60-5.80); White Blood Count 10.1 X10*3/uL (4.8-10.8)
[2025-03-19 14:44] LABS: Alanine Aminotransferase 18 U/L (0-40); Albumin Level 4.3 g/dL (3.5-5.0); Alkaline Phosphatase 74 U/L (39-117); Anion Gap 11 (12-20); Aspartate Amino Transferase 28 U/L (5-37); Blood Urea Nitrogen 16 mg/dL (9-16); Calcium 8.7 mg/dL (8.4-10.2); Carbon Dioxide 25 mmol/L (22-29); Chloride 106 mmol/L (96-108); Estimated Glomerular Filt Rate 45; Magnesium 2.1 mg/dL (1.6-2.6); Potassium 4.1 mmol/L (3.3-5.1); Sodium 138 mmol/L (135-145); Total Protein 7.0 g/dL (6.5-8.0)
[2025-03-19 14:59] LABS: Thyroid Stimulating Hormone 1.46 uIU/mL (0.32-4.0)
== END 2025-03-19 10:42 | disposition home or self-care (01) ==
LOC: HO.WFDLDS 10:41
PROVIDERS: Visit Provider Internal Medicine
DX: C68.9 Malignant neoplasm of urinary organ, unspecified (principal); C80.1 Malignant (primary) neoplasm, unspecified; C77.9 Secondary and unspecified malignant neoplasm of lymph node, unspecified
CPT/HCPCS: 36415; 80053; 83735; 84443; 85025

== ENCOUNTER 2025-03-29 14:43 | Outpatient (REF) | payer OTHER, SELFPAY ==
--- NOTE | ~2025-03-29 | XR_ITS ---
EXAMINATION: XR CHEST 2 VIEWS HISTORY: J90 - Pleural effusion, not elsewhere classified COMPARISON: Comparison is made with the prior examination dated 03/13/2025. FINDINGS: PA and lateral views of the chest are submitted. The lungs are expanded and clear. Again seen is a tiny right pleural effusion. There is no pneumothorax or pulmonary vascular congestion. The heart is normal in size. The bones are intact. XR/XR chest 2V IMPRESSION: Tiny right pleural effusion without change. Electronically signed by: Paul Riojas MD 03/29/2025 03:08 PM EDT
--- OUTSIDE RECORDS SUMMARY | 2025-03-29 15:22 | XMS_ITS | Clinical Summary ---
Author Organization 299 [facility] Address [address] [place] [address] Phone Care Team Providers Care Retail Merchandiser Technician Name Role Phone Physician, Pcp Unknown Primary [...] complete this topic Insurance AETNA Care Teams Retail Merchandiser Technician Relationship Specialty Start Date End Date Physician, Pcp Unknown PCP - General 10/24/24
--- OUTSIDE RECORDS SUMMARY | 2025-03-29 15:22 | XMS_ITS | Clinical Summary ---
Author Organization [facility] Address [address] [address] Phone Care Team Providers Care Ad Clerk Name Role Phone Gill Car PA-C [...] EDT [facility] [address] [address] Murray Beckham MD Other acute kidney failure [...] Office Visit [facility] [address] [address] Murray Beckham MD [address] [address] Health Maintenance Due Date Last Done Comments [...] mg/dL Anion Gap 12 Blood 02/16/2025 us [facility] Provider LAB BLOOD ORDERABLES Cathy l Result from Last 3 Months Insurance [employer] Commercial Care Teams Ad Clerk Relationship Specialty Start Date End Date Gill Car PA-C [address] [place] [phone] PCP - General Physician Nurse Practitioner Manager 12/08/24
== END 2025-03-29 14:44 | disposition home or self-care (01) ==
LOC: HO.XRAY 14:43
PROVIDERS: PCP Physician Assistant; Visit Provider Physician Assistant
DX: J90 Pleural effusion, not elsewhere classified (principal)
CPT/HCPCS: 71046

== ENCOUNTER → 2025-03-29 14:47 | Outpatient (BNV) | payer OTHER, SELFPAY | PROVIDERS: PCP Physician Assistant; Visit Provider Radiology Diagnostic Radiology | DX: J90 Pleural effusion, not elsewhere classified (principal) | CPT/HCPCS: 71046 ==

== ENCOUNTER 2025-03-31 21:00 | Emergency (ER) | payer OTHER, SELFPAY ==
--- NOTE | 2025-03-31 | ECG_ITS ---
Test Reason : CHEST PAIN Blood Pressure : */* mmHG Vent. Rate : 63 BPM Atrial Rate : 63 BPM P-R Int : 168 ms QRS Dur : 68 ms QT Int : 406 ms P-R-T Axes : 60 9 58 degrees QTcB Int : 415 ms Normal sinus rhythm Normal ECG No previous ECGs available Referred By: Generic ED Physician Electronically Signed By: Osorio Reina
[2025-03-31 21:03] VITALS: BP 174/87; PULSE 69; RESP 18; TEMP 36.3; O2SAT 97; BMI 22.8
[2025-03-31 21:40] LABS: Hematocrit 34.3 % (42.0-52.0); Hemoglobin 11.8 g/dl (14.0-18.0); Imm Gran Abs Auto 0.05 X10*3/uL (0.00-0.03); Imm Gran Pct Auto 0.4 % (0.0-0.4); Lymphocytes Absolute Auto 1.3 X10*3/uL (1.2-4.9); Mean Corpuscular HGB Conc 34.4 g/dl (31.0-36.0); Mean Corpuscular Hemoglobin 30.8 pg (27.0-33.0); Mean Corpuscular Volume 89.6 fL (80.0-98.0); NRBC Abs Auto 0.000 X10*3/uL (0.0-0.012); NRBC Pct Auto 0.0 /100WBC (0.0-0.2); Platelet Count 378 X10*3/uL (160-400); Red Blood Count 3.83 X10*6/uL (4.60-5.80); SCAN SMEAR FLAG 1; White Blood Count 11.8 X10*3/uL (4.8-10.8)
[2025-03-31 21:44] LABS: MANUAL DIFF FLAG SCAN
[2025-03-31 21:55] LABS: Alanine Aminotransferase 14 U/L (0-40); Albumin Level 4.4 g/dL (3.5-5.0); Alkaline Phosphatase 78 U/L (39-117); Anion Gap 16 (12-20); Aspartate Amino Transferase 21 U/L (5-37); Blood Urea Nitrogen 15 mg/dL (9-16); Calcium 8.7 mg/dL (8.4-10.2); Carbon Dioxide 23 mmol/L (22-29); Chloride 107 mmol/L (96-108); Creatinine Clr Calc Pharmacy 56.0; Estimated Glomerular Filt Rate 51; Potassium 4.3 mmol/L (3.3-5.1); Sodium 142 mmol/L (135-145); Total Protein 7.0 g/dL (6.5-8.0)
[2025-03-31 22:11] LABS: Troponin-I High Sensitivity < 2.7 ng/L (<3.5-35.0)
--- OUTSIDE RECORDS SUMMARY | 2025-03-31 23:50 | XMS_ITS | Clinical Summary ---
Author Organization LL 299 [facility] Address [address] [place] [address] Phone Care Team Providers Care Insulation Machine Operator Name Role Phone Physician, Pcp Unknown [...] complete this topic Insurance [employer] Care Teams Insulation Machine Operator Relationship Specialty Start Date End Date Physician, Pcp Unknown PCP - General 10/24/24
== END 2025-04-01 00:02 | disposition left against medical advice (07) ==
PROVIDERS: Emergency Provider Emergency Medicine; PCP Physician Assistant
DX: R07.9 Chest pain, unspecified (principal); Z53.21 Procedure and treatment not carried out due to patient leaving prior to being seen by health care provider
CPT/HCPCS: 36415; 80053; 84484; 85025; 93005; 99281; 99283

== ENCOUNTER → 2025-03-31 21:24 | Outpatient (BNV) | payer OTHER, SELFPAY | PROVIDERS: Emergency Provider Emergency Medicine; PCP Physician Assistant; Visit Provider Internal Medicine Cardiovascular Disease | DX: R07.89 Other chest pain (principal) | CPT/HCPCS: 93010 ==

== ENCOUNTER 2025-04-03 12:21 | Emergency (ER) | payer OTHER, SELFPAY ==
--- NOTE | ~2025-04-03 | CT_ITS ---
EXAMINATION: CT ANGIOGRAM CHEST CLINICAL INFORMATION: Chest pain, dyspnea. History of cancer. Abnormal chest x-ray. COMPARISON: None available. TECHNIQUE: Multiple axial images were obtained through the chest after the administration of 65 mL of Omnipaque 350 intravenous contrast. Extensive vascular post-processing including two-dimensional and three-dimensional reformatted images were created and reviewed on an independent workstation. This CT examination was performed using dose optimization techniques as appropriate, variously including the following: *Automated exposure control *Adjustment of mA and/or kV according to patient size (this includes techniques or standardized protocols for targeted exams where dose is matched to indication/reason for exam; i.e. extremities or head) *Use of iterative reconstruction technique DLP: 431. FINDINGS: Vascular: There is good opacification of pulmonary artery and its branches without intraluminal filling defect or narrowing. The thoracic aorta is of normal caliber. There is a three-vessel branching of the arch with widely origin of these vessels. The heart size is normal. There is no pericardial effusion. No coronary artery calcification seen. Nonvascular: The thyroid lobes are symmetrical and normal. Central trachea and the bronchi are widely patent. Shotty lymph nodes are seen in the aortic window. The lungs are mildly emphysematous with compressive atelectasis right lung base. There are no pulmonary nodules, mass or consolidation seen. There is a small to moderate joint effusion. No pleural calcification seen. The axilla and the chest wall is unremarkable. Visualized liver, spleen, pancreas and adrenal glands are unremarkable. There is hydronephrotic right kidney with cortical thinning resistive extrarenal kidney pelvis. Correlate with clinical exam CT/CT angio chest PE protocol IMPRESSION: No evidence of PE. No evidence of aortic aneurysm or dissection. Small to moderate pleural effusion with compressive atelectasis right lung base. Hydronephrotic right kidney with cortical thinning versus extrarenal kidney pelvis. Correlate with clinical exam. Fleischner guidelines were followed. Electronically signed by: Kamron Saucedo MD 04/03/2025 04:26 PM EDT
--- NOTE | ~2025-04-03 | XR_ITS ---
EXAMINATION: XR CHEST CLINICAL INFORMATION: chest pain, cancer patient COMPARISON: March 29, 2025. TECHNIQUE: 2 views of the chest were obtained. FINDINGS: Blunting of the right costophrenic angle with a meniscal shaped. No pneumothorax. Pulmonary reticular pattern without gross consolidation. Cardiomediastinal silhouette size is normal. S-shaped curvature of the thoracic spine. Mild multilevel thoracic spondylosis. XR/XR chest 2V IMPRESSION: Right-sided pleural effusion, moderate volume versus pleural thickening. Superimposed airspace disease versus neoplasm cannot be excluded. Electronically signed by: Sanjeev Quintana MD 04/03/2025 01:29 PM EDT
--- NOTE | ~2025-04-03 | CT_ITS ---
EXAMINATION: CT CHEST WITHOUT IV CONTRAST INDICATION: chest pain COMPARISON: Correlation is made with a PET/CT scan dated 01/16/2025. TECHNIQUE: Helical CT scan of the chest was performed without intravenous contrast. Coronal and sagittal reformatted images were generated and reviewed. This CT exam was performed with one or more of the following dose reduction techniques: automated exposure control, adjustment of the mA and/or kV according to patient size, use of iterative reconstruction technique. DLP: 336 mGy-cm CHEST: THYROID: The thyroid is unremarkable. LUNGS: There are mild to moderate emphysematous changes. There is subsegmental atelectasis in the right lower lobe. There are no focal airspace opacities or suspicious pulmonary nodules. MEDIASTINUM: There are enlarged supraclavicular lymph nodes measuring up to 1.2 cm on the right and 2.1 cm on the left. There are AP window nodes measuring up to 1.2 cm. There are subcentimeter paratracheal lymph nodes. ALICIA: Evaluation of the hilar regions is limited by lack of intravenous contrast material. CARDIOVASCULATURE: The heart is normal in size. There is no pericardial effusion. The thoracic aorta is normal in caliber. DEGREE OF CORONARY CALCIFICATION: none PLEURA: There is a small right pleural effusion. There is no left pleural effusion. No pneumothorax. MAIN AIRWAYS: The mainstem bronchi and proximal branches are patent. AXILLA: Enlarged bilateral axillary lymph nodes are identified measuring up to 1.6 cm on the right and 1.7 cm on the left. BONES AND SOFT TISSUES: There is enlargement of the right pectoralis muscle is diffuse infiltration of the surrounding subcutaneous and extrapleural fat. UPPER ABDOMEN: The visualized portions of the liver, spleen, and adrenals have an unremarkable unenhanced appearance. There are multiple prominent mahad hepatis lymph nodes and probable celiac axis nodes. Evaluation is limited by lack of intravenous contrast material. CT/CT chest wo IV con IMPRESSION: 1. Bilateral supraclavicular, mediastinal, and bilateral axillary lymphadenopathy. Given the patient's history of metastatic urothelial carcinoma, findings are suggestive of metastatic disease. 2. Small right pleural effusion. 3. Enlargement of the right pectoralis muscle with diffuse infiltration of the surrounding subcutaneous and extrapleural fat. Findings could represent cellulitis or possibly metastatic disease. Clinical correlation is recommended. 4. Probable upper abdominal lymphadenopathy which is incompletely imaged. Electronically signed by: Paul Riojas MD 04/03/2025 02:11 PM EDT
[2025-04-03 12:31] VITALS: BP 114/74; PULSE 64; RESP 18; TEMP 36.6; O2SAT 97; BMI 23.6
--- NOTE | 2025-04-03 12:32 | ED.CHESTPAIN ---
HPI - Chest Pain General Chief Complaint: Chest Pain Stated Complaint: Sent by for CT scan Time Seen by Provider: 04/03/25 13:45 Source: patient and old records reviewed Mode of arrival: ambulatory Limitations: no limitations History of Present Illness ED Provider: WANDA HPI narrative: 59 yo male with PMH of HTN, small known R pleural effusion, R internal carotid artery dissection, PRESS, metastatic urothelial cancer Sep 2024 underoing Keytruda therapy with mets noted to be lymphadenopathy in the left neck, supraclavicular fossa, infraclavicular fossa, superior mediastinum and upper retroperitoneum he comes in today with c/o R sided chest pain hurts to move and breahte. He has no fevers and no cough. He takes tylenol for R sided chest pain into back but it never really goes away. He feels it works for about 2 hours and that is it. He denies rash. He feels there is a bump on his chest like something is there on the R pectoralis. MD complaint: chest pain Onset (ago): week(s) (1) Timing of current episode: constant Prior episodes: No Onset: during rest and during exertion Pain location: right chest Pain radiation: back Severity: severe Quality: aching and sharp Relieving factors: nothing Exacerbating factors: palpation and movement Context: recent illness Associated symptoms: dyspnea Treatment prior to arrival: other (tylenol) Related Data Previous Rx's ?Medication ?Instructions ?Recorded aspirin 81 mg chewable tablet 81 mg PO DAILY #90 tabs 10/30/24 folic acid 1 mg tablet 1 mg PO DAILY #90 tabs 10/30/24 multivitamin 1 tab PO DAILY #90 tabs 10/30/24 pantoprazole 40 mg tablet,delayed 40 mg PO DAILY #90 tabs 10/30/24 release pyridoxine (vitamin B6) 50 mg 50 mg PO DAILY #90 tabs 10/30/24 tablet thiamine HCl (vitamin B1) 100 mg 100 mg PO DAILY #90 tabs 10/30/24 tablet ondansetron 8 mg disintegrating 8 mg PO Q8H #50 tabs 11/07/24 tablet levetiracetam 750 mg tablet 750 mg PO BID #180 tabs 11/24/24 nifedipine 60 mg tablet,extended 60 mg PO DAILY 90 days #90 tabs 12/20/24 release hydroxyzine HCl 25 mg tablet 25 mg PO TID itching #40 tabs 01/09/25 lidocaine 5 % topical patch 1 patch topical DAILY #30 ea 02/26/25 carvedilol 25 mg tablet 25 mg PO BID 90 days #180 tabs 03/08/25 hydralazine 50 mg tablet 50 mg PO Q12H 90 days #180 tabs 03/08/25 sertraline 25 mg tablet 25 mg PO DAILY #30 tabs 03/08/25 ferrous sulfate 325 mg (65 mg 325 mg PO DAILY #90 tabs 03/22/25 iron) tablet oxycodone 10 mg tablet 10 mg PO Q6H PRN pain #14 tabs 04/03/25 Allergies Allergy/AdvReac Type Severity Reaction Status Date / Time No Known Allergies Allergy Verified 04/03/25 12:34 Review of Systems Review of Systems: Constitutional : No Fever, No Chills ENT/Mouth : No sore throat, No Rhinorrhea Eyes: No Eye Pain, No Swelling Cardiovascular : pos Chest Pain, pos SOB, no Dyspnea on Exertion, No Orthopnea, No Edema, No Palpitations Respiratory : No Cough, No Sputum Gastrointestinal : no Nausea, No Vomiting, No Diarrhea, No abdominal Pain, No Hematochezia, No Melena Genitourinary : No Dysuria, No Urinary Frequency Musculoskeletal : No joint pain, No Myalgias, No Joint Swelling Skin : No Skin Lesions, No rash Neuro : No Weakness, No Numbness, No Dizziness, No Headache All other systems reviewed and are negative PMFSH Past Medical History Attestation statement: The following information was validated with the patient. 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 History of dissection of internal carotid artery HTN (hypertension) History of drug abuse Hernia Surgical History S/P right inguinal hernia repair Family History Family History Paternal Grandfather Glaucoma Family/Other Throat cancer Social History Social History Household Members: Spouse and Children Housing: House Alcohol intake: former Patient Tobacco Use Status: Former Tobacco user Tobacco use type: Cigarette Cigarette Packs Per Day: 1.5 Years Smoked: 15 Smoked in Last 30 Days: No e-Cigarette/Vaping Use: Never Used Second Hand Smoke Exposure: No Use of substances other than those prescribed or required for medical reasons: Yes Substance Use Type: Marijuana Advance Directives: No Advance Directives Information Provided: Yes Do you have a plan to hurt others: No Plan service: No Current occupational status: employed 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 Oriented X3. No acute distress. Eyes: Pupils equal, round and reactive to light. ENT: Pharynx normal. Neck: Normal inspection. Neck supple. CVS: Normal heart rate and rhythm. Pulses normal. Chest: discomfort along pectoralis muscle with elevation noted but no overlying skin changes or rash Respiratory: No respiratory distress. Breath sounds diminished R lower base Abdomen: Soft and nontender. Skin: Skin warm and dry. Normal skin color. Extremities: No lower extremity edema. Neuro: Oriented X 3. No motor deficit. No sensory deficit. Course Course Course Narrative: This is a Rapid Medical Examination (RME) performed by Lurdes Clements PA-C in triage. Full HPI, ROS, assessment and treatment plan per primary provider in the Main ED. Hx: 59 yo M hx of posterior reversible encephalopathy syndrome, renal disease, hypertension, seizures, and recent diagnosis of metastatic urothelial carcinoma on Keytruda here for eval of chest pain radiating to his back x weeks. assoc sob. see's dr. guadalupe for keytruda treatments - sent here for further eval. PE/vitals: well appearing Plan: labs, ekg, cxr Reevaluation(s) Reevaluation #1: pain is well controlled at this time Medications Administered Discontinued Medications Generic Name Dose Route Start Last Admin Trade Name Freq PRN Reason Stop Dose Admin Lactated Ringer's 1,000 mls @ 999 mls/hr 04/03/25 13:48 04/03/25 15:00 Lr IV 04/03/25 14:48 Infused .Q1H1M ONE Infusion Cefepime HCl 2 gm in 50 mls @ 100 mls/hr 04/03/25 13:48 04/03/25 14:41 Maxipime IV 04/03/25 14:17 Infused ONCE ONE Infusion Morphine Sulfate 4 mg 04/03/25 13:55 04/03/25 14:02 Morphine Sulfate 4 Mg/Ml Cartridge IVPUSH 04/03/25 13:56 4 mg ONCE ONE Administration Protocol Ondansetron HCl 4 mg 04/03/25 13:55 04/03/25 14:02 Ondansetron Hcl 4 Mg/2 Ml Vial IVPUSH 04/03/25 13:56 4 mg ONCE ONE Administration Oxycodone HCl 5 mg 04/03/25 13:55 04/03/25 14:02 Oxycodone Hcl Immed Release 5 Mg Tablet PO 04/03/25 13:56 5 mg ONCE ONE Administration Medical Decision Making Medical Decision Making [facility] Narrative: 59 yo male with PMH of HTN, small known R pleural effusion, R internal carotid artery dissection, PRESS, metastatic urothelial cancer Sep 2024 underoing Keytruda therapy now here with c/o worsenig R sided pleuritic chest pain and feeling of mass in the R pectoralis. At this time will need basic labs, given WBC count though could be due to malignancy, CTA:PE ordered, IV morphine and oral oxycodone ordered. Could be mets, mass, PE, pneumonia, pain from effusion. Differential Diagnosis Differential Diagnoses: The differential diagnosis associated with the presentation includes PE, pneumonia, effusion, metastatic Admission/Observation Consideration of admission/observation: Escalation of care including admission/observation considered no PE can be managed as outpatient Consult Healthcare Provider Management of the patient was discussed with: Oyster Washer (Dr. Rucker ) Lab Data [facility] Lab Attestation statement: I reviewed the patient's lab results. 04/03/25 12:53 04/03/25 12:53 Labs: Lab Results 04/03/25 04/03/25 Range/Units 12:53 14:07 WBC 17.6 H (4.8-10.8) X10*3/uL RBC 4.09 L (4.60-5.80) X10*6/uL Hgb 12.6 L (14.0-18.0) g/dl Hct 37.7 L (42.0-52.0) % MCV 92.2 (80.0-98.0) fL MCH 30.8 (27.0-33.0) pg MCHC 33.4 (31.0-36.0) g/dl RDW 14.3 (11.0-16.0) % Plt Count 432 H (160-400) X10*3/uL MPV 9.2 L (9.4-12.4) fL Immature Gran % (Auto) 0.5 H (0.0-0.4) % Neut % (Auto) 79.1 H (45-73) % Lymph % (Auto) 7.1 L (20-40) % Lincoln % (Auto) 11.4 H (2-11) % Eos % (Auto) 1.3 (0-4) % Baso % (Auto) 0.6 (0-2) % Lymph # (Auto) 1.3 (1.2-4.9) X10*3/uL Lincoln # (Auto) 2.0 H (0.1-1.2) X10*3/uL Eos # (Auto) 0.2 (0.0-0.4) X10*3/uL Baso # (Auto) 0.1 (0.0-0.2) X10*3/uL Abs Immat Gran (auto) 0.08 H (0.00-0.03) X10*3/uL Absolute Neuts (auto) 13.9 H (2.0-8.3) x10*3/uL Absolute Nucleated RBC 0.000 (0.0-0.012) X10*3/uL Nucleated RBC % (auto) 0.0 (0.0-0.2) /100WBC Smear Tech's Comments VERIFIED Sodium 141 (135-145) mmol/L Potassium 4.9 (3.3-5.1) mmol/L Chloride 108 (96-108) mmol/L Carbon Dioxide 25 (22-29) mmol/L Anion Gap 13 (12-20) BUN 17 H (9-16) mg/dL Creatinine 1.37 (0.5-1.4) mg/dL Estim Creat Clear Calc 58.7 Estimated GFR 53 Random Glucose 99 (60-115) mg/dL Lactic Acid 0.7 (0.5-2.0) mmol/L Calcium 8.8 (8.4-10.2) mg/dL Magnesium 2.3 (1.6-2.6) mg/dL Total Bilirubin 0.2 (0.0-1.0) mg/dL AST 27 (5-37) U/L ALT 14 (0-40) U/L Alkaline Phosphatase 74 (39-117) U/L Troponin I High Sens < 2.7 (<3.5-35.0) ng/L B-Natriuretic Peptide 62 (<100) pg/mL Total Protein 7.0 (6.5-8.0) g/dL Albumin 4.3 (3.5-5.0) g/dL Procalcitonin 0.05 ng/mL Influenza Type A (PCR) NEGATIVE (Negative) Influenza Type B (PCR) NEGATIVE (Negative) RSV RNA Qual (PCR) NEGATIVE (Negative) SARS-CoV-2 RNA (RT-PCR) NEGATIVE (Negative) Independent Interpretation I performed an independent interpretation of an: EKG, Plain X-Ray (R sided effusion) and CT Scan (effusion, mets, source of pain on pectoralis) Interpretation: Rate: 60 Rhythm: NSR [place]: left Normal P waves. Normal CHELE. Normal QRS complex. ST T wave : normal, no AMINA, inverted V1 qTC: 424 prior studies: no acute ischemia The study has been interpreted contemporaneously by me. . Radiology Impression Discussion of test interpretation with radiology: I have reviewed the radiologist's reading. External Record Review External record reviewed: Outpatient record Prescription Management I considered prescription management with: Pain Medication Discharge Plan Discharge Clinical Impression: Chest wall mass Metastatic disease Qualifiers: Area of secondary neoplastic involvement: unspecified site Qualified Code(s): C79.9 - Secondary malignant neoplasm of unspecified site Patient Disposition: Home, Self-Care Additional Instructions: no pneumonia seen on CT scan, you have a small effusion on the right lung, you have a pectoralis muscle mass , please call Dr. Rucker tomorrow return for any worsening symptoms or concerns CT/CT chest wo IV con IMPRESSION: 1. Bilateral supraclavicular, mediastinal, and bilateral axillary lymphadenopathy. Given the patient's history of metastatic urothelial carcinoma, findings are suggestive of metastatic disease. 2. Small right pleural effusion. 3. Enlargement of the right pectoralis muscle with diffuse infiltration of the surrounding subcutaneous and extrapleural fat. Findings could represent cellulitis or possibly metastatic disease. Clinical correlation is recommended. 4. Probable upper abdominal lymphadenopathy which is incompletely imaged. Prescriptions: New oxycodone 10 mg tablet 10 mg PO Q6H PRN (Reason: pain) Qty: 14 0RF Rx Instructions: Partial Fill upon patient request. No Action folic acid 1 mg tablet 1 mg PO DAILY Qty: 90 3RF multivitamin Tablet 1 tab PO DAILY Qty: 90 1RF pantoprazole 40 mg tablet,delayed release (DR/EC) 40 mg PO DAILY Qty: 90 3RF pyridoxine (vitamin B6) 50 mg tablet 50 mg PO DAILY Qty: 90 3RF thiamine HCl (vitamin B1) 100 mg tablet 100 mg PO DAILY Qty: 90 3RF aspirin 81 mg tablet,chewable 81 mg PO DAILY Qty: 90 1RF levetiracetam 750 mg tablet 750 mg PO BID Qty: 180 1RF nifedipine 60 mg tablet extended release 60 mg PO DAILY 90 Days Qty: 90 3RF lidocaine 5 % adhesive patch,medicated 1 patch topical DAILY Qty: 30 2RF Rx Instructions: leave on most painful area for up to 12 hrs ferrous sulfate 325 mg (65 mg iron) tablet 325 mg PO DAILY Qty: 90 0RF ondansetron 8 mg Tablet,Disintegrating 8 mg PO Q8H Qty: 50 3RF hydroxyzine HCl 25 mg Tablet 25 mg PO TID Qty: 40 0RF carvedilol 25 mg tablet 25 mg PO BID 90 Days Qty: 180 1RF Rx Instructions: must administer with a meal/food hydralazine 50 mg tablet 50 mg PO Q12H 90 Days Qty: 180 1RF sertraline 25 mg tablet 25 mg PO DAILY Qty: 30 3RF Print Language: Guatemalan
--- NOTE | 2025-04-03 12:33 | ECG_ITS ---
Test Reason : cp Blood Pressure : */* mmHG Vent. Rate : 60 BPM Atrial Rate : 60 BPM P-R Int : 162 ms QRS Dur : 72 ms QT Int : 424 ms P-R-T Axes : 31 14 60 degrees QTcB Int : 424 ms Normal sinus rhythm Normal ECG When compared with ECG of 31-Mar-2025 21:24, No significant change was found Referred By: Joy Clements Electronically Signed By: REED MARI MD
[2025-04-03 12:59] LABS: Hematocrit 37.7 % (42.0-52.0); Hemoglobin 12.6 g/dl (14.0-18.0); Imm Gran Abs Auto 0.08 X10*3/uL (0.00-0.03); Imm Gran Pct Auto 0.5 % (0.0-0.4); Lymphocytes Absolute Auto 1.3 X10*3/uL (1.2-4.9); MANUAL DIFF FLAG SCAN; Mean Corpuscular HGB Conc 33.4 g/dl (31.0-36.0); Mean Corpuscular Hemoglobin 30.8 pg (27.0-33.0); Mean Corpuscular Volume 92.2 fL (80.0-98.0); NRBC Abs Auto 0.000 X10*3/uL (0.0-0.012); NRBC Pct Auto 0.0 /100WBC (0.0-0.2); Platelet Count 432 X10*3/uL (160-400); Red Blood Count 4.09 X10*6/uL (4.60-5.80); SCAN SMEAR FLAG 1; White Blood Count 17.6 X10*3/uL (4.8-10.8)
[2025-04-03 13:13] LABS: Alanine Aminotransferase 14 U/L (0-40); Albumin Level 4.3 g/dL (3.5-5.0); Alkaline Phosphatase 74 U/L (39-117); Anion Gap 13 (12-20); Aspartate Amino Transferase 27 U/L (5-37); Blood Urea Nitrogen 17 mg/dL (9-16); Calcium 8.8 mg/dL (8.4-10.2); Carbon Dioxide 25 mmol/L (22-29); Chloride 108 mmol/L (96-108); Creatinine Clr Calc Pharmacy 58.7; Estimated Glomerular Filt Rate 53; Magnesium 2.3 mg/dL (1.6-2.6); Potassium 4.9 mmol/L (3.3-5.1); Sodium 141 mmol/L (135-145); Total Protein 7.0 g/dL (6.5-8.0)
[2025-04-03 13:22] LABS: Troponin-I High Sensitivity < 2.7 ng/L (<3.5-35.0)
[2025-04-03 13:37] LABS: Resp Syncy Virus RNA Qual PCR NEGATIVE (Negative); SARS COV2 PCR INHOUSE NEGATIVE (Negative)
[2025-04-03] MEDS: Lactated Ringers 1,000 ML 999 ML IV (13:59)
[2025-04-03] MEDS: oxyCODONE HCl Immed Release 5 MG TABLET PO (14:02)
[2025-04-03] MEDS: cefEPime HCl/D5W 2 GM/50 ML PIGGYBACK IV (14:11)
[2025-04-03 14:25] LABS: B Type Natriuretic Peptide 62 pg/mL (<100)
[2025-04-03 14:43] VITALS: BP 111/62; PULSE 60; RESP 15; TEMP 36.2; O2SAT 97
[2025-04-03 15:02] LABS: Procalcitonin 0.05 ng/mL
--- OUTSIDE RECORDS SUMMARY | 2025-04-03 15:45 | XMS_ITS | Clinical Summary ---
Author Organization LL 299 [facility] Address [address] [place] [address] Phone Care Team Providers Care Manager Universal Name Role Phone Physician, Pcp Unknown Primary [...] complete this topic Insurance [employer] Care Teams Manager Universal Relationship Specialty Start Date End Date Physician, Pcp Unknown PCP - General 10/24/24
--- OUTSIDE RECORDS SUMMARY | 2025-04-03 15:45 | XMS_ITS | Clinical Summary ---
Author Organization [facility] Address [address] [address] Phone Care Team Providers Care High Raw Sugar Boiler Name Role Phone Gill Car PA-C Primary [...] EDT [facility] [address] [address] Murray Beckham MD Other acute kidney failure [...] Office Visit [facility] [address] [address] Murray Beckham MD [address] [phone] Health Maintenance Due Date Last Done Comments [...] mg/dL Anion Gap 12 Blood 02/16/2025 us [facility] Provider LAB BLOOD ORDERABLES Cathy l Result from Last 3 Months Insurance [employer] Commercial Care Teams High Raw Sugar Boiler Relationship Specialty Start Date End Date Gill Car PA-C [address] [place] [phone] PCP - General Physician Gift Shop Assistant 12/08/24
[2025-04-03 17:08] VITALS: BP 141/63; PULSE 75; RESP 16; TEMP 35.9; O2SAT 97
[2025-04-03 17:14] VITALS: BP 141/63; PULSE 75; RESP 16; TEMP 35.9; O2SAT 97
== END 2025-04-03 17:16 | disposition home or self-care (01) ==
PROVIDERS: Physician Assistant Medical; Emergency Provider Emergency Medicine; PCP Physician Assistant
DX: C79.9 Secondary malignant neoplasm of unspecified site (principal); R22.2 Localized swelling, mass and lump, trunk; C68.9 Malignant neoplasm of urinary organ, unspecified; R07.1 Chest pain on breathing; Z03.818 Encounter for observation for suspected exposure to other biological agents ruled out; Z79.899 Other long term (current) drug therapy; Z79.69 Long term (current) use of other immunomodulators and immunosuppressants
CPT/HCPCS: 36415; 71046; 71250; 71275; 80053; 83605; 83735; 83880; 84145; 84484; 85025; 87040; 87637; 93005; 96361; 96374; 96375; 99284; 99285; J0692; J2270; J2405; J7120

== ENCOUNTER → 2025-04-03 12:33 | Outpatient (BNV) | payer OTHER, SELFPAY | PROVIDERS: Emergency Provider Emergency Medicine; PCP Physician Assistant; Visit Provider Internal Medicine Cardiovascular Disease | DX: R07.89 Other chest pain (principal) | CPT/HCPCS: 93010 ==

== ENCOUNTER → 2025-04-03 12:34 | Outpatient (BNV) | payer OTHER, SELFPAY | PROVIDERS: Emergency Provider Emergency Medicine; PCP Physician Assistant; Visit Provider Radiology Diagnostic Radiology | DX: J98.11 Atelectasis (principal); J90 Pleural effusion, not elsewhere classified | CPT/HCPCS: 71046; 71250; 71275 ==

== ENCOUNTER 2025-04-12 10:24 | Outpatient (AMB) | payer OTHER, SELFPAY ==
--- OUTSIDE RECORDS SUMMARY | 2025-04-09 07:38 | XMS_ITS | Encounter Summary ---
Author Organization [facility] Address [address] [place] [address] Care Team Providers Care Bin Tripper Operator Name Role Phone Physician, Pcp Unknown Primary Care Provider Charlotte vailable Reason for Referral * Imaging (Routine) - Pending Review Specialty Diagnoses / Procedures Referred By Contac t Referred To Contact Radiology Diagnoses Malignant neoplasm of urinary organ, unspecified (CMS/HCC V24, CMS/HCC V28) Procedures PET CT Skull to Mid Thigh Subsequent Adelina Rucker MD [address] [place] [address] HEMATOLOGY / [place] [address] Phone: tel: fax: [facility] Referral ID Status Reason Start Date Expiration Date V isits Requested Visits Authorized [id number] Pending Review 04/06/2025 04/06/2026 1 1 Reason for Visit * Imaging (Routine) - Pending Review Specialty Diagnoses / Procedures Referred By Contac t Referred To Contact Radiology Diagnoses Malignant neoplasm of urinary organ, unspecified (CMS/HCC V24, CMS/HCC V28) Procedures PET CT Skull to Mid Thigh Subsequent Adelina Rucker MD [address] [place] [address] HEMATOLOGY / [place] [address] Phone: tel: fax: [facility] Referral ID Status Reason Start Date Expiration Date V isits Requested Visits Authorized [id number] Pending Review 04/06/2025 04/06/2026 1 1 Encounter Details Date Type Department Care Team (Latest Contact Info) Description 04/09/2025 7:38 AM EDT Hospital Encounter [facility] PET Scan [address] [place] [address] Malignant neoplasm of urinary organ, unspecified (CMS/HCC V24, CMS/HCC V28) Social History Tobacco Use Types Packs/Day Years [...] Procedure Name Priority Date/Time Associated Diagnosis Comments PET CT SKULL TO MID THIGH SUBSEQUENT Routine 04/09/2025 9:52 AM EDT Malignant neoplasm of urinary organ, unspecified (CMS/HCC V24, CMS/HCC V28) documented in this encounter Results * PET CT Skull to Mid Thigh Subsequent (04/09/2025 9:52 AM EDT) Anatomical Region Laterality Modality Body Radiographic Olive ging 04/10/2025 11:5 8 AM EDT Impressions 04/10/2025 1:00 PM EDT Impression: Hypermetabolic axillary, mediastinal and abdominal adenopathy. There is hypermetabolic soft tissue infiltration involving the right parasternal chest wall, this could represent infiltrative metastatic disease but infectious/inflammatory process first should be excluded clinically. Multifocal FDG uptake in the spine and anterior left rib. Right hydronephrosis with suspected hypermetabolic right renal mass. Suspected hypermetabolic left thyroid nodule. -------- FINAL REPORT -------- Dictated By: Vinod Gold Dictated Date: 04/10/2025 11:58 ET Assigned Physician: Vinod Gold Reviewed and Electronically Signed By: Vinod Gold Signed Date: 04/10/2025 13:00 ET Workstation ID: [id number] Transcribed By: Self Edit Transcribed Date: 04/10/2025 12:53 ET Narrative 04/10/2025 1:[address] Scan CLINICAL HISTORY: URINARY TRANSITIONAL CELL CANCER . Technique: The patient received an intravenous injection of fluorine 18 fluorodeoxyglucose. After a short delay a whole body PET scan was obtained from the skull base through midthighs. Additionally a low dose, unenhanced CT scan was acquired for attenuation correction and anatomic localization. The CT portion of the examination was done strictly for attenuation correction and is not a true diagnostic CT examination. Total DLP: 948 mGy/cm Blood glucose level in mg/dl: 113 FDG dose in mCi: 11.3 Comparison: Findings: Head and Neck: Punctate focus of FDG uptake at the left base of neck. Unclear localization due to misregistration artifact, this may arising from the thyroid gland which extends posteriorly. SUVmax = 2.6. Chest: There is a moderate right pleural effusion with associated volume loss. There are no hypermetabolic pulmonary nodules. Mediastinal and hilar nodes, for reference subcarinal lymph node SUVmax = 4.08. Bilateral axillary adenopathy SUVmax = 4.41 on the right and SUVmax = 2.8 on the left. Additionally there is infiltrative soft tissue uptake in the soft tissues of the right parasternal chest wall SUVmax = 4.32. Abdomen and Pelvis: Urinary tract lesions are poorly evaluated with PET due to renal excretion however there is severe right hydronephrosis with focal FDG uptake in the right kidney SUVmax = 7.07. There are nodes in the upper abdomen, for reference the most prominent anterior to the cava and CP Max = 3.82 there are retroperitoneal nodes as well mostly subcentimeter for reference a prominent right common iliac node SUVmax = 3.64. Musculoskeletal: Focal uptake in the anterior left 7th rib SUVmax = 4.32. Significant degenerative changes of the spine. Multifocal FDG uptake in the spine, attention on follow-up. Procedure Note Vinod oGld MD - 04/10/[address] Scan CLINICAL HISTORY: URINARY TRANSITIONAL CELL CANCER . Technique: The patient received an intravenous injection of fluorine 18fluorodeoxyglucose. After a short delay a whole body PET scan wasobtained from the skull base through midthighs. Additionally a low dose,unenhanced CT scan was acquired for attenuation correction and anatomiclocalization. The CT portion of the examination was done strictly forattenuation correction and is not a true diagnostic CT examination. TotalDLP: 948 mGy/cm Blood glucose level in mg/dl: 113 FDG dose in mCi: 11.3 Comparison: Findings: Head and Neck: Punctate focus of FDG uptake at the left base of neck.Unclear localization due to misregistration artifact, this may arisingfrom the thyroid gland which extends posteriorly. SUVmax = 2.6. Chest: There is a moderate right pleural effusion with associated volumeloss. There are no hypermetabolic pulmonary nodules. Mediastinal andhilar nodes, for reference subcarinal lymph node SUVmax = 4.08. Bilateralaxillary adenopathy SUVmax = 4.41 on the right and SUVmax = 2.8 on theleft. Additionally there is infiltrative soft tissue uptake in the softtissues of the right parasternal chest wall SUVmax = 4.32. Abdomen and Pelvis: Urinary tract lesions are poorly evaluated with PETdue to renal excretion however there is severe right hydronephrosis withfocal FDG uptake in the right kidney SUVmax = 7.07. There are nodes inthe upper abdomen, for reference the most prominent anterior to the cavaand CP Max = 3.82 there are retroperitoneal nodes as well mostlysubcentimeter for reference a prominent right common iliac node SUVmax =3.64. Musculoskeletal: Focal uptake in the anterior left 7th rib SUVmax = 4.32.Significant degenerative changes of the spine. Multifocal FDG uptake inthe spine, attention on follow-up. IMPRESSION: Impression: Hypermetabolic axillary, mediastinal and abdominal adenopathy. There is hypermetabolic soft tissue infiltration involving the rightparasternal chest wall, this could represent infiltrative metastaticdisease but infectious/inflammatory process first should be excludedclinically. Multifocal FDG uptake in the spine and anterior left rib. Right hydronephrosis with suspected hypermetabolic right renal mass. Suspected hypermetabolic left thyroid nodule. -------- FINAL REPORT -------- Dictated By: Vinod Gold Dictated Date: 04/10/2025 11:58 ET Assigned Physician: Vinod Gold Reviewed and Electronically Signed By: Vinod Gold Signed Date: 04/10/2025 13:00 ET Workstation ID: [id number] Transcribed By: Self Edit Transcribed Date: 04/10/2025 12:53 ET Adelina LUIS [place] PROCEDURES Final Result documented in this encounter Visit Diagnoses Diagnosis Malignant neoplasm of urinary organ, unspecified (CMS/HCC V24, CMS/HCC V28) documented in this encounter Administered Medications Inactive Administered Medications - up to 3 most recent administrations Medication Order MAR Action Action Date Dose Rate Site F-18 FDG pet diag radio-isotope injection 11.3 millicurie 11.3 millicurie, intravenous, Once in imaging, Starting on 04/09/25 at 0815, For 1 dose Given 04/09/2025 8:12 AM EDT 11.3 millicuries Left Antecubital documented in this encounter Orders Medications Ordered That Bernardo ht Not Have Been Administered Count Last Ordered Date First Ordered Date F-18 FDG pet diag radio-isot ope injection 11.3 millicurie 1 04/09/2025 documented in this encounter Care Teams Bin Tripper Operator Relationship Specialty Start Date End Date Physician, Pcp Unknown PCP - General 10/24/24 documented as of this encounter
--- NOTE | 2025-04-12 10:32 | A.OFFPC_ITS ---
Vital Signs 04/12/25 10:39 04/12/25 10:51 Height 5 ft 9 in Weight 155 lb 6 oz BMI 22.9 BP 164/100 H 146/100 H Blood Pressure Location Lt brachial Lt brachial Position Sitting Sitting Respiration 14 Pulse 73 Pulse Source Pulse Oximeter Temp 98.5 F Temp Source Oral Pulse Oximetry (%) 95 Oxygen Delivery Method Room Air Intake Visit Reasons: 30 min , med check lab ordered Intake Note: Medication follow up, lab results. Thermite Welder Required: No Allergies No Known Allergies Allergy (Verified 04/12/25 10:33) Medication List - Last Reconciled 04/12/25 by Gill Car PA-C aspirin 81 mg PO DAILY carvedilol 25 mg PO BID 90 days dronabinol (Marinol) 2.5 mg PO BID ferrous sulfate 325 mg PO DAILY folic acid 1 mg PO DAILY hydralazine 50 mg PO Q12H 90 days hydroxyzine HCl 25 mg PO TID levetiracetam 750 mg PO BID lidocaine 5% 1 patch topical DAILY multivitamin 1 tab PO DAILY nifedipine ER 60 mg PO DAILY 90 days ondansetron 8 mg PO Q8H oxycodone 10 mg PO Q6H PRN oxycodone 5 mg PO Q6H PRN pantoprazole 40 mg PO DAILY pyridoxine (vitamin B6) 50 mg PO DAILY sertraline 25 mg PO DAILY thiamine HCl (vitamin B1) 100 mg PO DAILY tramadol 50 mg PO Q6H PRN Tobacco use date assessed: 04/12/25 Dental Screening Dental Screen Date: 04/27/24 HPI 30 min , med check lab ordered HPI Details Patient is a 60-year-old male with a recent past medical history of posterior reversible encephalopathy syndrome, renal disease, hypertension, seizures, and recent diagnosis of metastatic urothelial carcinoma presenting today for a follow up. Urology: He is following with [facility]. He is no longer having any blood in urine. Onc: He did have a recent CT PET in March and noted to have progression of disease. Currently discussing a new treatment as the 1st line current treatment failed. He is having significant discomfort with progression of disease. He is on tramadol and oxycodone which feels ineffective but is sedating. He also is not eating as much and has lost weight. CV: He is currently managed with carvedilol 25 mg twice a day, hydralazine 50 mg 2 times a day and nifedipine 60 mg daily. Doing better with this treatment. Blood pressures at home have been normal. Bp today in office is elevated but forgot to take meds today. He states that they are at his office and he is going into work right after this. He states he never normally misses his medication. He will take his medications once he leaves here as he is asymptomatic from a cardiac perspective. Nephro: seeing Dr. Beckham and states kidney function has been stable. 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 It is felt to likely be secondary to traumatic in nature. At the current time he is being maintained on an aspirin and appears to be doing stable with that. There is no interval change from his CAT scan on September 17 his MR in November. A six-month surveillance CAT scan has been ordered by [facility]. Neuro: He is following with [facility]rology and has an EEG scheduled in May. He states at that time they are going to make a decision regarding discontinuing his levetiracetam. He has been seizure-free since the hospital. Psych: Recently started on zoloft and feeling a little more motivated with this. He thinks this doses okay. Has been unable to start Marinol for appetite stimulant. States that it is not currently available. I did review his oncologist no switch made mention of starting Remeron. Denies any ?real depression ?. No SI/HI. MSK: Reports having pain everywhere, worse in the back. He states it is the worst at night. He has a very hard time getting comfortable. does not notice significant improvement with tramadol and oxycodone. He is using marijuana which is slightly effective. 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 History of drug abuse Hernia Surgical History S/P right inguinal hernia repair Family History Paternal Grandfather Glaucoma Family/Other Throat cancer Social History Household Members: Spouse and Children Housing: House Alcohol intake: former Patient Tobacco Use Status: Former Tobacco user Tobacco use type: Cigarette Cigarette Packs Per Day: 1.5 Years Smoked: 15 e-Cigarette/Vaping Use: Never Used Second Hand Smoke Exposure: No Substance Use Type: Marijuana service: No Current occupational status: employed 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) Gender identity: Male Cognitive needs: No Hearing needs: No Vision needs: Yes (glasses) Questionnaire Thrive Questionnaire Date Thrive assessed: 10/11/24 I am a: Patient What is your living situation today?: I have a steady place to live Within the past 12 months, did the food you bought not last and you didn't have the money to get more?: Never true Within the past 12 months, did you worry whether your food would run out before you got money to buy more?: Never true Do you have trouble paying for medicines?: No Do you have trouble getting transportation to medical appointments?: No Do you have trouble paying your heating and electricity bill?: No Do you have trouble taking care of your child, family member or friend?: No Do you have trouble with day-to-day activities such as bathing, preparing meals, shopping, managing finances, etc.?: No Are you currently unemployed and looking for a job?: No Are you interested in more education?: No Please select the resources that you would like help with: None Currently or been in a relationship where the following occur: No concerns reported THRIVE Score: 0 EDUARDO-7 AMB Questionnaire EDUARDO-7 Date EDUARDO - 7 assessed: 04/27/24 Source: Developed by Drs. Paul Barnes, Sherry Franco, Filiberto Lamb and colleagues, with an educational geri from [employer]. Physical exam (Primary Care) Vital Signs: Last Vital Signs Temp 98.5 F 04/12/25 10:39 Pulse 73 04/12/25 10:39 Resp 14 04/12/25 10:39 BP 146/100 H 04/12/25 10:51 Pulse Ox 95 04/12/25 10:39 Oxygen Delivery Method Room Air 04/12/25 10:39 BMI result Body Mass Index 22.9 Tobacco/Smoking Status: Tobacco use Status Tobacco use date assessed 04/12/25 04/12/25 10:38 Patient Tobacco Use Status Former Tobacco user 04/12/25 10:33 Tobacco use type Cigarette 04/12/25 10:33 e-Cigarette/Vaping Use Never Used 04/12/25 10:33 Thrive Assessment: Date of Thrive Assessment Date Thrive assessed 10/11/24 04/12/25 10:33 Currently or been in a relationship where the following occur: No concerns reported Coding Level of Care Code Est Pt Level 4 (81725) Complex EM visit Add On G2211 Diagnoses Chronic pain G89.29 Urothelial carcinoma C68.9 HTN (hypertension) I10 Assessment & Plan Assessment & Plan (1) Chronic pain: Code(s): G89.29 - Other chronic pain Category: Medical Plan: We will try prednisone. I discussed trying a taper and tapering to 10 mg and then reassessing his pain and possibly continuing at a low dose. We are going to talk next week. I am hoping that this helps with some of his pain and improving his appetite and energy. He has prescriptions for the narcotics at home if needed. (2) Urothelial carcinoma: Code(s): C68.9 - Malignant neoplasm of urinary organ, unspecified Category: Medical Plan: Unfortunately, now failing first-line treatment. He has an appointment soon with oncology to discuss alternative treatments (3) HTN (hypertension): Code(s): I10 - Essential (primary) hypertension Category: Medical Plan: He will take his medications when he gets home. He will monitor his for me. We will do a short term follow up. Medications: New prednisone take 2 tab po x 3 days, take 1 tab po x 3 days, 1/2 tab po x 3 days 11 tabs 0RF Refilled sertraline 25 mg PO DAILY 90 tabs 3RF
[2025-04-12 10:39] VITALS: BP 164/100; PULSE 73; RESP 14; TEMP 36.9; O2SAT 95; BMI 22.9
[2025-04-12 10:51] VITALS: BP 146/100
--- OUTSIDE RECORDS SUMMARY | 2025-04-12 11:44 | XMS_ITS | Clinical Summary ---
Author Organization [facility] Address [address] [address] Phone Care Team Providers Care Sash Sticker Name Role Phone Gill Car PA-C Primary [...] EDT Office Visit [facility] [address] [address] Murray Beckham MD Other acute kidney failure [...] [facility] [address] [address] Murray Beckham MD [address] [address] Health Maintenance Due Date Last Done Comments [...] mg/dL Anion Gap 12 Blood 02/16/2025 us [facility] Provider LAB BLOOD ORDERABLES Cathy l Result from Last 3 Months Insurance [employer] Commercial Care Teams Sash Sticker Relationship Specialty Start Date End Date Gill Car PA-C [address] [place] [phone] PCP - General Physician Financial Planning Adviser 12/08/24
--- OUTSIDE RECORDS SUMMARY | 2025-04-12 11:44 | XMS_ITS | Encounter Summary ---
Author Organization [facility] Address [address] [place] [address] Care Team Providers Care Helminthology Teacher Name Role Phone Physician, Pcp Unknown Primary Care Provider Charlotte vailable Encounter Details Date Type Department Care Team (Late st Contact Info) Description 10/24/2024 Lab Requisition [facility] - Main Lab [address] [facility] [place] [address] Evaristo Rouse MD [address] [facility] [address] [place] [id number] Gross hematuria Social History Tobacco Use Types [...] for urothelial carcinoma. 10/31/2024 12:42 PM EDT [facility] ([facility] Addendum electronically signed by Sean Islas MD on 10/31/2024 at 12:42 PM Final Diagnosis A. Urine, Voided, ([id number]): ATYPICAL UROTHELIAL CELLS. Note: UroVysion testing to follow. 10/31/2024 12:42 PM EDT [facility] Clinical Information Gross hematuria R31.0 Urine Cytology/FISH (now) 10/31/2024 12:42 PM EDT [facility] Gross Description A. Urine, Voided, ([id number]): Received one ThinPrep slide for cytology and one ThinPrep slide for UroVysion FISH 10/31/2024 12:42 PM EDT [facility] Disclaimer Unless otherwise specified, all tissue is 10% NB formalin fixed and paraffin embedded. Technical pathology services provided by [facility] at [address] [place] [address] [address], [place] [address] (CLIA #[id number]/Radha Seay MD, Supervisor Shuttle Preparation) 10/31/2024 12:42 PM EDT [facility] Tissue Urine specimen from urethra / Unknown 10/19/2024 10/24/2024 4:17 PM EDT us Evaristo Rouse MD LAB PATHOLOGY ORDERABLES Edite d Result - Final [facility] [address] [place] [address], documented in this encounter Visit Diagnoses Diagnosis Gross hematuria documented in this encounter Care Teams Helminthology Teacher Relationship Specialty Start Date End Date Physician, Pcp Unknown PCP - General 10/24/24 documented as of this encounter
--- OUTSIDE RECORDS SUMMARY | 2025-04-12 11:44 | XMS_ITS | Clinical Summary ---
Author Organization [facility] Address [address] [place] [address] Phone Care Team Providers Care Flask Fitter Name Role Phone Physician, Pcp Unknown Primary Care Provider Charlotte vailable Encounters Date Type Department Care Team Description 04/09/2025 7:38 AM EDT Hospital Encounter [facility] PET Scan [address] [place] [address] Malignant neoplasm of urinary organ, unspecified (CMS/HCC V24, CMS/HCC V28) from Last 3 Months Social History Tobacco [...] 19+ 3-dose series) 1985 Pneumococcal Vaccine: 50+ Years (1 of 1 - PCV) 2016 Zoster Vaccines (1 of 2) 2016 COVID-19 Vaccine (3 - 2023-2 5 season) 2024 12/27/2020, 12/06/2020 Depression Screening 08/16/2024 Cholesterol Screening (Lipid Panel) 10/25/2024 Colorectal Cancer Screening: Colonoscopy 10/25/2024 HIV Screening 10/25/2024 Hepatitis C Screening 10/25/2024 Social Influencers of Health Screening 10/25/2024 Hypertension/CHF/CAD Annual BMP Blood Test 04/09/2025 Influenza Vaccine (#1) 2025 RSV Immunization Adult Patients (1 - 1-dose 75+ series) 2041 HIB Vaccines Aged Out No longer eligi [...] to complete this topic RSV Immunization Patients Under 20 months Aged Out No longer eligible b ased on patient's age to complete this topic Varicella Vaccines Aged Out No longer eligible based on patient's age to complete this topic Procedures Procedure Name Priority Date/Time Associated Diagnosis Comments PET CT SKULL TO MID THIGH SUBSEQUENT Routine 04/09/2025 9:52 AM EDT Malignant neoplasm of urinary organ, unspecified ([facility] V24, CMS/[facility] V28) from Last 3 Months Results * PET CT Skull to Mid [...] Signed Date: 04/10/2025 13:00 ET Workstation ID: [id number] Transcribed By: Self Edit Transcribed Date: 04/10/2025 [...] spine, attention on follow-up. Procedure Note Vinod Gold MD - 04/10/[address] Scan CLINICAL [...] Signed Date: 04/10/2025 13:00 ET Workstation ID: [id number] Transcribed By: Self Edit Transcribed Date: 04/10/2025 12:53 ET Adelina LUIS [place] PROCEDURES Final Result from Last 3 Months Insurance [employer] Care Teams Flask Fitter Relationship Specialty Start Date End Date Physician, Pcp Unknown PCP - General 10/24/24
== END 2025-04-12 11:25 | disposition home or self-care (01) ==
LOC: HO.HMCFM 10:25
PROVIDERS: PCP Physician Assistant; Visit Provider Physician Assistant
DX: G89.29 Other chronic pain (principal); C68.9 Malignant neoplasm of urinary organ, unspecified; I10 Essential (primary) hypertension

== ENCOUNTER 2025-04-19 13:58 | Outpatient (REF) | payer OTHER, SELFPAY ==
--- NOTE | ~2025-04-19 | US_ITS ---
EXAMINATION: US RETROPERITONEAL COMPLETE (RENAL) CLINICAL INFORMATION: Transitional cell carcinoma, history of hydronephrosis.? Bladder mass. COMPARISON: None available. TECHNIQUE: Real-time imaging of the kidneys and bladder. FINDINGS: RIGHT KIDNEY: 9.8 x 4.4 x 3.9 cm (SAG x AP x TRV). The kidney is normal in size, contour, and echogenicity. Renal cortical thickness is normal. No calculi. There is moderate hydronephrosis. There is an echogenic mass within the renal pelvis extending into the most proximal ureter measuring 2.3 x 2.0 x 2.5 cm (US 1-1, image 42). In addition there is debris within the calyces. LEFT KIDNEY: 11.6 x 6.0 x 5.6 cm (SAG x AP x TRV). The kidney is normal in size, contour, and echogenicity. Renal cortical thickness is normal. No calculi or focal parenchymal lesions. No hydronephrosis. BLADDER: Moderately distended with normal appearance. No mass seen. Left ureteral jet was noted. The right ureteral jet was not seen. Prevoid bladder volume is 179 mL. Postvoid bladder volume is 17 mL. The prostate is not enlarged. Estimated volume is 16.2 mL. US/US retroperitoneal comp IMPRESSION: 1. Moderate right hydronephrosis and hydroureter with an echogenic mass right renal pelvis extending into the proximal right ureter as detailed. There is mild echogenic debris within the dilated calyces. No right ureteral jet was identified. 2. Normal left kidney. 3. Normal urinary bladder with normal left ureteral jet. No definite bladder mass. Electronically signed by: Huber Alas MD 04/19/2025 03:39 PM EDT
--- OUTSIDE RECORDS SUMMARY | 2025-04-19 15:13 | XMS_ITS | Encounter Summary ---
Author Organization [facility] Address [address] [place] [address] Phone Care Team Providers Care Supervisor Endless Track Vehicle Name Role Phone Gill Car Primary Care Provider +1- [phone] Self-Referred, Patient Unavailable Unavailab le Encounter Details Date Type Department Care Team (Late st Contact Info) Description 04/18/2025 Ancillary Orders DF IMG OUTSIDE IMG [address] [place] [address] Pierre Roberson MD, PhD [address] [place] [address] [email or web address] Social History Tobacco Use Types Packs/Day Years Used Date Smoking Tobacco: Never Assessed Education Answer Date Recorded Are you interested in more education? Not on emerald e 04/13/2025 Are you concerned about learning? Not on file 04/13/2025 No 04/13/2025 No 04/13/2025 Digital Access Answer Date Recorded No 04/13/2025 No 04/13/2025 Reliable internet access at home? Not on file 04/13/2025 Device with a working camera? Not on file Sex and Gender Information Value Date Recorded Sex Assigned at Male 04/13/2025 11:11 AM EDT Legal Sex Male 11:07 AM EDT Gender Identity Male 04/13/2025 11:11 AM EDT Sexual Orientation Straight 04/13/2025 11 :11 AM EDT documented as of this encounter Plan of Treatment Upcoming Encounters Date Type Department Care Team (Late st Contact Info) Description 05/02/2025 9:15 AM EDT Administrative Encounter Central Registration, [facility] [address] [facility], 2nd [place] [address] Pierre Roberson MD, PhD [address] [place] [address] Keri@ [facility] 05/02/2025 10:00 AM EDT Office Visit [facility], [facility] [address] [facility], 11th [place] [address] Pierre Roberson MD, PhD [address] [place] [phone] [email or web address]@ [facility] documented as of this encounter Results * MRI Neck Outside (No Interpretation) (12/01/2024 12:00 AM EDT) Other Narrative LORENA - 04/18/2025 12:42 PM EDT This study is for PACS storage only and not for interpretation. us Pierre Dash MD, PhD IMG OUTS [facility]EELEY IMAGING W/OUT INTERPRETATION Final Result PERCIPIO_DFCI documented in this encounter Visit Diagnoses Not on filedocumented in this encounter Care Teams Supervisor Endless Track Vehicle Relationship Specialty Start Date End Date Gill Car PA [address] [place] [address] PCP - General Physician Electrical Software Engineer 04/13/25 Self-Referred, Patient 04/13/25 documented as of this encounter Additional Source Comments The information contained in this document represents components of the legal health record. It is not the complete legal health record.[facility]
--- OUTSIDE RECORDS SUMMARY | 2025-04-19 15:13 | XMS_ITS | Encounter Summary ---
Author Organization [facility] Address [address] [place] [address] Phone Care Team Providers Care Cable Repairer Name Role Phone Gill Car Primary Care Provider +1- [phone] Self-Referred, Patient Unavailable Unavailab le Encounter Details Date Type Department Care Team (Late st Contact Info) Description 04/18/2025 Ancillary Orders DF IMG OUTSIDE IMG [address] [place] [address] Pierre Roberson MD, PhD [address] [place] [address] [email or web address] [facility] Social History Tobacco Use Types Packs/Day Years [...] 9:15 AM EDT Administrative Encounter Central Registration, [facility] [address] [facility], 2nd [place] [address] Pierre Roberson MD, PhD [address] [place] [address] Keri@ [facility] 05/02/2025 10:00 AM EDT Office Visit [facility], [facility] [address] [facility], 11th [place] [address] Pierre Roberson MD, PhD [address] [place] [id number] Keri@ [facility] documented as of this encounter Results * US Abdomen Outside (No Interpretation) (10/19/2024 12:00 AM EST) Other Narrative SHER[facility] - 04/18/2025 12:43 PM EDT This study is for PACS storage only and not for interpretation. us Pierre Dash MD, PhD IMG OUTS KEE[facility] IMAGING W/OUT INTERPRETATION Final Result PERCIPIO_BWH documented in this encounter Visit Diagnoses Not on filedocumented in this encounter Care Teams Cable Repairer Relationship Specialty Start Date End Date Gill Car PA [address] [place] [address] PCP - General Physician Veneer Glue Jointer Feedback 04/13/25 Self-Referred, Patient 04/13/25 documented as of this encounter Additional Source Comments The information contained in this document represents components of the legal health record. It is not the complete legal health record.[facility]
--- OUTSIDE RECORDS SUMMARY | 2025-04-19 15:13 | XMS_ITS | Clinical Summary ---
Author Organization [facility] Address [address] [place] [address] Phone Care Team Providers Care Collateral Clerk Name Role Phone Gill Car Primary Care Provider +1- [phone] Self-Referred, Patient Unavailable Unavailab le Encounters Date Type Department Care Team Description 04/18/2025 Ancillary Orders DF IMG OUTSIDE IMG [address] [place] [address] Pierre Roberson MD, PhD 04/18/2025 Ancillary Orders DF IMG OUTSIDE IMG [address] [place] [address] Pierre Roberson MD, PhD 04/18/2025 Ancillary Orders DF IMG OUTSIDE IMG [address] [place] [address] Pierre Roberson MD, PhD 04/18/2025 Ancillary Orders DF IMG OUTSIDE IMG [address] [place] [address] Pierre Roberson MD, PhD 04/13/2025 Orders Only [facility], [facility] [address] [place] [address], 11th [place] [address] Pierre Roberson MD, PhD Malignant neoplasm of urinary bladder, unspecified site (Primary Dx) from Last 3 Months Social History Tobacco [...] Orientation Straight 04/13/2025 11 :11 AM EDT Plan of Treatment Upcoming Encounters Date Type Department Care Team (Late st Contact Info) Description 05/02/2025 9:15 AM EDT Administrative Encounter Central Registration, [address], 2nd [place] [address] Pierre Roberson MD, PhD [address] [place], [place] [id number] Keri@ [email or web address] 05/02/2025 10:00 AM EDT Office Visit [facility], [address], [address]th [place] [address] Pierre Roberson MD, PhD [address] [place] [phone] Keri@ [email or web address] Health Maintenance Due Date Last Done Comments Adult Td,Tdap Booster 1966 LIPID PANEL 1966 DEPRESSION SCREENING 1978 SMOKING Hx and SMOKELESS TOBACCO SCREENING 1979 HEPATITIS C SCREENING 1984 HIV ONE-TIME SCREENING (18-6 5 YEARS) 1984 COLOGUARD 2011 COLONOSCOPY 2011 COLORECTAL CANCER SCREENING 2011 FIT TEST 2011 FOBT 2011 SIGMOIDOSCOPY 2011 VIRTUAL COLONOSCOPY 2011 PNEUMOCOCCAL VACCINES (50+ years) (1 of 1 - PCV) 2016 ZOSTER VACCINES (1 of 2) 2016 INFLUENZA VACCINE (#1) 2025 COVID-19 VACCINE (3 - 2024-2 6 season) 2025 12/27/2020, 12/06/2020 HEPATITIS A VACCINES Aged Out No long er eligible based on patient's age to complete this topic HIB VACCINES Aged Out No longer eligi ble based on patient's age to complete this topic MENINGOCOCCAL VACCINES (ACWY) Aged Out No longer eligible based on patient's age to complete this topic MENINGOCOCCAL VACCINES (B) Aged Out N o longer eligible based on patient's age to complete this topic Medical Devices Not on file Procedures Procedure Name Priority Date/Time Associated Diagnosis Comments OUTSIDE IMAGING 04/03/2025 OUTSIDE IMAGING 04/03/2025 OUTSIDE IMAGING 03/29/2025 OUTSIDE LAB 03/19/2025 OUTSIDE IMAGING 03/13/2025 OUTSIDE LAB 03/12/2025 OUTSIDE LAB 02/26/2025 from Last 3 Months Results * Outside Imaging Report Only (04/03/2025) us Scanning Interface Provider IMG XR CHEST Cathy l Result * Outside Imaging Report Only (04/03/2025) us Scanning Interface Provider IMG XR CHEST Cathy l Result * Outside Imaging Report Only (03/29/2025) us Scanning Interface Provider IMG XR CHEST Cathy l Result * Outside Lab (03/19/2025) Only the most recent of3 resultswithin the time period is included. us Scanning Interface Provider LAB BLOOD ORDERABLES Final Result * Outside Imaging Report Only (03/13/2025) us Scanning Interface Provider IMG XR CHEST Cathy l Result from Last 3 Months Insurance [employer] POS EPO [employer] POS EPO [employer] POS EPO 9 [employer] [facility] EPO 9 [employer] [facility] Care Teams Collateral Clerk Relationship Specialty Start Date End Date Gill Car PA [address] [place] [address] PCP - General Physician Egg Setter 04/13/25 Self-Referred, Patient 04/13/25 Additional Source Comments The information contained in this document represents components of the legal health record. It is not the complete legal health record.[facility]
--- OUTSIDE RECORDS SUMMARY | 2025-04-19 15:13 | XMS_ITS | Encounter Summary ---
Author Organization [facility] Address [address] [place] [address] Phone Care Team Providers Care Forester Aide Name Role Phone Gill Car Primary Care Provider +1- [phone] Self-Referred, Patient Unavailable Unavailab le Encounter Details Date Type Department Care Team (Late st Contact Info) Description 04/18/2025 Ancillary Orders DF IMG OUTSIDE IMG [address] [place] [address] Pierre Roberson MD, PhD [address] [place] [address] [email or web address]. [facility] Social History Tobacco Use Types Packs/Day Years [...] 9:15 AM EDT Administrative Encounter Central Registration, [facility] [address] [facility], 2nd [place] [address] Pierre Roberson MD, PhD [address] [place] [address] Keri@ [facility] 05/02/2025 10:00 AM EDT Office Visit [facility], [address], 11th [place] [address] Pierre Roberson MD, PhD [address] [place] [id number] Keri@ [facility] documented as of this encounter Results * US Scrotum Outside (No Interpretation) (10/05/2024 12:00 AM EST) Other Narrative LORENA - 04/18/2025 12:43 PM EDT This study is for PACS storage only and not for interpretation. us Pierre Dash MD, PhD IMG OUTS [facility]EE[facility] IMAGING W/OUT INTERPRETATION Final Result PERCIPIO_DFCI documented in this encounter Visit Diagnoses Not on filedocumented in this encounter Care Teams Forester Aide Relationship Specialty Start Date End Date Gill Car PA [address] [place] [address] PCP - General Physician Salesperson Meats 04/13/25 Self-Referred, Patient 04/13/25 documented as of this encounter Additional Source Comments The information contained in this document represents components of the legal health record. It is not the complete legal health record.[facility]
--- OUTSIDE RECORDS SUMMARY | 2025-04-19 15:13 | XMS_ITS | Clinical Summary ---
Author Organization [facility] Address [address] [address] Phone Care Team Providers Care Lithographed Plate Inspector Name Role Phone Gill Car PA-C Primary [...] EDT Office Visit [facility] [address] [address] Murray Beckham MD Other acute kidney failure [...] Office Visit [facility] [address] [address] Murray Beckham MD [address] [address] Health Maintenance Due Date Last Done Comments [...] mg/dL Anion Gap 12 Blood 02/16/2025 us [facility] Provider LAB BLOOD ORDERABLES Cathy l Result from Last 3 Months Insurance [employer] Commercial Care Teams Lithographed Plate Inspector Relationship Specialty Start Date End Date Gill Car PA-C [address] [place] [address] PCP - General Physician Insulation Machine Operator 12/08/24
--- OUTSIDE RECORDS SUMMARY | 2025-04-19 15:13 | XMS_ITS | Encounter Summary ---
Author Organization [facility] Address [address] [place] [address] Phone Care Team Providers Care Product Manufacturing Professional Name Role Phone Gill Car Primary Care Provider +1- [phone] Self-Referred, Patient Unavailable Unavailab le Encounter Details Date Type Department Care Team (Late st Contact Info) Description 04/18/2025 Ancillary Orders DF IMG OUTSIDE IMG [address] [place] [address] Pierre Roberson MD, PhD [address] [place] [address] [email or web address]. [facility] Social History Tobacco Use Types Packs/Day [...] 9:15 AM EDT Administrative Encounter Central Registration, [facility] [address] [facility], 2nd [place] [address] Pierre Roberson MD, PhD [address] [place] [address] Keri@ [facility] 05/02/2025 10:00 AM EDT [facility] Visit [facility], [facility] [address] [facility], 11th [place] [address] Pierre Roberson MD, PhD [address] [place] [phone] Keri@ [facility] documented as of this encounter Results * MRI Brain Outside (No Interpretation) (11/09/2024 12:00 AM EDT) Other Narrative [facility] - 04/18/2025 12:42 PM EDT This study is for PACS storage only and not for interpretation. us Pierre Dash MD, PhD IMG OUTS [facility]EE[facility] IMAGING W/OUT INTERPRETATION Final Result PERCIPIO_[facility] documented in this encounter Visit Diagnoses Not on filedocumented in this encounter Care Teams Product Manufacturing Professional Relationship Specialty Start Date End Date Gill Car PA [address] [place] [address] PCP - General Physician Electric Mule Driver 04/13/25 Self-Referred, Patient 04/13/25 documented as of this encounter Additional Source Comments The information contained in this document represents components of the legal health record. It is not the complete legal health record.[facility]
--- OUTSIDE RECORDS SUMMARY | 2025-04-19 15:14 | XMS_ITS | Clinical Summary ---
Author Organization [facility] Address [address] [place] [address] Phone Care Team Providers Care Manager Quality Name Role Phone Physician, Pcp Unknown Primary Care Provider Charlotte vailable Encounters Date Type Department Care Team Description 04/09/2025 7:38 AM EDT - 04/09/2025 11:59 PM EDT Hospital Encounter [facility] PET Scan [address] [place] [address] Malignant neoplasm of urinary organ, unspecified (CMS/HCC V24, CMS/HCC V28) Discharge Disposition: Home or Self Care from Last 3 Months Social History Tobacco [...] 2016 Zoster Vaccines (1 of 2) 2016 Depression Screening 08/16/2024 Cholesterol Screening (Lipid Panel) 10/25/2024 Colorectal Cancer Screening: Colonoscopy 10/25/2024 HIV Screening 10/25/2024 Hepatitis C Screening 10/25/2024 Social Influencers of Health Screening 10/25/2024 Hypertension/CHF/CAD Annual BMP Blood Test 04/09/2025 COVID-19 Vaccine (3 - 2024-2 6 season) 2025 12/27/2020, 12/06/2020 Influenza Vaccine (#1) 2025 RSV Immunization Adult [...] EDT Malignant neoplasm of urinary organ, unspecified ([facility] V24, [facility] V28) from Last 3 Months Results * [...] Signed Date: 04/10/2025 13:00 ET Workstation ID: [id number] Transcribed By: Self Edit Transcribed Date: 04/10/2025 [...] Signed Date: 04/10/2025 13:00 ET Workstation ID: [id number] Transcribed By: Self Edit Transcribed Date: 04/10/2025 12:53 ET Adelina Rucker MD IMG NM PROCEDURES Final Result from Last 3 Months Insurance [employer] Care Teams Manager Quality Relationship Specialty Start Date End Date Physician, Pcp Unknown PCP - General 10/24/24
--- OUTSIDE RECORDS SUMMARY | 2025-04-19 15:14 | XMS_ITS | Encounter Summary ---
Author Organization [facility] Address [address] [place] [address] Care Team Providers Care Traveling Plant Operator Name Role Phone Physician, Pcp Unknown Primary Care Provider Charlotte vailable Encounter Details Date Type Department Care Team (Late st Contact Info) Description 10/24/2024 Lab Requisition [facility] [address] [facility] [place] [address] Evaristo Rouse MD [address] [facility] [address] [place] [phone] Gross hematuria Social History Tobacco Use Types [...] for urothelial carcinoma. 10/31/2024 12:42 PM EDT [facility] Addendum electronically signed by Sean Islas MD on 10/31/2024 at 12:42 PM Final Diagnosis A. Urine, Voided, ([id number]): ATYPICAL UROTHELIAL CELLS. Note: UroVysion testing to follow. 10/31/2024 12:42 PM EDT [facility] Clinical Information Gross hematuria R31.0 Urine Cytology/FISH (now) 10/31/2024 12:42 PM EDT [facility] Gross Description A. Urine, Voided, ([id number]): Received one ThinPrep slide for cytology and one ThinPrep slide for UroVysion FISH 10/31/2024 12:42 PM EDT [facility] Disclaimer Unless otherwise specified, all tissue is 10% NB formalin fixed and paraffin embedded. Technical pathology services provided by [facility] at [address] [place] [address] [address], [place] [address] (CLIA #[id number]/Radha Seay MD, Hand Tool Lapper) 10/31/2024 12:42 PM EDT [facility] Tissue Urine specimen from urethra / Unknown 10/19/2024 10/24/2024 4:17 PM EDT us Evaristo Rouse MD LAB PATHOLOGY ORDERABLES Edite d Result - Final [facility] [address] [place] [address], documented in this encounter Visit Diagnoses Diagnosis Gross hematuria documented in this encounter Care Teams Traveling Plant Operator Relationship Specialty Start Date End Date Physician, Pcp Unknown PCP - General 10/24/24 documented as of this encounter
== END 2025-04-19 13:59 | disposition home or self-care (01) ==
LOC: HO.US 13:58
PROVIDERS: PCP Physician Assistant; Visit Provider Internal Medicine
DX: C68.9 Malignant neoplasm of urinary organ, unspecified (principal)
CPT/HCPCS: 76770

== ENCOUNTER → 2025-04-19 14:00 | Outpatient (BNV) | payer OTHER, SELFPAY | PROVIDERS: PCP Physician Assistant; Visit Provider Radiology Diagnostic Radiology | DX: N13.39 Other hydronephrosis (principal) | CPT/HCPCS: 76770 ==

== ENCOUNTER 2025-04-23 15:34 | Outpatient (REF) | payer OTHER, SELFPAY ==
--- OUTSIDE RECORDS SUMMARY | 2025-04-20 12:25 | XMS_ITS | Encounter Summary ---
Author Organization [facility] Address [address] [place] [address] Phone Care Team Providers Care Airplane Engineer Name Role Phone Gill Car Primary Care Provider +1- [phone] Self-Referred, Patient Unavailable Unavailab le Encounter Details Date Type Department Care Team (Latest Contact Info) Description 04/20/2025 12:25 PM EDT - 04/20/2025 11:59 PM EDT Hospital Encounter Central Pathology, [facility] [address] [address] [address] Discharge Disposition: Home or Self Care Social History Tobacco Use Types Packs/Day Years [...] 9:15 AM EDT Administrative Encounter Central Registration, [facility] [address] [facility], 2nd [place] [address] Pierre Roberson MD, PhD [address] [place] [address] Keri@ [facility] 05/02/2025 10:00 AM EDT Office Visit [facility], [facility] [address] [facility], 11th [place] [address] Pierre Roberson MD, PhD [address] [place] [address] Keri@ [email or web address] documented as of this encounter Visit Diagnoses Diagnosis Malignant neoplasm of urinary bladder, unspecified site documented in this encounter Care Teams Airplane Engineer Relationship Specialty Start Date End Date Gill Car PA [address] [place] [address] PCP - General Physician Car Cleaning Supervisor 04/13/25 Self-Referred, Patient 04/13/25 documented as of this encounter Additional Source Comments The information contained in this document represents components of the legal health record. It is not the complete legal health record.[facility]
[2025-04-23 18:06] LABS: MANUAL DIFF FLAG NO
[2025-04-23 18:08] LABS: Hematocrit 33.6 % (42.0-52.0); Hemoglobin 11.3 g/dl (14.0-18.0); Imm Gran Abs Auto 0.02 X10*3/uL (0.00-0.03); Imm Gran Pct Auto 0.3 % (0.0-0.4); Lymphocytes Absolute Auto 1.2 X10*3/uL (1.2-4.9); Mean Corpuscular HGB Conc 33.6 g/dl (31.0-36.0); Mean Corpuscular Hemoglobin 30.3 pg (27.0-33.0); Mean Corpuscular Volume 90.1 fL (80.0-98.0); NRBC Abs Auto 0.000 X10*3/uL (0.0-0.012); NRBC Pct Auto 0.0 /100WBC (0.0-0.2); Platelet Count 302 X10*3/uL (160-400); Red Blood Count 3.73 X10*6/uL (4.60-5.80); White Blood Count 6.0 X10*3/uL (4.8-10.8)
[2025-04-23 18:26] LABS: Alanine Aminotransferase 40 U/L (0-40); Albumin Level 4.5 g/dL (3.5-5.0); Alkaline Phosphatase 102 U/L (39-117); Anion Gap 14 (12-20); Aspartate Amino Transferase 32 U/L (5-37); Blood Urea Nitrogen 23 mg/dL (9-16); Calcium 8.7 mg/dL (8.4-10.2); Carbon Dioxide 24 mmol/L (22-29); Chloride 105 mmol/L (96-108); Estimated Glomerular Filt Rate 51; Magnesium 2.2 mg/dL (1.6-2.6); Potassium 4.8 mmol/L (3.3-5.1); Sodium 138 mmol/L (135-145); Total Protein 7.1 g/dL (6.5-8.0)
--- OUTSIDE RECORDS SUMMARY | 2025-04-23 18:29 | XMS_ITS | Encounter Summary ---
Author Organization [facility] Address [address] [place] [address] Phone Care Team Providers Care Bee Breeder Name Role Phone Gill Car Primary Care Provider +1- [phone] Self-Referred, Patient Unavailable Unavailab le Encounter Details Date Type Department Care Team (Late st Contact Info) Description 04/18/2025 Ancillary Orders DF IMG OUTSIDE IMG [address] [place] [address] Pierre Roberson MD, PhD [address] [place] [address] [email or web address] Social History Tobacco Use Types Packs/Day Years [...] 9:15 AM EDT Administrative Encounter Central Registration, [facility] [address] [facility], 2nd [place] [address] Pierre Roberson MD, PhD [address] [place] [address] Keri@ [facility] 05/02/2025 10:00 AM EDT Office Visit [facility], [address], [address] [place] [address] Pierre Roberson MD, PhD [address] [place] [phone] Keri@ [facility] documented as of this encounter Results * US Scrotum Outside (No Interpretation) (10/05/2024 12:00 AM EST) Other Narrative [facility]ORENA - 04/18/2025 12:43 PM EDT This study is for PACS storage only and not for interpretation. us Pierre Dash MD, PhD IMG OUTS KEELEY IMAGING W/OUT INTERPRETATION Final Result PERCIPIO_DFCI documented in this encounter Visit Diagnoses Not on filedocumented in this encounter Care Teams Bee Breeder Relationship Specialty Start Date End Date Gill Car PA [address] [place] [address] PCP - General Physician Automobile Insurance Claim Examiner 04/13/25 Self-Referred, Patient 04/13/25 documented as of this encounter Additional Source Comments The information contained in this document represents components of the legal health record. It is not the complete legal health record.[facility]
--- OUTSIDE RECORDS SUMMARY | 2025-04-23 18:29 | XMS_ITS | Encounter Summary ---
Author Organization [facility] Address [address] [place] [address] Phone Care Team Providers Care Weaving Inspector Name Role Phone Gill Car Primary Care Provider +1- [phone] Self-Referred, Patient Unavailable Unavailab le Encounter Details Date Type Department Care Team (Late st Contact Info) Description 04/18/2025 Ancillary Orders DF IMG OUTSIDE IMG [address] [place] [address] Pierre Roberson MD, PhD [address] [place] [address] [email or web address] Social History Tobacco Use Types Packs/Day [...] 9:15 AM EDT Administrative Encounter Central Registration, [facility] [address] [facility], 2nd [place] [address] Pierre Roberson MD, PhD [address] [place] [address] [email or web address]@ [facility] 05/02/2025 10:00 AM EDT Office Visit [facility], [facility] [address] [facility], [address]th [place] [address] Pierre Roberson MD, PhD [address] [place] [id number] [email or web address]@ [facility] documented as of this encounter Results * US Abdomen Outside (No Interpretation) (10/19/2024 12:00 AM EST) Other Narrative [facility] - 04/18/2025 12:43 PM EDT This study is for PACS storage only and not for interpretation. us Pierre Dash MD, PhD IMG OUTS [facility] IMAGING W/OUT INTERPRETATION Final Result [facility] documented in this encounter Visit Diagnoses Not on filedocumented in this encounter Care Teams Weaving Inspector Relationship Specialty Start Date End Date Gill Car PA [address] [place] [address] PCP - General Physician Policy Specialist 04/13/25 Self-Referred, Patient 04/13/25 documented as of this encounter Additional Source Comments The information contained in this document represents components of the legal health record. It is not the complete legal health record.[facility]
--- OUTSIDE RECORDS SUMMARY | 2025-04-23 18:29 | XMS_ITS | Clinical Summary ---
Author Organization [facility] Address [address] [place] [address] Phone Care Team Providers Care Electric Meter Reader Name Role Phone Gill Car Primary Care Provider +1- [phone] Self-Referred, Patient Unavailable Unavailab le Encounters Date Type Department Care Team Description 04/20/2025 12:25 PM EDT - 04/20/2025 11:59 PM EDT Hospital Encounter Central Pathology, [address] [address] Discharge Disposition: Home or Self Care 04/18/2025 Ancillary Orders DF IMG OUTSIDE IMG [address] [place] [address] Pierre Roberson MD, PhD 04/18/2025 Ancillary Orders DF IMG OUTSIDE IMG [address] [place] [address] Pierre Roberson MD, PhD 04/18/2025 Ancillary Orders DF IMG OUTSIDE IMG [address] [place] [address] Pierre Roberson MD, PhD 04/18/2025 Ancillary Orders DF IMG OUTSIDE IMG [address] [place] [address] Pierre Roberson MD, PhD 04/13/2025 Orders Only [facility], [facility] [address] [place] [address] Pierre Roberson MD, PhD Malignant neoplasm of [...] 9:15 AM EDT Administrative Encounter Central Registration, [address]nd [place] [address] Pierre Roberson MD, PhD [address] [place] [address] [email or web address] 05/02/2025 10:00 AM EDT Office Visit [facility], [address] [place] [address] Pierre Roberson MD, PhD [address] [place] [address] [email or web address]@ [email or web address] Health Maintenance Due Date Last Done Comments Adult Td,Tdap Booster 1966 LIPID PANEL 1966 DEPRESSION SCREENING 1978 SMOKING Hx and SMOKELESS TOBACCO SCREENING 1979 HEPATITIS C SCREENING 1984 HIV ONE-TIME SCREENING (18-6 5 YEARS) 1984 PNEUMOCOCCAL VACCINES (50+ years) (1 of 2 - PCV) 1985 ZOSTER VACCINES (1 of 2) 1985 COLOGUARD 2011 COLONOSCOPY 2011 COLORECTAL CANCER SCREENING 2011 FIT TEST 2011 FOBT 2011 SIGMOIDOSCOPY 2011 VIRTUAL COLONOSCOPY 2011 INFLUENZA VACCINE (#1) 2025 COVID-19 VACCINE (2024-2 6 season) 2025 12/27/2020, 12/06/2020 HEPATITIS A [...] l Result from Last 3 Months Insurance [facility] E[facility] EPO [facility] POS [facility]PO [facility] POS EPO [facility] POS EPO [facility] POS EPO Care Teams Electric Meter Reader Relationship Specialty Start Date End Date Gill Car PA [address] [phone] PCP - General Physician Mechanic Chief 04/13/25 Self-Referred, Patient 04/13/25 Additional Source Comments The information contained in this document represents components of the legal health record. It is not the complete legal health record.[facility]
--- OUTSIDE RECORDS SUMMARY | 2025-04-23 18:30 | XMS_ITS | Clinical Summary ---
Author Organization [facility] Address [address] [address] Phone Care Team Providers Care Granite Block Paver Name Role Phone [place] Car PA-C Primary [...] EDT Office Visit [facility] [address] [address] Murray Beckham MD Other acute kidney failure [...] [facility] [address] [address] Murray Beckham MD [address] [address] Health Maintenance Due Date Last Done Comments [...] mg/dL Anion Gap 12 Blood 02/16/2025 us [facility] Provider LAB BLOOD ORDERABLES Cathy l Result from Last 3 Months Insurance [employer] Commercial Care Teams Granite Block Paver Relationship Specialty Start Date End Date Gill Car PA-C [address] [place] [phone] PCP - General Physician Family Services Manager 12/08/24
--- OUTSIDE RECORDS SUMMARY | 2025-04-23 18:30 | XMS_ITS | Encounter Summary ---
Author Organization [facility] Address [address] [place] [address] Phone Care Team Providers Care Timber Cruiser Name Role Phone Gill Car Primary Care Provider +1- [phone] Self-Referred, Patient Unavailable Unavailab le Encounter Details Date Type Department Care Team (Late st Contact Info) Description 04/18/2025 Ancillary Orders DF IMG OUTSIDE IMG [address] [place] [address] Pierre Roberson MD, PhD [address] [place] [address] [email or web address] Social History Tobacco Use Types Packs/Day [...] 9:15 AM EDT Administrative Encounter Central Registration, [facility] [address] [facility], 2nd [place] [address] Pierre Roberson MD, PhD [address] [place] [address] Keri@ [facility] 05/02/2025 10:00 AM EDT Office Visit [facility], [facility] [address] [facility], 11th [place] [address] Pierre Roberson MD, PhD [address] [place] [address] Keri@ [facility] documented as of this encounter Results * MRI Brain Outside (No Interpretation) (11/09/2024 12:00 AM EDT) Other Narrative [facility] - 04/18/2025 12:42 PM EDT This study is for PACS storage only and not for interpretation. us Pierre Dash MD, PhD IMG OUTS [facility] IMAGING W/OUT INTERPRETATION Final Result [facility] documented in this encounter Visit Diagnoses Not on filedocumented in this encounter Care Teams Timber Cruiser Relationship Specialty Start Date End Date Gill Car PA [address] [place] [phone] PCP - General Physician Residential Life Director 04/13/25 Self-Referred, Patient 04/13/25 documented as of this encounter Additional Source Comments The information contained in this document represents components of the legal health record. It is not the complete legal health record.[facility]
--- OUTSIDE RECORDS SUMMARY | 2025-04-23 18:30 | XMS_ITS | Encounter Summary ---
Author Organization [facility] Address [address] [place] [address] Phone Care Team Providers Care Content Developer Name Role Phone Gill Car Primary Care Provider +1- [phone] Self-Referred, Patient Unavailable Unavailab le Encounter Details Date Type Department Care Team (Late st Contact Info) Description 04/18/2025 Ancillary Orders DF IMG OUTSIDE IMG [address] [place] [address] Pierre Roberson MD, PhD [address] [place] [address] [email or web address] Social History Tobacco Use Types Packs/Day [...] 9:15 AM EDT Administrative Encounter Central Registration, [facility] [address] [facility], 2nd [place] [address] Pierre Roberson MD, PhD [address] [place] [address] Keri@ [facility] 05/02/2025 10:00 AM EDT Office Visit [facility], [facility] [address] [facility], 11th [place] [address] Pierre Roberson MD, PhD [address] [place] [phone] Keri@ [facility] documented as of this encounter Results * MRI Neck Outside (No Interpretation) (12/01/2024 12:00 AM EDT) Other Narrative [facility] - 04/18/2025 12:42 PM EDT This study is for PACS storage only and not for interpretation. us Pierre Dash MD, PhD IMG OUTS [facility] IMAGING W/OUT INTERPRETATION Final Result [facility] documented in this encounter Visit Diagnoses Not on filedocumented in this encounter Care Teams Content Developer Relationship Specialty Start Date End Date Gill Car PA [address] [place] [address] PCP - General Physician Solid State Tester 04/13/25 Self-Referred, Patient 04/13/25 documented as of this encounter Additional Source Comments The information contained in this document represents components of the legal health record. It is not the complete legal health record.[facility]
--- OUTSIDE RECORDS SUMMARY | 2025-04-23 18:30 | XMS_ITS | Clinical Summary ---
Author Organization [facility] [address] [facility] Address [address] [place] [address] Phone Care Team Providers Care Coffee Shop Manager Name Role Phone Physician, Pcp Unknown Primary Care Provider [place] vailable Encounters Date Type Department Care Team Description 04/09/2025 7:38 AM EDT - 04/09/2025 11:59 PM EDT Hospital Encounter [facility] PET Scan [address] [place] [address] Malignant neoplasm of urinary organ, [...] EDT Malignant neoplasm of urinary organ, unspecified ([facility] V24, [facility] V28) from Last 3 Months Results [...] Signed Date: 04/10/2025 13:00 ET Workstation ID: [id number] Transcribed By: Self Edit Transcribed Date: 04/10/2025 [...] Signed Date: 04/10/2025 13:00 ET Workstation ID: [id number] Transcribed By: Self Edit Transcribed Date: 04/10/2025 12:53 ET Adelina Rucker MD IMG NM PROCEDURES Final Result from Last 3 Months Insurance [employer] Care Teams Coffee Shop Manager Relationship Specialty Start Date End Date Physician, Pcp Unknown PCP - General 10/24/24
--- OUTSIDE RECORDS SUMMARY | 2025-04-23 18:30 | XMS_ITS | Encounter Summary ---
Author Organization [facility] Address [address] [place] [address] Care Team Providers Care Oral And Maxillofacial Pathologist Name Role Phone Physician, Pcp Unknown Primary Care Provider [place] vailable Encounter Details Date Type Department Care Team (Late st Contact Info) Description 10/24/2024 Lab Requisition [facility] - Main Lab [address] [facility] [place] [address] Evaristo Rouse MD [address] [address] [place] [phone] Gross hematuria Social History Tobacco Use Types [...] for urothelial carcinoma. 10/31/2024 12:42 PM EDT [facility] ([facility]) [facility] Addendum electronically signed by Sean Islas MD on 10/31/2024 at 12:42 PM Final Diagnosis A. Urine, Voided, ([id number]): ATYPICAL UROTHELIAL CELLS. Note: UroVysion testing to follow. 10/31/2024 12:[address] [facility] Clinical Information Gross hematuria R31.0 Urine Cytology/FISH (now) 10/31/2024 12:[address] [facility] Gross Description A. Urine, Voided, ([id number]): Received one ThinPrep slide for cytology and one ThinPrep slide for UroVysion FISH 10/31/2024 12:[address] [facility] Disclaimer Unless otherwise specified, all tissue is 10% NB formalin fixed and paraffin embedded. Technical pathology services provided by [facility] at [address] [place] [address] [address], [place] [address] (CLIA #[id number]/Radha Seay MD, Computer Mechanic) 10/31/2024 12:[address] [facility] Tissue Urine specimen from urethra / Unknown 10/19/2024 10/24/2024 4:17 PM EDT us Evaristo Rouse MD LAB PATHOLOGY ORDERABLES Edite d Result - Final [facility] [address] [place] [address], documented in this encounter Visit Diagnoses Diagnosis Gross hematuria documented in this encounter Care Teams Oral And Maxillofacial Pathologist Relationship Specialty Start Date End Date Physician, Pcp Unknown PCP - General 10/24/24 documented as of this encounter
[2025-04-23 18:41] LABS: Thyroid Stimulating Hormone 1.36 uIU/mL (0.32-4.0)
== END 2025-04-23 15:35 | disposition home or self-care (01) ==
LOC: HO.WFDLDS 15:34
PROVIDERS: Visit Provider Internal Medicine
DX: C68.9 Malignant neoplasm of urinary organ, unspecified (principal); Z13.29 Encounter for screening for other suspected endocrine disorder
CPT/HCPCS: 36415; 80053; 83735; 84443; 85025

== ENCOUNTER 2025-05-07 15:10 | Outpatient (REF) | payer OTHER, SELFPAY ==
--- OUTSIDE RECORDS SUMMARY | 2025-05-07 17:38 | XMS_ITS | Encounter Summary ---
Demographics Address [address] [place] [address] Home Phone Mobile Phone Email Address Preferred Language Mohawk
--- OUTSIDE RECORDS SUMMARY | 2025-05-07 17:38 | XMS_ITS | Encounter Summary ---
Author
[2025-05-07 18:02] LABS: MANUAL DIFF FLAG NO
[2025-05-07 18:19] LABS: Hematocrit 33.1 % (42.0-52.0); Hemoglobin 11.0 g/dl (14.0-18.0); Imm Gran Abs Auto 0.09 X10*3/uL (0.00-0.03); Imm Gran Pct Auto 1.2 % (0.0-0.4); Lymphocytes Absolute Auto 1.2 X10*3/uL (1.2-4.9); Mean Corpuscular HGB Conc 33.2 g/dl (31.0-36.0); Mean Corpuscular Hemoglobin 30.7 pg (27.0-33.0); Mean Corpuscular Volume 92.5 fL (80.0-98.0); NRBC Abs Auto 0.000 X10*3/uL (0.0-0.012); NRBC Pct Auto 0.0 /100WBC (0.0-0.2); Platelet Count 399 X10*3/uL (160-400); Red Blood Count 3.58 X10*6/uL (4.60-5.80); White Blood Count 7.8 X10*3/uL (4.8-10.8)
[2025-05-07 18:26] LABS: Alanine Aminotransferase 28 U/L (0-40); Albumin Level 4.3 g/dL (3.5-5.0); Alkaline Phosphatase 103 U/L (39-117); Anion Gap 12 (12-20); Aspartate Amino Transferase 27 U/L (5-37); Blood Urea Nitrogen 25 mg/dL (9-16); Calcium 8.6 mg/dL (8.4-10.2); Carbon Dioxide 26 mmol/L (22-29); Chloride 105 mmol/L (96-108); Estimated Glomerular Filt Rate 46; Potassium 4.8 mmol/L (3.3-5.1); Sodium 138 mmol/L (135-145); Total Protein 6.6 g/dL (6.5-8.0)
== END 2025-05-07 15:11 | disposition home or self-care (01) ==
LOC: HO.WFDLDS 15:10
PROVIDERS: Referring Provider Surgery Vascular Surgery; Visit Provider Internal Medicine
DX: C77.9 Secondary and unspecified malignant neoplasm of lymph node, unspecified (principal); C68.9 Malignant neoplasm of urinary organ, unspecified
CPT/HCPCS: 36415; 80053; 82533; 85025

== ENCOUNTER 2025-05-14 15:15 | Outpatient (REF) | payer OTHER, SELFPAY ==
--- OUTSIDE RECORDS SUMMARY | 2025-05-14 17:20 | XMS_ITS | Clinical Summary ---
Author Organization [facility] Address [address] [address] Phone Care Team Providers Care Client Administrator Name Role Phone Gill Car PA-C Primary [...] EDT Office Visit [facility] [address] [address] Murray Beckham MD Other acute kidney failure [...] Office Visit [facility] [address] [address] Murray Beckham MD [address] [address] Health Maintenance Due Date Last Done Comments [...] Anion Gap 12 Blood 02/16/2025 us [facility] Provider LAB BLOOD ORDERABLES Cathy l Result from Last 3 Months Insurance [employer] Commercial Care Teams Client Administrator Relationship Specialty Start Date End Date Gill Car PA-C [address] [place] [phone] PCP - General Physician Flame Cutting Machine Operator Helper 12/08/24
--- OUTSIDE RECORDS SUMMARY | 2025-05-14 17:20 | XMS_ITS | Encounter Summary ---
Author Organization [facility] Address [address] [place] [address] Care Team Providers Care Gas Turbine Powerplant Mechanic Name Role Phone Physician, Pcp Unknown Primary Care Provider [place] vailable Encounter Details Date Type Department Care Team (Late st Contact Info) Description 10/24/[address] [facility] - Main Lab [address] [facility] [place] [address] Evaristo Rouse MD [address] [facility] [address] [place] [phone] Gross hematuria Social History Tobacco Use Types [...] for urothelial carcinoma. 10/31/2024 12:42 PM EDT [facility] ([facility]) [facility] Addendum electronically signed by Sean Islas MD on 10/31/2024 at 12:42 PM Final Diagnosis A. Urine, Voided, ([id number]): ATYPICAL UROTHELIAL CELLS. Note: UroVysion testing to follow. 10/31/2024 12:42 PM EDT [facility] Clinical Information Gross hematuria R31.0 Urine Cytology/FISH (now) 10/31/2024 12:42 PM EDT [facility] Gross Description A. Urine, Voided, ([id number]): Received one ThinPrep slide for cytology and one ThinPrep slide for UroVysion FISH 10/31/2024 12:42 PM EDT [facility] Disclaimer Unless otherwise specified, all tissue is 10% NB formalin fixed and paraffin embedded. Technical pathology services provided by [facility] at [address] [place] [address] [address], [place] [address] (CLIA #[id number]/Radha Seay MD, Inside Sales Account Executive) 10/31/2024 12:42 PM EDT [facility] Tissue Urine specimen from urethra / Unknown 10/19/2024 10/24/2024 4:17 PM EDT us Evaristo Rouse MD LAB PATHOLOGY ORDERABLES Edite d Result - Final [facility] [address] [place] [address], documented in this encounter Visit Diagnoses Diagnosis Gross hematuria documented in this encounter Care Teams Gas Turbine Powerplant Mechanic Relationship Specialty Start Date End Date Physician, Pcp Unknown PCP - General 10/24/24 documented as of this encounter
--- OUTSIDE RECORDS SUMMARY | 2025-05-14 17:20 | XMS_ITS | Clinical Summary ---
Author Organization LL [address] [facility] Address [address] [place] [address] Phone Care Team Providers Care Yard Manager Name Role Phone Physician, Pcp Unknown Primary Care Provider [place] vailable Encounters Date Type Department Care Team Description 04/09/2025 7:38 AM EDT - 04/09/2025 11:59 PM EDT Hospital Encounter [facility] PET Scan [address] [place] [address] Malignant neoplasm of urinary organ, [...] EDT Malignant neoplasm of urinary organ, unspecified ([facility] V24, [facility] V28) from Last 3 Months Results [...] Signed Date: 04/10/2025 13:00 ET Workstation ID: [id number] Transcribed By: Self Edit Transcribed Date: 04/10/2025 [...] Signed Date: 04/10/2025 13:00 ET Workstation ID: [id number] Transcribed By: Self Edit Transcribed Date: 04/10/2025 12:53 ET Adelina Rucker MD IMG NM PROCEDURES Final Result from Last 3 Months Insurance [employer] Care Teams Yard Manager Relationship Specialty Start Date End Date Physician, Pcp Unknown PCP - General 10/24/24
--- OUTSIDE RECORDS SUMMARY | 2025-05-14 17:20 | XMS_ITS | Clinical Summary ---
Author Organization [facility] Address [address] [place] [phone] Phone Care Team Providers Care Screwmaker Automatic Name Role Phone Gill Car Primary Care Provider [phone] Self-Referred, Patient Unavailable Unavailab le Allergies No known active allergies Medications thiamine (VITAMIN B-1) 100 MG tablet Take 1 tablet by mouth every morning. 5 Active sertraline (ZOLOFT) 25 MG tablet Take 1 tablet by mouth every morning. 5 Active pyridoxine, vitamin B6, (B-6) 50 MG tablet Take 1 tablet by mouth every morning. 5 Active pantoprazole (PROTONIX) 40 MG tablet Take 40 mg by mouth daily. Active mirtazapine (REMERON) 7.5 MG tablet Take 7.5 mg by mouth nightly at bedtime as needed. at bedtime. 5 Active KEPPRA 250 mg IMMEDIATE release tablet Take 750 mg by mouth 2 (two) times a day. 5 Active folic acid (FOLVITE) 1 MG tablet Take 1,000 mcg by mouth daily. Active hydrALAZINE (APRESOLINE) 25 MG tablet Take 50 mg by mouth 3 (three) times a day. 5 Active therapeutic multivitamin tablet Take 1 tablet by mouth daily. Active ondansetron (ZOFRAN) 8 MG tablet Take 8 mg by mouth every 8 (eight) hours as needed for nausea. Active aspirin 81 MG EC tablet Take 81 mg by mouth daily. Active NIFEdipine (ADALAT CC) 60 MG 24 hr tablet Take 60 mg by mouth daily. Active carvedilol (COREG) 25 MG tablet TAKE 1 TABLET BY MOUTH 2 TIMES A DAY FOR 90 DAYS MUST ADMINISTER WITH A MEAL/FOOD Active traMADoL (ULTRAM) 50 mg tablet Take 50 mg by mouth every 6 (six) hours as needed. 5 025 Discontin ued(No longer taking) sulfamethoxazole -trimethoprim (BACTRIM DS) 800-160 mg per tablet Take 1 tablet by mouth every 12 (twelve) hours. 5 025 Discontin ued(No longer taking) oxyCODONE 5 MG immediate release tablet Take 5 mg by mouth every 6 (six) hours as needed. 5 025 Discontin ued(No longer taking) hydrOXYzine (ATARAX) 25 MG tablet Take 25 mg by mouth once. 5 025 Discontin ued(No longer taking) Active Problems Problem Noted Date Diagnosed Date Acute kidney failure 12/08/2024 Essential (primary) hypertension 12/08/2024 Hematuria 12/08/2024 Hydronephrosis 12/08/2024 Lymphadenopathy 12/08/2024 Seizure 12/08/2024 Inguinal hernia 11/17/2024 Encounters Date Type Department Care Team Description 05/02/2025 10:00 AM EDT Office Visit [facility] [place] [place] [address] [place] [address] Pierre Roberson MD, PhD Malignant neoplasm of urinary bladder, unspecified site (Primary Dx); 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; 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, with completed immunotherapy and planned [place]-based therapy; 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; 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; 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; 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 05/02/2025 Ancillary Orders DF IM OUTSIDE [facility] [address] [place] [address] Pierre Roberson MD, PhD 05/02/2025 Ancillary Orders DF IM OUTSIDE IMG [address] [place] [address] Pierre Roberson MD, PhD 05/02/2025 Ancillary Orders DF IMG OUTSIDE IMG [address] [place] [address] Pierre Roberson MD, PhD 05/02/2025 Ancillary Orders DF IMG OUTSIDE IMG [address] [place] [address] Pierre Roberson MD, PhD 05/02/2025 Ancillary Orders DF IMG OUTSIDE IMG [address] [place] [address] Pierre Roberson MD, PhD 05/02/2025 Ancillary Orders DF IMG OUTSIDE IMG [address] [place] [address] Pierre Roberson MD, PhD 05/02/2025 Ancillary Orders DF IMG OUTSIDE IMG [address] [place] [address] Pierre Roberson MD, PhD 05/02/2025 Ancillary Orders DF IMG OUTSIDE IMG [address] [place] [address] Pierre Roberson MD, PhD 05/02/2025 Ancillary Orders DF IMG OUTSIDE IMG [address] [place] [address] Pierre Roberson MD, PhD 05/02/2025 Ancillary Orders DF IMG OUTSIDE IMG [address] [place] [address] Pierre Roberson MD, PhD 05/02/2025 Ancillary Orders DF IMG OUTSIDE IMG [address] [place] [address] Pierre Roberson MD, PhD 04/20/2025 12:25 PM EDT - 04/20/2025 11:59 PM EDT Hospital Encounter Central [facility], [facility] [place] [address] [place] [address] Discharge Disposition: Home or Self Care 04/19/2025 Ancillary Procedure DF IMG OUTSIDE IMG [address] [place] [address] Pierre Roberson MD, PhD 04/18/2025 Ancillary Orders DF IMG OUTSIDE IMG [address] [place] [address] Pierre Roberson MD, PhD 04/18/2025 Ancillary Orders DF IMG OUTSIDE IMG [address] [place] [address] Pierre Roberson MD, PhD 04/18/2025 Ancillary Orders DF IMG OUTSIDE IMG [address] [place] [address] Pierre Roberson MD, PhD 04/18/2025 Ancillary Orders DF IMG OUTSIDE IMG [address] [place] [address] Pierre Roberson MD, PhD 04/13/2025 Orders Only [facility], [place] [place] [address] [place] [address], [address] [place] [address] Pierre Roberson MD, PhD Malignant neoplasm of urinary bladder, unspecified site (Primary Dx) 04/09/2025 Ancillary Procedure DF IMG OUTSIDE IMG [address] [place] [address] Pierre Roberson MD, PhD 04/03/2025 12:10 AM EDT Ancillary Procedure DF IMG OUTSIDE IMG [address] [place] [address] Pierre Roberson MD, PhD 04/03/2025 12:05 AM EDT Ancillary Procedure DF IMG OUTSIDE IMG [address] [place] [address] Pierre Roberson MD, PhD 04/03/2025 Ancillary Procedure DF IMG OUTSIDE IMG [address] [place] [address] Pierre Roberson MD, PhD 03/29/2025 Ancillary Procedure DF IMG OUTSIDE IMG [address] [place] [address] Pierre Roberson MD, PhD 03/13/2025 12:05 AM EDT Ancillary Procedure DF IMG OUTSIDE IMG [address] [place] [address] Pierre Roberson MD, PhD 03/13/2025 Ancillary Procedure DF IMG OUTSIDE IMG [address] [place] [address] Pierre Roberson MD, PhD from Last 3 Months Family History Medical History Relation Comments Head and neck cancer Maternal Uncle Relation Status Comments Maternal Uncle Alive Social History Tobacco Use Types Packs/Day Years Used Date Smoking Tobacco: Former Cigarettes 1.5 15 S tarted: 05/01/2010 Tobacco Cessation:Counseling Given: Not Answered Alcohol Use Standard Drinks/Week Comments Not Currently 2 (1 standard drink = 0.6 oz pur e alcohol) Child or Family Care Answer Date Record ed Do you have problems with on e of the following making it difficult for you to work, study, or receive health care? No 05/01/2025 Education Answer Date Recorded Are you interested in help w ith more adult education (for example, completing high school, GED, job training, learning the [place] language, technical skills, or developing parenting skills)? No 05/01/2025 Are you concerned about learning? Not on file 05/01/2025 No 05/01/2025 Yes 05/01/2025 Food Answer Date Recorded Within the past 6 months we worried whether our food would run out before we got money to buy more. Never True 05/01/2025 Within the past 6 months the food we bought just didn't last and we didn't have enough money to get more. Never True Residential Stability Answer Date Recor ded What is your housing situation today? I have lucilapratibha max 05/01/2025 How many times have you move d in the past 12 months? Zero (I did not move) 05/01/2025 Paying for Meds Answer Date Recorded Do you have trouble paying for medicines? No 05/01/2025 Paying Utility Bills Answer Date Record ed Do you have trouble paying your heating or elect ricity bill? No 05/01/2025 Transportation Answer Date Recorded Has the lack of transportati on kept you from medical appointments or from getting medications? No 05/01/2025 Digital Access Answer Date Recorded No 04/13/2025 No 04/13/2025 Reliable internet access at home? Not on file 04/13/2025 Device with a working camera? 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 Not on file Not on file Last Filed Vital Signs Vital Sign Reading Time Taken Comments Blood Pressure 161/90 05/02/2025 9:41 AM EDT Pulse 57 05/02/2025 9:41 AM EDT Temperature 36.6 C (97.8 F) 05/02/2025 9:34 AM EDT Respiratory Rate 18 05/02/2025 9:34 AM EDT Oxygen Saturation 98% 05/02/2025 9:41 AM EDT Inhaled Oxygen Concentration - - Weight 66.4 kg (146 lb 6.2 oz) 05/02/2025 9:34 A M EDT Height 173.9 cm (5' 8.47 ) 05/02/2025 9:34 AM ED T Body Mass Index 21.96 05/02/2025 9:34 AM EDT Plan of Treatment Health Maintenance Due Date [...] VACCINE (2024-2 6 season) 2025 12/27/2020, 12/06/2020 BLOOD PRESSURE 10/30/2025 05/02/2025 HEPATITIS A VACCINES Aged Out No long [...] Procedure Name Priority Date/Time Associated Diagnosis Comments US ABDOMEN OUTSIDE (NO INTERPRETATION) Routine 04/19/2025 12:00 AM EDT NM PET WHOLE BODY OUTSIDE (NO INTERPRETATION) Routine 04/09/2025 12:00 AM EDT XR CHEST OUTSIDE (NO INTERPRETATION) Routine 04/03/2025 12:[address] CHEST OUTSIDE (NO INTERPRETATION) Routine 04/03/2025 12:[address] CHEST OUTSIDE (NO INTERPRETATION) Routine 04/03/2025 12:00 AM EDT OUTSIDE IMAGING 04/03/2025 OUTSIDE IMAGING 04/03/2025 XR CHEST OUTSIDE (NO INTERPRETATION) Routine 03/29/2025 12:00 AM EDT OUTSIDE IMAGING 03/29/2025 OUTSIDE LAB 03/19/2025 XR CHEST OUTSIDE (NO INTERPRETATION) Routine 03/13/2025 12:05 AM EDT XR UPPER EXTREMITY OUTSIDE (NO INTERPRETATION) Routine 03/13/2025 12:00 AM EDT OUTSIDE IMAGING 03/13/2025 OUTSIDE LAB 03/12/2025 OUTSIDE LAB 02/26/2025 from Last 3 Months Results * US Abdomen Outside (No Interpretation) (04/19/2025 12:00 AM EDT) Other Narrative PERCAPOORVAIO_CROW - 05/02/2025 11:58 AM EDT This study is for PACS storage only and not for interpretation. us Pierre Dash MD, PhD IMG OUTS [facility] W/OUT INTERPRETATION Final Result Performing Organization Address [facility] Phone Number ALDO * NM PET Whole Body Outside (No Interpretation) (04/09/2025 12:00 AM EDT) Other Narrative PERCKEELY_SHANITA - 05/02/2025 10:37 AM EDT This study is for PACS storage only and not for interpretation. us Pierre Dash MD, PhD IMG OUTS [facility] W/OUT INTERPRETATION Final Result Performing Organization Address [facility] Phone Number DAE_[email or web address] * XR Chest Outside (No Interpretation) (04/03/2025 12:10 AM EDT) Other Narrative PERCAPOORVAIO_CROW - 05/02/2025 11:54 AM EDT This study is for PACS storage only and not for interpretation. us Pierre Dash MD, PhD IMG OUTS [facility] W/OUT INTERPRETATION Final Result Performing Organization Address [facility] Phone Number DAE_[email or web address] * CT Chest Outside (No Interpretation) (04/03/2025 12:05 AM EDT) Other Narrative PERCIPIO_BWH - 05/02/2025 11:54 AM EDT This study is for PACS storage only and not for interpretation. us Pierre Dash MD, PhD IMG OUTS [facility] W/OUT INTERPRETATION Final Result Performing Organization Address [facility] Phone Number [email or web address] * Outside Imaging Report Only (04/03/2025) us Scanning Interface Provider IMG XR CHEST Cathy l Result * Outside Imaging Report Only (04/03/2025) us Scanning Interface Provider IMG XR CHEST Cathy l Result * CT Chest Outside (No Interpretation) (04/03/2025 12:00 AM EDT) Other Narrative [facility] - 05/02/2025 11:54 AM EDT This study is for PACS storage only and not for interpretation. us Pierre Dash MD, PhD IMG OUTS [facility] W/OUT INTERPRETATION Final Result Performing Organization Address [facility] Co de Phone Number [email or web address] * Outside Imaging Report Only (03/29/2025) us Scanning Interface Provider IMG XR CHEST Cathy l Result * XR Chest Outside (No Interpretation) (03/29/2025 12:00 AM EDT) Other Narrative [facility] - 05/02/2025 11:55 AM EDT This study is for PACS storage only and not for interpretation. us Pierre Dash MD, PhD IM OUTS [facility] W/OUT INTERPRETATION Final Result Performing Organization Address [facility] Phone Number [email or web address] * Outside Lab (03/19/2025) Only the most recent of3 resultswithin the time period is included. us Scanning Interface Provider LAB BLOOD ORDERABLES Final Result * XR Chest Outside (No Interpretation) (03/13/2025 12:05 AM EDT) Other Narrative [facility] - 05/02/2025 11:56 AM EDT This study is for PACS storage only and not for interpretation. us Pierre Dash MD, PhD IMG OUTS [facility] W/OUT INTERPRETATION Final Result Performing Organization Address City/[facility] Co de Phone Number [facility] * Outside Imaging Report Only (03/13/2025) us Scanning Interface Provider IMG XR CHEST Cathy l Result * XR Upper Extremity Outside (No Interpretation) (03/13/2025 12:00 AM EDT) Other Narrative ALDO - 05/02/2025 11:55 AM EDT This study is for PACS storage only and not for interpretation. us Pierre Dash MD, PhD IMG OUTS [facility] W/OUT INTERPRETATION Final Result DAE_BWH from Last 3 Months Insurance [facility] POS EPO [facility] EPO [facility] POS EPO [facility] POS EPO [facility] POS EPO [employer] H[employer] POS EPO Care Teams Screwmaker Automatic Relationship Specialty Start Date End Date Gill Car PA [address] [place] [address] PCP - General Physician Production Proofreader 04/13/25 Self-Referred, Patient 04/13/25 Additional Source Comments The information contained in this document represents components of the legal health record. It is not the complete legal health record.[facility]
[2025-05-14 17:42] LABS: MANUAL DIFF FLAG NO
[2025-05-14 17:50] LABS: Hematocrit 34.9 % (42.0-52.0); Hemoglobin 11.6 g/dl (14.0-18.0); Imm Gran Abs Auto 0.04 X10*3/uL (0.00-0.03); Imm Gran Pct Auto 0.6 % (0.0-0.4); Lymphocytes Absolute Auto 1.0 X10*3/uL (1.2-4.9); Mean Corpuscular HGB Conc 33.2 g/dl (31.0-36.0); Mean Corpuscular Hemoglobin 30.5 pg (27.0-33.0); Mean Corpuscular Volume 91.8 fL (80.0-98.0); NRBC Abs Auto 0.000 X10*3/uL (0.0-0.012); NRBC Pct Auto 0.0 /100WBC (0.0-0.2); Platelet Count 433 X10*3/uL (160-400); Red Blood Count 3.80 X10*6/uL (4.60-5.80); White Blood Count 6.5 X10*3/uL (4.8-10.8)
[2025-05-14 18:09] LABS: Alanine Aminotransferase 32 U/L (0-40); Albumin Level 4.4 g/dL (3.5-5.0); Alkaline Phosphatase 101 U/L (39-117); Anion Gap 13 (12-20); Aspartate Amino Transferase 31 U/L (5-37); Blood Urea Nitrogen 30 mg/dL (9-16); Calcium 9.0 mg/dL (8.4-10.2); Carbon Dioxide 23 mmol/L (22-29); Chloride 108 mmol/L (96-108); Estimated Glomerular Filt Rate 54; Potassium 4.9 mmol/L (3.3-5.1); Sodium 139 mmol/L (135-145); Total Protein 6.9 g/dL (6.5-8.0)
[2025-05-14 18:26] LABS: Thyroid Stimulating Hormone 1.08 uIU/mL (0.32-4.0)
== END 2025-05-14 15:16 | disposition home or self-care (01) ==
LOC: HO.WFDLDS 15:15
PROVIDERS: Referring Provider Internal Medicine Medical Oncology; Visit Provider Internal Medicine
DX: C67.9 Malignant neoplasm of bladder, unspecified (principal); C77.9 Secondary and unspecified malignant neoplasm of lymph node, unspecified; I67.1 Cerebral aneurysm, nonruptured
CPT/HCPCS: 36415; 80053; 84443; 85025

== ENCOUNTER 2025-06-12 08:29 | Outpatient (REF) | payer OTHER, SELFPAY ==
--- NOTE | ~2025-06-12 | CT_ITS ---
CLINICAL HISTORY: I67.1 - Cerebral aneurysm, nonruptured CT angiography neck with contrast. 3D Postprocessing. 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 Otherwise no evidence of arterial aneurysm, significant stenosis, AVM, or dissection. Visualized brain is unremarkable. Subcentimeter cervical nodes predominantly in the left supraclavicular fossa and the left posterior triangle. Mild fat stranding within the left supraclavicular fossa and neighboring inferior aspect of the left posterior triangle likely secondary to posttreatment changes. Spinal degenerative changes. No acute fracture. 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 This document has been electronically signed by: Lolis Ramesh MD on 06/12/2025 12:36:14
--- OUTSIDE RECORDS SUMMARY | 2025-06-12 09:08 | XMS_ITS | Clinical Summary ---
Author Organization [facility] Address [address] [phone] Phone Care Team Providers Care Design Assistant Name Role Phone Gill Car PA-C Primary [...] Date Urinary tract infection 12/08/2024 04/2 12/2024 Social History Tobacco Use Types Packs/Day Years [...] Office Visit [facility] [address] [phone] Murray Beckham MD [address] [phone] Health Maintenance Due Date Last Done Comments Hepatitis B Vaccine (1 of 3 - 19+ 3-dose series) 04/05 Pneumococcal Vaccine: 50+ Years (1 of 2 - PCV) 985 Colorectal Cancer Screening: Annual FOBT 2015 Colorectal Cancer Screening: Colonoscopy 2015 Colorectal Cancer Screening: Sigmoidoscopy 2015 Influenza Vaccine (#1) 2025 Insurance [employer] Commercial Care Teams Design Assistant Relationship Specialty Start Date End Date Gill Car PA-C [address] [place] [address] PCP - General Physician Continuous Mining Machine Coal Miner 12/08/24
--- OUTSIDE RECORDS SUMMARY | 2025-06-12 09:08 | XMS_ITS | Clinical Summary ---
Author Organization [facility] Address [address] [place] [address] Phone Care Team Providers Care Project Geologist Name Role Phone Gill Car Primary Care Provider [phone]- [phone] Self-Referred, Patient Unavailable Unavailab le Allergies No [...] DAYS MUST ADMINISTER WITH A MEAL/FOOD Active Active Problems Problem Noted Date Diagnosed Date Acute kidney failure 12/08/2024 Essential (primary) hypertension 12/08/2024 Hematuria 12/08/2024 Hydronephrosis 12/08/2024 Lymphadenopathy 12/08/2024 Seizure 12/08/2024 Inguinal hernia 11/17/2024 Encounters Date Type Department Care Team Description 05/02/2025 10:00 AM EDT Office Visit [facility], [facility] [address] [facility] [place] [address] Pierre Roberson MD, PhD Malignant neoplasm of urinary bladder, unspecified site (Primary Dx); 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; 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 05/02/2025 Ancillary Orders DF IMG OUTSIDE IMG [address] [place] [address] Pierre Roberson MD, PhD 05/02/2025 Ancillary Orders DF IMG OUTSIDE IMG [address] [place] [address] Pierre Roberson MD, PhD 05/02/2025 Ancillary Orders DF IMG OUTSIDE IMG [address] [place] [address] Pierre Roberson MD, PhD 05/02/2025 Ancillary Orders DF IMG OUTSIDE IMG [address] [place] [address] Pierre Roberson MD, PhD 05/02/2025 Ancillary Orders DF IMG OUTSIDE IMG [address] [place] [address] Pierre Roberson MD, PhD 05/02/2025 Ancillary Orders DF IMG OUTSIDE IMG [address] [place] [address] Pierre Roberson MD, PhD 05/02/2025 Ancillary Orders DF IMG OUTSIDE IMG [address] [place] [address] Pierre Roberson MD, PhD 05/02/2025 Ancillary Orders DF IMG OUTSIDE IMG [address] [place] [id number] Pierre Roberson MD, PhD 05/02/2025 Ancillary Orders DF IMG OUTSIDE IMG [address] [place] [address] Pierre Roberson MD, PhD 05/02/2025 Ancillary Orders DF IMG OUTSIDE IMG [address] [place] [address] Pierre Roberson MD, PhD 05/02/2025 Ancillary Orders DF IMG OUTSIDE IMG [address] [place] [address] Pierre Roberson MD, PhD 04/20/2025 12:25 PM EDT - 04/20/2025 11:59 PM EDT Hospital Encounter [facility], [facility] [address] [address] Discharge Disposition: Home or Self Care 04/19/2025 Ancillary Procedure DF IMG OUTSIDE IMG [address] [place] [address] Pierre Roberson MD, PhD 04/18/2025 Ancillary Orders DF IMG OUTSIDE IMG [address] [place] [address] Pierre Roberson MD, PhD 04/18/2025 Ancillary Orders DF IMG OUTSIDE IMG [address] [place] [address] Pierre Roberson MD, PhD 04/18/2025 Ancillary Orders DF IMG OUTSIDE IMG [address] [place] [address] Pierre Roberson MD, PhD 04/18/2025 Ancillary Orders DF IMG OUTSIDE IMG [address] [place] [address] Pierre Roberson MD, PhD 04/13/2025 Orders Only [facility], [facility] [address] [facility] [place] [address] Pierre Roberson MD, PhD Malignant neoplasm of urinary bladder, unspecified site (Primary Dx) 04/09/2025 Ancillary Procedure DF IMG OUTSIDE IMG [address] [place] [address] Pierre Roberson MD, PhD 04/03/2025 12:10 AM EDT Ancillary Procedure DF IMG OUTSIDE IMG [address] [place] [address] Pierre Roberson MD, PhD 04/03/2025 12:05 AM EDT Ancillary Procedure DF IMG OUTSIDE IMG [address] [place] [address] Pierre Roberson MD, PhD 04/03/2025 Ancillary Procedure DF IMG OUTSIDE IMG [address] [place] [address] Pierre Roberson MD, PhD 03/29/2025 Ancillary Procedure DF IMG OUTSIDE IMG [address] [place] [address] Pierre Roberson MD, PhD 03/13/2025 12:05 AM EDT Ancillary Procedure DF IMG OUTSIDE IMG [address] [place] [address] Pierre Roberson MD, PhD 03/13/2025 Ancillary Procedure DF IMG OUTSIDE IMG [address] [place] [address] Pierre Roberson MD, PhD from Last 3 Months Family History Medical History Relation Comments Head and neck cancer Maternal Uncle Relation Status Comments Maternal Uncle Alive Social History Tobacco Use Types Packs/Day Years Used Date Smoking Tobacco: Former Cigarettes 1.5 15.1 S tarted: 05/01/2010 Tobacco Cessation:Counseling Given: Not [...] high school, GED, job training, learning the Ghanaian language, technical skills, or developing parenting skills)? [...] is your housing situation today? 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 us Pierre Dash MD, PhD IMG OUTS [facility] W/OUT INTERPRETATION Final Result PERCAPOORVAIO_BWH * NM PET Whole Body Outside (No Interpretation) (04/09/2025 12:00 AM EDT) Other Narrative [facility] - 05/02/2025 10:37 AM EDT This study is for PACS storage only and not for interpretation. us Pierre Dash MD, PhD IMG OUTS [facility] IMAGING W/OUT INTERPRETATION Final Result Performing Organization Address [facility] de Phone Number [email or web address] * XR Chest Outside (No Interpretation) (04/03/2025 12:10 AM EDT) Other Narrative PERCIPIO_BW - 05/02/2025 11:54 AM EDT This study is for PACS storage only and not for interpretation. us Pierre Dash MD, PhD IM OUTS [facility] IMAGING W/OUT INTERPRETATION Final Result Performing Organization Address [facility] Phone Number [email or web address] * CT Chest Outside (No Interpretation) (04/03/2025 12:05 AM EDT) Other Narrative PERCIPIO_BW - 05/02/2025 11:54 AM EDT This study is for PACS storage only and not for interpretation. us Pierre Dash MD, PhD IM OUTS [facility] IMAGING W/OUT INTERPRETATION Final Result Performing Organization Address [facility] Phone Number PERCKEELY_BWH * Outside Imaging Report Only (04/03/2025) us Scanning Interface Provider IMG XR CHEST Cathy l Result * Outside Imaging Report Only (04/03/2025) us Scanning Interface Provider IMG XR CHEST Cathy l Result * CT Chest Outside (No Interpretation) (04/03/2025 12:00 AM EDT) Other Narrative [facility] - 05/02/2025 11:54 AM EDT This study is for PACS storage only and not for interpretation. us Pierre Dash MD, PhD IMG OUTS [facility] IMAGING W/OUT INTERPRETATION Final Result Performing Organization Address [facility] de Phone Number PERCIPIO_BWH * Outside Imaging Report Only (03/29/2025) us Scanning Interface Provider IMG XR CHEST Cathy l Result * XR Chest Outside (No Interpretation) (03/29/2025 12:00 AM EDT) Other Narrative PERCIPIO_[facility] - 05/02/2025 11:55 AM EDT This study is for PACS storage only and not for interpretation. us Pierre Dash MD, PhD IMG OUTS [facility] IMAGING W/OUT INTERPRETATION Final Result Performing Organization Address [facility] Co de Phone Number PERCIPIO_BWH * Outside Lab (03/19/2025) Only the most recent of2 resultswithin the time period is included. us Scanning Interface Provider LAB BLOOD ORDERABLES Final Result * XR Chest Outside (No Interpretation) (03/13/2025 12:05 AM EDT) Other Narrative PERCIPIO_[facility] - 05/02/2025 11:56 AM EDT This study is for PACS storage only and not for interpretation. us Pierre Dash MD, PhD IMG OUTS [facility] IMAGING W/OUT INTERPRETATION Final Result Performing Organization Address [facility] de Phone Number PERCIPIO_BWH * Outside Imaging Report Only (03/13/2025) us Scanning Interface Provider IMG XR CHEST Catyh l Result * XR Upper Extremity Outside (No Interpretation) (03/13/2025 12:00 AM EDT) Other Narrative PERCIPIO_[facility] - 05/02/2025 11:55 AM EDT This study is for PACS storage only and not for interpretation. us Pierre Dash MD, PhD IMG OUTS [facility] IMAGING W/OUT INTERPRETATION Final Result Performing Organization Address City/[facility] de Phone Number PERCIPIO_BW from Last 3 Months Insurance [facility] EPO [facility]PO [facility] POS EPO [facility] POS EPO Care Teams Project Geologist Relationship Specialty Start Date End Date Gill Car PA [address] [place] [phone] PCP - General Physician Steam Blocker 04/13/25 Self-Referred, Patient 04/13/25 Additional Source Comments The information contained in this document represents components of the legal health record. It is not the complete legal health record.Formerly [facility]
--- OUTSIDE RECORDS SUMMARY | 2025-06-12 09:08 | XMS_ITS | Clinical Summary ---
Author Organization LL [address] [facility] Address [address] [place] [address] Phone Care Team Providers Care Chancellor Name Role Phone Physician, Pcp Unknown Primary Care Provider Charlotte vailable Encounters Date Type Department Care Team Description 04/09/2025 7:38 AM EDT - 04/09/2025 11:59 PM EDT Hospital Encounter [facility] PET Scan [address] [place] [address] Malignant neoplasm of urinary organ, [...] Health Maintenance Due Date Last Done Comments Colorectal Cancer Screening: Colonoscopy 1966 DTaP,Tdap,and Td Vaccines (1 - Tdap) 1985 Hepatitis B Vaccines (1 of 3 - 19+ 3-dose series) 1985 Pneumococcal Vaccine: 50+ Years (1 of 1 - PCV) 2016 Zoster Vaccines (1 of 2) 2016 Depression Screening 08/16/2024 Cholesterol Screening (Lipid Panel) 10/25/2024 HIV Screening 10/25/2024 Hepatitis C Screening [...] EDT Malignant neoplasm of urinary organ, unspecified ([facility] V24, [facility] V28) from Last 3 Months Results * [...] Signed Date: 04/10/2025 13:00 ET Workstation ID: [id number] Transcribed By: Self Edit Transcribed Date: 04/10/2025 [...] Signed Date: 04/10/2025 13:00 ET Workstation ID: [id number] Transcribed By: Self Edit Transcribed Date: 04/10/2025 12:53 ET Adelina MCALLISTERG NM PROCEDURES Final Result from Last 3 Months Insurance [employer] Care Teams Chancellor Relationship Specialty Start Date End Date Physician, Pcp Unknown PCP - General 10/24/24
--- OUTSIDE RECORDS SUMMARY | 2025-06-12 09:08 | XMS_ITS | Encounter Summary ---
Author Organization [facility] Address [address] [place] [address] Care Team Providers Care Graduate Assistant Name Role Phone Physician, Pcp Unknown Primary Care Provider Charlotte vailable Encounter Details Date Type Department Care Team (Late st Contact Info) Description 10/24/2024 Lab Requisition [facility] - Main Lab [address] [facility] [place] [address] Evaristo Rouse MD [address] [facility] [address] [place] [phone] Gross hematuria Social History Tobacco Use Types [...] for urothelial carcinoma. 10/31/2024 12:[address] [facility] Addendum electronically signed by Sean Islas MD on 10/31/2024 at 12:42 PM Final Diagnosis A. Urine, Voided, ([id number]): ATYPICAL UROTHELIAL CELLS. Note: UroVysion testing to follow. 10/31/2024 12:42 PM EDT [facility] Clinical Information Gross hematuria R31.0 Urine Cytology/FISH (now) 10/31/2024 12:42 PM EDT [facility] Gross Description A. Urine, Voided, ([id number]): Received one ThinPrep slide for cytology and one ThinPrep slide for UroVysion FISH 10/31/2024 12:42 PM EDT [facility] Disclaimer Unless otherwise specified, all tissue is 10% NB formalin fixed and paraffin embedded. Technical pathology services provided by [facility] at [address] [place] [address] [address] [address] (CLIA #[id number]/Radha Seay MD, Hris Analyst) 10/31/2024 12:42 PM EDT [facility] Tissue Urine specimen from urethra / Unknown 10/19/2024 10/24/2024 4:17 PM EDT us Evaristo Rouse MD LAB PATHOLOGY ORDERABLES Edite d Result - Final [facility] [address] [place] [address], documented in this encounter Visit Diagnoses Diagnosis Gross hematuria documented in this encounter Care Teams Graduate Assistant Relationship Specialty Start Date End Date Physician, Pcp Unknown PCP - General 10/24/24 documented as of this encounter
[2025-06-12] MEDS: iohexoL 350 MG/ML 100 ML INFUS..BTL IV (10:36)
== END 2025-06-12 08:30 | disposition home or self-care (01) ==
LOC: HO.CT 08:29
PROVIDERS: PCP Physician Assistant; Visit Provider Surgery Vascular Surgery
DX: I67.1 Cerebral aneurysm, nonruptured (principal)
CPT/HCPCS: 70498; Q9967

== ENCOUNTER → 2025-06-12 08:30 | Outpatient (BNV) | payer OTHER, SELFPAY | PROVIDERS: PCP Physician Assistant; Visit Provider Radiology Diagnostic Radiology | DX: I67.1 Cerebral aneurysm, nonruptured (principal) | CPT/HCPCS: 70498 ==

== ENCOUNTER 2025-06-18 15:18 | Outpatient (REF) | payer OTHER, SELFPAY ==
--- OUTSIDE RECORDS SUMMARY | 2025-06-18 16:34 | XMS_ITS | Clinical Summary ---
Author Organization [facility] Address [address] [address] Phone Care Team Providers Care Furnace Erector Name Role Phone Gill Car PA-C Primary [...] Office Visit [facility] [address] [phone] Murray Beckham MD [address] [phone] Health Maintenance Due Date Last Done Comments Hepatitis B Vaccine (1 of 3 - 19+ 3-dose series) 04/05 Pneumococcal Vaccine: 50+ Years (1 of 2 - PCV) 985 Colorectal Cancer Screening: Annual FOBT 2015 Colorectal Cancer Screening: Colonoscopy 2015 Colorectal Cancer Screening: Sigmoidoscopy 2015 Influenza Vaccine (#1) 2025 Insurance [employer] Commercial Care Teams Furnace Erector Relationship Specialty Start Date End Date Gill Car PA-C [address] [place] [address] PCP - General Physician Roving Carrier 12/08/24
--- OUTSIDE RECORDS SUMMARY | 2025-06-18 16:34 | XMS_ITS | Clinical Summary ---
Author Organization LL [address] [facility] Address [address] [place] [address] Phone Care Team Providers Care Hospital Nurse Name Role Phone Physician, Pcp Unknown Primary Care Provider Charlotte vailable Encounters Date Type Department Care Team Description 04/09/2025 7:38 AM EDT - 04/09/2025 11:59 PM EDT Hospital Encounter [facility] PET Scan [address] [place] [address] Malignant neoplasm of urinary organ, [...] EDT Malignant neoplasm of urinary organ, unspecified ([facility] V24, [facility] V28) from Last 3 Months Results * PET CT Skull to Mid Thigh Subsequent (04/09/2025 9:52 AM EDT) Anatomical Region Laterality Modality Body Radiographic Olvie ging 04/10/2025 11:5 8 AM EDT Impressions [...] Signed Date: 04/10/2025 13:00 ET Workstation ID: [id number] Transcribed By: Self Edit Transcribed Date: 04/10/2025 [...] Signed Date: 04/10/2025 13:00 ET Workstation ID: [id number] Transcribed By: Self Edit Transcribed Date: 04/10/2025 12:53 ET Adelina MCALLISTERG NM PROCEDURES Final Result from Last 3 Months Insurance [employer] Care Teams Hospital Nurse Relationship Specialty Start Date End Date Physician, Pcp Unknown PCP - General 10/24/24
--- OUTSIDE RECORDS SUMMARY | 2025-06-18 16:34 | XMS_ITS | Encounter Summary ---
Author Organization [facility] Address [address] [place] [address] Care Team Providers Care Civil Engineering Draftsperson Name Role Phone Physician, Pcp Unknown Primary Care Provider Charlotte vailable Encounter Details Date Type Department Care Team (Late st Contact Info) Description 10/24/2024 Lab Requisition [facility] - Main Lab [address] [facility] [place] [address] Evaristo Rouse MD [address] [facility] [address] [place] [phone] Gross hematuria Social History Tobacco Use Types [...] for urothelial carcinoma. 10/31/2024 12:42 PM EDT [facility] ([facility]) [facility] Addendum electronically signed by Sean Islas MD on 10/31/2024 at 12:42 PM Final Diagnosis A. Urine, Voided, ([id number]): ATYPICAL UROTHELIAL CELLS. Note: UroVysion testing to follow. 10/31/2024 12:42 PM EDT [facility] Clinical Information Gross hematuria R31.0 Urine Cytology/FISH (now) 10/31/2024 12:42 PM EDT [facility] Gross Description A. Urine, Voided, ([id number]): Received one ThinPrep slide for cytology and one ThinPrep slide for UroVysion FISH 10/31/2024 12:42 PM EDT [facility] Disclaimer Unless otherwise specified, all tissue is 10% NB formalin fixed and paraffin embedded. Technical pathology services provided by [facility] at [address] [place] [address] [address], [place] [address] (CLIA #[id number]/Radha Seay MD, Well Flow Operator) 10/31/2024 12:42 PM EDT [facility] Tissue Urine specimen from urethra / Unknown 10/19/2024 10/24/2024 4:17 PM EDT us Evaristo Rouse MD LAB PATHOLOGY ORDERABLES Edite d Result - Final [facility] [address] [place] [address], documented in this encounter Visit Diagnoses Diagnosis Gross hematuria documented in this encounter Care Teams Civil Engineering Draftsperson Relationship Specialty Start Date End Date Physician, Pcp Unknown PCP - General 10/24/24 documented as of this encounter
--- OUTSIDE RECORDS SUMMARY | 2025-06-18 16:34 | XMS_ITS | Clinical Summary ---
Author Organization 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, with completed immunotherapy and planned tlingit & haida-based therapy; 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; 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; 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; 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 05/02/2025 Ancillary Orders DF IMG OUTSIDE IMG [address] [place] [id number] Pierre Roberson MD, PhD 05/02/2025 Ancillary Orders DF IMG OUTSIDE IMG [address] [place] [address] [phone] Pierre Roberson MD, PhD 05/02/2025 Ancillary Orders DF IMG OUTSIDE IMG [address] [place] [address] [phone] Pierre Roberson MD, PhD 05/02/2025 Ancillary Orders DF IMG OUTSIDE IMG [address] [place] [address] 23928 Pierre Roberson MD, PhD 05/02/2025 Ancillary Orders DF IMG OUTSIDE IMG [address] [place] [address] [phone] Pierre Roberson MD, PhD 05/02/2025 Ancillary Orders DF IMG OUTSIDE IMG [address] [place] [address] 07844 Pierre Roberson MD, PhD 05/02/2025 Ancillary Orders DF IMG OUTSIDE IMG [address] [place] [address] [phone] Pierre Roberson MD, PhD 05/02/2025 Ancillary Orders DF IMG OUTSIDE IMG [address] [place] [address] 94000 Pierre Roberson MD, PhD 05/02/2025 Ancillary Orders DF IMG OUTSIDE IMG [address] [place] [address] [id number] Pierre Roberson MD, PhD 05/02/2025 Ancillary Orders DF IMG OUTSIDE IMG [address] [place] [address] [id number] Pierre Roberson MD, PhD 05/02/2025 Ancillary Orders DF IMG OUTSIDE IMG [address] [place] [address] [phone] Pierre Roberson MD, PhD 04/20/2025 12:25 PM EDT - 04/20/2025 11:59 PM EDT Hospital Encounter Central [facility]ology, [facility] [address] [address] Discharge Disposition: Home or Self Care 04/19/2025 Ancillary Procedure DF IMG OUTSIDE IMG [address] [place] [address] 79692 Pierre Roberson MD, PhD 04/18/2025 Ancillary Orders DF IMG OUTSIDE IMG [address] [place] [address] [id number] Pierre Roberson MD, PhD 04/18/2025 Ancillary Orders DF IMG OUTSIDE IMG [address] [place] [address] 73407 Pierre Roberson MD, PhD 04/18/2025 Ancillary Orders DF IMG OUTSIDE IMG [address] [place] [address] 22906 Pierre Roberson MD, PhD 04/18/2025 Ancillary Orders DF IMG OUTSIDE IMG [address] [place] [address] [phone] Pierre Roberson MD, PhD 04/13/2025 Orders Only [facility] [address] [facility] [place] [address] Pierre Roberson MD, PhD Malignant neoplasm of urinary bladder, unspecified site (Primary Dx) 04/09/2025 Ancillary Procedure DF IMG OUTSIDE IMG [address] [place] [id number] Pierre Roberson MD, PhD 04/03/2025 12:10 AM EDT Ancillary Procedure DF IMG OUTSIDE IMG [address] [place] [address] 9[address] Pierre Roberson MD, PhD 04/03/2025 12:05 AM EDT Ancillary Procedure DF IMG OUTSIDE IMG [address] [place] [address] Pierre Roberson MD, PhD 04/03/2025 Ancillary Procedure DF IMG OUTSIDE IMG [address] [place] [address] 710[address] Pierre Roberson MD, PhD 03/29/2025 Ancillary Procedure DF IMG OUTSIDE IMG [address] [place] [id number] Pierre Roberson MD, PhD from Last 3 [...] high school, GED, job training, learning the Jordanian language, technical skills, or developing parenting skills)? 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 us Pierre Dash MD, PhD IM OUTS [facility] W/OUT INTERPRETATION Final Result Performing Organization Address [facility] de Phone Number DAE_[facility] * NM PET Whole Body Outside (No Interpretation) (04/09/2025 12:00 AM EDT) Other Narrative [facility] - 05/02/2025 10:37 AM EDT This study is for PACS storage only and not for interpretation. us Pierre Dash MD, PhD IM OUTS [facility] IMAG[facility] W/OUT INTERPRETATION Final Result Performing Organization Address [facility] de Phone Number [email or web address] * XR Chest Outside (No Interpretation) (04/03/2025 12:10 AM EDT) Other Narrative PERCIPIO_[facility] - 05/02/2025 11:54 AM EDT This study is for PACS storage only and not for interpretation. us Pierre Dash MD, PhD IM OUTS [facility] IMAG[facility] W/OUT INTERPRETATION Final Result Performing Organization Address [facility] de Phone Number PERCIPIO_[facility] * CT Chest Outside (No Interpretation) (04/03/2025 12:05 AM EDT) Other Narrative PERCIPANUP_[facility] - 05/02/2025 11:54 AM EDT This study is for PACS storage only and not for interpretation. us Pierre Dash MD, PhD IMG OUTS [facility] IMAGING W/OUT INTERPRETATION Final Result Performing Organization Address [facility] de Phone Number PERCKEELY_BWRoma * Outside Imaging Report Only (04/03/2025) us Scanning Interface Provider IMG XR CHEST Cathy l Result * Outside Imaging Report Only (04/03/2025) us Scanning Interface Provider IMG XR CHEST Cathy l Result * CT Chest Outside (No Interpretation) (04/03/2025 12:00 AM EDT) Other Narrative PERCKEELY_[facility] - 05/02/2025 11:54 AM EDT This study is for PACS storage only and not for interpretation. us Pierre Dash MD, PhD IM [email or web address] IMAGING W/OUT INTERPRETATION Final Result Performing Organization Address [facility] Phone Number PERCKEELY_[facility] * Outside Imaging Report Only (03/29/2025) us Scanning Interface Provider IMG XR CHEST Cathy l Result * XR Chest Outside (No Interpretation) (03/29/2025 12:00 AM EDT) Other Narrative PERCIP_[facility] - 05/02/2025 11:55 AM EDT This study is for PACS storage only and not for interpretation. us Pierre Dash MD, PhD IMG OUTS [facility] IMAG[facility] W/OUT INTERPRETATION Final Result Performing Organization Address [facility] Co de Phone Number [email or web address] * Outside Lab (03/19/2025) us Scanning Interface Provider LAB BLOOD BKR ORDERA BLES Final Result from Last 3 Months Insurance [employer] POS EPO [facility] POS EPO [facility] POS EPO [facility] POS [facility]PO [facility] POS EPO [facility] POS EPO Care Teams Shop Router Relationship Specialty Start Date End Date Gill Car PA [address] [place] [address] PCP - General Physician Overcoil Stepper 04/13/25 Self-Referred, Patient 04/13/25 Additional Source Comments The information contained in this document represents components of the legal health record. It is not the complete legal health record.[facility]
[2025-06-18 18:28] LABS: Hematocrit 29.4 % (42.0-52.0); Hemoglobin 9.9 g/dl (14.0-18.0); Imm Gran Abs Auto 0.01 X10*3/uL (0.00-0.03); Imm Gran Pct Auto 0.2 % (0.0-0.4); Lymphocytes Absolute Auto 1.2 X10*3/uL (1.2-4.9); MANUAL DIFF FLAG SCAN; Mean Corpuscular HGB Conc 33.7 g/dl (31.0-36.0); Mean Corpuscular Hemoglobin 32.1 pg (27.0-33.0); Mean Corpuscular Volume 95.5 fL (80.0-98.0); NRBC Abs Auto 0.000 X10*3/uL (0.0-0.012); NRBC Pct Auto 0.0 /100WBC (0.0-0.2); Platelet Count 273 X10*3/uL (160-400); Red Blood Count 3.08 X10*6/uL (4.60-5.80); SCAN SMEAR FLAG 1; White Blood Count 5.4 X10*3/uL (4.8-10.8)
[2025-06-18 18:53] LABS: Alanine Aminotransferase 22 U/L (0-40); Albumin Level 4.4 g/dL (3.5-5.0); Alkaline Phosphatase 79 U/L (39-117); Anion Gap 11 (12-20); Aspartate Amino Transferase 33 U/L (5-37); Blood Urea Nitrogen 17 mg/dL (9-16); Calcium 8.5 mg/dL (8.4-10.2); Carbon Dioxide 25 mmol/L (22-29); Chloride 106 mmol/L (96-108); Estimated Glomerular Filt Rate 45; Potassium 4.5 mmol/L (3.3-5.1); Sodium 137 mmol/L (135-145); Thyroid Stimulating Hormone 1.93 uIU/mL (0.32-4.0); Total Protein 6.9 g/dL (6.5-8.0)
== END 2025-06-18 15:19 | disposition home or self-care (01) ==
LOC: HO.WFDLDS 15:18
PROVIDERS: Visit Provider Internal Medicine
DX: C77.9 Secondary and unspecified malignant neoplasm of lymph node, unspecified (principal); C80.1 Malignant (primary) neoplasm, unspecified; C67.9 Malignant neoplasm of bladder, unspecified; Z13.29 Encounter for screening for other suspected endocrine disorder
CPT/HCPCS: 36415; 80053; 84443; 85025

== ENCOUNTER 2025-07-09 15:59 | Outpatient (REF) | payer OTHER, SELFPAY ==
[2025-07-09 18:28] LABS: MANUAL DIFF FLAG NO
[2025-07-09 18:38] LABS: Hematocrit 30.0 % (42.0-52.0); Hemoglobin 10.0 g/dl (14.0-18.0); Imm Gran Abs Auto 0.03 X10*3/uL (0.00-0.03); Imm Gran Pct Auto 0.5 % (0.0-0.4); Lymphocytes Absolute Auto 0.9 X10*3/uL (1.2-4.9); Mean Corpuscular HGB Conc 33.3 g/dl (31.0-36.0); Mean Corpuscular Hemoglobin 33.1 pg (27.0-33.0); Mean Corpuscular Volume 99.3 fL (80.0-98.0); NRBC Abs Auto 0.000 X10*3/uL (0.0-0.012); NRBC Pct Auto 0.0 /100WBC (0.0-0.2); Platelet Count 252 X10*3/uL (160-400); Red Blood Count 3.02 X10*6/uL (4.60-5.80); White Blood Count 6.3 X10*3/uL (4.8-10.8)
[2025-07-09 18:48] LABS: Blood Urea Nitrogen 23 mg/dL (9-16); Estimated Glomerular Filt Rate 51
--- OUTSIDE RECORDS SUMMARY | 2025-07-09 20:19 | XMS_ITS | Encounter Summary ---
Author Organization [facility] Address [address] [place] [address] Care Team Providers Care Stationary Engineer Refrigeration Name Role Phone Physician, Pcp Unknown Primary Care Provider Charlotte vailable Encounter Details Date Type Department Care Team (Late st Contact Info) Description 10/24/[address] [facility] Lab [address] [facility] [place] [address] Evaristo Rouse MD [address] [facility] [address] [place] [phone] Gross hematuria Social History Tobacco Use Types [...] for urothelial carcinoma. 10/31/2024 12:42 PM EDT [facility] Addendum electronically signed by Sean Islas MD on 10/31/2024 at 12:42 PM Final Diagnosis A. Urine, Voided, ([id number]): ATYPICAL UROTHELIAL CELLS. Note: UroVysion testing to follow. 10/31/2024 12:42 PM EDT [facility] Clinical Information Gross hematuria R31.0 Urine Cytology/FISH (now) 10/31/2024 12:42 PM EDT [facility] Gross Description A. Urine, Voided, ([id number]): Received one ThinPrep slide for cytology and one ThinPrep slide for UroVysion FISH 10/31/2024 12:42 PM EDT [facility] Disclaimer Unless otherwise specified, all tissue is 10% NB formalin fixed and paraffin embedded. Technical pathology services provided by [facility] at [address] [place] [address] [address] [address] (CLIA #[id number]/Radha Seay MD, Interrelated Special Education Teacher) 10/31/2024 12:42 PM EDT [facility] Tissue Urine specimen from urethra / Unknown 10/19/2024 10/24/2024 4:17 PM EDT us Evaristo Rouse MD LAB PATHOLOGY ORDERABLES Edite d Result - Final [facility] [address] [place] [address], documented in this encounter Visit Diagnoses Diagnosis Gross hematuria documented in this encounter Care Teams Stationary Engineer Refrigeration Relationship Specialty Start Date End Date Physician, Pcp Unknown PCP - General 10/24/24 documented as of this encounter
--- OUTSIDE RECORDS SUMMARY | 2025-07-09 20:19 | XMS_ITS | Clinical Summary ---
Author Organization [facility] Address [address] [place] [address] Phone Care Team Providers Care Cryptoanalysis Teacher Name Role Phone Physician, Pcp Unknown Primary Care Provider Charlotte vailable Encounters Date Type Department Care Team Description 04/09/2025 7:38 AM EDT - 04/09/2025 11:59 PM EDT Hospital Encounter [facility] PET Scan [address] [place] [address] Malignant neoplasm of urinary organ, [...] EDT Malignant neoplasm of urinary organ, unspecified ([facility] V24, [facility] V28) from Last 3 Months [...] Signed Date: 04/10/2025 13:00 ET Workstation ID: [id number] Transcribed By: Self Edit Transcribed Date: 04/10/2025 [...] Signed Date: 04/10/2025 13:00 ET Workstation ID: [id number] Transcribed By: Self Edit Transcribed Date: 04/10/2025 12:53 ET Adelina MCALLISTERG NM PROCEDURES Final Result from Last 3 Months Insurance [employer] Care Teams Cryptoanalysis Teacher Relationship Specialty Start Date End Date Physician, Pcp Unknown PCP - General 10/24/24
--- OUTSIDE RECORDS SUMMARY | 2025-07-09 20:19 | XMS_ITS | Clinical Summary ---
Author Organization [facility] Address [address] [place] [address] Phone Care Team Providers Care Managed Care Analyst Name Role Phone Gill Car Primary Care Provider +1- [phone] Self-Referred, Patient Unavailable Unavailab le Allergies No [...] [facility] Visit [facility] [address] 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; 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; 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 05/02/2025 Ancillary Orders DF IMG OUTSIDE IMG [address] [place] [address] Pierre Roberson MD, PhD 05/02/2025 Ancillary Orders DF IMG OUTSIDE IMG [address] [place] [address] Pierre Roberson MD, PhD 05/02/2025 Ancillary Orders DF IMG OUTSIDE IMG [address] [place] [address] Pierre Roberson MD, PhD 05/02/2025 Ancillary Orders DF IMG OUTSIDE IMG [address] [place] [address] Pierre Roberson MD, PhD 05/02/2025 Ancillary Orders DF IMG OUTSIDE IMG [address] [place] [address] Pierre Roberson MD, PhD 05/02/2025 Ancillary Orders DF IMG OUTSIDE IMG [address] [place] [address] Pierre Roberson MD, PhD 05/02/2025 Ancillary Orders DF IMG OUTSIDE IMG [address] [place] [address] Pierre Roberson MD, PhD 05/02/2025 Ancillary Orders DF IMG OUTSIDE IMG [address] [place] [address] Pierre Roberson MD, PhD 05/02/2025 Ancillary Orders DF IMG OUTSIDE IMG [address] [place] [address] Pierre Roberson MD, PhD 05/02/2025 Ancillary Orders DF IMG OUTSIDE IMG [address] [place] [address] Pierre Roberson MD, PhD 05/02/2025 Ancillary Orders DF IMG OUTSIDE IMG [address] [place] [address] Pierre Roberson MD, PhD 04/20/2025 12:25 PM EDT - 04/20/2025 11:59 PM EDT Hospital Encounter Central Pathology, [facility] [address] [address] Discharge Disposition: Home or Self Care 04/19/2025 Ancillary Procedure DF IMG OUTSIDE IMG [address] [place] [address] Pierre Roberson MD, PhD 04/18/2025 Ancillary Orders DF IMG OUTSIDE IMG [address] [place] [address] Pierre Roberson MD, PhD 04/18/2025 Ancillary Orders DF IMG OUTSIDE IMG [address] [place] [address] Pierre Roberson MD, PhD 04/18/2025 Ancillary Orders DF IMG OUTSIDE IMG [address] [place] [address] Pierre Roberson MD, PhD 04/18/2025 Ancillary Orders DF IMG OUTSIDE IMG [address] [place] [address] Pierre Roberson MD, PhD 04/13/2025 Orders Only [facility] [address] 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 us Pierre Dash MD, PhD [facility] [facility] IMAG[facility] W/OUT INTERPRETATION Final Result PERCIPIO_[facility] * NM PET Whole Body Outside (No Interpretation) (04/09/2025 12:00 AM EDT) Other Narrative [facility] - 05/02/2025 10:37 AM EDT This study is for PACS storage only and not for interpretation. us Pierre Dash MD, PhD IMG OUTS [facility] W/OUT INTERPRETATION Final Result PERCIPIO_[facility] from Last 3 Months Insurance [facility] POS EPO [facility] E[facility] POS EPO [facility] POS EPO [facility] POS EPO Care Teams Managed Care Analyst Relationship Specialty Start Date End Date Gill Car PA [address] [place] [address] PCP - General Physician Machine Molder Squeeze 04/13/25 Self-Referred, Patient 04/13/25 Additional Source Comments The information contained in this document represents components of the legal health record. It is not the complete legal health record.[facility]
== END 2025-07-09 16:00 | disposition home or self-care (01) ==
LOC: HO.WFDLDS 15:59
PROVIDERS: Surgery Vascular Surgery; Visit Provider Internal Medicine
DX: I67.1 Cerebral aneurysm, nonruptured (principal); C80.1 Malignant (primary) neoplasm, unspecified; C77.9 Secondary and unspecified malignant neoplasm of lymph node, unspecified
CPT/HCPCS: 36415; 82565; 84520; 85025

== ENCOUNTER 2025-07-10 08:56 | Outpatient (AMB) | payer OTHER, SELFPAY ==
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
--- OUTSIDE RECORDS SUMMARY | 2025-07-10 09:31 | XMS_ITS | Clinical Summary ---
Author Organization [facility] Address [address] [address] Phone Care Team Providers Care Dermatology Procedural Physician Name Role Phone Gill Car PA-C Primary [...] Office Visit [facility] [address] [phone] Murray Beckham MD [address] [phone] Health Maintenance Due Date Last Done Comments Hepatitis B Vaccine (1 of 3 - 19+ 3-dose series) 04/05 Pneumococcal Vaccine: 50+ Years (1 of 2 - PCV) 985 Colorectal Cancer Screening: Annual FOBT 2015 Colorectal Cancer Screening: Colonoscopy 2015 Colorectal Cancer Screening: Sigmoidoscopy 2015 Influenza Vaccine (#1) 2025 Insurance [employer] Commercial Care Teams Dermatology Procedural Physician Relationship Specialty Start Date End Date Gill Car PA-C [address] [place] [address] PCP - General Physician Insulation Helper 12/08/24
--- OUTSIDE RECORDS SUMMARY | 2025-07-10 09:31 | XMS_ITS | Clinical Summary ---
Author Organization [facility] [address] [facility] Address [address] [place] [address] Phone Care Team Providers Care Senior Formulation Scientist Name Role Phone Physician, Pcp Unknown Primary Care Provider Charlotte vailable Encounters Date Type Department Care Team Description 04/09/2025 7:38 AM EDT - 04/09/2025 11:59 PM EDT Hospital Encounter [facility] PET Scan [address] [place] [address] Malignant neoplasm of urinary organ, [...] neoplasm of urinary organ, unspecified ([facility] V24, [facility] V28) from Last 3 Months [...] Signed Date: 04/10/2025 13:00 ET Workstation ID: [id number] Transcribed By: Self Edit Transcribed Date: 04/10/2025 [...] Signed Date: 04/10/2025 13:00 ET Workstation ID: [id number] Transcribed By: Self Edit Transcribed Date: 04/10/2025 12:53 ET Adelina MCALLISTERG NM PROCEDURES Final Result from Last 3 Months Insurance [employer] Care Teams Senior Formulation Scientist Relationship Specialty Start Date End Date Physician, Pcp Unknown PCP - General 10/24/24
--- OUTSIDE RECORDS SUMMARY | 2025-07-10 09:31 | XMS_ITS | Clinical Summary ---
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, with completed immunotherapy and planned [place]-based therapy; 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; 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; 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; 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 05/02/2025 Ancillary Orders DF IMG OUTSIDE IMG [address] [place] [address] Pierre Roberson MD, PhD 05/02/2025 Ancillary Orders DF IMG OUTSIDE IMG [address] [place] [address] Pierre Roberson MD, PhD 05/02/2025 Ancillary Orders DF IMG OUTSIDE IMG [address] [place] [address] Pierre Roberson MD, PhD 05/02/2025 Ancillary Orders DF IMG OUTSIDE IMG [address] [place] [address] Pierre Roberson MD, PhD 05/02/2025 Ancillary Orders DF IMG OUTSIDE IMG [address] [place] [address] Pierre Roberson MD, PhD 05/02/2025 Ancillary Orders DF IMG OUTSIDE IMG [address] [place] [address]89 Pierre Roberson MD, PhD 05/02/2025 Ancillary Orders DF IMG OUTSIDE IMG [address] [place] [address] Pierre Roberson MD, PhD 05/02/2025 Ancillary Orders DF IMG OUTSIDE IMG [address] [place] [address] Pierre Roberson MD, PhD 05/02/2025 Ancillary Orders DF IMG OUTSIDE IMG [address] [place] [address] Pierre Roberson MD, PhD 05/02/2025 Ancillary Orders DF IMG OUTSIDE IMG [address] [place] [address] Pierre Roberson MD, PhD 05/02/2025 Ancillary Orders DF IMG OUTSIDE IMG [address] [place] [address] Pierre Roberson MD, PhD 04/20/2025 12:25 PM EDT - 04/20/2025 11:59 PM EDT Hospital Encounter Central Pathology, [facility] [address] [address] Discharge Disposition: Home or Self Care 04/19/2025 Ancillary Procedure DF IMG OUTSIDE IMG [address] [place] [address] Pierre Roberson MD, PhD 04/18/2025 Ancillary Orders DF IMG OUTSIDE IMG [address] [place] [address] Pierre Roberson MD, PhD 04/18/2025 Ancillary Orders DF IMG OUTSIDE IMG [address] [place] [address] Pierre Roberson MD, PhD 04/18/2025 Ancillary Orders DF IMG OUTSIDE IMG [address] [place] [address] Pierre Roberson MD, PhD 04/18/2025 Ancillary Orders DF IMG OUTSIDE IMG [address] [place] [address] Pierre Roberson MD, PhD 04/13/2025 Orders Only [facility] [address] [facility], [address]th [place] [address] Pierre Roberson MD, PhD Malignant neoplasm of urinary bladder, unspecified site (Primary Dx) 04/09/2025 Ancillary Procedure DF IMG OUTSIDE IMG [address] [place] [address] Pierre Roberson MD, PhD from Last 3 [...] high school, GED, job training, learning the [place] language, technical skills, or developing parenting skills)? 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 us Pierre Dash MD, PhD IMG [facility] W/OUT INTERPRETATION Final Result [facility] * NM PET Whole Body Outside (No Interpretation) (04/09/2025 12:00 AM EDT) Other Narrative [facility] - 05/02/2025 10:37 AM EDT This study is for PACS storage only and not for interpretation. us Pierre Dash MD, PhD IMG OUTS [facility] W/OUT INTERPRETATION Final Result [facility] from Last 3 Months [facility] Care Teams Fiber Technician Relationship Specialty Start Date End Date Gill Car PA [address] [place] [address] PCP - General Physician Carpenter Mold 04/13/25 Self-Referred, Patient 04/13/25 Additional Source Comments The information contained in this document represents components of the legal health record. It is not the complete legal health record.[facility]
--- OUTSIDE RECORDS SUMMARY | 2025-07-10 09:31 | XMS_ITS | Encounter Summary ---
Author Organization [facility] Address [address] [place] [address] Care Team Providers Care Flight Agent Name Role Phone Physician, Pcp Unknown Primary Care Provider Charlotte vailable Encounter Details Date Type Department Care Team (Late st Contact Info) Description 10/24/2024 Lab Requisition [facility] - Main Lab [address] [facility] [place] [address] Evaristo Rouse MD [address] [facility] [address] [place] [phone] Gross hematuria Social History Tobacco Use Types [...] urothelial carcinoma. 10/31/2024 12:42 PM EDT [facility] ([facility]) [facility] Addendum electronically signed by Sean Islas MD on 10/31/2024 at 12:42 PM Final Diagnosis A. Urine, Voided, ([id number]): ATYPICAL UROTHELIAL CELLS. Note: UroVysion testing to follow. 10/31/2024 12:42 PM EDT [facility] Clinical Information Gross hematuria R31.0 Urine Cytology/FISH (now) 10/31/2024 12:42 PM EDT [facility] Gross Description A. Urine, Voided, ([id number]): Received one ThinPrep slide for cytology and one ThinPrep slide for UroVysion FISH 10/31/2024 12:42 PM EDT [facility] Disclaimer Unless otherwise specified, all tissue is 10% NB formalin fixed and paraffin embedded. Technical pathology services provided by [facility]rology at [address] [place] [address] [address], [place] [address] (CLIA #[id number]/Radha Seay MD, Living Supervisor) 10/31/2024 12:42 PM EDT [facility] Tissue Urine specimen from urethra / Unknown 10/19/2024 10/24/2024 4:17 PM EDT us Evaristo Rouse MD LAB PATHOLOGY ORDERABLES Edite d Result - Final [facility] [address] [place] [address], documented in this encounter Visit Diagnoses Diagnosis Gross hematuria documented in this encounter Care Teams Flight Agent Relationship Specialty Start Date End Date Physician, Pcp Unknown PCP - General 10/24/24 documented as of this encounter
== END 2025-07-10 09:43 | disposition home or self-care (01) ==
LOC: HO.HVS 08:57
PROVIDERS: PCP Physician Assistant; Visit Provider Surgery Vascular Surgery
DX: I67.1 Cerebral aneurysm, nonruptured (principal)
CPT/HCPCS: 99214

== ENCOUNTER 2025-07-16 14:47 | Outpatient (REF) | payer OTHER, SELFPAY ==
--- OUTSIDE RECORDS SUMMARY | 2025-07-16 18:06 | XMS_ITS | Clinical Summary ---
Author Organization [facility] Address [address] [address] Phone Care Team Providers Care Mason Foreman/Superintendant Name Role Phone Gill Car PA-C Primary [...] Office Visit [facility] [address] [phone] Murray Beckham MD [address] [phone] Health Maintenance Due Date Last Done Comments Hepatitis B Vaccine (1 of 3 - 19+ 3-dose series) 04/05 Pneumococcal Vaccine: 50+ Years (1 of 2 - PCV) 985 Colorectal Cancer Screening: Annual FOBT 2015 Colorectal Cancer Screening: Colonoscopy 2015 Colorectal Cancer Screening: Sigmoidoscopy 2015 Influenza Vaccine (#1) 2025 Insurance [employer] Commercial Care Teams Mason Foreman/Superintendant Relationship Specialty Start Date End Date Gill Car PA-C [address] [place] [address] PCP - General Physician Hair Machine Operator 12/08/24
--- OUTSIDE RECORDS SUMMARY | 2025-07-16 18:06 | XMS_ITS | Clinical Summary ---
Author Organization [facility] Address [address] [place] [address] Phone Care Team Providers Care Book Jogger Name Role Phone Physician, Pcp Unknown Primary [...] complete this topic Insurance A[employer] Care Teams Book Jogger Relationship Specialty Start Date End Date Physician, Pcp Unknown PCP - General 10/24/24
--- OUTSIDE RECORDS SUMMARY | 2025-07-16 18:06 | XMS_ITS | Encounter Summary ---
Author Organization [facility] Address [address] [place] [address] Care Team Providers Care Accelerator Systems Director Name Role Phone Physician, Pcp Unknown Primary Care Provider Charlotte vailable Encounter Details Date Type Department Care Team (Late st Contact Info) Description 10/24/2024 Lab Requisition [facility] - Main Lab [address] [facility] [place] [address] Evaristo Rouse MD [address] [facility] [address] [place] [phone] Gross hematuria Social History Tobacco Use Types [...] for urothelial carcinoma. 10/31/2024 12:42 PM EDT [facility] ([facility]) [facility] Addendum electronically signed by Sean Islas MD on 10/31/2024 at 1242 EDT Final Diagnosis A. Urine, Voided, ([id number]): ATYPICAL UROTHELIAL CELLS. Note: UroVysion testing to follow. 10/31/2024 12:42 PM EDT [facility] at 1655 EDT Clinical Information Gross hematuria R31.0 Urine Cytology/FISH (now) 10/31/2024 12:42 PM EDT [facility] Gross Description A. Urine, Voided, ([id number]): Received one ThinPrep slide for cytology and one ThinPrep slide for UroVysion FISH 10/31/2024 12:42 PM EDT [facility] Disclaimer Unless otherwise specified, all tissue is 10% NB formalin fixed and paraffin embedded. Technical pathology services provided by [facility] at [address] [facility] [address], [place] [address] (CLIA #[id number]/Radha Seay MD, Electrical Hardware Engineer) 10/31/2024 12:42 PM EDT [facility] Tissue Urine specimen from urethra / Unknown 10/19/2024 10/24/2024 4:17 PM EDT us Evaristo Rouse MD LAB PATHOLOGY ORDERABLES Edite d Result - Final [facility] [address] [place] [address], documented in this encounter Visit Diagnoses Diagnosis Gross hematuria documented in this encounter Care Teams Accelerator Systems Director Relationship Specialty Start Date End Date Physician, Pcp Unknown PCP - General 10/24/24 documented as of this encounter
[2025-07-16 18:32] LABS: MANUAL DIFF FLAG NO
[2025-07-16 19:04] LABS: Hematocrit 30.1 % (42.0-52.0); Hemoglobin 10.0 g/dl (14.0-18.0); Imm Gran Abs Auto 0.01 X10*3/uL (0.00-0.03); Imm Gran Pct Auto 0.2 % (0.0-0.4); Lymphocytes Absolute Auto 0.8 X10*3/uL (1.2-4.9); Mean Corpuscular HGB Conc 33.2 g/dl (31.0-36.0); Mean Corpuscular Hemoglobin 33.0 pg (27.0-33.0); Mean Corpuscular Volume 99.3 fL (80.0-98.0); NRBC Abs Auto 0.000 X10*3/uL (0.0-0.012); NRBC Pct Auto 0.0 /100WBC (0.0-0.2); Platelet Count 421 X10*3/uL (160-400); Red Blood Count 3.03 X10*6/uL (4.60-5.80); White Blood Count 4.9 X10*3/uL (4.8-10.8)
[2025-07-16 19:53] LABS: Alanine Aminotransferase 31 U/L (0-40); Albumin Level 4.8 g/dL (3.5-5.0); Alkaline Phosphatase 98 U/L (39-117); Anion Gap 11 (12-20); Aspartate Amino Transferase 38 U/L (5-37); Blood Urea Nitrogen 38 mg/dL (9-16); Calcium 9.3 mg/dL (8.4-10.2); Carbon Dioxide 24 mmol/L (22-29); Chloride 107 mmol/L (96-108); Estimated Glomerular Filt Rate 60; Potassium 4.8 mmol/L (3.3-5.1); Sodium 137 mmol/L (135-145); Total Protein 7.4 g/dL (6.5-8.0)
[2025-07-16 20:08] LABS: Thyroid Stimulating Hormone 1.71 uIU/mL (0.32-4.0)
== END 2025-07-16 14:48 | disposition home or self-care (01) ==
LOC: HO.WFDLDS 14:47
PROVIDERS: Visit Provider Internal Medicine
DX: Z13.29 Encounter for screening for other suspected endocrine disorder (principal); C67.9 Malignant neoplasm of bladder, unspecified
CPT/HCPCS: 36415; 80053; 84443; 85025

== ENCOUNTER 2025-07-30 15:23 | Outpatient (REF) | payer OTHER, SELFPAY ==
[2025-07-30 18:07] LABS: MANUAL DIFF FLAG NO
[2025-07-30 18:14] LABS: Hematocrit 32.8 % (42.0-52.0); Hemoglobin 10.9 g/dl (14.0-18.0); Imm Gran Abs Auto 0.04 X10*3/uL (0.00-0.03); Imm Gran Pct Auto 0.7 % (0.0-0.4); Lymphocytes Absolute Auto 1.0 X10*3/uL (1.2-4.9); Mean Corpuscular HGB Conc 33.2 g/dl (31.0-36.0); Mean Corpuscular Hemoglobin 34.5 pg (27.0-33.0); Mean Corpuscular Volume 103.8 fL (80.0-98.0); NRBC Abs Auto 0.000 X10*3/uL (0.0-0.012); NRBC Pct Auto 0.0 /100WBC (0.0-0.2); Platelet Count 258 X10*3/uL (160-400); Red Blood Count 3.16 X10*6/uL (4.60-5.80); White Blood Count 5.8 X10*3/uL (4.8-10.8)
[2025-07-30 18:55] LABS: Alanine Aminotransferase 30 U/L (0-40); Albumin Level 4.8 g/dL (3.5-5.0); Alkaline Phosphatase 100 U/L (39-117); Anion Gap 13 (12-20); Aspartate Amino Transferase 35 U/L (5-37); Blood Urea Nitrogen 24 mg/dL (9-16); Calcium 9.5 mg/dL (8.4-10.2); Carbon Dioxide 24 mmol/L (22-29); Chloride 107 mmol/L (96-108); Estimated Glomerular Filt Rate 45; Potassium 4.7 mmol/L (3.3-5.1); Sodium 139 mmol/L (135-145); Thyroid Stimulating Hormone 0.98 uIU/mL (0.32-4.0); Total Protein 7.5 g/dL (6.5-8.0)
--- OUTSIDE RECORDS SUMMARY | 2025-07-30 21:52 | XMS_ITS | Clinical Summary ---
Author Organization [facility] Address [address] [place] [address] Phone Care Team Providers Care City Detective Name Role Phone Physician, Pcp Unknown Primary [...] complete this topic Insurance AET[employer] Care Teams City Detective Relationship Specialty Start Date End Date Physician, Pcp Unknown PCP - General 10/24/24
--- OUTSIDE RECORDS SUMMARY | 2025-07-30 21:52 | XMS_ITS | Clinical Summary ---
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, with completed immunotherapy and planned [place]-based therapy; 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; 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; 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; 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 05/02/2025 Ancillary Orders DF IMG OUTSIDE IMG [address] [place] [address] Pierre Roberson MD, PhD 05/02/2025 Ancillary Orders DF IMG OUTSIDE IMG [address] [place] [address] Pierre Roberson MD, PhD 05/02/2025 Ancillary Orders DF IMG OUTSIDE IMG [address] [place] [address] Pierre Roberson MD, PhD 05/02/2025 Ancillary Orders DF IMG OUTSIDE IMG [address] [place] [address] Pierre Roberson MD, PhD 05/02/2025 Ancillary Orders DF IMG OUTSIDE IMG [address] [place] [address] Pierre Roberson MD, PhD 05/02/2025 Ancillary Orders DF IMG OUTSIDE IMG [address] [place] [address] Pierre Roberson MD, PhD 05/02/2025 Ancillary Orders DF IMG OUTSIDE IMG [address] [place] [address] Pierre Robreson MD, PhD 05/02/2025 Ancillary Orders DF IMG OUTSIDE IMG [address] [place] [address] Pierre Roberson MD, PhD 05/02/2025 Ancillary Orders DF IMG OUTSIDE IMG [address] [place] [address] Pierre Roberson MD, PhD 05/02/2025 Ancillary Orders DF IMG OUTSIDE IMG [address] [place] [address] Pierre Roberson MD, PhD 05/02/2025 Ancillary Orders DF IMG OUTSIDE IMG [address] [place] [address] Pierre Roberson MD, PhD from Last 3 [...] high school, GED, job training, learning the [place]ian language, technical skills, or developing parenting skills)? [...] your housing situation today? 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 It is not the complete legal health record.[facility]
--- OUTSIDE RECORDS SUMMARY | 2025-07-30 21:52 | XMS_ITS | Encounter Summary ---
Author Organization [facility] Address [address] [place] [address] Care Team Providers Care Numerical Control Programmer Name Role Phone Physician, Pcp Unknown Primary Care Provider Charlotte vailable Encounter Details Date Type Department Care Team (Late st Contact Info) Description 10/24/2024 Lab Requisition [facility] - Main Lab [address] [facility] [place] [address] Evaristo Rouse MD [address] [facility] [address] [place] [phone] Gross hematuria Social History Tobacco Use Types [...] carcinoma. 10/31/2024 12:42 PM EDT [facility] ([facility]) [facility] Addendum electronically signed by Sean Islas MD on 10/31/2024 at 1242 EDT Final Diagnosis A. Urine, Voided, ([id number]): ATYPICAL UROTHELIAL CELLS. Note: UroVysion testing to follow. 10/31/2024 12:42 PM EDT [facility] at 1655 EDT Clinical Information Gross hematuria R31.0 Urine Cytology/FISH (now) 10/31/2024 12:42 PM EDT [facility] Gross Description A. Urine, Voided, ([id number]): Received one ThinPrep slide for cytology and one ThinPrep slide for UroVysion FISH 10/31/2024 12:42 PM EDT [facility] Disclaimer Unless otherwise specified, all tissue is 10% NB formalin fixed and paraffin embedded. Technical pathology services provided by [facility]rology at [address] [facility] [place] [address], [place] [address] (CLIA #[id number]/Radha Seay MD, Ampoule Washing Machine Operator) 10/31/2024 12:42 PM EDT [facility] Tissue Urine specimen from urethra / Unknown 10/19/2024 10/24/2024 4:17 PM EDT us Evaristo Rouse MD LAB PATHOLOGY ORDERABLES Edite d Result - Final [facility] [address] [place] [address], documented in this encounter Visit Diagnoses Diagnosis Gross hematuria documented in this encounter Care Teams Numerical Control Programmer Relationship Specialty Start Date End Date Physician, Pcp Unknown PCP - General 10/24/24 documented as of this encounter
== END 2025-07-30 15:24 | disposition home or self-care (01) ==
LOC: HO.WFDLDS 15:23
PROVIDERS: Visit Provider Internal Medicine
DX: Z13.29 Encounter for screening for other suspected endocrine disorder (principal); C67.9 Malignant neoplasm of bladder, unspecified
CPT/HCPCS: 36415; 80053; 84443; 85025

== ENCOUNTER 2025-08-06 15:24 | Outpatient (REF) | payer OTHER, SELFPAY ==
[2025-08-06 18:18] LABS: MANUAL DIFF FLAG NO
[2025-08-06 18:22] LABS: Hematocrit 30.7 % (42.0-52.0); Hemoglobin 10.2 g/dl (14.0-18.0); Imm Gran Abs Auto 0.04 X10*3/uL (0.00-0.03); Imm Gran Pct Auto 0.9 % (0.0-0.4); Lymphocytes Absolute Auto 1.5 X10*3/uL (1.2-4.9); Mean Corpuscular HGB Conc 33.2 g/dl (31.0-36.0); Mean Corpuscular Hemoglobin 35.3 pg (27.0-33.0); Mean Corpuscular Volume 106.2 fL (80.0-98.0); NRBC Abs Auto 0.000 X10*3/uL (0.0-0.012); NRBC Pct Auto 0.0 /100WBC (0.0-0.2); Platelet Count 381 X10*3/uL (160-400); Red Blood Count 2.89 X10*6/uL (4.60-5.80); White Blood Count 4.7 X10*3/uL (4.8-10.8)
--- OUTSIDE RECORDS SUMMARY | 2025-08-06 18:27 | XMS_ITS | Clinical Summary ---
Author Organization [facility] Address [address] [place] [address] Phone Care Team Providers Care Acrobatic Dancer Name Role Phone Physician, Pcp Unknown Primary [...] complete this topic Insurance AETNA Care Teams Acrobatic Dancer Relationship Specialty Start Date End Date Physician, Pcp Unknown PCP - General 10/24/24
--- OUTSIDE RECORDS SUMMARY | 2025-08-06 18:27 | XMS_ITS | Clinical Summary ---
Author Organization [facility] Address [address] [place] [address] Phone Care Team Providers Care Sports Umpire Name Role Phone Gill Car Primary Care Provider +1- [phone] Self-Referred, Patient Unavailable Unavailab le Allergies No [...] Lymphadenopathy 12/08/2024 Seizure 12/08/2024 Inguinal hernia 11/17/2024 Family History Medical History Relation Comments Head and neck cancer Maternal Uncle Relation Status Comments Maternal Uncle Alive Social History Tobacco Use Types Packs/Day Years Used Date Smoking Tobacco: Former Cigarettes 1.5 15.3 S tarted: 05/01/2010 Tobacco Cessation:Counseling Given: Not [...] high school, GED, job training, learning the [place]er language, technical skills, or developing parenting skills)? [...] is your housing situation today? 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 It is not the complete legal health record.[facility]
--- OUTSIDE RECORDS SUMMARY | 2025-08-06 18:27 | XMS_ITS | Encounter Summary ---
Author Organization [facility] Address [address] [place] [address] Care Team Providers Care Heel Slugger Name Role Phone Physician, Pcp Unknown Primary Care Provider Charlotte vailable Encounter Details Date Type Department Care Team (Late st Contact Info) Description 10/24/2024 Lab Requisition [facility] - Main Lab [address] [facility] [place] [address] Evaristo Rouse MD [address] [facility] 120 [place] [phone] Gross hematuria Social History Tobacco Use Types [...] for urothelial carcinoma. 10/31/2024 12:42 PM EDT [facility] ([facility] Addendum electronically signed by Sean Islas MD on 10/31/2024 at 1242 EDT Final Diagnosis A. Urine, Voided, ([id number]): ATYPICAL UROTHELIAL CELLS. Note: UroVysion testing to follow. 10/31/2024 12:42 PM EDT [facility] at 1655 EDT Clinical Information Gross hematuria R31.0 Urine Cytology/FISH (now) 10/31/2024 12:42 PM EDT [facility] Gross Description A. Urine, Voided, ([id number]): Received one ThinPrep slide for cytology and one ThinPrep slide for UroVysion FISH 10/31/2024 12:42 PM EDT [facility] Disclaimer Unless otherwise specified, all tissue is 10% NB formalin fixed and paraffin embedded. Technical pathology services provided by [facility] at [address] [facility] [address], [place] [address] (CLIA #[id number]/Radha Seay MD, Manager Of Supply Chain) 10/31/2024 12:42 PM EDT [facility] Tissue Urine specimen from urethra / Unknown 10/19/2024 10/24/2024 4:17 PM EDT us Evaristo Rouse MD LAB PATHOLOGY ORDERABLES Edite d Result - Final [facility] [address] [place] [address], documented in this encounter Visit Diagnoses Diagnosis Gross hematuria documented in this encounter Care Teams Heel Slugger Relationship Specialty Start Date End Date Physician, Pcp Unknown PCP - General 10/24/24 documented as of this encounter
--- OUTSIDE RECORDS SUMMARY | 2025-08-06 18:27 | XMS_ITS | Clinical Summary ---
Author Organization [facility] Address [address] [address] Phone Care Team Providers Care Finish Mender Name Role Phone Gill Car PA-C Primary [...] Office Visit [facility] [address] [phone] Murray Beckham MD [address] [phone] Health Maintenance Due Date Last Done Comments Hepatitis B Vaccine (1 of 3 - 19+ 3-dose series) 04/05 Pneumococcal Vaccine: 50+ Years (1 of 2 - PCV) 985 Colorectal Cancer Screening: Annual FOBT 2015 Colorectal Cancer Screening: Colonoscopy 2015 Colorectal Cancer Screening: Sigmoidoscopy 2015 Influenza Vaccine (#1) 2025 Insurance [employer] Commercial Care Teams Finish Mender Relationship Specialty Start Date End Date Gill Car PA-C [address] [place] [address] PCP - General Physician Replanting Machine Crew 12/08/24
[2025-08-06 18:38] LABS: Alanine Aminotransferase 54 U/L (0-40); Albumin Level 4.6 g/dL (3.5-5.0); Alkaline Phosphatase 103 U/L (39-117); Anion Gap 13 (12-20); Aspartate Amino Transferase 54 U/L (5-37); Blood Urea Nitrogen 25 mg/dL (9-16); Calcium 9.3 mg/dL (8.4-10.2); Carbon Dioxide 25 mmol/L (22-29); Chloride 107 mmol/L (96-108); Estimated Glomerular Filt Rate 42; Potassium 5.0 mmol/L (3.3-5.1); Sodium 140 mmol/L (135-145); Total Protein 7.1 g/dL (6.5-8.0)
== END 2025-08-06 15:25 | disposition home or self-care (01) ==
LOC: HO.WFDLDS 15:24
PROVIDERS: Visit Provider Internal Medicine
DX: C67.9 Malignant neoplasm of bladder, unspecified (principal)
CPT/HCPCS: 36415; 80053; 85025